=== PATIENT | male | born 1950 | race Caucasian/White ===

== ENCOUNTER 2020-12-19 10:53 | Emergency (ER) | payer MEDICARE, OTHER ==
[2020-12-19 11:08] VITALS: BP 147/100; PULSE 97
--- NOTE | 2020-12-19 11:45 | CR ---
Chest: Portable view of the chest was obtained. Comparison: Prior chest x-ray on 09/15/15. Slight areas of parenchymal change are noted within the left mid and lower lung. Minimal density is noted within the right lower lung. Heart size and mediastinum are normal. Mild degenerative spurring and disc space narrowing is partially seen within the thoracic spine. Impression: 1. Slight areas of parenchymal density are seen. Please correlate if patient has infectious symptoms for this to represent mild areas of pneumonia. Findings otherwise are due to atelectasis. 2. Other findings are felt to be incidental as described above. Diagnostic code #3
[2020-12-19] MEDS ORDERED: Albuterol/Ipratropium 3.0-0.5 MG/3 ML Neb Soln NEB ONE (12:08)
[2020-12-19] MEDS ORDERED: Aspirin 81 MG Tab.Chew PO ONE (12:09)
[2020-12-19] MEDS ORDERED: Sodium Chloride 0.9% 1,000 ML IV STA ×2 (12:14→12:57)
[2020-12-19] MEDS ORDERED: Furosemide 40 MG/4 ML VIAL IVPUSH ONE (12:17)
[2020-12-19] MEDS ORDERED: Insulin Lispro 100 UNIT/ML 10 ML Vial SUBCUT ONE (12:24)
--- NOTE | 2020-12-19 12:29 | EDM.PDOC ---
ED HPI GENERAL MEDICAL PROBLEM - General Chief Complaint: Respiratory Problem Stated Complaint: [facility] Time Seen by Provider: 12/19/20 11:50 Source of Information: Reports: Patient, RN Notes Reviewed History Limitations: Reports: No Limitations - History of Present Illness INITIAL COMMENTS - FREE TEXT/NARRATIVE: Patient is a 70-year-old male presenting to the emergency department via [facility] with complaints of onset of acute shortness of breath and chest pain while mowing the lawn today. He reports that he has been very fatigued for the last few days. He has been "mowing the lawn for the last 2 days ". He has had to stop numerous times due to fatigue and shortness of breath. He reports that over the last week he has been suffering from a "head cold" which improved a few days ago. He has had no fever chills but did have some diarrhea. He is a type II diabetic and states that his blood sugars have been very poorly controlled for quite some time. Reports blood sugars in the 300s quite frequently. He is taken toujeo 35 units twice daily as well as Humalog sliding scale. Blood sugar this morning was 196 and he took 4 units of Humalog prior to eating breakfast. He denies any history of AL or congestive heart failure. States in 2016 he was admitted for high blood sugars. At that time there was concern that he may have had a heart attack as he had elevated troponins, however he was sent to [place] for complete cardiac work-up and no abnormalities were found. His primary care provider is Dr. Collins. He saw him about 1 week ago and there were no concerns. Chest Pain Score (Numeric/FACES): 8 - Related Data Allergies Allergy/AdvReac Type Severity Reaction Status Date / Time No Known Allergies Allergy Verified 09/15/15 13:23 Home Meds: Home Meds Insulin Aspart [NovoLOG] 3 unit SQ ASDIRECTED 12/19/20 [History] Insulin Glargine,Hum.Rec.Anlog [Toujeo Solostar] 85 units SQ DAILY 12/19/20 [History] Pantoprazole Sodium [Protonix] 40 mg PO DAILY 12/19/20 [History] atorvaSTATin [Lipitor] 20 mg PO BEDTIME 12/19/20 [History] glipiZIDE [Glipizide ER] 5 mg PO DAILY 12/19/20 [History] hydroCHLOROthiazide [Hydrochlorothiazide] 25 mg PO DAILY 12/19/20 [History] lisinopriL [Lisinopril] 40 mg PO DAILY 12/19/20 [History] Past Medical History - Past Health History Medical/Surgical History: Denies Medical/Surgical History HEENT History: Reports: None Cardiovascular History: Reports: None Respiratory History: Reports: None Gastrointestinal History: Reports: Other (See Below) Other Gastrointestinal History: hernia Genitourinary History: Reports: None Musculoskeletal History: Reports: None Neurological History: Reports: None Psychiatric History: Reports: None Endocrine/Metabolic History: Reports: None Hematologic History: Reports: None Dermatologic History: Reports: None - Past Surgical History Head Surgeries/Procedures: Reports: None HEENT Surgical History: Reports: None Cardiovascular Surgical History: Reports: None Respiratory Surgical History: Reports: None GI Surgical History: Reports: Hernia Repair/Other Male Surgical History: Reports: None Endocrine Surgical History: Reports: None Neurological Surgical History: Reports: None Musculoskeletal Surgical History: Reports: None Oncologic Surgical History: Reports: None Dermatological Surgical History: Reports: None Social & Family History - Family History Family Medical History: No Pertinent Family History Cardiac: Reports: AL Endocrine/Metabolic: Reports: Diabetes, type II - Tobacco Use Tobacco Use Status *Q: Never Tobacco User ED ROS GENERAL - Review of Systems Review Of Systems: See Below Constitutional: Reports: Weakness, Fatigue. Denies: Fever, Chills HEENT: Reports: No Symptoms Respiratory: Reports: Shortness of Breath, Wheezing, Pleuritic Chest Pain. Denies: Cough Cardiovascular: Reports: Chest Pain, Dyspnea on Exertion. Denies: Lightheadedness, Palpitations, Syncope Endocrine: Reports: High Glucose GI/Abdominal: Reports: No Symptoms. Denies: Abdominal Pain, Diarrhea, Nausea, Vomiting ED EXAM, GENERAL - Physical Exam Exam: See Below Exam Limited By: No Limitations General Appearance: Alert, WD/WN, No Apparent Distress Respiratory/Chest: No Respiratory Distress, Normal Breath Sounds, No Accessory Muscle Use, Chest Non-Tender, Crackles (bilateral lower lobes). No: Wheezing Cardiovascular: Normal Peripheral Pulses, Regular Rate, Rhythm, No Edema, No Gallop, No JVD, No Murmur, No Rub GI/Abdominal: Normal Bowel Sounds, Soft, Non-Tender, No Organomegaly, No Distention, No Abnormal Bruit, No Mass Neurological: Alert, Oriented, CN II-XII Intact, Normal Cognition, Normal Gait, Normal Reflexes, No Motor/Sensory Deficits Psychiatric: Normal Affect, Normal Mood Skin Exam: Warm, Dry, Intact, Normal Color, No Rash #1 Interpretation EKG Date: 12/19/20 Time: 11:08 Rhythm: NSR Rate (Beats/Min): 92 Wiggins: Normal P-Wave: Present QRS: Normal ST-T: Normal QT: Prolonged (minimally) EKG Interpretation Comments: Sinus rhythm at 92/min Left atrial hypertrophy Borderline criteria for left ventricular hypertrophy QTC minimally prolonged EKG interpreted by Dr. Karen SCOTT Course - Vital Signs Last Recorded V/S: Last Vital Signs Temp 97.9 F 12/19/20 11:03 Pulse 97 12/19/20 11:03 Resp 18 12/19/20 11:03 BP 147/100 H 12/19/20 11:03 Pulse Ox 99 12/19/20 12:08 - Orders/Labs/Meds Labs: Laboratory Tests 12/19/20 12/19/20 12/19/20 Range/Units 11:33 11:33 11:33 WBC 6.22 (4.23-9.07) K/mm3 RBC 5.11 (4.63-6.08) M/mm3 Hgb 15.5 (13.7-17.5) gm/dl Hct 45.2 (40.1-51.0) % MCV 88.5 (79.0-92.2) fl MCH 30.3 (25.7-32.2) pg MCHC 34.3 (32.2-35.5) g/dl RDW Std Deviation 42.1 (35.1-43.9) fL Plt Count 173 (163-337) K/mm3 MPV 10.1 (9.4-12.3) fl Neut % (Auto) 75.5 H (34.0-67.9) % Lymph % (Auto) 14.3 L (21.8-53.1) % [place] % (Auto) 9.3 (5.3-12.2) % Eos % (Auto) 0.2 L (0.8-7.0) Baso % (Auto) 0.2 (0.1-1.2) % Neut # (Auto) 4.70 (1.78-5.38) K/mm3 Lymph # (Auto) 0.89 L (1.32-3.57) K/mm3 [place] # (Auto) 0.58 (0.30-0.82) K/mm3 Eos # (Auto) 0.01 L (0.04-0.54) K/mm3 Baso # (Auto) 0.01 (0.01-0.08) K/mm3 D-Dimer, Quantitative 0.73 H (0.19-0.50) mg/L Sodium 130 L D (136-145) mEq/L Potassium 5.2 H (3.5-5.1) mEq/L Chloride 96 L D (98-107) mEq/L Carbon Dioxide 17 L (21-32) mEq/L Anion Gap 22.2 H (5-15) BUN 106 H D (7-18) mg/dL Creatinine 5.6 H D (0.7-1.3) mg/dL Est Cr Clr Drug Dosing TNP Estimated GFR (MDRD) 10 (>60) mL/min BUN/Creatinine Ratio 18.9 H (14-18) Glucose 493 H* (70-99) mg/dL POC Glucose (70-99) mg/dL Lactic Acid (0.4-2.0) mmol/L Calcium 8.4 L (8.5-10.1) mg/dL Total Bilirubin 0.3 (0.2-1.0) mg/dL AST 36 (15-37) U/L ALT 58 (16-63) U/L Alkaline Phosphatase 59 (46-116) U/L Troponin I 0.166 H* (0.00-0.056) ng/mL NT-Pro-B Natriuret Pep (0-125) pg/mL Total Protein 7.6 (6.4-8.2) g/dl Albumin 2.9 L (3.4-5.0) g/dl Globulin 4.7 gm/dL Albumin/Globulin Ratio 0.6 L (1-2) Ketones (0.0-0.3) mM SARS-CoV-2 RNA (LARA) (NEGATIVE) 12/19/20 12/19/20 12/19/20 Range/Units 11:33 11:33 12:05 WBC (4.23-9.07) K/mm3 RBC (4.63-6.08) M/mm3 Hgb (13.7-17.5) gm/dl Hct (40.1-51.0) % MCV (79.0-92.2) fl MCH (25.7-32.2) pg MCHC (32.2-35.5) g/dl RDW Std Deviation (35.1-43.9) fL Plt Count (163-337) K/mm3 MPV (9.4-12.3) fl Neut % (Auto) (34.0-67.9) % Lymph % (Auto) (21.8-53.1) % [place] % (Auto) (5.3-12.2) % Eos % (Auto) (0.8-7.0) Baso % (Auto) (0.1-1.2) % Neut # (Auto) (1.78-5.38) K/mm3 Lymph # (Auto) (1.32-3.57) K/mm3 [place] # (Auto) (0.30-0.82) K/mm3 Eos # (Auto) (0.04-0.54) K/mm3 Baso # (Auto) (0.01-0.08) K/mm3 D-Dimer, Quantitative (0.19-0.50) mg/L Sodium (136-145) mEq/L Potassium (3.5-5.1) mEq/L Chloride (98-107) mEq/L Carbon Dioxide (21-32) mEq/L Anion Gap (5-15) BUN (7-18) mg/dL Creatinine (0.7-1.3) mg/dL Est Cr Clr Drug Dosing Estimated GFR (MDRD) (>60) mL/min BUN/Creatinine Ratio (14-18) Glucose (70-99) mg/dL POC Glucose (70-99) mg/dL Lactic Acid (0.4-2.0) mmol/L Calcium (8.5-10.1) mg/dL Total Bilirubin (0.2-1.0) mg/dL AST (15-37) U/L ALT (16-63) U/L Alkaline Phosphatase (46-116) U/L Troponin I (0.00-0.056) ng/mL NT-Pro-B Natriuret Pep 83 (0-125) pg/mL Total Protein (6.4-8.2) g/dl Albumin (3.4-5.0) g/dl Globulin gm/dL Albumin/Globulin Ratio (1-2) Ketones 0.34 (0.0-0.3) mM SARS-CoV-2 RNA (LARA) Positive H (NEGATIVE) 12/19/20 12/19/20 Range/Units 12:32 14:15 WBC (4.23-9.07) K/mm3 RBC (4.63-6.08) M/mm3 Hgb (13.7-17.5) gm/dl Hct (40.1-51.0) % MCV (79.0-92.2) fl MCH (25.7-32.2) pg MCHC (32.2-35.5) g/dl RDW Std Deviation (35.1-43.9) fL Plt Count (163-337) K/mm3 MPV (9.4-12.3) fl Neut % (Auto) (34.0-67.9) % Lymph % (Auto) (21.8-53.1) % [place] % (Auto) (5.3-12.2) % Eos % (Auto) (0.8-7.0) Baso % (Auto) (0.1-1.2) % Neut # (Auto) (1.78-5.38) K/mm3 Lymph # (Auto) (1.32-3.57) K/mm3 [place] # (Auto) (0.30-0.82) K/mm3 Eos # (Auto) (0.04-0.54) K/mm3 Baso # (Auto) (0.01-0.08) K/mm3 D-Dimer, Quantitative (0.19-0.50) mg/L Sodium (136-145) mEq/L Potassium (3.5-5.1) mEq/L Chloride (98-107) mEq/L Carbon Dioxide (21-32) mEq/L Anion Gap (5-15) BUN (7-18) mg/dL Creatinine (0.7-1.3) mg/dL Est Cr Clr Drug Dosing Estimated GFR (MDRD) (>60) mL/min BUN/Creatinine Ratio (14-18) Glucose (70-99) mg/dL POC Glucose 549 H* (70-99) mg/dL Lactic Acid 1.4 (0.4-2.0) mmol/L Calcium (8.5-10.1) mg/dL Total Bilirubin (0.2-1.0) mg/dL AST (15-37) U/L ALT (16-63) U/L Alkaline Phosphatase (46-116) U/L Troponin I (0.00-0.056) ng/mL NT-Pro-B Natriuret Pep (0-125) pg/mL Total Protein (6.4-8.2) g/dl Albumin (3.4-5.0) g/dl Globulin gm/dL Albumin/Globulin Ratio (1-2) Ketones (0.0-0.3) mM SARS-CoV-2 RNA (LARA) (NEGATIVE) Meds: Medications Discontinued Medications Generic Name Dose Route Start Last Admin Trade Name Freq PRN Reason Stop Dose Admin Albuterol/Ipratropium 3 ml 12/19/20 12:08 12/19/20 12:27 Albuterol/Ipratropium 3.0-0.5 Mg/3 Ml Neb Soln NEB 12/19/20 12:09 3 ml ONETIME ONE Administration Aspirin 243 mg 12/19/20 12:09 12/19/20 12:52 Aspirin 81 Mg Tab.Chew PO 12/19/20 12:10 243 mg ONETIME ONE Administration Furosemide 80 mg 12/19/20 12:17 12/19/20 12:52 Furosemide 40 Mg/4 Ml Vial IVPUSH 12/19/20 12:18 80 mg NOW ONE Administration Sodium Chloride 1,000 mls @ 999 mls/hr 12/19/20 12:14 Normal Saline IV 12/19/20 13:14 NOW STA Sodium Chloride 1,000 mls @ 100 mls/hr 12/19/20 12:57 12/19/20 14:28 Normal Saline IV 12/19/20 22:56 100 mls/hr NOW STA Administration Insulin Human Lispro 12 unit 12/19/20 12:24 Insulin Lispro 100 Unit/Ml 10 Ml Vial SUBCUT 12/19/20 12:25 ONETIME ONE Insulin Human Regular 12 unit 12/19/20 12:36 12/19/20 12:52 Insulin Regular, Human 100 Units/Ml 3 Ml Vial SUBCUT 12/19/20 12:37 12 unit ONETIME ONE Administration Insulin Human Regular 12 unit 12/19/20 14:20 12/19/20 14:28 Insulin Regular, Human 100 Units/Ml 3 Ml Vial SUBCUT 12/19/20 14:21 12 unit ONETIME ONE Administration - Re-Assessments/Exams Free Text/Narrative Re-Assessment/Exam: 12/19/20 12:35 Hematology was significant for sodium low at 130, potassium elevated at 5.2, chloride 96, CO2 17, anion gap 22.2, BUN 106, creatinine 5.6, GFR 10, glucose 493, troponin 0 0.166. On exam, patient does have crackles to the bilateral lower lobes. He denies any chest pain at this time but does have some di scomfort with taking a deep breath. Chest x-ray shows slight areas of parenchymal density. Please correlate if patient has infectious symptoms for this to represent mild areas of pneumonia. Findings otherwise noted atelectasis. Patient's labs indicate that he is in renal failure and his shortness of breath is likely due to fluid overload. I have added on a proBNP, D-dimer, lactic acid, and serum ketones. Case discussed with Dr. Jones. He recommend giving Lasix 80 mg IV now as well as Humalog 12 units subcutaneous. Patient will need to go to [place] once results are available. Discussed this with patient and he prefers [facility] in [place]. 12/19/20 1300 Spoke with hospitalist at [facility], . He recommended we start IV fluids of NS at 100 mils per hour. Requested I speak to cardiology to ensure that they do not want him started on a heparin drip. Spoke with print color operator, Dr. Mejia. She did not recommend starting heparin drip as he is not actively having chest pain. Patient will be transferred to [place] via [facility]. I have ordered IV fluids of NS at 100 mill per hour to be started. We will plan to recheck his blood sugar approximately 1 hour from insulin administration. 12/19/20 14:17 Patient was found to be Covid positive. Repeat blood glucose was 549. I have ordered an additional 12 units of regular insulin to be given subcutaneously. Patient is departing ER now for transfer to [place]. I will have EMS recheck blood glucose at 1450. Called [facility] and spk with Jose Luis to update him on blood glucose and insulin administration. He will update the hospitalist. Departure - Departure Time of Disposition: 13:00 Disposition: DC/Tfer to Acute Hospital 02 Condition: Fair Clinical Impression: COVID-19, Elevated troponin level not due myocardial infarction Acute on chronic renal failure Qualifiers: Acute renal failure type: unspecified Chronic kidney disease stage: stage 5, not on chronic dialysis Qualified Code(s): N17.9 - Acute kidney failure, unspecified - Discharge Information Referrals: Ke Barksdale MD [Primary Care Provider] - Forms: ED Department Discharge Sepsis Event Note (ED) - Evaluation Sepsis Screening Result: No Definite Risk - Focused Exam Vital Signs: Vital Signs Temp Pulse Resp BP Pulse Ox Pulse Ox 12/19/20 12:08 99 12/19/20 11:03 97.9 F 97 18 147/100 H 94 L
[2020-12-19] MEDS ORDERED: Insulin Regular, Human 100 Units/ML 3 ML Vial SUBCUT ONE ×2 (12:36→14:20)
== END 2020-12-19 14:30 ==
LOC: JD.ED 10:53
DX: U07.1 COVID-19 (principal); N17.9 Acute kidney failure, unspecified; R79.89 Other specified abnormal findings of blood chemistry
CPT/HCPCS: 36415; 71045; 80053; 82009; 82947; 83605; 83880; 84484; 85025; 85379; 93005; 94640; 96374; 99285; A9270; J1815; J1940; J7030; U0002; 93010; 99284; J7620-GY

== ENCOUNTER 2021-01-18 08:31 | Inpatient (IN) | payer MEDICARE, OTHER ==
[2021-01-18] MEDS ORDERED: Albuterol/Ipratropium 3.0-0.5 MG/3 ML Neb Soln NEB ONE (09:00)
[2021-01-18] MEDS ORDERED: methylPREDNISolone Sodium Succinate 125 MG/2 ML SDV IVPUSH ONE (09:00)
--- NOTE | 2021-01-18 09:24 | CR ---
Chest: Portable view of the chest was obtained. Comparison: Prior chest x-ray of 12/19/20. Patchy areas of increased density are seen on both sides of the chest. Findings have worsened from prior chest x-ray. Heart size and mediastinum are within normal limits. Scattered end plate spurring is noted within the thoracic spine. Impression: 1. Prominent increasing density on both sides of the chest raising the possibility of diffuse pneumonia. Please correlate if patient has COVID disease. 2. No other acute abnormality is seen. Diagnostic code #3
[2021-01-18] MEDS ORDERED: Sodium Chloride 0.9% 1,000 ML IV SCH ×2 (09:30→12:00)
[2021-01-18] MEDS ORDERED: Iopamidol 755 Mg/ML 100 ML Bottle IVPUSH ONE (09:42)
[2021-01-18] MEDS ORDERED: Sodium Chloride 0.9% 10 ML Syringe FLUSH PRN (09:42)
[2021-01-18] MEDS ORDERED: Sodium Chloride 0.9% 100 ML IV SCH (09:45)
--- NOTE | 2021-01-18 09:53 | EDM.PDOC ---
ED HPI GENERAL MEDICAL PROBLEM - General Chief Complaint: Respiratory Problem Stated Complaint: SOB Time Seen by Provider: 01/18/21 08:50 Source of Information: Reports: Patient, Family History Limitations: Reports: No Limitations - History of Present Illness INITIAL COMMENTS - FREE TEXT/NARRATIVE: The patient presents with shortness of breath and left sided chest pain. The babs romero was seen here back December 11 for shortness of breath and was diagnosed with COVID 19. He was sent to [facility]. He says he was in the hospital for 13 days. He was released on 01/02/21. He was given home oxygen. For about 2 weeks he has been doing good. For the past few days he has been getting more short of breath. He has chills and a cough. He has chest pain to the left chest. That has been there since he left the hospital on 01/02/21. He is requiring more oxygen. He has generalized weakness. He has no history of lung problems before COVID. He did smoke when he was a teenager but has not touched it since. He has no abdominal pain, nausea, vomiting or diarrhea. He has a history of atrial fibrillation and he is on eliquis. He has no swelling or pain in his legs. Onset: Gradual Duration: Day(s): Location: Reports: Chest Quality: Reports: Pressure Severity: Mild Improves with: Reports: None Worsens with: Reports: None Associated Symptoms: Reports: Chest Pain, Cough, Fever/Chills, Shortness of Breath. Denies: Headaches, Nausea/Vomiting Left Lower Chest Pain Score (Numeric/FACES): 6 - Related Data Allergies Allergy/AdvReac Type Severity Reaction Status Date / Time No Known Allergies Allergy Verified 09/15/15 13:23 Home Meds: Home Meds Insulin Aspart [NovoLOG] 3 unit SQ ASDIRECTED 12/19/20 [History] Insulin Glargine,Hum.Rec.Anlog [Toumarlineo Solostar] 85 units SQ DAILY 12/19/20 [History] Pantoprazole Sodium [Protonix] 40 mg PO DAILY 12/19/20 [History] atorvaSTATin [Lipitor] 20 mg PO BEDTIME 12/19/20 [History] glipiZIDE [Glipizide ER] 5 mg PO DAILY 12/19/20 [History] lisinopriL [Lisinopril] 40 mg PO DAILY 12/19/20 [History] Albuterol/Ipratropium [DuoNeb 3.0-0.5 MG/3 ML] 1 puff INH QID 01/18/21 [History] Apixaban [Eliquis] 5 mg PO DAILY 01/18/21 [History] Aspirin 81 mg PO DAILY 01/18/21 [History] Budesonide/Formoterol Fumarate [Budesonide-Formoterol 80-4.5] 2 puff IH BID 01/18/21 [History] Metoprolol Tartrate 12.5 mg PO BID 01/18/21 [History] Past Medical History - Past Health History Medical/Surgical History: Denies Medical/Surgical History HEENT History: Reports: Impaired Vision Cardiovascular History: Reports: Afib Respiratory History: Reports: Other (See Below) Other Respiratory History: COVID Gastrointestinal History: Reports: Other (See Below) Other Gastrointestinal History: hernia Genitourinary History: Reports: None Musculoskeletal History: Reports: None Neurological History: Reports: None Psychiatric History: Reports: None Endocrine/Metabolic History: Reports: Diabetes, Type II Hematologic History: Reports: None Dermatologic History: Reports: None - Past Surgical History Head Surgeries/Procedures: Reports: None HEENT Surgical History: Reports: None Cardiovascular Surgical History: Reports: None Respiratory Surgical History: Reports: None GI Surgical History: Reports: Hernia Repair/Other Male Surgical History: Reports: None Endocrine Surgical History: Reports: None Neurological Surgical History: Reports: None Musculoskeletal Surgical History: Reports: None Oncologic Surgical History: Reports: None Dermatological Surgical History: Reports: None Social & Family History - Family History Family Medical History: No Pertinent Family History Cardiac: Reports: MO Endocrine/Metabolic: Reports: Diabetes, type II - Tobacco Use Tobacco Use Status *Q: Never Tobacco User - Recreational Drug Use Recreational Drug Use: No ED ROS GENERAL - Review of Systems Review Of Systems: See Below Constitutional: Reports: Fever, Chills, Malaise, Weakness, Fatigue HEENT: Reports: No Symptoms Respiratory: Reports: Shortness of Breath, Cough Cardiovascular: Reports: Chest Pain Endocrine: Reports: No Symptoms GI/Abdominal: Reports: No Symptoms : Reports: No Symptoms Musculoskeletal: Reports: No Symptoms ED EXAM, GENERAL - Physical Exam Exam: See Below Exam Limited By: No Limitations General Appearance: Alert, No Apparent Distress Ears: Normal External Exam Nose: Normal Inspection Head: Atraumatic, Normocephalic Neck: Normal Inspection Respiratory/Chest: No Respiratory Distress, Decreased Breath Sounds Cardiovascular: No Edema, No Murmur, Tachycardia GI/Abdominal: Soft, Non-Tender, No Organomegaly, No Mass Back Exam: Normal Inspection Extremities: Normal Inspection #1 Interpretation EKG Date: 01/18/21 Time: 08:47 Rhythm: Other (sinus tachycardia) Rate (Beats/Min): 119 Parkin: Normal P-Wave: Present QRS: Normal ST-T: Normal QT: Normal Course - Vital Signs Last Recorded V/S: Last Vital Signs Temp 97.7 F 01/18/21 08:38 Pulse 108 H 01/18/21 10:30 Resp 24 H 01/18/21 10:30 BP 105/66 01/18/21 10:30 Pulse Ox 90 L 01/18/21 10:30 - Orders/Labs/Meds Orders: Active Orders 24 hr Category Date Time Status EKG Documentation Completion [RC] ASDIRECTED Care 01/18/21 08:45 Active RT Aerosol Therapy [RC] ASDIRECTED Care 01/18/21 09:00 Active CORONAVIRUS COVID-19 LARA [MOLEC] Stat Lab 01/18/21 09:02 Ordered CULTURE BLOOD [BC] Stat Lab 01/18/21 09:20 Received CULTURE BLOOD [BC] Stat Lab 01/18/21 09:35 Received Sodium Chloride 0.9% [Normal Saline] 1,000 ml Med 01/18/21 09:30 Active IV ASDIRECTED Sodium Chloride 0.9% [Normal Saline] 100 ml Med 01/18/21 09:45 Active IV ASDIRECTED Sodium Chloride 0.9% [Saline Flush] Med 01/18/21 09:42 Active 10 ml FLUSH ONETIME PRN Blood Culture x2 Reflex Set [OM.PC] Stat Oth 01/18/21 09:12 Ordered EKG 12 Lead [EK] Stat Ther 01/18/21 08:44 Ordered Medication Orders Sodium Chloride (Normal Saline) 1,000 mls @ 150 mls/hr IV ASDIRECTED JAYDEN Last Admin: 01/18/21 09:27 Dose: 150 mls/hr Documented by: RYAN Sodium Chloride (Normal Saline) 100 mls @ 75 mls/hr IV ASDIRECTED JAYDEN Last Admin: 01/18/21 10:02 Dose: 75 mls/hr Documented by: TAMARA Sodium Chloride (Sodium Chloride 0.9% 10 Ml Syringe) 10 ml FLUSH ONETIME PRN PRN Reason: IV FLUSH Last Admin: 01/18/21 10:02 Dose: 10 ml Documented by: TAMARA Labs: Laboratory Tests 01/18/21 01/18/21 01/18/21 Range/Units 08:45 08:45 08:45 WBC 10.56 H (4.23-9.07) K/mm3 RBC 4.31 L (4.63-6.08) M/mm3 Hgb 12.7 L D (13.7-17.5) gm/dl Hct 38.6 L (40.1-51.0) % MCV 89.6 (79.0-92.2) fl MCH 29.5 (25.7-32.2) pg MCHC 32.9 (32.2-35.5) g/dl RDW Std Deviation 43.7 (35.1-43.9) fL Plt Count 409 H D (163-337) K/mm3 MPV 8.4 L (9.4-12.3) fl Neut % (Auto) 72.3 H (34.0-67.9) % Lymph % (Auto) 11.5 L (21.8-53.1) % [place] % (Auto) 11.6 (5.3-12.2) % Eos % (Auto) 3.3 (0.8-7.0) Baso % (Auto) 0.5 (0.1-1.2) % Neut # (Auto) 7.64 H (1.78-5.38) K/mm3 Lymph # (Auto) 1.21 L (1.32-3.57) K/mm3 [place] # (Auto) 1.23 H (0.30-0.82) K/mm3 Eos # (Auto) 0.35 (0.04-0.54) K/mm3 Baso # (Auto) 0.05 (0.01-0.08) K/mm3 Manual Slide Review Normal smear D-Dimer, Quantitative 5.12 H (0.19-0.50) mg/L Puncture Site ABG pH (7.35-7.45) ABG pCO2 (35.0-45.0) mmHg ABG pO2 (80.0-100.0) mmHg ABG HCO3 (22.0-26.0) meq/L ABG O2 Saturation (96.0-97.0) % ABG Base Excess (-2-2.0) Rosendo Test A-a Gradient mmHg O2 Delivery Device Oxygen Flow Rate FiO2 (21.00-100.00) % Sodium 137 (136-145) mEq/L Potassium 4.3 (3.5-5.1) mEq/L Chloride 101 (98-107) mEq/L Carbon Dioxide 20 L (21-32) mEq/L Anion Gap 20.3 H (5-15) BUN 32 H D (7-18) mg/dL Creatinine 1.7 H D (0.7-1.3) mg/dL Est Cr Clr Drug Dosing 40.43 mL/min Estimated GFR (MDRD) 40 (>60) mL/min BUN/Creatinine Ratio 18.8 H (14-18) Glucose 204 H (70-99) mg/dL Lactic Acid (0.4-2.0) mmol/L Calcium 9.2 (8.5-10.1) mg/dL Total Bilirubin 0.5 (0.2-1.0) mg/dL AST 38 H (15-37) U/L ALT 46 (16-63) U/L Alkaline Phosphatase 80 (46-116) U/L Troponin I 0.074 H* (0.00-0.056) ng/mL C-Reactive Protein 41.4 H* (<1.0) mg/dL NT-Pro-B Natriuret Pep (0-125) pg/mL Total Protein 8.1 (6.4-8.2) g/dl Albumin 2.4 L (3.4-5.0) g/dl Globulin 5.7 gm/dL Albumin/Globulin Ratio 0.4 L (1-2) 01/18/21 01/18/21 01/18/21 Range/Units 08:45 09:25 09:35 WBC (4.23-9.07) K/mm3 RBC (4.63-6.08) M/mm3 Hgb (13.7-17.5) gm/dl Hct (40.1-51.0) % MCV (79.0-92.2) fl MCH (25.7-32.2) pg MCHC (32.2-35.5) g/dl RDW Std Deviation (35.1-43.9) fL Plt Count (163-337) K/mm3 MPV (9.4-12.3) fl Neut % (Auto) (34.0-67.9) % Lymph % (Auto) (21.8-53.1) % [place] % (Auto) (5.3-12.2) % Eos % (Auto) (0.8-7.0) Baso % (Auto) (0.1-1.2) % Neut # (Auto) (1.78-5.38) K/mm3 Lymph # (Auto) (1.32-3.57) K/mm3 [place] # (Auto) (0.30-0.82) K/mm3 Eos # (Auto) (0.04-0.54) K/mm3 Baso # (Auto) (0.01-0.08) K/mm3 Manual Slide Review D-Dimer, Quantitative (0.19-0.50) mg/L Puncture Site Lt radial ABG pH 7.41 (7.35-7.45) ABG pCO2 25.4 L (35.0-45.0) mmHg ABG pO2 62.0 L (80.0-100.0) mmHg ABG HCO3 15.9 L (22.0-26.0) meq/L ABG O2 Saturation 92.4 L (96.0-97.0) % ABG Base Excess -6.8 L (-2-2.0) Rosendo Test Positive A-a Gradient 135 mmHg O2 Delivery Device Nasal cannula Oxygen Flow Rate 3.0 FiO2 32.00 (21.00-100.00) % Sodium (136-145) mEq/L Potassium (3.5-5.1) mEq/L Chloride (98-107) mEq/L Carbon Dioxide (21-32) mEq/L Anion Gap (5-15) BUN (7-18) mg/dL Creatinine (0.7-1.3) mg/dL Est Cr Clr Drug Dosing mL/min Estimated GFR (MDRD) (>60) mL/min BUN/Creatinine Ratio (14-18) Glucose (70-99) mg/dL Lactic Acid 1.2 (0.4-2.0) mmol/L Calcium (8.5-10.1) mg/dL Total Bilirubin (0.2-1.0) mg/dL AST (15-37) U/L ALT (16-63) U/L Alkaline Phosphatase (46-116) U/L Troponin I (0.00-0.056) ng/mL C-Reactive Protein (<1.0) mg/dL NT-Pro-B Natriuret Pep 1666 H (0-125) pg/mL Total Protein (6.4-8.2) g/dl Albumin (3.4-5.0) g/dl Globulin gm/dL Albumin/Globulin Ratio (1-2) Meds: Medications Generic Name Dose Route Start Last Admin Trade Name Wil PRN Reason Stop Dose Admin Sodium Chloride 1,000 mls @ 150 mls/hr 01/18/21 09:30 01/18/21 09:27 Normal Saline IV 150 mls/hr ASDIRECTED JAYDEN Administration Sodium Chloride 100 mls @ 75 mls/hr 01/18/21 09:45 01/18/21 10:02 Normal Saline IV 75 mls/hr ASDIRECTED JAYDEN Administration Sodium Chloride 10 ml 01/18/21 09:42 01/18/21 10:02 Sodium Chloride 0.9% 10 Ml Syringe FLUSH 10 ml ONETIME PRN Administration IV FLUSH Discontinued Medications Generic Name Dose Route Start Last Admin Trade Name Wil PRN Reason Stop Dose Admin Albuterol/Ipratropium 3 ml 01/18/21 09:00 01/18/21 09:20 Albuterol/Ipratropium 3.0-0.5 Mg/3 Ml Neb Soln NEB 01/18/21 09:01 3 ml ONETIME ONE Administration Ceftriaxone Sodium 2 gm/ 100 mls @ 200 mls/hr 01/18/21 10:02 01/18/21 10:31 Sodium Chloride IV 01/18/21 10:31 200 mls/hr ONETIME ONE Administration Insulin Human Lispro 5 unit 01/18/21 10:43 01/18/21 10:59 Insulin Lispro 100 Unit/Ml 10 Ml Vial SUBCUT 01/18/21 10:44 5 unit ONETIME ONE Administration Iopamidol 100 ml 01/18/21 09:42 01/18/21 10:02 Iopamidol 755 Mg/Ml 100 Ml Bottle IVPUSH 01/18/21 09:43 100 ml ONETIME ONE Administration Methylprednisolone Sodium Succinate 125 mg 01/18/21 09:00 01/18/21 09:08 Methylprednisolone Sodium Succinate 125 Mg/2 Ml Sdv IVPUSH 01/18/21 09:01 125 mg ONETIME ONE Administration - Re-Assessments/Exams Free Text/Narrative Re-Assessment/Exam: 01/18/21 09:55 I ordered oxygen, IV saline lock, EKG, CXR, labs, blood cultures, lactic acid, duoneb, solu-medrol 125mg IV, and ABG. His EKG shows a sinus tachycardia at a rate of 119. His CXR shows bilateral infiltrates worse then when he had COVID 19 5 weeks ago. 01/18/21 10:55 His WBC is elevated at 10.56. His Hgb was low at 12.7. His platelets are elevated at 409. His D-dimer was elevated at 5.12. His PCO2 was low at 25.4. His pO2 is low at 62. His anion gap was elevated at 20.3. His creatinine was elevated at 1.7. his GFR is 40. His glucose is 204. His AST is elevated at 38. His troponin is elevated at 0.074. His CRP is elevated at 41.4. His BNP is elevated at 1606. 01/18/21 10:58 His lactic is normal at 1.2. 01/18/21 10:59 I upped his oxygen and ordered NS at 150ml/hr and a CT angio of his chest. His chest CT shows diffuse increased density on both sides of the chest compatible with diffuse pneumonia. Vague areas of poor enhancement within the main pulmonary arteries on both sides. This most likely artifact. No definite findings of pulmonary embolism are seen. Incidental degenerative change within the spine. I ordered rocephin. He has bilateral pneumonia. Departure - Departure Time of Disposition: 11:15 Disposition: Admitted As Inpatient 66 Condition: Serious Clinical Impression: Renal insufficiency, Hypoxia Pneumonia Qualifiers: Pneumonia type: due to unspecified organism Laterality: bilateral Lung location: unspecified part of lung Qualified Code(s): J18.9 - Pneumonia, unspecified organism - Discharge Information Referrals: Ke Barksdale MD [Primary Care Provider] - Forms: ED Department Discharge Sepsis Event Note (ED) - Evaluation Sepsis Screening Result: Possible Sepsis Risk - Focused Exam Vital Signs: Vital Signs Temp Pulse Resp BP Pulse Ox Pulse Ox 01/18/21 10:30 108 H 24 H 105/66 90 L 01/18/21 09:21 92 L 01/18/21 08:38 97.7 F 127 H 27 H 88 L - My Orders Last 24 Hours: My Active Orders 01/18/21 08:44 EKG 12 Lead [EK] Stat 01/18/21 08:45 EKG Documentation Completion [RC] ASDIRECTED 01/18/21 09:00 RT Aerosol Therapy [RC] ASDIRECTED 01/18/21 09:02 CORONAVIRUS COVID-19 LARA [MOLEC] Stat 01/18/21 09:12 Blood Culture x2 Reflex Set [OM.PC] Stat 01/18/21 09:20 CULTURE BLOOD [BC] Stat 01/18/21 09:30 Sodium Chloride 0.9% [Normal Saline] 1,000 ml IV ASDIRECTED 01/18/21 09:35 CULTURE BLOOD [BC] Stat 01/18/21 09:42 Sodium Chloride 0.9% [Saline Flush] 10 ml FLUSH ONETIME PRN 01/18/21 09:45 Sodium Chloride 0.9% [Normal Saline] 100 ml IV ASDIRECTED - Assessment/Plan Last 24 Hours: My Active Orders 01/18/21 08:44 EKG 12 Lead [EK] Stat 01/18/21 08:45 EKG Documentation Completion [RC] ASDIRECTED 01/18/21 09:00 RT Aerosol Therapy [RC] ASDIRECTED 01/18/21 09:02 CORONAVIRUS COVID-19 LARA [MOLEC] Stat 01/18/21 09:12 Blood Culture x2 Reflex Set [OM.PC] Stat 01/18/21 09:20 CULTURE BLOOD [BC] Stat 01/18/21 09:30 Sodium Chloride 0.9% [Normal Saline] 1,000 ml IV ASDIRECTED 01/18/21 09:35 CULTURE BLOOD [BC] Stat 01/18/21 09:42 Sodium Chloride 0.9% [Saline Flush] 10 ml FLUSH ONETIME PRN 01/18/21 09:45 Sodium Chloride 0.9% [Normal Saline] 100 ml IV ASDIRECTED
[2021-01-18] MEDS ORDERED: cefTRIAXone 2 GM in Sodium Chloride 0.9% 100 ML IV ONE (10:02)
--- NOTE | 2021-01-18 10:20 | CT ---
CT chest Technique: Multiple axial sections through the chest were obtained. Intravenous contrast was utilized. Study has been performed as a pulmonary angiogram protocol. Comparison: Study is compared to previous chest x-ray performed earlier on the same day (08:53 AM). Findings: Pulmonary arteries are well opacified. Both main pulmonary arteries show vague areas of increased density which are most likely artifact. No definite findings of pulmonary embolism are seen. Thoracic aorta shows atherosclerotic change without aneurysm. Small mediastinal lymph nodes are seen and believed to be within normal limits. No pericardial effusion is appreciated. Diffuse parenchymal change is seen within both lungs. Bone window settings were reviewed which show scattered degenerative spurring within the spine. No acute osseous abnormality is appreciated. Impression: 1. Diffuse increased density on both sides of the chest compatible with diffuse pneumonia. 2. Vague areas of poor enhancement within the main pulmonary arteries on both sides. This is most likely artifact. No definite findings of pulmonary embolism are seen. 3. Incidental degenerative change within the spine. Diagnostic code #3
[2021-01-18] MEDS ORDERED: Insulin Lispro 100 UNIT/ML 10 ML Vial SUBCUT ONE (10:43)
[2021-01-18] MEDS ORDERED: Ondansetron 4 MG/2 ML SDV IV PRN (11:37)
[2021-01-18] MEDS ORDERED: Docusate Sodium 100 MG Cap PO PRN (11:37)
[2021-01-18] MEDS ORDERED: Magnesium Hydroxide 400 MG/5 ML Susp 30 ML Cup PO PRN (11:37)
[2021-01-18] MEDS ORDERED: Sodium Chloride 0.9% 250 ML IV ONE (11:43)
[2021-01-18] MEDS ORDERED: Metoprolol Tartrate 5 MG/5 ML SDV IVPUSH PRN (11:49)
[2021-01-18] MEDS ORDERED: 50% Dextrose in Water 50 ML Syringe IVPUSH PRN (12:13)
--- NOTE | 2021-01-18 12:14 | PCM.HP.2 ---
H&P History of Present Illness - General Date of Service: 01/18/21 Admit Problem/Dx: Admission Diagnosis/Problem Admission Diagnosis/Problem Pneumonia Source of Information: Patient, Old Records, Provider, RN, RN Notes Reviewed History Limitations: Reports: No Limitations - History of Present Illness Initial Comments - Free Text/Narative: This is a 70-year-old male who presents to ED on 01/18/2021 with dyspnea and left-sided chest pain along his ribs. He was diagnosed with Covid on December 11 and transferred to [facility] where he was hospitalized for 13 days. He was released on 01-02-2021 on 2 L of home oxygen. Reports he has been doing good up until the last couple of days, in which she has noticed he has been more dyspneic and had accompanying chills, diaphoresis, and a cough. He has been requiring more oxygen and has noticed he has been weak. Denies any prior lung disease before Covid. States he did smoke a little bit as a teenager. Denies any abdominal pain, nausea, vomiting, diarrhea, urinary issues, leg pain, edema. He does have a history of A. fib and is on Eliquis, which he states was started when he was discharged from the hospital. In the ED twelve-lead EKG is obtained showing a sinus tachycardia at 119 bpm. Temp is 97.7. Respirations 28. Blood pressure 105/66. Pulse ox 90%. Labs are obtained showing a mild leukocytosis of 10.56. Hemoglobin is 12.7. He is normocytic. Platelets are elevated at 409,000. Neutrophils are elevated 72.3%. D-dimer is elevated at 5.12. Sodium is 137. Potassium 4.3. Chloride 101. Carbon dioxide 20. Anion gap is 20.3. BUN is 32. Creatinine 1.7. GFR is 40. Glucose is 204. Total bilirubin 0.5. AST is 38, ALT 46, alkaline phosphatase 80. Troponin 0 0.074. CRP is 41.4. Albumin is 2.4. Lactic acid is 1.2. proBNP is 1666. ABGs obtained in the left radial with a pH of 7.41. PCO2 of 25.4. PO2 of 62.0. HCO3 of 15.2. O2 saturation of 92.4. Base excess is -6.8. AA gradient is 135. This is obtained while on 3 L via nasal cannula. Chest x- ray shows prominent increase in density on both sides the chest raising the possibility diffuse pneumonia. Please correlate if patient has Covid disease. No other acute abnormality is seen. CTA is obtained showing diffuse increased density on both sides the chest compatible with diffuse pneumonia. Vague areas of poor enhancement within the main pulmonary arteries on both sides. This is most likely artifact. No definitive findings of pulmonary embolism are seen. Incidental degenerative change within the spine is also noted. Prior troponins are reviewed and on all prior visits patient had mildly elevated troponin. Patient is given 1 DuoNeb and started on Rocephin. Patient is also started on IV fluids. He is given 125 mg Solu-Medrol and 5 units of lispro insulin. He carries a history of A. fib, prior Covid infection, type II DM, and chronic kidney disease. He is a full code. His PCP is Dr. Collins. He subsequently admitted to the medical floor on telemetry for management of his bilateral pneumonia. Left Lower Chest Pain Score (Numeric/FACES): 6 - Related Data Allergies/Adverse Reactions: Allergies Allergy/AdvReac Type Severity Reaction Status Date / Time No Known Allergies Allergy Verified 09/15/15 13:23 Home Medications: Home Meds Insulin Aspart [NovoLOG] 3 unit SQ ASDIRECTED 12/19/20 [History] Insulin Glargine,Hum.Rec.Anlog [Toujeo Solostar] 85 units SQ DAILY 12/19/20 [History] Pantoprazole Sodium [Protonix] 40 mg PO DAILY 12/19/20 [History] atorvaSTATin [Lipitor] 20 mg PO BEDTIME 12/19/20 [History] glipiZIDE [Glipizide ER] 5 mg PO DAILY 12/19/20 [History] lisinopriL [Lisinopril] 40 mg PO DAILY 12/19/20 [History] Albuterol/Ipratropium [DuoNeb 3.0-0.5 MG/3 ML] 1 puff INH QID 01/18/21 [History] Apixaban [Eliquis] 5 mg PO DAILY 01/18/21 [History] Aspirin 81 mg PO DAILY 01/18/21 [History] Budesonide/Formoterol Fumarate [Budesonide-Formoterol 80-4.5] 2 puff IH BID 01/18/21 [History] Metoprolol Tartrate 12.5 mg PO BID 01/18/21 [History] Past Medical History - Past Health History Medical/Surgical History: Denies Medical/Surgical History HEENT History: Reports: Impaired Vision Cardiovascular History: Reports: Afib Respiratory History: Reports: Other (See Below) Other Respiratory History: COVID Gastrointestinal History: Reports: Other (See Below) Other Gastrointestinal History: hernia Genitourinary History: Reports: None Musculoskeletal History: Reports: None Neurological History: Reports: None Psychiatric History: Reports: None Endocrine/Metabolic History: Reports: Diabetes, Type II Hematologic History: Reports: None Dermatologic History: Reports: None - Past Surgical History Head Surgeries/Procedures: Reports: None HEENT Surgical History: Reports: None Cardiovascular Surgical History: Reports: None Respiratory Surgical History: Reports: None GI Surgical History: Reports: Hernia Repair/Other Male Surgical History: Reports: None Endocrine Surgical History: Reports: None Neurological Surgical History: Reports: None Musculoskeletal Surgical History: Reports: None Oncologic Surgical History: Reports: None Dermatological Surgical History: Reports: None Social & Family History - Family History Family Medical History: No Pertinent Family History Cardiac: Reports: MS Endocrine/Metabolic: Reports: Diabetes, type II - Tobacco Use Tobacco Use Status *Q: Never Tobacco User - Recreational Drug Use Recreational Drug Use: No H&P Review of Systems - Review of Systems: Review Of Systems: See Below General: Reports: Chills, Malaise, Weakness, Fatigue, Night Sweats, Diaphoresis. Denies: Fever HEENT: Reports: No Symptoms. Denies: Headaches, Sore Throat Pulmonary: Reports: Shortness of Breath, Pleuritic Chest Pain, Cough. Denies: Wheezing, Sputum Cardiovascular: Reports: No Symptoms, Dyspnea on Exertion. Denies: Chest Pain, Palpitations, Orthopnea, Edema, Lightheadedness, Syncope, Claudication Gastrointestinal: Reports: No Symptoms. Denies: Abdominal Pain, Constipation, Diarrhea, Nausea, Vomiting Genitourinary: Reports: No Symptoms. Denies: Dysuria, Frequency, Pain Musculoskeletal: Reports: No Symptoms Skin: Reports: No Symptoms. Denies: Cyanosis Psychiatric: Reports: No Symptoms. Denies: Confusion Neurological: Reports: No Symptoms, Weakness. Denies: Confusion, Dizziness, Headache, Numbness, Pre-Existing Deficit, Seizure, Syncope, Tingling, Tremors, Trouble Speaking, Difficulty Walking, Gait Disturbance Hematologic/Lymphatic: Reports: No Symptoms Immunologic: Reports: No Symptoms Exam - Exam Exam: See Below - Vital Signs Vital Signs: Last Vital Signs Temp 97.7 F 01/18/21 08:38 Pulse 108 H 01/18/21 10:30 Resp 24 H 01/18/21 10:30 BP 105/66 01/18/21 10:30 Pulse Ox 90 L 01/18/21 10:30 Weight: 190 lb - Exam Quality Assessment: Supplemental Oxygen (4L), DVT Prophylaxis. No: Urinary Catheter General: Alert, Oriented, Cooperative, Mild Distress (Tachypneic and short of breath) HEENT: Conjunctiva Clear, EACs Clear, Posterior Pharynx Clear. No: Mucosa Moist & Andres (dry) Neck: Supple, Trachea Midline Lungs: Decreased Breath Sounds. No: Normal Respiratory Effort (Tachypneic and appears mildly short of breath), Rales, Rhonchi, Wheezing Cardiovascular: Regular Rhythm, Tachycardia GI/Abdominal Exam: Normal Bowel Sounds, Soft, Non-Tender, No Distention (Male) Exam: Deferred Rectal (Males) Exam: Deferred Back Exam: Normal Inspection, Full Range of Motion Extremities: Normal Inspection, Normal Range of Motion, Non-Tender, No Pedal Edema, Normal Capillary Refill Peripheral Pulses: 2+: Dorsalis Pedis (L), Dorsalis Pedis (R), 3+: Radial (L), Radial (R) Skin: Warm, Dry, Intact Neurological: Cranial Nerves Intact (Grossly ) Neuro Extensive - Mental Status: Alert, Oriented x3, Normal Mood/Affect - Patient Data Lab Results Last 24 hrs: Laboratory Results - last 24 hr 01/18/21 01/18/21 01/18/21 Range/Units 08:45 08:45 08:45 WBC 10.56 H (4.23-9.07) K/mm3 RBC 4.31 L (4.63-6.08) M/mm3 Hgb 12.7 L D (13.7-17.5) gm/dl Hct 38.6 L (40.1-51.0) % MCV 89.6 (79.0-92.2) fl MCH 29.5 (25.7-32.2) pg MCHC 32.9 (32.2-35.5) g/dl RDW Std Deviation 43.7 (35.1-43.9) fL Plt Count 409 H D (163-337) K/mm3 MPV 8.4 L (9.4-12.3) fl Neut % (Auto) 72.3 H (34.0-67.9) % Lymph % (Auto) 11.5 L (21.8-53.1) % Real % (Auto) 11.6 (5.3-12.2) % Eos % (Auto) 3.3 (0.8-7.0) Baso % (Auto) 0.5 (0.1-1.2) % Neut # (Auto) 7.64 H (1.78-5.38) K/mm3 Lymph # (Auto) 1.21 L (1.32-3.57) K/mm3 Real # (Auto) 1.23 H (0.30-0.82) K/mm3 Eos # (Auto) 0.35 (0.04-0.54) K/mm3 Baso # (Auto) 0.05 (0.01-0.08) K/mm3 Manual Slide Review Normal smear D-Dimer, Quantitative 5.12 H (0.19-0.50) mg/L Puncture Site ABG pH (7.35-7.45) ABG pCO2 (35.0-45.0) mmHg ABG pO2 (80.0-100.0) mmHg ABG HCO3 (22.0-26.0) meq/L ABG O2 Saturation (96.0-97.0) % ABG Base Excess (-2-2.0) Rosendo Test A-a Gradient mmHg O2 Delivery Device Oxygen Flow Rate FiO2 (21.00-100.00) % Sodium 137 (136-145) mEq/L Potassium 4.3 (3.5-5.1) mEq/L Chloride 101 (98-107) mEq/L Carbon Dioxide 20 L (21-32) mEq/L Anion Gap 20.3 H (5-15) BUN 32 H D (7-18) mg/dL Creatinine 1.7 H D (0.7-1.3) mg/dL Est Cr Clr Drug Dosing 40.43 mL/min Estimated GFR (MDRD) 40 (>60) mL/min BUN/Creatinine Ratio 18.8 H (14-18) Glucose 204 H (70-99) mg/dL Lactic Acid (0.4-2.0) mmol/L Calcium 9.2 (8.5-10.1) mg/dL Total Bilirubin 0.5 (0.2-1.0) mg/dL AST 38 H (15-37) U/L ALT 46 (16-63) U/L Alkaline Phosphatase 80 (46-116) U/L Troponin I 0.074 H* (0.00-0.056) ng/mL C-Reactive Protein 41.4 H* (<1.0) mg/dL NT-Pro-B Natriuret Pep (0-125) pg/mL Total Protein 8.1 (6.4-8.2) g/dl Albumin 2.4 L (3.4-5.0) g/dl Globulin 5.7 gm/dL Albumin/Globulin Ratio 0.4 L (1-2) 01/18/21 01/18/21 01/18/21 Range/Units 08:45 09:25 09:35 WBC (4.23-9.07) K/mm3 RBC (4.63-6.08) M/mm3 Hgb (13.7-17.5) gm/dl Hct (40.1-51.0) % MCV (79.0-92.2) fl MCH (25.7-32.2) pg MCHC (32.2-35.5) g/dl RDW Std Deviation (35.1-43.9) fL Plt Count (163-337) K/mm3 MPV (9.4-12.3) fl Neut % (Auto) (34.0-67.9) % Lymph % (Auto) (21.8-53.1) % Real % (Auto) (5.3-12.2) % Eos % (Auto) (0.8-7.0) Baso % (Auto) (0.1-1.2) % Neut # (Auto) (1.78-5.38) K/mm3 Lymph # (Auto) (1.32-3.57) K/mm3 Real # (Auto) (0.30-0.82) K/mm3 Eos # (Auto) (0.04-0.54) K/mm3 Baso # (Auto) (0.01-0.08) K/mm3 Manual Slide Review D-Dimer, Quantitative (0.19-0.50) mg/L Puncture Site Lt radial ABG pH 7.41 (7.35-7.45) ABG pCO2 25.4 L (35.0-45.0) mmHg ABG pO2 62.0 L (80.0-100.0) mmHg ABG HCO3 15.9 L (22.0-26.0) meq/L ABG O2 Saturation 92.4 L (96.0-97.0) % ABG Base Excess -6.8 L (-2-2.0) Rosendo Test Positive A-a Gradient 135 mmHg O2 Delivery Device Nasal cannula Oxygen Flow Rate 3.0 FiO2 32.00 (21.00-100.00) % Sodium (136-145) mEq/L Potassium (3.5-5.1) mEq/L Chloride (98-107) mEq/L Carbon Dioxide (21-32) mEq/L Anion Gap (5-15) BUN (7-18) mg/dL Creatinine (0.7-1.3) mg/dL Est Cr Clr Drug Dosing mL/min Estimated GFR (MDRD) (>60) mL/min BUN/Creatinine Ratio (14-18) Glucose (70-99) mg/dL Lactic Acid 1.2 (0.4-2.0) mmol/L Calcium (8.5-10.1) mg/dL Total Bilirubin (0.2-1.0) mg/dL AST (15-37) U/L ALT (16-63) U/L Alkaline Phosphatase (46-116) U/L Troponin I (0.00-0.056) ng/mL C-Reactive Protein (<1.0) mg/dL NT-Pro-B Natriuret Pep 1666 H (0-125) pg/mL Total Protein (6.4-8.2) g/dl Albumin (3.4-5.0) g/dl Globulin gm/dL Albumin/Globulin Ratio (1-2) Result Diagrams: 01/18/21 08:45 01/18/21 08:45 Sepsis Event Note - Evaluation Sepsis Screening Result: Sepsis Risk Current Stage of Sepsis: Ruled Out Reason for Ruling Out Sepsis: Patient has suspected bacterial infection, leukocytosis is not present, heart rate is greater than 90, respirate is greater than 20, T-max is less than 100.9, but there are no signs of any end organ dysfunction. - Focused Exam Vital Signs: Vital Signs Temp Pulse Resp BP Pulse Ox Pulse Ox 01/18/21 10:30 108 H 24 H 105/66 90 L 01/18/21 09:21 92 L 01/18/21 08:38 97.7 F 127 H 27 H 88 L - Problem List (1) CKD (chronic kidney disease) SNOMED Code(s): 922010664 ICD Code: N18.9 - CHRONIC KIDNEY DISEASE, UNSPECIFIED Status: Chronic Priority: Medium Current Visit: Yes Qualifiers: Chronic kidney disease stage: stage 3 (moderate) Chronic kidney disease stage 3 subtype: stage 3b (GFR 30-44) Qualified Code(s): N18.32 - Chronic kidney disease, stage 3b (2) History of COVID-19 SNOMED Code(s): 454883691354740123, 404501135550361636 ICD Code: Z86.16 - PERSONAL HISTORY OF COVID-19 Status: Chronic Priority: High Current Visit: Yes (3) Type II diabetes mellitus SNOMED Code(s): 44302726 ICD Code: E11.9 - TYPE 2 DIABETES MELLITUS WITHOUT COMPLICATIONS Status: Chronic Priority: Medium Current Visit: Yes Qualifiers: Diabetes mellitus [facility] insulin use: with [facility] use Diabetes mellitus complication status: with other specified complication Qualified Code(s): E11.69 - Type 2 diabetes mellitus with other specified complication; Z79.4 - terminal operations manager (current) use of insulin (4) Hypoxia SNOMED Code(s): 676604608 ICD Code: R09.02 - HYPOXEMIA Status: Acute Priority: High Current Visit: Yes (5) Atrial fibrillation SNOMED Code(s): 13047807 ICD Code: I48.91 - UNSPECIFIED ATRIAL FIBRILLATION Status: Chronic Prio rity: Medium Current Visit: No Qualifiers: Atrial fibrillation type: paroxysmal Qualified Code(s): I48.0 - Paroxysmal atrial fibrillation (6) Elevated troponin level not due myocardial infarction SNOMED Code(s): 187916034, 791512555, 213431638 ICD Code: R77.8 - OTHER SPECIFIED ABNORMALITIES OF PLASMA PROTEINS Status: Chronic Priority: Medium Current Visit: Yes (7) Chronic anticoagulation SNOMED Code(s): 258097748 ICD Code: Z79.01 - AUDIT INTERN (CURRENT) USE OF ANTICOAGULANTS Status: Chronic Priority: Low Current Visit: No (8) Hyperglycemia due to type 2 diabetes mellitus SNOMED Code(s): 280831682020094, 000489960069829 ICD Code: E11.65 - TYPE 2 DIABETES MELLITUS WITH HYPERGLYCEMIA Status: Acute Priority: High Current Visit: Yes Qualifiers: Diabetes mellitus exterminator helper insulin use: with exterminator helper use Qualified Code(s): E11.65 - Type 2 diabetes mellitus with hyperglycemia; Z79.4 - [facility] (current) use of insulin (9) Healthcare-associated pneumonia SNOMED Code(s): 018320920, 120857955 ICD Code: J18.9 - PNEUMONIA, UNSPECIFIED ORGANISM Status: Acute Priority: High Current Visit: Yes (10) Elevated brain natriuretic peptide (BNP) level SNOMED Code(s): 487336830, 837840340 ICD Code: R79.89 - OTHER SPECIFIED ABNORMAL FINDINGS OF BLOOD CHEMISTRY Status: Acute Priority: High Current Visit: Yes (11) Supplemental oxygen dependent SNOMED Code(s): 951924596259 ICD Code: Z99.81 - DEPENDENCE ON SUPPLEMENTAL OXYGEN Status: Chronic Priority: Medium Current Visit: Yes Problem List Initiated/Reviewed/Updated: Yes Orders Last 24hrs: Active Orders 24 hr Category Date Time Status Patient Status [ADT] Routine ADT 01/18/21 11:35 Ordered Ambulate [RC] PER UNIT ROUTINE Care 01/18/21 11:37 Ordered Cardiac Monitoring [RC] . DIRECTED Care 01/18/21 11:35 Ordered EKG Documentation Completion [RC] ASDIRECTED Care 01/18/21 08:45 Active Height and Weight [RC] DAILY Care 01/18/21 11:37 Ordered Intake and Output [RC] DAILY Care 01/18/21 11:37 Ordered Nurse Communication: Isolation [RC] ASDIRECTED Care 01/18/21 11:41 Ordered Oxygen Therapy [RC] ASDIRECTED Care 01/18/21 11:37 Ordered Pulse Oximetry [RC] CONTINUOUS Care 01/18/21 11:37 Ordered RT Aerosol Therapy [RC] ASDIRECTED Care 01/18/21 09:00 Active RT Aerosol Therapy [RC] ASDIRECTED Care 01/18/21 11:39 Ordered RT Chest Physiotherapy [RC] ASDIRECTED Care 01/18/21 11:37 Ordered RT Incentive Spirometry [RC] ASDIRECTED Care 01/18/21 11:37 Ordered Up With Assistance [RC] ASDIRECTED Care 01/18/21 11:37 Ordered Up to Chair [RC] ASDIRECTED Care 01/18/21 11:37 Ordered Vital Signs [RC] Q6H Care 01/18/21 11:37 Ordered Consult to Case Management/[place] [CONS] Cons 01/18/21 11:37 Ordered Routine Consult to Spiritual Care [CONS] Routine Cons 01/18/21 11:37 Ordered OT Evaluation and Treatment [CONS] Routine Cons 01/18/21 11:41 Ordered PT Evaluation and Treatment [CONS] Routine Cons 01/18/21 11:41 Ordered Respiratory Care Assess and Treatment [CONS] Routine Cons 01/18/21 11:41 Ordered [employer] Diet [DIET] Diet 01/18/21 Lunch Ordered Echo Comp wo Cont [US] Routine Exams 01/18/21 11:48 Ordered C-REACTIVE PROTEIN [CHEM] AM Lab 01/19/21 05:11 Ordered C-REACTIVE PROTEIN [CHEM] AM Lab 01/20/21 05:11 Ordered C-REACTIVE PROTEIN [CHEM] AM Lab 01/21/21 05:11 Ordered C-REACTIVE PROTEIN [CHEM] AM Lab 01/22/21 05:11 Ordered CBC WITH AUTO DIFF [HEME] AM Lab 01/19/21 05:11 Ordered CBC WITH AUTO DIFF [HEME] AM Lab 01/20/21 05:11 Ordered CBC WITH AUTO DIFF [HEME] AM Lab 01/21/21 05:11 Ordered CBC WITH AUTO DIFF [HEME] AM Lab 01/22/21 05:11 Ordered CKMB [CHEM] Routine Lab 01/18/21 15:00 Ordered COMPREHENSIVE METABOLIC PN,CMP [CHEM] AM Lab 01/19/21 05:11 Ordered COMPREHENSIVE METABOLIC PN,CMP [CHEM] AM Lab 01/20/21 05:11 Ordered COMPREHENSIVE METABOLIC PN,CMP [CHEM] AM Lab 01/21/21 05:11 Ordered COMPREHENSIVE METABOLIC PN,CMP [CHEM] AM Lab 01/22/21 05:11 Ordered CULTURE BLOOD [BC] Stat Lab 01/18/21 09:20 Received CULTURE BLOOD [BC] Stat Lab 01/18/21 09:35 Received MAGNESIUM [CHEM] AM Lab 01/19/21 05:11 Ordered MAGNESIUM [CHEM] AM Lab 01/20/21 05:11 Ordered MAGNESIUM [CHEM] AM Lab 01/21/21 05:11 Ordered MAGNESIUM [CHEM] AM Lab 01/22/21 05:11 Ordered MYCOPLASMA PNEUMONIAE IGM AB [CHEM] Routine Lab 01/18/21 11:37 Ordered STREP PNEUMONIAE ANTIGEN [MREF] Routine Lab 01/18/21 11:37 Ordered TROPONIN I [CHEM] Routine Lab 01/18/21 15:00 Ordered Acetaminophen [TylenoL] Med 01/18/21 11:37 Ordered 650 mg PO Q4H PRN Albuterol [Proventil Neb Soln] Med 01/18/21 11:37 Ordered 2.5 mg NEB Q2H PRN Albuterol/Ipratropium [DuoNeb 3.0-0.5 MG/3 ML] Med 01/18/21 16:00 Ordered 3 ml NEB QIDRT Apixaban [Eliquis] Med 01/19/21 09:00 Ordered 5 mg PO DAILY Aspirin Med 01/19/21 09:00 Ordered 81 mg PO DAILY Budesonide/Formoterol Fumarate Med 01/18/21 21:00 Ordered 2 puff IH BID Docusate Sodium [Colace] Med 01/18/21 11:37 Ordered 100 mg PO Q12H PRN Insulin Glargine,Hum.Rec.Anlog [Toumarlineo Sollandonar] Med 01/19/21 09:00 Ordered 85 units SQ DAILY Magnesium Hydroxide [Milk of Magnesia] Med 01/18/21 11:37 Ordered 30 ml PO Q12H PRN Metoprolol Tartrate [Lopressor] Med 01/18/21 21:00 Ordered 12.5 mg PO BID Metoprolol Tartrate [Lopressor] Med 01/18/21 11:49 Ordered 5 mg IVPUSH Q4H PRN Ondansetron [Zofran] Med 01/18/21 11:37 Ordered 4 mg IV Q6H PRN Pantoprazole Sodium Med 01/19/21 09:00 Ordered 40 mg PO DAILY Sodium Chloride 0.9% [Normal Saline] 1,000 ml Med 01/18/21 12:00 Active IV ASDIRECTED Sodium Chloride 0.9% [Saline Flush] Med 01/18/21 09:42 Active 10 ml FLUSH ONETIME PRN atorvaSTATin [Lipitor] Med 01/18/21 21:00 Ordered 20 mg PO BEDTIME Blood Culture x2 Reflex Set [OM.PC] Stat Oth 01/18/21 09:12 Ordered Isolation [COMM] Routine Oth 01/18/21 11:37 Ordered Resuscitation Status Routine Resus Stat 01/18/21 11:37 Ordered EKG 12 Lead [EK] Stat Ther 01/18/21 08:44 Ordered Medication Orders Acetaminophen (Acetaminophen 325 Mg Tab) 650 mg PO Q4H PRN PRN Reason: Pain (Mild 1-3)/fever Albuterol (Albuterol 0.083% 2.5 Mg/3 Ml Neb Soln) 2.5 mg NEB Q2H PRN PRN Reason: Shortness Of Breath/wheezing Albuterol/Ipratropium (Albuterol/Ipratropium 3.0-0.5 Mg/3 Ml Neb Soln) 3 ml NEB QIDRT JAYDEN Aspirin (Aspirin 81 Mg Tab.Chew) 81 mg PO DAILY [facility] Atorvastatin Calcium (Atorvastatin 20 Mg Tab) 20 mg PO BEDTIME JAYDEN Docusate Sodium (Docusate Sodium 100 Mg Cap) 100 mg PO Q12H PRN PRN Reason: Constipation Sodium Chloride (Normal Saline) 1,000 mls @ 75 mls/hr IV ASDIRECTED [facility] Insulin Glargine (Insulin Glarg,Human.Rec.Analog 100 Unit/Ml) 85 unit SUBCUT DAILY [facility] Magnesium Hydroxide (Magnesium Hydroxide 400 Mg/5 Ml Susp 30 Ml Cup) 30 ml PO Q12H PRN PRN Reason: Constipation Metoprolol Tartrate (Metoprolol Tartrate 25 Mg Tab) 12.5 mg PO BID [facility] Metoprolol Tartrate (Metoprolol Tartrate 5 Mg/5 Ml Sdv) 5 mg IVPUSH Q4H PRN PRN Reason: Tachycardia Non-Formulary Medication (Apixaban [Eliquis]) 5 mg PO DAILY JAYDEN Non-Formulary Medication (Budesonide/Formoterol Fumarate) 2 puff IH BID [facility] Ondansetron HCl (Ondansetron 4 Mg/2 Ml Sdv) 4 mg IV Q6H PRN PRN Reason: Nausea/Vomiting Pantoprazole Sodium (Pantoprazole 40 Mg Tab.Cr) 40 mg PO DAILY [facility] Sodium Chloride (Sodium Chloride 0.9% 10 Ml Syringe) 10 ml FLUSH ONETIME PRN PRN Reason: IV FLUSH Last Admin: 06/18/21 10:02 Dose: 10 ml Documented by: TAMARA Assessment/Plan Comment:: Assessment - day of admission 01/18/2021 * This is a 70-year-old male who presents to ED on 01/18/2021 with dyspnea and left-sided chest pain along his ribs. * He carries a history of A. fib, prior Covid infection, type II DM, and chronic kidney disease. * Diagnosed with Covid on December 11, transferred to [facility] and hospitalized for 13 days. * He was released on 01-02-2021 on 2 L of home oxygen. * Reports dyspnea with accompanying chills, diaphoresis, and a cough. * In the ED twelve-lead EKG is obtained showing a sinus tachycardia at 119 bpm. * Labs obtained in ED: * WBC 10.56. * Hemoglobin is 12.7. * He is normocytic. * Platelets are elevated at 409,000. * Neutrophils are elevated 72.3%. * D-dimer is elevated at 5.12. * Sodium is 137. * Potassium 4.3. * Chloride 101. * Carbon dioxide 20. * Anion gap is 20.3. * BUN is 32. Creatinine 1.7. GFR is 40. * Glucose is 204. * Total bilirubin 0.5. * AST is 38, ALT 46, alkaline phosphatase 80. * Troponin 0 0.074. * CRP is 41.4. * Albumin is 2.4. * Lactic acid is 1.2. * proBNP is 1666. * ABG obtained in the left radial with a pH of 7.41. PCO2 of 25.4. PO2 of 62.0. HCO3 of 15.2. O2 saturation of 92.4. Base excess is -6.8. AA gradient is 135. This is obtained while on 3 L via nasal cannula. * Chest x-ray shows prominent increase in density on both sides the chest raising the possibility diffuse pneumonia. Please correlate if patient has Covid disease. No other acute abnormality is seen. * CTA is obtained showing diffuse increased density on both sides the chest compatible with diffuse pneumonia. Vague areas of poor enhancement within the main pulmonary arteries on both sides. This is most likely artifact. No definitive findings of pulmonary embolism are seen. Incidental degenerative change within the spine is also noted. * Patient is given 1 DuoNeb and started on Rocephin and IV fluids. He is given 125 mg Solu-Medrol and 5 units of lispro insulin. * He subsequently admitted to the medical floor on telemetry for management of his bilateral pneumonia. PLAN: Healthcare-associated pneumonia History of COVID-19 Hypoxia Supplemental oxygen dependant * Patient recently hospitalized so will need to treat as healthcare related PNA * Switch IV abx to zosyn Q8Hr * Start vancomycin with pharmacy to dose * IS/Acapella * RT consult * CM/SW consult * O2 as needed to keep saturations >90 (on 2L at home baseline) * MRSA by PCR to aid in antibiotic de-escalation * Check procalcitonin * Blood cultures pending * Sputum culture if patient is able to produce * Tylenol for fevers * Scheduled QID duonebs * Droplet isolation * Inside COVID-19 window so will not need re-testing * Monitor daily labs Atrial fibrillation Chronic anticoagulation Elevated troponin level not due myocardial infarction Elevated BNP Elevated D-Dimer * Telemetry * Obtain echocardiogram to rule out CHF and/or COVID myopathy * Re-check troponin and check CK-MB today at 1500 * Troponin noted to be elevated on multiple prior visits. No need to trend once stability has been assured. * Continue home eliquis * Continue home cardiac meds * Consider LE US if swelling/pain noted to legs - negative exam at this time and already on Eliquis. Type II diabetes mellitus Hyperglycemia due to type 2 diabetes mellitus * 50 units lantus now * Resume home dosing of Lantus * Monitor blood sugars - patient received steroid in ED so anticipate rise * Blood glucose checks QID AC and Bedtime * Diabetic diet * Low intensity SS insulin for now * Will not obtain A1C as patient was recently hospitalized and receiving steroids so it will be skewed. CKD (chronic kidney disease) * Appears to be around baseline with GFR in 40's * Caution with nephrotoxic meds * IV fluids as ordered Code Status: Full code PCP: Dr. Barksdale DVT prophylaxis: Home eliquis Disposition: Patient admitted to the medical floor on telemetry for management of bilateral pneumonia. We will treat this as healthcare related at this time. Likely length of stay 3 to 4 days total. - Mortality Measure Prognosis:: Good
[2021-01-18] MEDS ORDERED: Insulin Glarg,Human.Rec.Analog 100 Unit/ML SUBCUT ONE ×2 (12:30→21:41)
[2021-01-18] MEDS ORDERED: Piperacillin/Tazobactam 4.5 GM in Sodium Chloride 0.9% 100 ML IV ONE (13:00)
[2021-01-18] MEDS ORDERED: Vancomycin 1.75 GM in Sodium Chloride 0.9% 500 ML IV ONE (13:30)
[2021-01-18] MEDS: Albuterol/Ipratropium 3.0-0.5 MG/3 ML Neb Soln NEB SCH ×2 (15:02→20:46)
[2021-01-18] MEDS ORDERED: Insulin Lispro 100 UNIT/ML 10 ML Vial SUBCUT SCH (17:00)
[2021-01-18] MEDS: atorvaSTATin 20 MG Tab PO SCH (20:00)
[2021-01-18] MEDS: Metoprolol Tartrate 25 MG Tab PO SCH (20:00)
[2021-01-18] MEDS: Apixaban 5 MG Tab PO SCH (20:03)
[2021-01-18] MEDS: Piperacillin/Tazobactam 4.5 GM in Sodium Chloride 0.9% 100 ML IV SCH (20:04)
[2021-01-18] MEDS: Formoterol/Mometasone 100-5 MCG 8.8 GM Inhaler IH SCH (20:48)
[2021-01-18] MEDS: Insulin Lispro 100 UNIT/ML 10 ML Vial SUBCUT SCH (22:00)
[2021-01-19] MEDS: Piperacillin/Tazobactam 4.5 GM in Sodium Chloride 0.9% 100 ML IV SCH (05:02)
[2021-01-19] MEDS: Albuterol/Ipratropium 3.0-0.5 MG/3 ML Neb Soln NEB SCH ×4 (06:31→20:53)
[2021-01-19] MEDS: Insulin Lispro 100 UNIT/ML 10 ML Vial SUBCUT SCH ×4 (07:39→21:15)
[2021-01-19] MEDS ORDERED: Vancomycin 1 GM, Vancomycin 500 MG in Sodium Chloride 0.9% 500 ML IV ONE (08:00)
[2021-01-19] MEDS ORDERED: Insulin Glarg,Human.Rec.Analog 100 Unit/ML SUBCUT SCH (09:00)
[2021-01-19] MEDS: Insulin Glarg,Human.Rec.Analog 100 Unit/ML SUBCUT SCH (09:00)
[2021-01-19] MEDS: Apixaban 5 MG Tab PO SCH ×2 (09:02→20:24)
[2021-01-19] MEDS: Aspirin 81 MG Tab.Chew PO SCH (09:02)
[2021-01-19] MEDS: Metoprolol Tartrate 25 MG Tab PO SCH ×2 (09:02→20:25)
[2021-01-19] MEDS: Pantoprazole 40 MG Tab.CR PO SCH (09:02)
[2021-01-19] MEDS: Formoterol/Mometasone 100-5 MCG 8.8 GM Inhaler IH SCH ×2 (09:27→20:53)
--- NOTE | 2021-01-19 11:29 | PCM.PN ---
- General Info Date of Service: 01/19/21 Admission Dx/Problem (Free Text): Admission Diagnosis/Problem Admission Diagnosis/Problem Pneumonia Subjective Update: This is a 70-year-old male who presents to ED on 01/18/2021 with dyspnea and left-sided chest pain along his ribs. He was diagnosed with Covid on December 11 [address] [facility] where he was hospitalized for 13 days. He was released on 01-02-2021 on 2 L of home oxygen. Reports he has been doing good up until the last couple of days, in which she has noticed he has been more dyspneic and had accompanying chills, diaphoresis, and a cough. He feeling better. Denies fever, chills, nausea or vomiting. But he still complains of rib cage pain when he is coughing. He is on 4 to 5 L WBC 11.6, hemoglobin 13.8 D-dimer 5.12 Creatinine 1.5 - Patient Data Vitals - Most Recent: Last Vital Signs Temp 36.6 C 01/18/21 15:55 Pulse 74 01/19/21 09:02 Resp 16 01/18/21 15:55 BP 117/81 01/19/21 09:02 Pulse Ox 93 L 01/19/21 09:27 Weight - Most Recent: 86.183 kg I&O - Last 24 Hours: Intake & Output 01/18/21 01/19/21 01/19/21 22:59 06:59 14:59 Intake Total 1784 1030 Output Total 300 Balance 1784 730 Lab Results Last 24 Hours: Laboratory Results - last 24 hr 01/18/21 01/18/21 01/18/21 Range/Units 08:45 08:45 14:55 WBC (4.23-9.07) K/mm3 RBC (4.63-6.08) M/mm3 Hgb (13.7-17.5) gm/dl Hct (40.1-51.0) % MCV (79.0-92.2) fl MCH (25.7-32.2) pg MCHC (32.2-35.5) g/dl RDW Std Deviation (35.1-43.9) fL Plt Count (163-337) K/mm3 MPV (9.4-12.3) fl Neut % (Auto) (34.0-67.9) % Lymph % (Auto) (21.8-53.1) % [place] % (Auto) (5.3-12.2) % Eos % (Auto) (0.8-7.0) Baso % (Auto) (0.1-1.2) % Neut # (Auto) (1.78-5.38) K/mm3 Lymph # (Auto) (1.32-3.57) K/mm3 [place] # (Auto) (0.30-0.82) K/mm3 Eos # (Auto) (0.04-0.54) K/mm3 Baso # (Auto) (0.01-0.08) K/mm3 Manual Slide Review Puncture Site ABG pH (7.35-7.45) ABG pCO2 (35.0-45.0) mmHg ABG pO2 (80.0-100.0) mmHg ABG HCO3 (22.0-26.0) meq/L ABG O2 Saturation (96.0-97.0) % ABG Base Excess (-2-2.0) Rosendo Test A-a Gradient mmHg O2 Delivery Device Oxygen Flow Rate FiO2 (21.00-100.00) % Sodium (136-145) mEq/L Potassium (3.5-5.1) mEq/L Chloride (98-107) mEq/L Carbon Dioxide (21-32) mEq/L Anion Gap (5-15) BUN (7-18) mg/dL Creatinine (0.7-1.3) mg/dL Est Cr Clr Drug Dosing mL/min Estimated GFR (MDRD) (>60) mL/min BUN/Creatinine Ratio (14-18) Glucose (70-99) mg/dL POC Glucose (70-99) mg/dL Calcium (8.5-10.1) mg/dL Magnesium (1.8-2.4) mg/dL Total Bilirubin (0.2-1.0) mg/dL AST (15-37) U/L ALT (16-63) U/L Alkaline Phosphatase (46-116) U/L CK-MB (CK-2) (0-3.6) ng/ml Troponin I (0.00-0.056) ng/mL C-Reactive Protein (<1.0) mg/dL Total Protein (6.4-8.2) g/dl Albumin (3.4-5.0) g/dl Globulin gm/dL Albumin/Globulin Ratio (1-2) Procalcitonin 2.14 H ng/mL Mycoplasma pneumon IgM Negative (NEGATIVE) MRSA (PCR) Negative 01/18/21 01/18/21 01/18/21 Range/Units 14:57 16:50 21:31 WBC (4.23-9.07) K/mm3 RBC (4.63-6.08) M/mm3 Hgb (13.7-17.5) gm/dl Hct (40.1-51.0) % MCV (79.0-92.2) fl MCH (25.7-32.2) pg MCHC (32.2-35.5) g/dl RDW Std Deviation (35.1-43.9) fL Plt Count (163-337) K/mm3 MPV (9.4-12.3) fl Neut % (Auto) (34.0-67.9) % Lymph % (Auto) (21.8-53.1) % [place] % (Auto) (5.3-12.2) % Eos % (Auto) (0.8-7.0) Baso % (Auto) (0.1-1.2) % Neut # (Auto) (1.78-5.38) K/mm3 Lymph # (Auto) (1.32-3.57) K/mm3 [place] # (Auto) (0.30-0.82) K/mm3 Eos # (Auto) (0.04-0.54) K/mm3 Baso # (Auto) (0.01-0.08) K/mm3 Manual Slide Review Puncture Site ABG pH (7.35-7.45) ABG pCO2 (35.0-45.0) mmHg ABG pO2 (80.0-100.0) mmHg ABG HCO3 (22.0-26.0) meq/L ABG O2 Saturation (96.0-97.0) % ABG Base Excess (-2-2.0) Rosendo Test A-a Gradient mmHg O2 Delivery Device Oxygen Flow Rate FiO2 (21.00-100.00) % Sodium (136-145) mEq/L Potassium (3.5-5.1) mEq/L Chloride (98-107) mEq/L Carbon Dioxide (21-32) mEq/L Anion Gap (5-15) BUN (7-18) mg/dL Creatinine (0.7-1.3) mg/dL Est Cr Clr Drug Dosing mL/min Estimated GFR (MDRD) (>60) mL/min BUN/Creatinine Ratio (14-18) Glucose (70-99) mg/dL POC Glucose 295 H 336 H (70-99) mg/dL Calcium (8.5-10.1) mg/dL Magnesium (1.8-2.4) mg/dL Total Bilirubin (0.2-1.0) mg/dL AST (15-37) U/L ALT (16-63) U/L Alkaline Phosphatase (46-116) U/L CK-MB (CK-2) 1.3 (0-3.6) ng/ml Troponin I 0.051 (0.00-0.056) ng/mL C-Reactive Protein (<1.0) mg/dL Total Protein (6.4-8.2) g/dl Albumin (3.4-5.0) g/dl Globulin gm/dL Albumin/Globulin Ratio (1-2) Procalcitonin ng/mL Mycoplasma pneumon IgM (NEGATIVE) MRSA (PCR) 01/18/21 01/19/21 01/19/21 Range/Units 21:35 05:09 05:15 WBC 11.60 H (4.23-9.07) K/mm3 RBC 3.62 L (4.63-6.08) M/mm3 Hgb 10.8 L D (13.7-17.5) gm/dl Hct 32.8 L (40.1-51.0) % MCV 90.6 (79.0-92.2) fl MCH 29.8 (25.7-32.2) pg MCHC 32.9 (32.2-35.5) g/dl RDW Std Deviation 43.0 (35.1-43.9) fL Plt Count 345 H (163-337) K/mm3 MPV 9.0 L (9.4-12.3) fl Neut % (Auto) 84.1 H (34.0-67.9) % Lymph % (Auto) 8.0 L (21.8-53.1) % [place] % (Auto) 7.4 (5.3-12.2) % Eos % (Auto) 0 L (0.8-7.0) Baso % (Auto) 0.1 (0.1-1.2) % Neut # (Auto) 9.75 H (1.78-5.38) K/mm3 Lymph # (Auto) 0.93 L (1.32-3.57) K/mm3 [place] # (Auto) 0.86 H (0.30-0.82) K/mm3 Eos # (Auto) 0.00 L (0.04-0.54) K/mm3 Baso # (Auto) 0.01 (0.01-0.08) K/mm3 Manual Slide Review Abnormal smear Puncture Site Lt radial ABG pH 7.34 L (7.35-7.45) ABG pCO2 28.5 L (35.0-45.0) mmHg ABG pO2 55.0 L (80.0-100.0) mmHg ABG HCO3 15 L (22.0-26.0) meq/L ABG O2 Saturation 86.6 L (96.0-97.0) % ABG Base Excess -9.1 L (-2-2.0) Rosendo Test positive A-a Gradient 223 mmHg O2 Delivery Device Nasal cannula Oxygen Flow Rate 6.0 FiO2 44.00 (21.00-100.00) % Sodium (136-145) mEq/L Potassium (3.5-5.1) mEq/L Chloride (98-107) mEq/L Carbon Dioxide (21-32) mEq/L Anion Gap (5-15) BUN (7-18) mg/dL Creatinine (0.7-1.3) mg/dL Est Cr Clr Drug Dosing mL/min Estimated GFR (MDRD) (>60) mL/min BUN/Creatinine Ratio (14-18) Glucose (70-99) mg/dL POC Glucose 286 H (70-99) mg/dL Calcium (8.5-10.1) mg/dL Magnesium (1.8-2.4) mg/dL Total Bilirubin (0.2-1.0) mg/dL AST (15-37) U/L ALT (16-63) U/L Alkaline Phosphatase (46-116) U/L CK-MB (CK-2) (0-3.6) ng/ml Troponin I (0.00-0.056) ng/mL C-Reactive Protein (<1.0) mg/dL Total Protein (6.4-8.2) g/dl Albumin (3.4-5.0) g/dl Globulin gm/dL Albumin/Globulin Ratio (1-2) Procalcitonin ng/mL Mycoplasma pneumon IgM (NEGATIVE) MRSA (PCR) 01/19/21 Range/Units 05:15 WBC (4.23-9.07) K/mm3 RBC (4.63-6.08) M/mm3 Hgb (13.7-17.5) gm/dl Hct (40.1-51.0) % MCV (79.0-92.2) fl MCH (25.7-32.2) pg MCHC (32.2-35.5) g/dl RDW Std Deviation (35.1-43.9) fL Plt Count (163-337) K/mm3 MPV (9.4-12.3) fl Neut % (Auto) (34.0-67.9) % Lymph % (Auto) (21.8-53.1) % [place] % (Auto) (5.3-12.2) % Eos % (Auto) (0.8-7.0) Baso % (Auto) (0.1-1.2) % Neut # (Auto) (1.78-5.38) K/mm3 Lymph # (Auto) (1.32-3.57) K/mm3 [place] # (Auto) (0.30-0.82) K/mm3 Eos # (Auto) (0.04-0.54) K/mm3 Baso # (Auto) (0.01-0.08) K/mm3 Manual Slide Review Puncture Site ABG pH (7.35-7.45) ABG pCO2 (35.0-45.0) mmHg ABG pO2 (80.0-100.0) mmHg ABG HCO3 (22.0-26.0) meq/L ABG O2 Saturation (96.0-97.0) % ABG Base Excess (-2-2.0) Rosendo Test A-a Gradient mmHg O2 Delivery Device Oxygen Flow Rate FiO2 (21.00-100.00) % Sodium 139 (136-145) mEq/L Potassium 4.4 (3.5-5.1) mEq/L Chloride 105 (98-107) mEq/L Carbon Dioxide 19 L (21-32) mEq/L Anion Gap 19.4 H (5-15) BUN 31 H (7-18) mg/dL Creatinine 1.5 H (0.7-1.3) mg/dL Est Cr Clr Drug Dosing 45.82 mL/min Estimated GFR (MDRD) 46 (>60) mL/min BUN/Creatinine Ratio 20.7 H (14-18) Glucose 317 H (70-99) mg/dL POC Glucose (70-99) mg/dL Calcium 8.8 (8.5-10.1) mg/dL Magnesium 2.1 (1.8-2.4) mg/dL Total Bilirubin 0.2 (0.2-1.0) mg/dL AST 45 H (15-37) U/L ALT 58 (16-63) U/L Alkaline Phosphatase 64 (46-116) U/L CK-MB (CK-2) (0-3.6) ng/ml Troponin I (0.00-0.056) ng/mL C-Reactive Protein 27.7 H* (<1.0) mg/dL Total Protein 7.0 (6.4-8.2) g/dl Albumin 1.9 L (3.4-5.0) g/dl Globulin 5.1 gm/dL Albumin/Globulin Ratio 0.4 L (1-2) Procalcitonin ng/mL Mycoplasma pneumon IgM (NEGATIVE) MRSA (PCR) Enio Results Last 24 Hours: Microbiology 01/18/21 09:35 Aerobic Blood Culture - Preliminary Blood - Venous NO GROWTH AFTER 1 DAY Anaerobic Blood Culture - Preliminary NO GROWTH AFTER 1 DAY 01/18/21 09:20 Aerobic Blood Culture - Preliminary Blood - Venous - Lab Draw NO GROWTH AFTER 1 DAY Anaerobic Blood Culture - Final 01/18/21 15:50 Gram Stain - Final Sputum - Expectorated Sputum Culture - Final Med Orders - Current: Current Medications Acetaminophen (Acetaminophen 325 Mg Tab) 650 mg PO Q4H PRN PRN Reason: Pain (Mild 1-3)/fever Albuterol (Albuterol 0.083% 2.5 Mg/3 Ml Neb Soln) 2.5 mg NEB Q2H PRN PRN Reason: Shortness Of Breath/wheezing Albuterol/Ipratropium (Albuterol/Ipratropium 3.0-0.5 Mg/3 Ml Neb Soln) [address] [facility] Last Admin: 01/19/21 09:27 Dose: 3 ml Documented by: Apixaban (Apixaban 5 Mg Tab) [address] [facility] Last Admin: 01/19/21 09:02 Dose: 5 mg Documented by: Aspirin (Aspirin 81 Mg Tab.Chew) [address] [facility] Last Admin: 01/19/21 09:02 Dose: 81 mg Documented by: Atorvastatin Calcium (Atorvastatin 20 Mg Tab) [address] [facility] Last Admin: 01/18/21 20:00 Dose: 20 mg Documented by: Dextrose/Water (50% Dextrose In Water 50 Ml Syringe) 50 ml IVPUSH ASDIRECTED PRN PRN Reason: Hypoglycemia Docusate Sodium (Docusate Sodium 100 Mg Cap) 100 mg PO Q12H PRN PRN Reason: Constipation Fish Oil (Fish Oil/[place]-3 Fatty Acids 1 Gm Cap) [address] [facility] Levofloxacin/Dextrose 750 mg/ (Premix) 150 mls @ 100 mls/hr IV Q48H [facility] Insulin Glargine (Insulin Glarg,Human.Rec.Analog 100 Unit/Ml) [address] [facility] Last Admin: 01/19/21 09:00 Dose: 90 units Documented by: Insulin Human Lispro (Insulin Lispro 100 Unit/Ml 10 Ml Vial) [address] [facility]; Protocol Last Admin: 01/19/21 07:39 Dose: 6 units Documented by: Magnesium Hydroxide (Magnesium Hydroxide 400 Mg/5 Ml Susp 30 Ml Cup) 30 ml PO Q12H PRN PRN Reason: Constipation Metoprolol Tartrate (Metoprolol Tartrate 25 Mg Tab) 12.[address] [facility] Last Admin: 01/19/21 09:02 Dose: 12.5 mg Documented by: Metoprolol Tartrate (Metoprolol Tartrate 5 Mg/5 Ml Sdv) 5 mg IVPUSH Q4H PRN PRN Reason: Tachycardia Mometasone Furoate/Formoterol Fumar (Formoterol/Mometasone 100-5 Mcg 8.8 Gm Inhaler) [address] [facility] Last Admin: 01/19/21 09:27 Dose: 2 puff Documented by: Ondansetron HCl (Ondansetron 4 Mg/2 Ml Sdv) 4 mg IV Q6H PRN PRN Reason: Nausea/Vomiting Pantoprazole Sodium (Pantoprazole 40 Mg Tab.Cr) [address] [facility] Last Admin: 01/19/21 09:02 Dose: 40 mg Documented by: Sodium Chloride (Sodium Chloride 0.9% 10 Ml Syringe) 10 ml FLUSH ONETIME PRN PRN Reason: IV FLUSH Last Admin: 01/18/21 10:02 Dose: 10 ml Documented by: Discontinued Medications Albuterol/Ipratropium (Albuterol/Ipratropium 3.0-0.5 Mg/3 Ml Neb Soln) 3 ml NEB ONETIME ONE Stop: 01/18/21 09:01 Last Admin: 01/18/21 09:20 Dose: 3 ml Documented by: Sodium Chloride (Normal Saline) 1,000 mls @ 150 mls/hr IV ASDIRECTED [facility] Last Infusion: 01/18/21 14:15 Dose: Infused Documented by: Sodium Chloride (Normal Saline) 100 mls @ 75 mls/hr IV ASDIRECTED [facility] Last Admin: 01/18/21 10:02 Dose: 75 mls/hr Documented by: Ceftriaxone Sodium 2 gm/ (Sodium Chloride) 100 mls @ 200 mls/hr IV ONETIME ONE Stop: 01/18/21 10:31 Last Admin: 01/18/21 10:31 Dose: 200 mls/hr Documented by: Sodium Chloride (Normal Saline) 250 mls @ 999 mls/hr IV .BOLUS ONE Stop: 01/18/21 11:58 Last Admin: 01/18/21 13:01 Dose: Not Given Documented by: Sodium Chloride (Normal Saline) 1,000 mls @ 75 mls/hr IV ASDIRECTED [facility] Last Admin: 01/18/21 20:04 Dose: 75 mls/hr Documented by: Piperacillin Sod/Tazobactam (Sod 4.5 gm/ Sodium Chloride) 100 mls @ 25 mls/hr IV Q8H [facility] Last Admin: 01/19/21 05:02 Dose: 25 mls/hr Documented by: Piperacillin Sod/Tazobactam (Sod 4.5 gm/ Sodium Chloride) 100 mls @ 200 mls/hr IV ONETIME ONE Stop: 01/18/21 13:29 Last Admin: 01/18/21 13:27 Dose: 200 mls/hr Documented by: Vancomycin HCl 1.75 gm/ Sodium (Chloride) 500 mls @ 250 mls/hr IV ONETIME ONE Stop: 01/18/21 15:29 Last Admin: 01/18/21 14:11 Dose: 250 mls/hr Documented by: Vancomycin HCl 1 gm/Vancomycin HCl 500 mg/ Sodium Chloride 500 mls @ 250 mls/hr IV Q18H ONE Stop: 01/19/21 09:59 Last Admin: 01/19/21 09:03 Dose: 250 mls/hr Documented by: Insulin Glargine (Insulin Glarg,Human.Rec.Analog 100 Unit/Ml) [address] [facility] Insulin Glargine (Insulin Glarg,Human.Rec.Analog 100 Unit/Ml) 50 unit SUBCUT ONETIME ONE Stop: 01/18/21 12:31 Last Admin: 01/18/21 12:57 Dose: 50 units Documented by: Insulin Glargine (Insulin Glarg,Human.Rec.Analog 100 Unit/Ml) 5 unit SUBCUT ONETIME ONE Stop: 01/18/21 21:42 Last Admin: 01/18/21 21:59 Dose: 5 units Documented by: Insulin Human Lispro (Insulin Lispro 100 Unit/Ml 10 Ml Vial) 5 unit SUBCUT ONETIME ONE Stop: 01/18/21 10:44 Last Admin: 01/18/21 10:59 Dose: 5 unit Documented by: Insulin Human Lispro (Insulin Lispro 100 Unit/Ml 10 Ml Vial) [address] [facility]; Protocol Last Admin: 01/18/21 17:17 Dose: 3 units Documented by: Iopamidol (Iopamidol 755 Mg/Ml 100 Ml Bottle) 100 ml IVPUSH ONETIME ONE Stop: 01/18/21 09:43 Last Admin: 01/18/21 10:02 Dose: 100 ml Documented by: Methylprednisolone Sodium Succinate (Methylprednisolone Sodium Succinate 125 Mg/2 Ml Sdv) 125 mg IVPUSH ONETIME ONE Stop: 01/18/21 09:01 Last Admin: 01/18/21 09:08 Dose: 125 mg Documented by: Vancomycin HCl (Pharmacy To Dose - Vancomycin) 1 dose .XX ASDIRECTED PRN PRN Reason: RX TO DOSE VANCO - Exam Physical Findings Comments:: General: Alert, Oriented, Cooperative, Mild Distress (Tachypneic and short of breath) HEENT: Conjunctiva Clear, EACs Clear, Posterior Pharynx Clear. No: Mucosa Moist & [place] (dry) Neck: Supple, Trachea Midline Lungs: Decreased Breath Sounds. No: Normal Respiratory Effort (Tachypneic and appears mildly short of breath), Rales, Rhonchi, Wheezing Cardiovascular: Regular Rhythm, Tachycardia GI/Abdominal Exam: Normal Bowel Sounds, Soft, Non-Tender, No Distention (Male) Exam: Deferred Rectal (Males) Exam: Deferred Back Exam: Normal Inspection, Full Range of Motion Extremities: Normal Inspection, Normal Range of Motion, Non-Tender, No Pedal Edema, Normal Capillary Refill Peripheral Pulses: 2+: Dorsalis Pedis (L), Dorsalis Pedis (R), 3+: Radial (L), R adial (R) Skin: Warm, Dry, Intact Neurological: Cranial Nerves Intact (Grossly ) Neuro Extensive - Mental Status: Alert, Oriented x3, Normal Mood/Affect - Patient Data Lab Results Last 24 hrs: Laboratory Results - last 24 hr 01/18/21 01/18/21 01/18/21 Range/Units 08:45 08:45 14:55 WBC (4.23-9.07) K/mm3 RBC (4.63-6.08) M/mm3 Hgb (13.7-17.5) gm/dl Hct (40.1-51.0) % MCV (79.0-92.2) fl MCH (25.7-32.2) pg MCHC (32.2-35.5) g/dl RDW Std Deviation (35.1-43.9) fL Plt Count (163-337) K/mm3 MPV (9.4-12.3) fl Neut % (Auto) (34.0-67.9) % Lymph % (Auto) (21.8-53.1) % [place] % (Auto) (5.3-12.2) % Eos % (Auto) (0.8-7.0) Baso % (Auto) (0.1-1.2) % Neut # (Auto) (1.78-5.38) K/mm3 Lymph # (Auto) (1.32-3.57) K/mm3 [place] # (Auto) (0.30-0.82) K/mm3 Eos # (Auto) (0.04-0.54) K/mm3 Baso # (Auto) (0.01-0.08) K/mm3 Manual Slide Review Puncture Site ABG pH (7.35-7.45) ABG pCO2 (35.0-45.0) mmHg ABG pO2 (80.0-100.0) mmHg ABG HCO3 (22.0-26.0) meq/L ABG O2 Saturation (96.0-97.0) % ABG Base Excess (-2-2.0) Rosendo Test A-a Gradient mmHg O2 Delivery Device Oxygen Flow Rate FiO2 (21.00-100.00) % Sodium (136-145) mEq/L Potassium (3.5-5.1) mEq/L Chloride (98-107) mEq/L Carbon Dioxide (21-32) mEq/L Anion Gap (5-15) BUN (7-18) mg/dL Creatinine (0.7-1.3) mg/dL Est Cr Clr Drug Dosing mL/min Estimated GFR (MDRD) (>60) mL/min BUN/Creatinine Ratio (14-18) Glucose (70-99) mg/dL POC Glucose (70-99) mg/dL Calcium (8.5-10.1) mg/dL Magnesium (1.8-2.4) mg/dL Total Bilirubin (0.2-1.0) mg/dL AST (15-37) U/L ALT (16-63) U/L Alkaline Phosphatase (46-116) U/L CK-MB (CK-2) (0-3.6) ng/ml Troponin I (0.00-0.056) ng/mL C-Reactive Protein (<1.0) mg/dL Total Protein (6.4-8.2) g/dl Albumin (3.4-5.0) g/dl Globulin gm/dL Albumin/Globulin Ratio (1-2) Procalcitonin 2.14 H ng/mL Mycoplasma pneumon IgM Negative (NEGATIVE) MRSA (PCR) Negative 01/18/21 01/18/21 01/18/21 Range/Units 14:57 16:50 21:31 WBC (4.23-9.07) K/mm3 RBC (4.63-6.08) M/mm3 Hgb (13.7-17.5) gm/dl Hct (40.1-51.0) % MCV (79.0-92.2) fl MCH (25.7-32.2) pg MCHC (32.2-35.5) g/dl RDW Std Deviation (35.1-43.9) fL Plt Count (163-337) K/mm3 MPV (9.4-12.3) fl Neut % (Auto) (34.0-67.9) % Lymph % (Auto) (21.8-53.1) % [place] % (Auto) (5.3-12.2) % Eos % (Auto) (0.8-7.0) Baso % (Auto) (0.1-1.2) % Neut # (Auto) (1.78-5.38) K/mm3 Lymph # (Auto) (1.32-3.57) K/mm3 [place] # (Auto) (0.30-0.82) K/mm3 Eos # (Auto) (0.04-0.54) K/mm3 Baso # (Auto) (0.01-0.08) K/mm3 Manual Slide Review Puncture Site ABG pH (7.35-7.45) ABG pCO2 (35.0-45.0) mmHg ABG pO2 (80.0-100.0) mmHg ABG HCO3 (22.0-26.0) meq/L ABG O2 Saturation (96.0-97.0) % ABG Base Excess (-2-2.0) Rosendo Test A-a Gradient mmHg O2 Delivery Device Oxygen Flow Rate FiO2 (21.00-100.00) % Sodium (136-145) mEq/L Potassium (3.5-5.1) mEq/L Chloride (98-107) mEq/L Carbon Dioxide (21-32) mEq/L Anion Gap (5-15) BUN (7-18) mg/dL Creatinine (0.7-1.3) mg/dL Est Cr Clr Drug Dosing mL/min Estimated GFR (MDRD) (>60) mL/min BUN/Creatinine Ratio (14-18) Glucose (70-99) mg/dL POC Glucose 295 H 336 H (70-99) mg/dL Calcium (8.5-10.1) mg/dL Magnesium (1.8-2.4) mg/dL Total Bilirubin (0.2-1.0) mg/dL AST (15-37) U/L ALT (16-63) U/L Alkaline Phosphatase (46-116) U/L CK-MB (CK-2) 1.3 (0-3.6) ng/ml Troponin I 0.051 (0.00-0.056) ng/mL C-Reactive Protein (<1.0) mg/dL Total Protein (6.4-8.2) g/dl Albumin (3.4-5.0) g/dl Globulin gm/dL Albumin/Globulin Ratio (1-2) Procalcitonin ng/mL Mycoplasma pneumon IgM (NEGATIVE) MRSA (PCR) 01/18/21 01/19/21 01/19/21 Range/Units 21:35 05:09 05:15 WBC 11.60 H (4.23-9.07) K/mm3 RBC 3.62 L (4.63-6.08) M/mm3 Hgb 10.8 L D (13.7-17.5) gm/dl Hct 32.8 L (40.1-51.0) % MCV 90.6 (79.0-92.2) fl MCH 29.8 (25.7-32.2) pg MCHC 32.9 (32.2-35.5) g/dl RDW Std Deviation 43.0 (35.1-43.9) fL Plt Count 345 H (163-337) K/mm3 MPV 9.0 L (9.4-12.3) fl Neut % (Auto) 84.1 H (34.0-67.9) % Lymph % (Auto) 8.0 L (21.8-53.1) % [place] % (Auto) 7.4 (5.3-12.2) % Eos % (Auto) 0 L (0.8-7.0) Baso % (Auto) 0.1 (0.1-1.2) % Neut # (Auto) 9.75 H (1.78-5.38) K/mm3 Lymph # (Auto) 0.93 L (1.32-3.57) K/mm3 [place] # (Auto) 0.86 H (0.30-0.82) K/mm3 Eos # (Auto) 0.00 L (0.04-0.54) K/mm3 Baso # (Auto) 0.01 (0.01-0.08) K/mm3 Manual Slide Review Abnormal smear Puncture Site Lt radial ABG pH 7.34 L (7.35-7.45) ABG pCO2 28.5 L (35.0-45.0) mmHg ABG pO2 55.0 L (80.0-100.0) mmHg ABG HCO3 15 L (22.0-26.0) meq/L ABG O2 Saturation 86.6 L (96.0-97.0) % ABG Base Excess -9.1 L (-2-2.0) Rosendo Test positive A-a Gradient 223 mmHg O2 Delivery Device Nasal cannula Oxygen Flow Rate 6.0 FiO2 44.00 (21.00-100.00) % Sodium (136-145) mEq/L Potassium (3.5-5.1) mEq/L Chloride (98-107) mEq/L Carbon Dioxide (21-32) mEq/L Anion Gap (5-15) BUN (7-18) mg/dL Creatinine (0.7-1.3) mg/dL Est Cr Clr Drug Dosing mL/min Estimated GFR (MDRD) (>60) mL/min BUN/Creatinine Ratio (14-18) Glucose (70-99) mg/dL POC Glucose 286 H (70-99) mg/dL Calcium (8.5-10.1) mg/dL Magnesium (1.8-2.4) mg/dL Total Bilirubin (0.2-1.0) mg/dL AST (15-37) U/L ALT (16-63) U/L Alkaline Phosphatase (46-116) U/L CK-MB (CK-2) (0-3.6) ng/ml Troponin I (0.00-0.056) ng/mL C-Reactive Protein (<1.0) mg/dL Total Protein (6.4-8.2) g/dl Albumin (3.4-5.0) g/dl Globulin gm/dL Albumin/Globulin Ratio (1-2) Procalcitonin ng/mL Mycoplasma pneumon IgM (NEGATIVE) MRSA (PCR) 01/19/21 Range/Units 05:15 WBC (4.23-9.07) K/mm3 RBC (4.63-6.08) M/mm3 Hgb (13.7-17.5) gm/dl Hct (40.1-51.0) % MCV (79.0-92.2) fl MCH (25.7-32.2) pg MCHC (32.2-35.5) g/dl RDW Std Deviation (35.1-43.9) fL Plt Count (163-337) K/mm3 MPV (9.4-12.3) fl Neut % (Auto) (34.0-67.9) % Lymph % (Auto) (21.8-53.1) % [place] % (Auto) (5.3-12.2) % Eos % (Auto) (0.8-7.0) Baso % (Auto) (0.1-1.2) % Neut # (Auto) (1.78-5.38) K/mm3 Lymph # (Auto) (1.32-3.57) K/mm3 [place] # (Auto) (0.30-0.82) K/mm3 Eos # (Auto) (0.04-0.54) K/mm3 Baso # (Auto) (0.01-0.08) K/mm3 Manual Slide Review Puncture Site ABG pH (7.35-7.45) ABG pCO2 (35.0-45.0) mmHg ABG pO2 (80.0-100.0) mmHg ABG HCO3 (22.0-26.0) meq/L ABG O2 Saturation (96.0-97.0) % ABG Base Excess (-2-2.0) Rosendo Test A-a Gradient mmHg O2 Delivery Device Oxygen Flow Rate FiO2 (21.00-100.00) % Sodium 139 (136-145) mEq/L Potassium 4.4 (3.5-5.1) mEq/L Chloride 105 (98-107) mEq/L Carbon Dioxide 19 L (21-32) mEq/L Anion Gap 19.4 H (5-15) BUN 31 H (7-18) mg/dL Creatinine 1.5 H (0.7-1.3) mg/dL Est Cr Clr Drug Dosing 45.82 mL/min Estimated GFR (MDRD) 46 (>60) mL/min BUN/Creatinine Ratio 20.7 H (14-18) Glucose 317 H (70-99) mg/dL POC Glucose (70-99) mg/dL Calcium 8.8 (8.5-10.1) mg/dL Magnesium 2.1 (1.8-2.4) mg/dL Total Bilirubin 0.2 (0.2-1.0) mg/dL AST 45 H (15-37) U/L ALT 58 (16-63) U/L Alkaline Phosphatase 64 (46-116) U/L CK-MB (CK-2) (0-3.6) ng/ml Troponin I (0.00-0.056) ng/mL C-Reactive Protein 27.7 H* (<1.0) mg/dL Total Protein 7.0 (6.4-8.2) g/dl Albumin 1.9 L (3.4-5.0) g/dl Globulin 5.1 gm/dL Albumin/Globulin Ratio 0.4 L (1-2) Procalcitonin ng/mL Mycoplasma pneumon IgM (NEGATIVE) MRSA (PCR) Result Diagrams: 01/19/21 05:15 01/19/21 05:15 Enio Results Last 24 hrs: Microbiology 01/18/21 09:35 Aerobic Blood Culture - Preliminary Blood - Venous NO GROWTH AFTER 1 DAY Anaerobic Blood Culture - Preliminary NO GROWTH AFTER 1 DAY 01/18/21 09:20 Aerobic Blood Culture - Preliminary Blood - Venous - Lab Draw NO GROWTH AFTER 1 DAY Anaerobic Blood Culture - Final 01/18/21 15:50 Gram Stain - Final Sputum - Expectorated Sputum Culture - Final Sepsis Event Note - Evaluation Sepsis Screening Result: Sepsis Risk - Focused Exam Vital Signs: Vital Signs Pulse BP Pulse Ox 01/19/21 09:27 93 L 01/19/21 09:02 74 117/81 01/19/21 06:31 94 L 01/19/21 01:19 96 01/19/21 00:25 96 - Problem List Review Problem List Initiated/Reviewed/Updated: Yes - My Orders Last 24 Hours: My Active Orders 01/18/21 22:00 Insulin Lispro [HumaLOG] See Protocol SUBCUT QIDACANDBED 01/19/21 09:00 Insulin Glarg,Human.Rec.Analog [LantUS] 90 unit SUBCUT DAILY 01/19/21 09:47 Communication Order [RC] DAILY 01/19/21 13:00 Levofloxacin/Dextrose 5%-Water [Levaquin in D5W 750 MG/150 ML] 750 mg Premix Bag 1 bag IV Q48H 01/20/21 09:00 Fish Oil/[place]-3 Fatty Acids [Fish Oil] 2 gm PO DAILY - Plan Plan:: Assessment - day of admission 01/18/2021 * This is a 70-year-old male who presents to ED on 01/18/2021 with dyspnea and left-sided chest pain along his ribs. * He carries a history of A. fib, prior Covid infection, type II DM, and chronic kidney disease. * Diagnosed with Covid on December 11, transferred to [facility] and hospitalized for 13 days. * He was released on 01-02-2021 on 2 L of home oxygen. * Reports dyspnea with accompanying chills, diaphoresis, and a cough. * In the ED twelve-lead EKG is obtained showing a sinus tachycardia at 119 bpm. * Labs obtained in ED: * WBC 10.56. * Hemoglobin is 12.7. * He is normocytic. * Platelets are elevated at 409,000. * Neutrophils are elevated 72.3%. * D-dimer is elevated at 5.12. * Sodium is 137. * Potassium 4.3. * Chloride 101. * Carbon dioxide 20. * Anion gap is 20.3. * BUN is 32. Creatinine 1.7. GFR is 40. * Glucose is 204. * Total bilirubin 0.5. * AST is 38, ALT 46, alkaline phosphatase 80. * Troponin 0 0.074. * CRP is 41.4. * Albumin is 2.4. * Lactic acid is 1.2. * proBNP is 1666. * ABG obtained in the left radial with a pH of 7.41. PCO2 of 25.4. PO2 of 62.0. HCO3 of 15.2. O2 saturation of 92.4. Base excess is -6.8. AA gradient is 135. This is obtained while on 3 L via nasal cannula. * Chest x-ray shows prominent increase in density on both sides the chest raising the possibility diffuse pneumonia. Please correlate if patient has Covid disease. No other acute abnormality is seen. * CTA is obtained showing diffuse increased density on both sides the chest compatible with diffuse pneumonia. Vague areas of poor enhancement within the main pulmonary arteries on both sides. This is most likely artifact. No definitive findings of pulmonary embolism are seen. Incidental degenerative change within the spine is also noted. * Patient is given 1 DuoNeb and started on Rocephin and IV fluids. He is given 125 mg Solu-Medrol and 5 units of lispro insulin. * He subsequently admitted to the medical floor on telemetry for management of his bilateral pneumonia. PLAN: Healthcare-associated pneumonia History of COVID-19 Hypoxia Supplemental oxygen dependant * Patient recently hospitalized so will need to treat as healthcare related PNA * MRSA screening negative * Discontinued zosyn Q8Hr and vancomycin * Started Levaquin * IS/Acapella * RT consult * CM/SW consult * O2 as needed to keep saturations >90 (on 2L at home baseline) * Check procalcitonin 2.14 * Blood cultures no growth so far * Sputum culture no significance * Tylenol for fevers * Scheduled QID duonebs * Droplet isolation * Inside COVID-19 window so will not need re-testing * Monitor daily labs Atrial fibrillation Chronic anticoagulation Elevated troponin level not due myocardial infarction Elevated BNP Elevated D-Dimer * Telemetry * Obtain echocardiogram to rule out CHF and/or COVID myopathy * Troponin 0.0 74, 0.051 * CK-MB 1.3 * Troponin noted to be elevated on multiple prior visits. Patient has chronic kidney disease. * Continue home eliquis * Continue home cardiac meds * Consider LE US if swelling/pain noted to legs - negative exam at this time and already on Eliquis. 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 CKD (chronic kidney disease) * Creatinine 3.2 on September 15, 2025. Creatinine 1.5 which is the best value since 2016 * Appears to be around baseline with GFR in 40's * Caution with nephrotoxic meds * IV fluids as ordered Code Status: Full code PCP: Dr. Barksdale DVT prophylaxis: Home eliquis Disposition: Patient admitted to the medical floor on telemetry for management of bilateral pneumonia. We will treat this as healthcare related at this time. Likely length of stay 3 to 4 days total.
[2021-01-19] MEDS ORDERED: Levofloxacin/Dextrose 5%-Water 750 MG in Premix Bag 1 BAG IV SCH (13:00)
[2021-01-19] MEDS ORDERED: Furosemide 40 MG/4 ML VIAL IVPUSH ONE (18:04)
[2021-01-19] MEDS: atorvaSTATin 20 MG Tab PO SCH (20:25)
[2021-01-19] MEDS: Acetaminophen 325 MG Tab PO PRN (20:27)
[2021-01-20] MEDS: Albuterol/Ipratropium 3.0-0.5 MG/3 ML Neb Soln NEB SCH ×4 (06:45→20:34)
[2021-01-20] MEDS: Metoprolol Tartrate 25 MG Tab PO SCH ×2 (08:09→20:15)
[2021-01-20] MEDS: Pantoprazole 40 MG Tab.CR PO SCH (08:09)
[2021-01-20] MEDS: Insulin Glarg,Human.Rec.Analog 100 Unit/ML SUBCUT SCH (08:09)
[2021-01-20] MEDS: Apixaban 5 MG Tab PO SCH ×2 (08:09→20:15)
[2021-01-20] MEDS: Aspirin 81 MG Tab.Chew PO SCH (08:09)
[2021-01-20] MEDS: Insulin Lispro 100 UNIT/ML 10 ML Vial SUBCUT SCH ×4 (08:12→21:21)
[2021-01-20] MEDS: Fish Oil/Omega-3 Fatty Acids 1 Gm Cap PO SCH (08:12)
[2021-01-20] MEDS: Acetaminophen 325 MG Tab PO PRN ×2 (08:16→17:43)
--- NOTE | 2021-01-20 08:48 | CR ---
Chest: Portable view of the chest was obtained. Comparison: Prior chest CT study of 01/18/21 and chest x-ray of 01/18/21. Diffuse increased density is noted on both sides of the chest. Findings are felt to be fairly similar to previous chest imaging. Heart size and mediastinum are normal. No acute osseous abnormality is appreciated. Impression: 1. Diffuse increased density on both sides of the chest. Findings are stable from prior chest imaging. Diffuse pneumonia is the most likely etiology which could be due to Covid etiology, diffuse bacterial or other atypical etiologies. 2. Nothing acute is otherwise seen. Diagnostic code #3 I agree with preliminary report from [facility] finalized on 01/19/21, 8:30 PM CDT, code 1
[2021-01-20] MEDS: Formoterol/Mometasone 100-5 MCG 8.8 GM Inhaler IH SCH ×2 (09:18→20:36)
[2021-01-20] MEDS ORDERED: Furosemide 20 MG/2 ML VIAL IVPUSH ONE (10:40)
[2021-01-20] MEDS ORDERED: Levofloxacin/Dextrose 5%-Water 750 MG in Premix Bag 1 BAG IV SCH (12:00)
--- NOTE | 2021-01-20 13:07 | PCM.PN ---
- General Info Date of Service: 01/20/21 Admission Dx/Problem (Free Text): Admission Diagnosis/Problem Admission Diagnosis/Problem Pneumonia Subjective Update: This is a 70-year-old male who presents to ED on 01/18/2021 with dyspnea and left-sided chest pain along his ribs. He was diagnosed with Covid on December 11 and transferred to [facility] where he was hospitalized for 13 days. He was released on 01-02-2021 on 2 L of home oxygen. Reports he has been doing good up until the last couple of days, in which she has noticed he has been more dyspneic and had accompanying chills, diaphoresis, and a cough. He is feeling much better, less SOB. Denies fever, chills, nausea or vomiting. He is now on 4L Potassium 3.9, creatinine 1.4 Mag 1.8 AST 75, ALT 144 CRP 14.5 - Review of Systems General: Reports: No Symptoms HEENT: Reports: No Symptoms Pulmonary: Reports: Shortness of Breath Cardiovascular: Reports: No Symptoms Gastrointestinal: Reports: No Symptoms Genitourinary: Reports: No Symptoms Musculoskeletal: Reports: No Symptoms Skin: Reports: No Symptoms Neurological: Reports: No Symptoms Psychiatric: Reports: No Symptoms - Patient Data Vitals - Most Recent: Last Vital Signs Temp 36.7 C 01/20/21 08:10 Pulse 92 01/20/21 08:10 Resp 20 01/20/21 08:10 BP 127/80 01/20/21 08:10 Pulse Ox 94 L 01/20/21 09:19 Weight - Most Recent: 85.321 kg I&O - Last 24 Hours: Intake & Output 01/19/21 01/20/21 01/20/21 22:59 06:59 14:59 Intake Total 1470 400 Output Total 2250 Balance 1470 -1850 Lab Results Last 24 Hours: Laboratory Results - last 24 hr 01/20/21 01/20/21 Range/Units 05:49 05:49 WBC 11.11 H (4.23-9.07) K/mm3 RBC 3.81 L (4.63-6.08) M/mm3 Hgb 11.4 L (13.7-17.5) gm/dl Hct 34.5 L (40.1-51.0) % MCV 90.6 (79.0-92.2) fl MCH 29.9 (25.7-32.2) pg MCHC 33.0 (32.2-35.5) g/dl RDW Std Deviation 43.8 (35.1-43.9) fL Plt Count 434 H D (163-337) K/mm3 MPV 8.6 L (9.4-12.3) fl Neut % (Auto) 77.1 H (34.0-67.9) % Lymph % (Auto) 12.5 L (21.8-53.1) % Donley % (Auto) 7.8 (5.3-12.2) % Eos % (Auto) 1.4 (0.8-7.0) Baso % (Auto) 0.2 (0.1-1.2) % Neut # (Auto) 8.56 H (1.78-5.38) K/mm3 Lymph # (Auto) 1.39 (1.32-3.57) K/mm3 Donley # (Auto) 0.87 H (0.30-0.82) K/mm3 Eos # (Auto) 0.16 (0.04-0.54) K/mm3 Baso # (Auto) 0.02 (0.01-0.08) K/mm3 Manual Slide Review Abnormal smear Sodium 142 (136-145) mEq/L Potassium 3.9 (3.5-5.1) mEq/L Chloride 107 (98-107) mEq/L Carbon Dioxide 22 (21-32) mEq/L Anion Gap 16.9 H (5-15) BUN 32 H (7-18) mg/dL Creatinine 1.4 H (0.7-1.3) mg/dL Est Cr Clr Drug Dosing 49.10 mL/min Estimated GFR (MDRD) 50 (>60) mL/min BUN/Creatinine Ratio 22.9 H (14-18) Glucose 125 H (70-99) mg/dL Calcium 8.8 (8.5-10.1) mg/dL Magnesium 1.8 (1.8-2.4) mg/dL Total Bilirubin 0.2 (0.2-1.0) mg/dL AST 75 H (15-37) U/L ALT 134 H (16-63) U/L Alkaline Phosphatase 71 (46-116) U/L C-Reactive Protein 14.5 H* (<1.0) mg/dL Total Protein 7.0 (6.4-8.2) g/dl Albumin 2.0 L (3.4-5.0) g/dl Globulin 5.0 gm/dL Albumin/Globulin Ratio 0.4 L (1-2) Enio Results Last 24 Hours: Microbiology 01/18/21 09:35 Aerobic Blood Culture - Preliminary Blood - Venous NO GROWTH AFTER 2 DAYS Anaerobic Blood Culture - Preliminary NO GROWTH AFTER 2 DAYS 01/18/21 09:20 Aerobic Blood Culture - Preliminary Blood - Venous - Lab Draw NO GROWTH AFTER 2 DAYS Anaerobic Blood Culture - Final 01/19/21 17:30 Gram Stain - Preliminary Sputum - Expectorated 01/18/21 10:40 Streptococcus pneumoniae Antigen (M - Final Urine Med Orders - Current: Current Medications Acetaminophen (Acetaminophen 325 Mg Tab) 650 mg PO Q4H PRN PRN Reason: Pain (Mild 1-3)/fever Last Admin: 01/20/21 08:16 Dose: 650 mg Documented by: Albuterol (Albuterol 0.083% 2.5 Mg/3 Ml Neb Soln) 2.5 mg NEB Q2H PRN PRN Reason: Shortness Of Breath/wheezing Albuterol/Ipratropium (Albuterol/Ipratropium 3.0-0.5 Mg/3 Ml Neb Soln) 3 ml NEB QIDRT [facility] Last Admin: 01/20/21 09:18 Dose: 3 ml Documented by: Apixaban (Apixaban 5 Mg Tab) 5 mg PO BID [facility] Last Admin: 01/20/21 08:09 Dose: 5 mg Documented by: Aspirin (Aspirin 81 Mg Tab.Chew) 81 mg PO DAILY [facility] Last Admin: 01/20/21 08:09 Dose: 81 mg Documented by: Atorvastatin Calcium (Atorvastatin 20 Mg Tab) 20 mg PO BEDTIME [facility] Last Admin: 01/19/21 20:25 Dose: 20 mg Documented by: Dextrose/Water (50% Dextrose In Water 50 Ml Syringe) 50 ml IVPUSH ASDIRECTED PRN PRN Reason: Hypoglycemia Docusate Sodium (Docusate Sodium 100 Mg Cap) 100 mg PO Q12H PRN PRN Reason: Constipation Fish Oil (Fish Oil/[place]-3 Fatty Acids 1 Gm Cap) 2 gm PO DAILY [facility] Last Admin: 01/20/21 08:12 Dose: 2 gm Documented by: Levofloxacin/Dextrose 750 mg/ (Premix) 150 mls @ 100 mls/hr IV Q24H [facility] Last Admin: 01/20/21 11:44 Dose: 100 mls/hr Documented by: Insulin Glargine (Insulin Glarg,Human.Rec.Analog 100 Unit/Ml) 90 unit SUBCUT DAILY [facility] Last Admin: 01/20/21 08:09 Dose: 90 units Documented by: Insulin Human Lispro (Insulin Lispro 100 Unit/Ml 10 Ml Vial) 0 unit SUBCUT QIDACANDBED [facility]; Protocol Last Admin: 01/20/21 12:06 Dose: 4 units Documented by: Magnesium Hydroxide (Magnesium Hydroxide 400 Mg/5 Ml Susp 30 Ml Cup) 30 ml PO Q12H PRN PRN Reason: Constipation Metoprolol Tartrate (Metoprolol Tartrate 25 Mg Tab) 12.5 mg PO BID [facility] Last Admin: 01/20/21 08:09 Dose: 12.5 mg Documented by: Metoprolol Tartrate (Metoprolol Tartrate 5 Mg/5 Ml Sdv) 5 mg IVPUSH Q4H PRN PRN Reason: Tachycardia Mometasone Furoate/Formoterol Fumar (Formoterol/Mometasone 100-5 Mcg 8.8 Gm Inhaler) 2 puff IH BID [facility] Last Admin: 01/20/21 09:18 Dose: 2 puff Documented by: Ondansetron HCl (Ondansetron 4 Mg/2 Ml Sdv) 4 mg IV Q6H PRN PRN Reason: Nausea/Vomiting Pantoprazole Sodium (Pantoprazole 40 Mg Tab.Cr) 40 mg PO DAILY [facility] Last Admin: 01/20/21 08:09 Dose: 40 mg Documented by: Sodium Chloride (Sodium Chloride 0.9% 10 Ml Syringe) 10 ml FLUSH ONETIME PRN PRN Reason: IV FLUSH Last Admin: 01/18/21 10:02 Dose: 10 ml Documented by: Discontinued Medications Albuterol/Ipratropium (Albuterol/Ipratropium 3.0-0.5 Mg/3 Ml Neb Soln) 3 ml NEB ONETIME ONE Stop: 01/18/21 09:01 Last Admin: 01/18/21 09:20 Dose: 3 ml Documented by: Furosemide (Furosemide 40 Mg/4 Ml Vial) 40 mg IVPUSH NOW ONE Stop: 01/19/21 18:05 Last Admin: 01/19/21 18:20 Dose: 40 mg Documented by: Furosemide (Furosemide 20 Mg/2 Ml Vial) 20 mg IVPUSH ONETIME ONE Stop: 01/20/21 10:41 Last Admin: 01/20/21 11:44 Dose: 20 mg Documented by: Sodium Chloride (Normal Saline) 1,000 mls @ 150 mls/hr IV ASDIRECTED [facility] Last Infusion: 01/18/21 14:15 Dose: Infused Documented by: Sodium Chloride (Normal Saline) 100 mls @ 75 mls/hr IV ASDIRECTED [facility] Last Admin: 01/18/21 10:02 Dose: 75 mls/hr Documented by: Ceftriaxone Sodium 2 gm/ (Sodium Chloride) 100 mls @ 200 mls/hr IV ONETIME ONE Stop: 01/18/21 10:31 Last Admin: 01/18/21 10:31 Dose: 200 mls/hr Documented by: Sodium Chloride (Normal Saline) 250 mls @ 999 mls/hr IV .BOLUS ONE Stop: 01/18/21 11:58 Last Admin: 01/18/21 13:01 Dose: Not Given Documented by: Sodium Chloride (Normal Saline) 1,000 mls @ 75 mls/hr IV ASDIRECTED [facility] Last Admin: 01/18/21 20:04 Dose: 75 mls/hr Documented by: Piperacillin Sod/Tazobactam (Sod 4.5 gm/ Sodium Chloride) 100 mls @ 25 mls/hr IV Q8H [facility] Last Admin: 01/19/21 05:02 Dose: 25 mls/hr Documented by: Piperacillin Sod/Tazobactam (Sod 4.5 gm/ Sodium Chloride) 100 mls @ 200 mls/hr IV ONETIME ONE Stop: 01/18/21 13:29 Last Admin: 01/18/21 13:27 Dose: 200 mls/hr Documented by: Vancomycin HCl 1.75 gm/ Sodium (Chloride) 500 mls @ 250 mls/hr IV ONETIME ONE Stop: 01/18/21 15:29 Last Admin: 01/18/21 14:11 Dose: 250 mls/hr Documented by: Vancomycin HCl 1 gm/Vancomycin HCl 500 mg/ Sodium Chloride 500 mls @ 250 mls/hr IV Q18H ONE Stop: 01/19/21 09:59 Last Admin: 01/19/21 09:03 Dose: 250 mls/hr Documented by: Levofloxacin/Dextrose 750 mg/ (Premix) 150 mls @ 100 mls/hr IV Q48H [facility] Last Admin: 01/19/21 12:02 Dose: 100 mls/hr Documented by: Magnesium Sulfate/Dextrose 1 (gm/ Premix) 100 mls @ 100 mls/hr IV Q1H [facility] Stop: 01/20/21 09:44 Last Admin: 01/20/21 10:18 Dose: 100 mls/hr Documented by: Insulin Glargine (Insulin Glarg,Human.Rec.Analog 100 Unit/Ml) 85 unit SUBCUT DAILY [facility] Insulin Glargine (Insulin Glarg,Human.Rec.Analog 100 Unit/Ml) 50 unit SUBCUT ONETIME ONE Stop: 01/18/21 12:31 Last Admin: 01/18/21 12:57 Dose: 50 units Documented by: Insulin Glargine (Insulin Glarg,Human.Rec.Analog 100 Unit/Ml) 5 unit SUBCUT ONETIME ONE Stop: 01/18/21 21:42 Last Admin: 01/18/21 21:59 Dose: 5 units Documented by: Insulin Human Lispro (Insulin Lispro 100 Unit/Ml 10 Ml Vial) 5 unit SUBCUT ONETIME ONE Stop: 01/18/21 10:44 Last Admin: 01/18/21 10:59 Dose: 5 unit Documented by: Insulin Human Lispro (Insulin Lispro 100 Unit/Ml 10 Ml Vial) 0 unit SUBCUT QIDACANDBED [facility]; Protocol Last Admin: 01/18/21 17:17 Dose: 3 units Documented by: Iopamidol (Iopamidol 755 Mg/Ml 100 Ml Bottle) 100 ml IVPUSH ONETIME ONE Stop: 01/18/21 09:43 Last Admin: 01/18/21 10:02 Dose: 100 ml Documented by: Methylprednisolone Sodium Succinate (Methylprednisolone Sodium Succinate 125 Mg/2 Ml Sdv) 125 mg IVPUSH ONETIME ONE Stop: 01/18/21 09:01 Last Admin: 01/18/21 09:08 Dose: 125 mg Documented by: Vancomycin HCl (Pharmacy To Dose - Vancomycin) 1 dose .XX ASDIRECTED PRN PRN Reason: RX TO DOSE VANCO - Exam Physical Findings Comments:: General: Alert, Oriented, Cooperative, Mild Distress (Tachypneic and short of breath) HEENT: Conjunctiva Clear, EACs Clear, Posterior Pharynx Clear. No: Mucosa Moist & [place] (dry) Neck: Supple, Trachea Midline Lungs: Decreased Breath Sounds. No: Normal Respiratory Effort (Tachypneic and appears mildly short of breath), Rales, Rhonchi, Wheezing (improving) Cardiovascular: Regular Rhythm, Tachycardia GI/Abdominal Exam: Normal Bowel Sounds, Soft, Non-Tender, No Distention (Male) Exam: Deferred Rectal (Males) Exam: Deferred Back Exam: Normal Inspection, Full Range of Motion Extremities: Normal Inspection, Normal Range of Motion, Non-Tender, No Pedal Edema, Normal Capillary Refill Peripheral Pulses: 2+: Dorsalis Pedis (L), Dorsalis Pedis (R), 3+: Radial (L), R adial (R) Skin: Warm, Dry, Intact Neurological: Cranial Nerves Intact (Grossly ) Neuro Extensive - Mental Status: Alert, Oriented x3, Normal Mood/Affect - Patient Data Lab Results Last 24 hrs: Laboratory Results - last 24 hr 01/20/21 01/20/21 Range/Units 05:49 05:49 WBC 11.11 H (4.23-9.07) K/mm3 RBC 3.81 L (4.63-6.08) M/mm3 Hgb 11.4 L (13.7-17.5) gm/dl Hct 34.5 L (40.1-51.0) % MCV 90.6 (79.0-92.2) fl MCH 29.9 (25.7-32.2) pg MCHC 33.0 (32.2-35.5) g/dl RDW Std Deviation 43.8 (35.1-43.9) fL Plt Count 434 H D (163-337) K/mm3 MPV 8.6 L (9.4-12.3) fl Neut % (Auto) 77.1 H (34.0-67.9) % Lymph % (Auto) 12.5 L (21.8-53.1) % Donley % (Auto) 7.8 (5.3-12.2) % Eos % (Auto) 1.4 (0.8-7.0) Baso % (Auto) 0.2 (0.1-1.2) % Neut # (Auto) 8.56 H (1.78-5.38) K/mm3 Lymph # (Auto) 1.39 (1.32-3.57) K/mm3 Donley # (Auto) 0.87 H (0.30-0.82) K/mm3 Eos # (Auto) 0.16 (0.04-0.54) K/mm3 Baso # (Auto) 0.02 (0.01-0.08) K/mm3 Manual Slide Review Abnormal smear Sodium 142 (136-145) mEq/L Potassium 3.9 (3.5-5.1) mEq/L Chloride 107 (98-107) mEq/L Carbon Dioxide 22 (21-32) mEq/L Anion Gap 16.9 H (5-15) BUN 32 H (7-18) mg/dL Creatinine 1.4 H (0.7-1.3) mg/dL Est Cr Clr Drug Dosing 49.10 mL/min Estimated GFR (MDRD) 50 (>60) mL/min BUN/Creatinine Ratio 22.9 H (14-18) Glucose 125 H (70-99) mg/dL Calcium 8.8 (8.5-10.1) mg/dL Magnesium 1.8 (1.8-2.4) mg/dL Total Bilirubin 0.2 (0.2-1.0) mg/dL AST 75 H (15-37) U/L ALT 134 H (16-63) U/L Alkaline Phosphatase 71 (46-116) U/L C-Reactive Protein 14.5 H* (<1.0) mg/dL Total Protein 7.0 (6.4-8.2) g/dl Albumin 2.0 L (3.4-5.0) g/dl Globulin 5.0 gm/dL Albumin/Globulin Ratio 0.4 L (1-2) Result Diagrams: 01/20/21 05:49 01/20/21 05:49 Enio Results Last 24 hrs: Microbiology 01/18/21 09:35 Aerobic Blood Culture - Preliminary Blood - Venous NO GROWTH AFTER 2 DAYS Anaerobic Blood Culture - Preliminary NO GROWTH AFTER 2 DAYS 01/18/21 09:20 Aerobic Blood Culture - Preliminary Blood - Venous - Lab Draw NO GROWTH AFTER 2 DAYS Anaerobic Blood Culture - Final 01/19/21 17:30 Gram Stain - Preliminary Sputum - Expectorated 01/18/21 10:40 Streptococcus pneumoniae Antigen (M - Final Urine Sepsis Event Note - Evaluation Sepsis Screening Result: No Definite Risk - Focused Exam Vital Signs: Vital Signs Temp Pulse Resp BP Pulse Ox Pulse Ox 01/20/21 09:19 94 L 01/20/21 08:10 36.7 C 92 20 127/80 01/20/21 08:09 93 127/80 01/20/21 08:00 92 L 01/20/21 06:45 92 L 01/20/21 05:10 95 01/20/21 04:52 36.7 C 73 13 128/82 97 - Problem List Review Problem List Initiated/Reviewed/Updated: Yes - My Orders Last 24 Hours: My Active Orders 01/19/21 17:30 CULTURE SPUTUM + SMEAR [RM] Routine 01/20/21 09:00 Fish Oil/[place]-3 Fatty Acids [Fish Oil] 2 gm PO DAILY 01/20/21 12:00 Levofloxacin/Dextrose 5%-Water [Levaquin in D5W 750 MG/150 ML] 750 mg Premix Bag 1 bag IV Q24H 01/21/21 05:00 MAGNESIUM [CHEM] Routine - Plan Plan:: Assessment - day of admission 01/18/2021 * This is a 70-year-old male who presents to ED on 01/18/2021 with dyspnea and left-sided chest pain along his ribs. * He carries a history of A. fib, prior Covid infection, type II DM, and chronic kidney disease. * Diagnosed with Covid on December 11, transferred to [facility] and hospitalized for 13 days. * He was released on 01-02-2021 on 2 L of home oxygen. * Reports dyspnea with accompanying chills, diaphoresis, and a cough. * In the ED twelve-lead EKG is obtained showing a sinus tachycardia at 119 bpm. * Labs obtained in ED: * WBC 10.56. * Hemoglobin is 12.7. * He is normocytic. * Platelets are elevated at 409,000. * Neutrophils are elevated 72.3%. * D-dimer is elevated at 5.12. * Sodium is 137. * Potassium 4.3. * Chloride 101. * Carbon dioxide 20. * Anion gap is 20.3. * BUN is 32. Creatinine 1.7. GFR is 40. * Glucose is 204. * Total bilirubin 0.5. * AST is 38, ALT 46, alkaline phosphatase 80. * Troponin 0 0.074. * CRP is 41.4. * Albumin is 2.4. * Lactic acid is 1.2. * proBNP is 1666. * ABG obtained in the left radial with a pH of 7.41. PCO2 of 25.4. PO2 of 62.0. HCO3 of 15.2. O2 saturation of 92.4. Base excess is -6.8. AA gradient is 135. This is obtained while on 3 L via nasal cannula. * Chest x-ray shows prominent increase in density on both sides the chest ra ising the possibility diffuse pneumonia. Please correlate if patient has Covid disease. No other acute abnormality is seen. * CTA is obtained showing diffuse increased density on both sides the chest compatible with diffuse pneumonia. Vague areas of poor enhancement within the main pulmonary arteries on both sides. This is most likely artifact. No definitive findings of pulmonary embolism are seen. Incidental degenerative change within the spine is also noted. * Patient is given 1 DuoNeb and started on Rocephin and IV fluids. He is given 125 mg Solu-Medrol and 5 units of lispro insulin. * He subsequently admitted to the medical floor on telemetry for management of his bilateral pneumonia. PLAN: Healthcare-associated pneumonia History of COVID-19 Hypoxia Supplemental oxygen dependant * CXR - Diffuse increased density on both sides of the chest. Findings are stable from prior chest imaging. Diffuse pneumonia is the most likely etiology with the could be due to Covid etiology, diffuse bacterial all other atypical etiologies. * Patient recently hospitalized so will need to treat as healthcare related PNA * MRSA screening negative * Discontinued zosyn Q8Hr and vancomycin * Started Levaquin * IS/Acapella * RT consult * CM/SW consult * O2 as needed to keep saturations >90 (on 2L at home baseline) * Check procalcitonin 2.14 * Blood cultures no growth so far * Sputum culture no significance * Tylenol for fevers * Scheduled QID duonebs * Droplet isolation * Inside COVID-19 window so will not need re-testing * Monitor daily labs Atrial fibrillation Chronic anticoagulation Elevated troponin level not due myocardial infarction Elevated BNP Elevated D-Dimer * Telemetry * Obtain echocardiogram to rule out CHF and/or COVID myopathy- pending * Troponin 0.0 74, 0.051 * CK-MB 1.3 * Troponin noted to be elevated on multiple prior visits. Patient has chronic kidney disease. * Continue home eliquis * Continue home cardiac meds * Consider LE US if swelling/pain noted to legs - negative exam at this time and already on Eliquis. 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 CKD (chronic kidney disease) * Creatinine 3.2 on September 15, 2025. Creatinine 1.4 today which is the best value since 2016 * Appears to be around baseline with GFR in 40's * Caution with nephrotoxic meds * IV fluids as ordered Code Status: Full code PCP: Dr. Barksdale DVT prophylaxis: Home eliquis Disposition: Patient admitted to the medical floor on telemetry for management of bilateral pneumonia. We will treat this as healthcare related at this time. Likely length of stay 3 to 4 days total.
[2021-01-20] MEDS: atorvaSTATin 20 MG Tab PO SCH (20:14)
[2021-01-21] MEDS: Acetaminophen 325 MG Tab PO PRN ×2 (04:21→21:49)
[2021-01-21] MEDS: Albuterol 0.083% 2.5 MG/3 ML Neb Soln NEB PRN (04:34)
[2021-01-21] MEDS: Albuterol/Ipratropium 3.0-0.5 MG/3 ML Neb Soln NEB SCH ×4 (06:29→21:19)
[2021-01-21] MEDS: Insulin Lispro 100 UNIT/ML 10 ML Vial SUBCUT SCH ×4 (07:38→21:52)
[2021-01-21] MEDS: Insulin Glarg,Human.Rec.Analog 100 Unit/ML SUBCUT SCH (08:28)
[2021-01-21] MEDS: Fish Oil/Omega-3 Fatty Acids 1 Gm Cap PO SCH (08:29)
[2021-01-21] MEDS: Apixaban 5 MG Tab PO SCH ×2 (08:29→21:52)
[2021-01-21] MEDS: Aspirin 81 MG Tab.Chew PO SCH (08:29)
[2021-01-21] MEDS: Metoprolol Tartrate 25 MG Tab PO SCH ×2 (08:30→21:50)
[2021-01-21] MEDS: Pantoprazole 40 MG Tab.CR PO SCH (08:30)
--- NOTE | 2021-01-21 08:47 | PCM.PN ---
<Wilder Vera - Last Filed: 01/21/21 11:04> - General Info Date of Service: 01/21/21 Admission Dx/Problem (Free Text): Admission Diagnosis/Problem Admission Diagnosis/Problem Pneumonia Functional Status: Reports: Pain Controlled, Tolerating Diet, Ambulating, Urinating, Incentive Spirometry, Other (Acapella ). Denies: New Symptoms - Review of Systems General: Reports: No Symptoms. Denies: Fever, Weakness, Fatigue, Malaise, Chills HEENT: Reports: No Symptoms. Denies: Headaches, Sore Throat Pulmonary: Reports: Shortness of Breath, Pleuritic Chest Pain, Cough, Sputum (minimal ), Wheezing Cardiovascular: Reports: Palpitations, Dyspnea on Exertion. Denies: Chest Pain, Edema Gastrointestinal: Reports: No Symptoms. Denies: Abdominal Pain, Constipation, Diarrhea, Nausea, Vomiting Genitourinary: Reports: No Symptoms, Pain Musculoskeletal: Reports: No Symptoms Skin: Reports: No Symptoms. Denies: Cyanosis Neurological: Reports: No Symptoms. Denies: Confusion, Dizziness, Headache, Numbness, Pre-Existing Deficit, Seizure, Syncope, Tingling, Difficulty Walking, Weakness, Gait Disturbance Psychiatric: Reports: No Symptoms - Patient Data Vitals - Most Recent: Last Vital Signs Temp 98.1 F 01/21/21 08:25 Pulse 96 01/21/21 08:30 Resp 20 01/21/21 08:25 BP 106/77 01/21/21 08:30 Pulse Ox 93 L 01/21/21 08:41 Weight - Most Recent: 84.595 kg I&O - Last 24 Hours: Intake & Output 01/20/21 01/21/21 01/21/21 22:59 06:59 14:59 Intake Total 1720 400 Output Total 2200 1000 Balance -480 -600 Lab Results Last 24 Hours: Laboratory Results - last 24 hr 01/21/21 01/21/21 01/21/21 Range/Units 06:08 06:08 06:08 WBC 9.58 H (4.23-9.07) K/mm3 RBC 3.89 L (4.63-6.08) M/mm3 Hgb 11.6 L (13.7-17.5) gm/dl Hct 35.1 L (40.1-51.0) % MCV 90.2 (79.0-92.2) fl MCH 29.8 (25.7-32.2) pg MCHC 33.0 (32.2-35.5) g/dl RDW Std Deviation 43.7 (35.1-43.9) fL Plt Count 443 H (163-337) K/mm3 MPV 8.4 L (9.4-12.3) fl Neut % (Auto) 72.2 H (34.0-67.9) % Lymph % (Auto) 11.9 L (21.8-53.1) % Williamson % (Auto) 9.4 (5.3-12.2) % Eos % (Auto) 4.3 (0.8-7.0) Baso % (Auto) 0.3 (0.1-1.2) % Neut # (Auto) 6.92 H (1.78-5.38) K/mm3 Lymph # (Auto) 1.14 L (1.32-3.57) K/mm3 Williamson # (Auto) 0.90 H (0.30-0.82) K/mm3 Eos # (Auto) 0.41 (0.04-0.54) K/mm3 Baso # (Auto) 0.03 (0.01-0.08) K/mm3 Manual Slide Review Abnormal smear Sodium 142 (136-145) mEq/L Potassium 3.6 (3.5-5.1) mEq/L Chloride 105 (98-107) mEq/L Carbon Dioxide 23 (21-32) mEq/L Anion Gap 17.6 H (5-15) BUN 31 H (7-18) mg/dL Creatinine 1.5 H (0.7-1.3) mg/dL Est Cr Clr Drug Dosing 45.82 mL/min Estimated GFR (MDRD) 46 (>60) mL/min BUN/Creatinine Ratio 20.7 H (14-18) Glucose 136 H (70-99) mg/dL Calcium 9.1 (8.5-10.1) mg/dL Magnesium 1.8 1.9 (1.8-2.4) mg/dL Total Bilirubin 0.3 (0.2-1.0) mg/dL AST 44 H (15-37) U/L ALT 117 H (16-63) U/L Alkaline Phosphatase 86 (46-116) U/L C-Reactive Protein 16.1 H* (<1.0) mg/dL Total Protein 7.0 (6.4-8.2) g/dl Albumin 1.9 L (3.4-5.0) g/dl Globulin 5.1 gm/dL Albumin/Globulin Ratio 0.4 L (1-2) Enio Results Last 24 Hours: Microbiology 01/18/21 09:35 Aerobic Blood Culture - Preliminary Blood - Venous NO GROWTH AFTER 2 DAYS Anaerobic Blood Culture - Preliminary NO GROWTH AFTER 2 DAYS 01/18/21 09:20 Aerobic Blood Culture - Preliminary Blood - Venous - Lab Draw NO GROWTH AFTER 2 DAYS Anaerobic Blood Culture - Final Med Orders - Current: Current Medications Acetaminophen (Acetaminophen 325 Mg Tab) 650 mg PO Q4H PRN PRN Reason: Pain (Mild 1-3)/fever Last Admin: 01/21/21 04:21 Dose: 650 mg Documented by: Albuterol (Albuterol 0.083% 2.5 Mg/3 Ml Neb Soln) 2.5 mg NEB Q2H PRN PRN Reason: Shortness Of Breath/wheezing Last Admin: 01/21/21 04:34 Dose: 2.5 mg Documented by: Albuterol/Ipratropium (Albuterol/Ipratropium 3.0-0.5 Mg/3 Ml Neb Soln) 3 ml NEB QIDRT [facility] Last Admin: 01/21/21 06:29 Dose: 3 ml Documented by: Apixaban (Apixaban 5 Mg Tab) 5 mg PO BID [facility] Last Admin: 01/21/21 08:29 Dose: 5 mg Documented by: Aspirin (Aspirin 81 Mg Tab.Chew) 81 mg PO DAILY [facility] Last Admin: 01/21/21 08:29 Dose: 81 mg Documented by: Atorvastatin Calcium (Atorvastatin 20 Mg Tab) 20 mg PO BEDTIME [facility] Last Admin: 01/20/21 20:14 Dose: 20 mg Documented by: Dextrose/Water (50% Dextrose In Water 50 Ml Syringe) 50 ml IVPUSH ASDIRECTED PRN PRN Reason: Hypoglycemia Docusate Sodium (Docusate Sodium 100 Mg Cap) 100 mg PO Q12H PRN PRN Reason: Constipation Fish Oil (Fish Oil/[place]-3 Fatty Acids 1 Gm Cap) 2 gm PO DAILY [facility] Last Admin: 01/21/21 08:29 Dose: 2 gm Documented by: Levofloxacin/Dextrose 750 mg/ (Premix) 150 mls @ 100 mls/hr IV Q24H [facility] Last Admin: 01/20/21 11:44 Dose: 100 mls/hr Documented by: Insulin Glargine (Insulin Glarg,Human.Rec.Analog 100 Unit/Ml) 90 unit SUBCUT DAILY [facility] Last Admin: 01/21/21 08:28 Dose: 90 units Documented by: Insulin Human Lispro (Insulin Lispro 100 Unit/Ml 10 Ml Vial) 0 unit SUBCUT QIDACANDBED [facility]; Protocol Last Admin: 01/21/21 07:38 Dose: Not Given Documented by: Magnesium Hydroxide (Magnesium Hydroxide 400 Mg/5 Ml Susp 30 Ml Cup) 30 ml PO Q12H PRN PRN Reason: Constipation Metoprolol Tartrate (Metoprolol Tartrate 25 Mg Tab) 12.5 mg PO BID [facility] Last Admin: 01/21/21 08:30 Dose: 12.5 mg Documented by: Metoprolol Tartrate (Metoprolol Tartrate 5 Mg/5 Ml Sdv) 5 mg IVPUSH Q4H PRN PRN Reason: Tachycardia Mometasone Furoate/Formoterol Fumar (Formoterol/Mometasone 100-5 Mcg 8.8 Gm Inhaler) 2 puff IH BID [facility] Last Admin: 01/20/21 20:36 Dose: 2 puff Documented by: Ondansetron HCl (Ondansetron 4 Mg/2 Ml Sdv) 4 mg IV Q6H PRN PRN Reason: Nausea/Vomiting Pantoprazole Sodium (Pantoprazole 40 Mg Tab.Cr) 40 mg PO DAILY [facility] Last Admin: 01/21/21 08:30 Dose: 40 mg Documented by: Sodium Chloride (Sodium Chloride 0.9% 10 Ml Syringe) 10 ml FLUSH ONETIME PRN PRN Reason: IV FLUSH Last Admin: 01/18/21 10:02 Dose: 10 ml Documented by: Discontinued Medications Albuterol/Ipratropium (Albuterol/Ipratropium 3.0-0.5 Mg/3 Ml Neb Soln) 3 ml NEB ONETIME ONE Stop: 01/18/21 09:01 Last Admin: 01/18/21 09:20 Dose: 3 ml Documented by: Furosemide (Furosemide 40 Mg/4 Ml Vial) 40 mg IVPUSH NOW ONE Stop: 01/19/21 18:05 Last Admin: 01/19/21 18:20 Dose: 40 mg Documented by: Furosemide (Furosemide 20 Mg/2 Ml Vial) 20 mg IVPUSH ONETIME ONE Stop: 01/20/21 10:41 Last Admin: 01/20/21 11:44 Dose: 20 mg Documented by: Sodium Chloride (Normal Saline) 1,000 mls @ 150 mls/hr IV ASDIRECTED [facility] Last Infusion: 01/18/21 14:15 Dose: Infused Documented by: Sodium Chloride (Normal Saline) 100 mls @ 75 mls/hr IV ASDIRECTED [facility] Last Admin: 01/18/21 10:02 Dose: 75 mls/hr Documented by: Ceftriaxone Sodium 2 gm/ (Sodium Chloride) 100 mls @ 200 mls/hr IV ONETIME ONE Stop: 01/18/21 10:31 Last Admin: 01/18/21 10:31 Dose: 200 mls/hr Documented by: Sodium Chloride (Normal Saline) 250 mls @ 999 mls/hr IV .BOLUS ONE Stop: 01/18/21 11:58 Last Admin: 01/18/21 13:01 Dose: Not Given Documented by: Sodium Chloride (Normal Saline) 1,000 mls @ 75 mls/hr IV ASDIRECTED [facility] Last Admin: 01/18/21 20:04 Dose: 75 mls/hr Documented by: Piperacillin Sod/Tazobactam (Sod 4.5 gm/ Sodium Chloride) 100 mls @ 25 mls/hr IV Q8H [facility] Last Admin: 01/19/21 05:02 Dose: 25 mls/hr Documented by: Piperacillin Sod/Tazobactam (Sod 4.5 gm/ Sodium Chloride) 100 mls @ 200 mls/hr IV ONETIME ONE Stop: 01/18/21 13:29 Last Admin: 01/18/21 13:27 Dose: 200 mls/hr Documented by: Vancomycin HCl 1.75 gm/ Sodium (Chloride) 500 mls @ 250 mls/hr IV ONETIME ONE Stop: 01/18/21 15:29 Last Admin: 01/18/21 14:11 Dose: 250 mls/hr Documented by: Vancomycin HCl 1 gm/Vancomycin HCl 500 mg/ Sodium Chloride 500 mls @ 250 mls/hr IV Q18H ONE Stop: 01/19/21 09:59 Last Admin: 01/19/21 09:03 Dose: 250 mls/hr Documented by: Levofloxacin/Dextrose 750 mg/ (Premix) 150 mls @ 100 mls/hr IV Q48H [facility] Last Admin: 01/19/21 12:02 Dose: 100 mls/hr Documented by: Magnesium Sulfate/Dextrose 1 (gm/ Premix) 100 mls @ 100 mls/hr IV Q1H [facility] Stop: 01/20/21 09:44 Last Admin: 01/20/21 10:18 Dose: 100 mls/hr Documented by: Insulin Glargine (Insulin Glarg,Human.Rec.Analog 100 Unit/Ml) 85 unit SUBCUT DAILY [facility] Insulin Glargine (Insulin Glarg,Human.Rec.Analog 100 Unit/Ml) 50 unit SUBCUT ONETIME ONE Stop: 01/18/21 12:31 Last Admin: 01/18/21 12:57 Dose: 50 units Documented by: Insulin Glargine (Insulin Glarg,Human.Rec.Analog 100 Unit/Ml) 5 unit SUBCUT ONETIME ONE Stop: 01/18/21 21:42 Last Admin: 01/18/21 21:59 Dose: 5 units Documented by: Insulin Human Lispro (Insulin Lispro 100 Unit/Ml 10 Ml Vial) 5 unit SUBCUT ONETIME ONE Stop: 01/18/21 10:44 Last Admin: 01/18/21 10:59 Dose: 5 unit Documented by: Insulin Human Lispro (Insulin Lispro 100 Unit/Ml 10 Ml Vial) 0 unit SUBCUT QIDACANDBED [facility]; Protocol Last Admin: 01/18/21 17:17 Dose: 3 units Documented by: Iopamidol (Iopamidol 755 Mg/Ml 100 Ml Bottle) 100 ml IVPUSH ONETIME ONE Stop: 01/18/21 09:43 Last Admin: 01/18/21 10:02 Dose: 100 ml Documented by: Methylprednisolone Sodium Succinate (Methylprednisolone Sodium Succinate 125 Mg/2 Ml Sdv) 125 mg IVPUSH ONETIME ONE Stop: 01/18/21 09:01 Last Admin: 01/18/21 09:08 Dose: 125 mg Documented by: Vancomycin HCl (Pharmacy To Dose - Vancomycin) 1 dose .XX ASDIRECTED PRN PRN Reason: RX TO DOSE VANCO - Exam Quality Assessment: Supplemental Oxygen (4L), DVT Prophylaxis. No: Urine Catheter General: Alert, Oriented, Cooperative, No Acute Distress HEENT: Pupils Equal, Pupils Reactive, Mucous Membr. Moist/Nelson Neck: Supple, Trachea Midline Lungs: Normal Respiratory Effort, Decreased Breath Sounds, Wheezing (mild but improving ). No: Crackles, Rales, Rhonchi Cardiovascular: Regular Rate, Regular Rhythm GI/Abdominal Exam: Normal Bowel Sounds, Soft, Non-Tender, No Distention (Male) Exam: Deferred Back Exam: Normal Inspection, Full Range of Motion Extremities: Normal Inspection, Normal Range of Motion, Non-Tender, No Pedal Edema, Normal Capillary Refill Peripheral Pulses: 2+: Radial (L), Radial (R), Dorsalis Pedis (L), Dorsalis Pedis (R) Skin: Warm, Dry, Intact Neurological: No New Focal Deficit Psy/Mental Status: Alert, Normal Affect, Normal Mood - Patient Data Lab Results Last 24 hrs: Laboratory Results - last 24 hr 01/21/21 01/21/21 01/21/21 Range/Units 06:08 06:08 06:08 WBC 9.58 H (4.23-9.07) K/mm3 RBC 3.89 L (4.63-6.08) M/mm3 Hgb 11.6 L (13.7-17.5) gm/dl Hct 35.1 L (40.1-51.0) % MCV 90.2 (79.0-92.2) fl MCH 29.8 (25.7-32.2) pg MCHC 33.0 (32.2-35.5) g/dl RDW Std Deviation 43.7 (35.1-43.9) fL Plt Count 443 H (163-337) K/mm3 MPV 8.4 L (9.4-12.3) fl Neut % (Auto) 72.2 H (34.0-67.9) % Lymph % (Auto) 11.9 L (21.8-53.1) % Williamson % (Auto) 9.4 (5.3-12.2) % Eos % (Auto) 4.3 (0.8-7.0) Baso % (Auto) 0.3 (0.1-1.2) % Neut # (Auto) 6.92 H (1.78-5.38) K/mm3 Lymph # (Auto) 1.14 L (1.32-3.57) K/mm3 Williamson # (Auto) 0.90 H (0.30-0.82) K/mm3 Eos # (Auto) 0.41 (0.04-0.54) K/mm3 Baso # (Auto) 0.03 (0.01-0.08) K/mm3 Manual Slide Review Abnormal smear Sodium 142 (136-145) mEq/L Potassium 3.6 (3.5-5.1) mEq/L Chloride 105 (98-107) mEq/L Carbon Dioxide 23 (21-32) mEq/L Anion Gap 17.6 H (5-15) BUN 31 H (7-18) mg/dL Creatinine 1.5 H (0.7-1.3) mg/dL Est Cr Clr Drug Dosing 45.82 mL/min Estimated GFR (MDRD) 46 (>60) mL/min BUN/Creatinine Ratio 20.7 H (14-18) Glucose 136 H (70-99) mg/dL Calcium 9.1 (8.5-10.1) mg/dL Magnesium 1.8 1.9 (1.8-2.4) mg/dL Total Bilirubin 0.3 (0.2-1.0) mg/dL AST 44 H (15-37) U/L ALT 117 H (16-63) U/L Alkaline Phosphatase 86 (46-116) U/L C-Reactive Protein 16.1 H* (<1.0) mg/dL Total Protein 7.0 (6.4-8.2) g/dl Albumin 1.9 L (3.4-5.0) g/dl Globulin 5.1 gm/dL Albumin/Globulin Ratio 0.4 L (1-2) Result Diagrams: 01/21/21 06:08 01/21/21 06:08 Enio Results Last 24 hrs: Microbiology 01/18/21 09:35 Aerobic Blood Culture - Preliminary Blood - Venous NO GROWTH AFTER 2 DAYS Anaerobic Blood Culture - Preliminary NO GROWTH AFTER 2 DAYS 01/18/21 09:20 Aerobic Blood Culture - Preliminary Blood - Venous - Lab Draw NO GROWTH AFTER 2 DAYS Anaerobic Blood Culture - Final Sepsis Event Note - Evaluation Sepsis Screening Result: No Definite Risk - Focused Exam Vital Signs: Vital Signs Temp Pulse Resp BP Pulse Ox Pulse Ox 01/21/21 08:41 93 L 01/21/21 08:30 96 106/77 01/21/21 08:25 98.1 F 96 20 106/77 93 L 01/21/21 06:30 95 01/21/21 04:42 93 L 01/21/21 04:34 86 L 01/21/21 04:25 90 L 01/21/21 04:19 98.2 F 97 16 136/76 85 L 01/21/21 00:00 93 L - Problem List & Annotations (1) CKD (chronic kidney disease) SNOMED Code(s): 344388903 Code(s): N18.9 - CHRONIC KIDNEY DISEASE, UNSPECIFIED Status: Chronic Priority: Medium Current Visit: Yes Qualifiers: Chronic kidney disease stage: stage 3 (moderate) Chronic kidney disease stage 3 subtype: stage 3b (GFR 30-44) Qualified Code(s): N18.32 - Chronic kidney disease, stage 3b (2) History of COVID-19 SNOMED Code(s): 907829146890784242, 412386303733343256 Code(s): Z86.16 - PERSONAL HISTORY OF COVID-19 Status: Chronic Priority: High Current Visit: Yes (3) Type II diabetes mellitus SNOMED Code(s): 99805001 Code(s): E11.9 - TYPE 2 DIABETES MELLITUS WITHOUT COMPLICATIONS Status: Chronic Priority: Medium Current Visit: Yes Qualifiers: Diabetes mellitus penitentiary insulin use: with penitentiary use Diabetes mellitus complication status: with other specified complication Qualified Code(s): E11.69 - Type 2 diabetes mellitus with other specified complication; Z79.4 - MCC (current) use of insulin (4) Hypoxia SNOMED Code(s): 423349306 Code(s): R09.02 - HYPOXEMIA Status: Acute Priority: High Current Visit: Yes (5) Atrial fibrillation SNOMED Code(s): 75573613 Code(s): I48.91 - UNSPECIFIED ATRIAL FIBRILLATION Status: Chronic Priority: Medium Current Visit: No Qualifiers: Atrial fibrillation type: paroxysmal Qualified Code(s): I48.0 - Paroxysmal atrial fibrillation (6) Elevated troponin level not due myocardial infarction SNOMED Code(s): 086170590, 987740118, 454139265 Code(s): R77.8 - OTHER SPECIFIED ABNORMALITIES OF PLASMA PROTEINS Status: Chronic Priority: Medium Current Visit: Yes (7) Chronic anticoagulation SNOMED Code(s): 977801477 Code(s): Z79.01 - LOW VOLTAGE TECHNICIAN (CURRENT) USE OF ANTICOAGULANTS Status: Chronic Priority: Low Current Visit: No (8) Hyperglycemia due to type 2 diabetes mellitus SNOMED Code(s): 587350298771609, 821853976846953 Code(s): E11.65 - TYPE 2 DIABETES MELLITUS WITH HYPERGLYCEMIA Status: Acute Priority: High Current Visit: Yes Qualifiers: Diabetes mellitus penitentiary insulin use: with penitentiary use Qualified Code(s): E11.65 - Type 2 diabetes mellitus with hyperglycemia; Z79.4 - MCC (current) use of insulin (9) Healthcare-associated pneumonia SNOMED Code(s): 736869488, 000761382 Code(s): J18.9 - PNEUMONIA, UNSPECIFIED ORGANISM Status: Acute Priority: High Current Visit: Yes (10) Elevated brain natriuretic peptide (BNP) level SNOMED Code(s): 369202881, 006170393 Code(s): R79.89 - OTHER SPECIFIED ABNORMAL FINDINGS OF BLOOD CHEMISTRY Status: Acute Priority: High Current Visit: Yes (11) Supplemental oxygen dependent SNOMED Code(s): 732858942484 Code(s): Z99.81 - DEPENDENCE ON SUPPLEMENTAL OXYGEN Status: Chronic Priority: Medium Current Visit: Yes - Problem List Review Problem List Initiated/Reviewed/Updated: Yes - My Orders Last 24 Hours: My Active Orders 01/22/21 05:11 C-REACTIVE PROTEIN [CHEM] AM CBC WITH AUTO DIFF [HEME] AM COMPREHENSIVE METABOLIC PN,CMP [CHEM] AM MAGNESIUM [CHEM] AM - Assessment Assessment:: Assessment - day of admission 01/18/2021 * This is a 70-year-old male who presents to ED on 01/18/2021 with dyspnea and left-sided chest pain along his ribs. * He carries a history of A. fib, prior Covid infection, type II DM, and chronic kidney disease. * Diagnosed with Covid on December 11, transferred to [facility] and hospitalized for 13 days. * He was released on 01-02-2021 on 2 L of home oxygen. * Reports dyspnea with accompanying chills, diaphoresis, and a cough. * In the ED twelve-lead EKG is obtained showing a sinus tachycardia at 119 bpm. * Labs obtained in ED: * WBC 10.56. * Hemoglobin is 12.7. * He is normocytic. * Platelets are elevated at 409,000. * Neutrophils are elevated 72.3%. * D-dimer is elevated at 5.12. * Sodium is 137. * Potassium 4.3. * Chloride 101. * Carbon dioxide 20. * Anion gap is 20.3. * BUN is 32. Creatinine 1.7. GFR is 40. * Glucose is 204. * Total bilirubin 0.5. * AST is 38, ALT 46, alkaline phosphatase 80. * Troponin 0 0.074. * CRP is 41.4. * Albumin is 2.4. * Lactic acid is 1.2. * proBNP is 1666. * ABG obtained in the left radial with a pH of 7.41. PCO2 of 25.4. PO2 of 62.0. HCO3 of 15.2. O2 saturation of 92.4. Base excess is -6.8. AA gradient is 135. This is obtained while on 3 L via nasal cannula. * Chest x-ray shows prominent increase in density on both sides the chest raising the possibility diffuse pneumonia. Please correlate if patient has Covid disease. No other acute abnormality is seen. * CTA is obtained showing diffuse increased density on both sides the chest compatible with diffuse pneumonia. Vague areas of poor enhancement within the main pulmonary arteries on both sides. This is most likely artifact. No definitive findings of pulmonary embolism are seen. Incidental degenerative change within the spine is also noted. * Patient is given 1 DuoNeb and started on Rocephin and IV fluids. He is given 125 mg Solu-Medrol and 5 units of lispro insulin. * He subsequently admitted to the medical floor on telemetry for management of his bilateral pneumonia. 01/19/2021 This is a 70-year-old male who presents to ED on 01/18/2021 with dyspnea and left-sided chest pain along his ribs. He was diagnosed with Covid on December [address] [facility] where he was hospitalized for 13 days. He was released on 01-02-2021 on 2 L of home oxygen. Reports he has been doing good up until the last couple of days, in which she has noticed he has been more dyspneic and had accompanying chills, diaphoresis, and a cough. He feeling better. Denies fever, chills, nausea or vomiting. But he still complains of rib cage pain when he is coughing. He is on 4 to 5 L WBC 11.6, hemoglobin 13.8 D-dimer 5.12 Creatinine 1.5 01/20/2021 This is a 70-year-old male who presents to ED on 01/18/2021 with dyspnea and left-sided chest pain along his ribs. He was diagnosed with Covid on December [address] [facility] where he was hospitalized for 13 days. He was released on 01-02-2021 on 2 L of home oxygen. Reports he has been doing good up until the last couple of days, in which she has noticed he has been more dyspneic and had accompanying chills, diaphoresis, and a cough. He is feeling much better, less SOB. Denies fever, chills, nausea or vomiting. He is now on 4L Potassium 3.9, creatinine 1.4 Mag 1.8 AST 75, ALT 144 CRP 14.5 01/21/2021 7-year-old male who presented to ED on 01/18/2021 with chest pain and dyspnea. He is oxygen dependent however he has been requiring 4 L, which is increased from his baseline 2 L. Today he reports that he is feeling better. He was reportedly on 3 L of oxygen through the night however this morning he had a coughing episode and was requiring 4 L. He has been ambulating around the room independently. PT and OT have seen him and are recommending home independent. He currently has no concerns. He is on Levaquin for bilateral pneumonia. White count today is 9.58. Hemoglobin 11.6. Platelet 443,000. Blood smear shows a few band neutrophils present. Anion gap is elevated at 17.6. BUN is 31. Creatinine 1.5. GFR is 46. Glucose 136. Magnesium is 1.9. AST is 44, ALT 117, alkaline phosphatase 86. CRP 16.1. Albumin is very low at 1.9. Echocardiogram results were discussed with patient: 1. The EF by visual estimation is 60-65%. 2. Normal left ventricular systolic function. 3. Impaired relaxation (Grade 1) pattern of LV diastolic filling. 4. Right normal right ventricular size, wall thickness, and systolic function. 5. There is mild aortic valve sclerosis without stenosis. 6. Mild mitral valve regurgitation. 7. Mild to moderate aortic valve regurgitation. 8. Trace tricuspid valve regurgitation. 9. No regional wall motion abnormalities. Plan will be for discharge tomorrow pending continued stability/improvement. - Plan Plan:: Healthcare-associated pneumonia History of COVID-19 Hypoxia Supplemental oxygen dependant * CXR - Diffuse increased density on both sides of the chest. Findings are stable from prior chest imaging. Diffuse pneumonia is the most likely etiology with the could be due to Covid etiology, diffuse bacterial all other atypical etiologies. * Patient recently hospitalized so will need to treat as healthcare related PNA * MRSA screening negative * Discontinued zosyn Q8Hr and vancomycin * Started Levaquin * IS/Acapella * RT consult * CM/SW consult * O2 as needed to keep saturations >90 (on 2L at home baseline) * Check procalcitonin - 2.14 * Blood cultures no growth so far * Sputum culture no significance * Tylenol for fevers * Scheduled QID duonebs * Droplet isolation * Inside COVID-19 window so will not need re-testing * Monitor daily labs Atrial fibrillation Chronic anticoagulation Elevated troponin level not due myocardial infarction Elevated BNP Elevated D-Dimer * Telemetry * Obtain echocardiogram to rule out CHF and/or COVID myopathy- see note * Troponin 0.074, 0.051 * CK-MB 1.3 * Troponin noted to be elevated on multiple prior visits. Patient has chronic kidney disease. * Continue home eliquis * Continue home cardiac meds * Consider LE US if swelling/pain noted to legs - negative exam at this time and already on Eliquis. 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 CKD (chronic kidney disease) * Creatinine 3.2 on September 15, 2025. Creatinine 1.4 today which is the best value since 2016 * Appears to be around baseline with GFR in 40's * Caution with nephrotoxic meds * IV fluids as ordered Code Status: Full code PCP: Dr. Apolonia DVT prophylaxis: Home eliquis Disposition: Patient admitted to the medical floor on telemetry for management of bilateral pneumonia. We will treat this as healthcare related at this time. Likely discharge tomorrow pending continued stability/improvement <[email or web address] - Last Filed: 01/22/21 06:53> - Patient Data Vitals - Most Recent: Last Vital Signs Temp 36.9 C 01/22/21 04:22 Pulse 88 01/22/21 04:22 Resp 20 01/22/21 04:22 BP 123/87 01/22/21 04:22 Pulse Ox 90 L 01/22/21 04:31 I&O - Last 24 Hours: Intake & Output 01/21/21 01/21/21 01/22/21 14:59 22:59 06:59 Intake Total 1180 500 Output Total 950 750 Balance 230 -250 Lab Results Last 24 Hours: Laboratory Results - last 24 hr 01/21/21 01/21/21 01/21/21 Range/Units 06:08 17:15 21:19 WBC (4.23-9.07) K/mm3 RBC (4.63-6.08) M/mm3 Hgb (13.7-17.5) gm/dl Hct (40.1-51.0) % MCV (79.0-92.2) fl MCH (25.7-32.2) pg MCHC (32.2-35.5) g/dl RDW Std Deviation (35.1-43.9) fL Plt Count (163-337) K/mm3 MPV (9.4-12.3) fl Neut % (Auto) (34.0-67.9) % Lymph % (Auto) (21.8-53.1) % Williamson % (Auto) (5.3-12.2) % Eos % (Auto) (0.8-7.0) Baso % (Auto) (0.1-1.2) % Neut # (Auto) (1.78-5.38) K/mm3 Lymph # (Auto) (1.32-3.57) K/mm3 Williamson # (Auto) (0.30-0.82) K/mm3 Eos # (Auto) (0.04-0.54) K/mm3 Baso # (Auto) (0.01-0.08) K/mm3 Manual Slide Review Abnormal smear Sodium (136-145) mEq/L Potassium (3.5-5.1) mEq/L Chloride (98-107) mEq/L Carbon Dioxide (21-32) mEq/L Anion Gap (5-15) BUN (7-18) mg/dL Creatinine (0.7-1.3) mg/dL Est Cr Clr Drug Dosing mL/min Estimated GFR (MDRD) (>60) mL/min BUN/Creatinine Ratio (14-18) Glucose (70-99) mg/dL POC Glucose 181 H 191 H (70-99) mg/dL Calcium (8.5-10.1) mg/dL Magnesium (1.8-2.4) mg/dL Total Bilirubin (0.2-1.0) mg/dL AST (15-37) U/L ALT (16-63) U/L Alkaline Phosphatase (46-116) U/L C-Reactive Protein (<1.0) mg/dL Total Protein (6.4-8.2) g/dl Albumin (3.4-5.0) g/dl Globulin gm/dL Albumin/Globulin Ratio (1-2) 01/22/21 01/22/21 01/22/21 Range/Units 05:00 05:00 06:39 WBC 10.24 H (4.23-9.07) K/mm3 RBC 4.08 L (4.63-6.08) M/mm3 Hgb 12.1 L (13.7-17.5) gm/dl Hct 37.1 L (40.1-51.0) % MCV 90.9 (79.0-92.2) fl MCH 29.7 (25.7-32.2) pg MCHC 32.6 (32.2-35.5) g/dl RDW Std Deviation 43.8 (35.1-43.9) fL Plt Count 445 H (163-337) K/mm3 MPV 8.7 L (9.4-12.3) fl Neut % (Auto) 66.4 (34.0-67.9) % Lymph % (Auto) 16.0 L (21.8-53.1) % Williamson % (Auto) 7.7 (5.3-12.2) % Eos % (Auto) 5.9 (0.8-7.0) Baso % (Auto) 0.5 (0.1-1.2) % Neut # (Auto) 6.80 H (1.78-5.38) K/mm3 Lymph # (Auto) 1.64 (1.32-3.57) K/mm3 Williamson # (Auto) 0.79 (0.30-0.82) K/mm3 Eos # (Auto) 0.60 H (0.04-0.54) K/mm3 Baso # (Auto) 0.05 (0.01-0.08) K/mm3 Manual Slide Review Abnormal smear Sodium 141 (136-145) mEq/L Potassium 4.1 (3.5-5.1) mEq/L Chloride 104 (98-107) mEq/L Carbon Dioxide 27 (21-32) mEq/L Anion Gap 14.1 (5-15) BUN 29 H (7-18) mg/dL Creatinine 1.5 H (0.7-1.3) mg/dL Est Cr Clr Drug Dosing 45.82 mL/min Estimated GFR (MDRD) 46 (>60) mL/min BUN/Creatinine Ratio 19.3 H (14-18) Glucose 161 H (70-99) mg/dL POC Glucose 165 H (70-99) mg/dL Calcium 9.3 (8.5-10.1) mg/dL Magnesium 2.0 (1.8-2.4) mg/dL Total Bilirubin 0.4 (0.2-1.0) mg/dL AST 50 H (15-37) U/L ALT 129 H (16-63) U/L Alkaline Phosphatase 82 (46-116) U/L C-Reactive Protein 21.5 H* (<1.0) mg/dL Total Protein 7.4 (6.4-8.2) g/dl Albumin 2.0 L (3.4-5.0) g/dl Globulin 5.4 gm/dL Albumin/Globulin Ratio 0.4 L (1-2) Enio Results Last 24 Hours: Microbiology 01/19/21 17:30 Gram Stain - Final Sputum - Expectorated Sputum Culture - Preliminary 01/18/21 09:35 Aerobic Blood Culture - Preliminary Blood - Venous NO GROWTH AFTER 3 DAYS Anaerobic Blood Culture - Preliminary NO GROWTH AFTER 3 DAYS 01/18/21 09:20 Aerobic Blood Culture - Preliminary Blood - Venous - Lab Draw NO GROWTH AFTER 3 DAYS Anaerobic Blood Culture - Final Med Orders - Current: Current Medications Acetaminophen (Acetaminophen 325 Mg Tab) 650 mg PO Q4H PRN PRN Reason: Pain (Mild 1-3)/fever Last Admin: 01/21/21 21:49 Dose: 650 mg Documented by: Albuterol (Albuterol 0.083% 2.5 Mg/3 Ml Neb Soln) 2.5 mg NEB Q2H PRN PRN Reason: Shortness Of Breath/wheezing Last Admin: 01/21/21 04:34 Dose: 2.5 mg Documented by: Albuterol/Ipratropium (Albuterol/Ipratropium 3.0-0.5 Mg/3 Ml Neb Soln) 3 ml NEB QIDRT [facility] Last Admin: 01/22/21 05:12 Dose: Not Given Documented by: Apixaban (Apixaban 5 Mg Tab) 5 mg PO BID [facility] Last Admin: 01/21/21 21:52 Dose: 5 mg Documented by: Aspirin (Aspirin 81 Mg Tab.Chew) 81 mg PO DAILY [facility] Last Admin: 01/21/21 08:29 Dose: 81 mg Documented by: Atorvastatin Calcium (Atorvastatin 20 Mg Tab) 20 mg PO BEDTIME [facility] Last Admin: 01/21/21 21:52 Dose: 20 mg Documented by: Dextrose/Water (50% Dextrose In Water 50 Ml Syringe) 50 ml IVPUSH ASDIRECTED PRN PRN Reason: Hypoglycemia Docusate Sodium (Docusate Sodium 100 Mg Cap) 100 mg PO Q12H PRN PRN Reason: Constipation Fish Oil (Fish Oil/[place]-3 Fatty Acids 1 Gm Cap) 2 gm PO DAILY [facility] Last Admin: 01/21/21 08:29 Dose: 2 gm Documented by: Levofloxacin/Dextrose 750 mg/ (Premix) 150 mls @ 100 mls/hr IV Q48H [facility] Insulin Glargine (Insulin Glarg,Human.Rec.Analog 100 Unit/Ml) 90 unit SUBCUT DAILY [facility] Last Admin: 01/21/21 08:28 Dose: 90 units Documented by: Insulin Human Lispro (Insulin Lispro 100 Unit/Ml 10 Ml Vial) 0 unit SUBCUT QIDACANDBED [facility]; Protocol Last Admin: 01/21/21 21:52 Dose: 2 units Documented by: Magnesium Hydroxide (Magnesium Hydroxide 400 Mg/5 Ml Susp 30 Ml Cup) 30 ml PO Q12H PRN PRN Reason: Constipation Metoprolol Tartrate (Metoprolol Tartrate 25 Mg Tab) 12.5 mg PO BID [facility] Last Admin: 01/21/21 21:50 Dose: 12.5 mg Documented by: Metoprolol Tartrate (Metoprolol Tartrate 5 Mg/5 Ml Sdv) 5 mg IVPUSH Q4H PRN PRN Reason: Tachycardia Mometasone Furoate/Formoterol Fumar (Formoterol/Mometasone 100-5 Mcg 8.8 Gm Inhaler) 2 puff IH BID [facility] Last Admin: 01/21/21 21:20 Dose: 2 puff Documented by: Ondansetron HCl (Ondansetron 4 Mg/2 Ml Sdv) 4 mg IV Q6H PRN PRN Reason: Nausea/Vomiting Pantoprazole Sodium (Pantoprazole 40 Mg Tab.Cr) 40 mg PO DAILY [facility] Last Admin: 01/21/21 08:30 Dose: 40 mg Documented by: Sodium Chloride (Sodium Chloride 0.9% 10 Ml Syringe) 10 ml FLUSH ONETIME PRN PRN Reason: IV FLUSH Last Admin: 01/18/21 10:02 Dose: 10 ml Documented by: Discontinued Medications Albuterol/Ipratropium (Albuterol/Ipratropium 3.0-0.5 Mg/3 Ml Neb Soln) 3 ml NEB ONETIME ONE Stop: 01/18/21 09:01 Last Admin: 01/18/21 09:20 Dose: 3 ml Documented by: Furosemide (Furosemide 40 Mg/4 Ml Vial) 40 mg IVPUSH NOW ONE Stop: 01/19/21 18:05 Last Admin: 01/19/21 18:20 Dose: 40 mg Documented by: Furosemide (Furosemide 20 Mg/2 Ml Vial) 20 mg IVPUSH ONETIME ONE Stop: 01/20/21 10:41 Last Admin: 01/20/21 11:44 Dose: 20 mg Documented by: Sodium Chloride (Normal Saline) 1,000 mls @ 150 mls/hr IV ASDIRECTED [facility] Last Infusion: 01/18/21 14:15 Dose: Infused Documented by: Sodium Chloride (Normal Saline) 100 mls @ 75 mls/hr IV ASDIRECTED [facility] Last Admin: 01/18/21 10:02 Dose: 75 mls/hr Documented by: Ceftriaxone Sodium 2 gm/ (Sodium Chloride) 100 mls @ 200 mls/hr IV ONETIME ONE Stop: 01/18/21 10:31 Last Admin: 01/18/21 10:31 Dose: 200 mls/hr Documented by: Sodium Chloride (Normal Saline) 250 mls @ 999 mls/hr IV .BOLUS ONE Stop: 01/18/21 11:58 Last Admin: 01/18/21 13:01 Dose: Not Given Documented by: Sodium Chloride (Normal Saline) 1,000 mls @ 75 mls/hr IV ASDIRECTED [facility] Last Admin: 01/18/21 20:04 Dose: 75 mls/hr Documented by: Piperacillin Sod/Tazobactam (Sod 4.5 gm/ Sodium Chloride) 100 mls @ 25 mls/hr IV Q8H [facility] Last Admin: 01/19/21 05:02 Dose: 25 mls/hr Documented by: Piperacillin Sod/Tazobactam (Sod 4.5 gm/ Sodium Chloride) 100 mls @ 200 mls/hr IV ONETIME ONE Stop: 01/18/21 13:29 Last Admin: 01/18/21 13:27 Dose: 200 mls/hr Documented by: Vancomycin HCl 1.75 gm/ Sodium (Chloride) 500 mls @ 250 mls/hr IV ONETIME ONE Stop: 01/18/21 15:29 Last Admin: 01/18/21 14:11 Dose: 250 mls/hr Documented by: Vancomycin HCl 1 gm/Vancomycin HCl 500 mg/ Sodium Chloride 500 mls @ 250 mls/hr IV Q18H ONE Stop: 01/19/21 09:59 Last Admin: 01/19/21 09:03 Dose: 250 mls/hr Documented by: Levofloxacin/Dextrose 750 mg/ (Premix) 150 mls @ 100 mls/hr IV Q48H [facility] Last Admin: 01/19/21 12:02 Dose: 100 mls/hr Documented by: Levofloxacin/Dextrose 750 mg/ (Premix) 150 mls @ 100 mls/hr IV Q24H [facility] Last Admin: 01/20/21 11:44 Dose: 100 mls/hr Documented by: Magnesium Sulfate/Dextrose 1 (gm/ Premix) 100 mls @ 100 mls/hr IV Q1H [facility] Stop: 01/20/21 09:44 Last Admin: 01/20/21 10:18 Dose: 100 mls/hr Documented by: Insulin Glargine (Insulin Glarg,Human.Rec.Analog 100 Unit/Ml) 85 unit SUBCUT DAILY [facility] Insulin Glargine (Insulin Glarg,Human.Rec.Analog 100 Unit/Ml) 50 unit SUBCUT ONETIME ONE Stop: 01/18/21 12:31 Last Admin: 01/18/21 12:57 Dose: 50 units Documented by: Insulin Glargine (Insulin Glarg,Human.Rec.Analog 100 Unit/Ml) 5 unit SUBCUT ONETIME ONE Stop: 01/18/21 21:42 Last Admin: 01/18/21 21:59 Dose: 5 units Documented by: Insulin Human Lispro (Insulin Lispro 100 Unit/Ml 10 Ml Vial) 5 unit SUBCUT ONETIME ONE Stop: 01/18/21 10:44 Last Admin: 01/18/21 10:59 Dose: 5 unit Documented by: Insulin Human Lispro (Insulin Lispro 100 Unit/Ml 10 Ml Vial) 0 unit SUBCUT Q IDACANDBED [facility]; Protocol Last Admin: 01/18/21 17:17 Dose: 3 units Documented by: Iopamidol (Iopamidol 755 Mg/Ml 100 Ml Bottle) 100 ml IVPUSH ONETIME ONE Stop: 01/18/21 09:43 Last Admin: 01/18/21 10:02 Dose: 100 ml Documented by: Methylprednisolone Sodium Succinate (Methylprednisolone Sodium Succinate 125 Mg/2 Ml Sdv) 125 mg IVPUSH ONETIME ONE Stop: 01/18/21 09:01 Last Admin: 01/18/21 09:08 Dose: 125 mg Documented by: Vancomycin HCl (Pharmacy To Dose - Vancomycin) 1 dose .XX ASDIRECTED PRN PRN Reason: RX TO DOSE VANCO - Patient Data Lab Results Last 24 hrs: Laboratory Results - last 24 hr 01/21/21 01/21/21 01/21/21 Range/Units 06:08 17:15 21:19 WBC (4.23-9.07) K/mm3 RBC (4.63-6.08) M/mm3 Hgb (13.7-17.5) gm/dl Hct (40.1-51.0) % MCV (79.0-92.2) fl MCH (25.7-32.2) pg MCHC (32.2-35.5) g/dl RDW Std Deviation (35.1-43.9) fL Plt Count (163-337) K/mm3 MPV (9.4-12.3) fl Neut % (Auto) (34.0-67.9) % Lymph % (Auto) (21.8-53.1) % Williamson % (Auto) (5.3-12.2) % Eos % (Auto) (0.8-7.0) Baso % (Auto) (0.1-1.2) % Neut # (Auto) (1.78-5.38) K/mm3 Lymph # (Auto) (1.32-3.57) K/mm3 Williamson # (Auto) (0.30-0.82) K/mm3 Eos # (Auto) (0.04-0.54) K/mm3 Baso # (Auto) (0.01-0.08) K/mm3 Manual Slide Review Abnormal smear Sodium (136-145) mEq/L Potassium (3.5-5.1) mEq/L Chloride (98-107) mEq/L Carbon Dioxide (21-32) mEq/L Anion Gap (5-15) BUN (7-18) mg/dL Creatinine (0.7-1.3) mg/dL Est Cr Clr Drug Dosing mL/min Estimated GFR (MDRD) (>60) mL/min BUN/Creatinine Ratio (14-18) Glucose (70-99) mg/dL POC Glucose 181 H 191 H (70-99) mg/dL Calcium (8.5-10.1) mg/dL Magnesium (1.8-2.4) mg/dL Total Bilirubin (0.2-1.0) mg/dL AST (15-37) U/L ALT (16-63) U/L Alkaline Phosphatase (46-116) U/L C-Reactive Protein (<1.0) mg/dL Total Protein (6.4-8.2) g/dl Albumin (3.4-5.0) g/dl Globulin gm/dL Albumin/Globulin Ratio (1-2) 01/22/21 01/22/21 01/22/21 Range/Units 05:00 05:00 06:39 WBC 10.24 H (4.23-9.07) K/mm3 RBC 4.08 L (4.63-6.08) M/mm3 Hgb 12.1 L (13.7-17.5) gm/dl Hct 37.1 L (40.1-51.0) % MCV 90.9 (79.0-92.2) fl MCH 29.7 (25.7-32.2) pg MCHC 32.6 (32.2-35.5) g/dl RDW Std Deviation 43.8 (35.1-43.9) fL Plt Count 445 H (163-337) K/mm3 MPV 8.7 L (9.4-12.3) fl Neut % (Auto) 66.4 (34.0-67.9) % Lymph % (Auto) 16.0 L (21.8-53.1) % Williamson % (Auto) 7.7 (5.3-12.2) % Eos % (Auto) 5.9 (0.8-7.0) Baso % (Auto) 0.5 (0.1-1.2) % Neut # (Auto) 6.80 H (1.78-5.38) K/mm3 Lymph # (Auto) 1.64 (1.32-3.57) K/mm3 Williamson # (Auto) 0.79 (0.30-0.82) K/mm3 Eos # (Auto) 0.60 H (0.04-0.54) K/mm3 Baso # (Auto) 0.05 (0.01-0.08) K/mm3 Manual Slide Review Abnormal smear Sodium 141 (136-145) mEq/L Potassium 4.1 (3.5-5.1) mEq/L Chloride 104 (98-107) mEq/L Carbon Dioxide 27 (21-32) mEq/L Anion Gap 14.1 (5-15) BUN 29 H (7-18) mg/dL Creatinine 1.5 H (0.7-1.3) mg/dL Est Cr Clr Drug Dosing 45.82 mL/min Estimated GFR (MDRD) 46 (>60) mL/min BUN/Creatinine Ratio 19.3 H (14-18) Glucose 161 H (70-99) mg/dL POC Glucose 165 H (70-99) mg/dL Calcium 9.3 (8.5-10.1) mg/dL Magnesium 2.0 (1.8-2.4) mg/dL Total Bilirubin 0.4 (0.2-1.0) mg/dL AST 50 H (15-37) U/L ALT 129 H (16-63) U/L Alkaline Phosphatase 82 (46-116) U/L C-Reactive Protein 21.5 H* (<1.0) mg/dL Total Protein 7.4 (6.4-8.2) g/dl Albumin 2.0 L (3.4-5.0) g/dl Globulin 5.4 gm/dL Albumin/Globulin Ratio 0.4 L (1-2) Result Diagrams: 01/22/21 05:00 01/22/21 05:00 Enio Results Last 24 hrs: Microbiology 01/19/21 17:30 Gram Stain - Final Sputum - Expectorated Sputum Culture - Preliminary 01/18/21 09:35 Aerobic Blood Culture - Preliminary Blood - Venous NO GROWTH AFTER 3 DAYS Anaerobic Blood Culture - Preliminary NO GROWTH AFTER 3 DAYS 01/18/21 09:20 Aerobic Blood Culture - Preliminary Blood - Venous - Lab Draw NO GROWTH AFTER 3 DAYS Anaerobic Blood Culture - Final Sepsis Event Note - Focused Exam Vital Signs: Vital Signs Temp Pulse Resp BP Pulse Ox Pulse Ox 01/22/21 04:31 90 L 01/22/21 04:22 36.9 C 88 20 123/87 87 L 01/21/21 21:50 104 H 116/74 01/21/21 21:49 37.1 C 104 H 20 116/74 91 L 01/21/21 21:22 95 - Plan Plan:: I have seen and examined the patient independently of Wilder Vera PA-C, and have reviewed the case with him. I have reviewed and agree with the plan and care as outlined by him. Please see orders.
[2021-01-21] MEDS: Formoterol/Mometasone 100-5 MCG 8.8 GM Inhaler IH SCH ×2 (09:27→21:20)
[2021-01-21] MEDS: atorvaSTATin 20 MG Tab PO SCH (21:52)
[2021-01-22] MEDS: Albuterol/Ipratropium 3.0-0.5 MG/3 ML Neb Soln NEB SCH ×5 (04:32→20:00)
[2021-01-22] MEDS: Insulin Lispro 100 UNIT/ML 10 ML Vial SUBCUT SCH ×4 (07:57→21:09)
[2021-01-22] MEDS: Pantoprazole 40 MG Tab.CR PO SCH (08:44)
[2021-01-22] MEDS: Apixaban 5 MG Tab PO SCH ×2 (08:44→20:57)
[2021-01-22] MEDS: Fish Oil/Omega-3 Fatty Acids 1 Gm Cap PO SCH (08:46)
[2021-01-22] MEDS: Aspirin 81 MG Tab.Chew PO SCH (08:46)
[2021-01-22] MEDS: Metoprolol Tartrate 25 MG Tab PO SCH ×2 (08:49→20:58)
[2021-01-22] MEDS: Insulin Glarg,Human.Rec.Analog 100 Unit/ML SUBCUT SCH (08:50)
[2021-01-22] MEDS: Formoterol/Mometasone 100-5 MCG 8.8 GM Inhaler IH SCH ×2 (09:41→20:00)
--- NOTE | 2021-01-22 10:18 | PCM.PN ---
<iWlder Vera - Last Filed: 01/22/21 11:37> - General Info Date of Service: 01/22/21 Admission Dx/Problem (Free Text): Admission Diagnosis/Problem Admission Diagnosis/Problem Pneumonia Functional Status: Reports: Pain Controlled, Tolerating Diet, Ambulating, Urinating, Incentive Spirometry, Other (Acapella ) - Review of Systems General: Reports: No Symptoms. Denies: Fever, Weakness, Fatigue, Malaise, Chills HEENT: Reports: No Symptoms. Denies: Headaches, Sore Throat Pulmonary: Reports: Shortness of Breath, Cough, Sputum. Denies: Pleuritic Chest Pain, Wheezing Cardiovascular: Reports: Dyspnea on Exertion. Denies: Chest Pain, Palpitations, Edema Gastrointestinal: Reports: No Symptoms. Denies: Abdominal Pain, Constipation, Diarrhea, Nausea, Vomiting Genitourinary: Reports: No Symptoms. Denies: Pain Musculoskeletal: Reports: No Symptoms Skin: Reports: No Symptoms. Denies: Cyanosis Neurological: Reports: No Symptoms. Denies: Confusion, Headache, Numbness, Syncope, Tingling, Difficulty Walking, Weakness, Gait Disturbance Psychiatric: Reports: No Symptoms - Patient Data Vitals - Most Recent: Last Vital Signs Temp 98.4 F 01/22/21 04:22 Pulse 104 H 01/22/21 08:49 Resp 20 01/22/21 04:22 BP 126/99 H 01/22/21 08:49 Pulse Ox 95 01/22/21 09:41 Weight - Most Recent: 85.457 kg I&O - Last 24 Hours: Intake & Output 01/21/21 01/22/21 01/22/21 22:59 06:59 14:59 Intake Total 1180 500 Output Total 950 750 Balance 230 -250 Lab Results Last 24 Hours: Laboratory Results - last 24 hr 01/21/21 01/21/21 01/22/21 Range/Units 17:15 21:19 05:00 WBC 10.24 H (4.23-9.07) K/mm3 RBC 4.08 L (4.63-6.08) M/mm3 Hgb 12.1 L (13.7-17.5) gm/dl Hct 37.1 L (40.1-51.0) % MCV 90.9 (79.0-92.2) fl MCH 29.7 (25.7-32.2) pg MCHC 32.6 (32.2-35.5) g/dl RDW Std Deviation 43.8 (35.1-43.9) fL Plt Count 445 H (163-337) K/mm3 MPV 8.7 L (9.4-12.3) fl Neut % (Auto) 66.4 (34.0-67.9) % Lymph % (Auto) 16.0 L (21.8-53.1) % Walker % (Auto) 7.7 (5.3-12.2) % Eos % (Auto) 5.9 (0.8-7.0) Baso % (Auto) 0.5 (0.1-1.2) % Neut # (Auto) 6.80 H (1.78-5.38) K/mm3 Lymph # (Auto) 1.64 (1.32-3.57) K/mm3 Walker # (Auto) 0.79 (0.30-0.82) K/mm3 Eos # (Auto) 0.60 H (0.04-0.54) K/mm3 Baso # (Auto) 0.05 (0.01-0.08) K/mm3 Manual Slide Review Abnormal smear Puncture Site ABG pH (7.35-7.45) ABG pCO2 (35.0-45.0) mmHg ABG pO2 (80.0-100.0) mmHg ABG HCO3 (22.0-26.0) meq/L ABG O2 Saturation (96.0-97.0) % ABG Base Excess (-2-2.0) O2 Delivery Device Oxygen Flow Rate FiO2 (21.00-100.00) % Sodium (136-145) mEq/L Potassium (3.5-5.1) mEq/L Chloride (98-107) mEq/L Carbon Dioxide (21-32) mEq/L Anion Gap (5-15) BUN (7-18) mg/dL Creatinine (0.7-1.3) mg/dL Est Cr Clr Drug Dosing mL/min Estimated GFR (MDRD) (>60) mL/min BUN/Creatinine Ratio (14-18) Glucose (70-99) mg/dL POC Glucose 181 H 191 H (70-99) mg/dL Calcium (8.5-10.1) mg/dL Magnesium (1.8-2.4) mg/dL Total Bilirubin (0.2-1.0) mg/dL AST (15-37) U/L ALT (16-63) U/L Alkaline Phosphatase (46-116) U/L C-Reactive Protein (<1.0) mg/dL Total Protein (6.4-8.2) g/dl Albumin (3.4-5.0) g/dl Globulin gm/dL Albumin/Globulin Ratio (1-2) 01/22/21 01/22/21 01/22/21 Range/Units 05:00 06:39 07:37 WBC (4.23-9.07) K/mm3 RBC (4.63-6.08) M/mm3 Hgb (13.7-17.5) gm/dl Hct (40.1-51.0) % MCV (79.0-92.2) fl MCH (25.7-32.2) pg MCHC (32.2-35.5) g/dl RDW Std Deviation (35.1-43.9) fL Plt Count (163-337) K/mm3 MPV (9.4-12.3) fl Neut % (Auto) (34.0-67.9) % Lymph % (Auto) (21.8-53.1) % Walker % (Auto) (5.3-12.2) % Eos % (Auto) (0.8-7.0) Baso % (Auto) (0.1-1.2) % Neut # (Auto) (1.78-5.38) K/mm3 Lymph # (Auto) (1.32-3.57) K/mm3 Walker # (Auto) (0.30-0.82) K/mm3 Eos # (Auto) (0.04-0.54) K/mm3 Baso # (Auto) (0.01-0.08) K/mm3 Manual Slide Review Puncture Site Lt radial ABG pH 7.47 H (7.35-7.45) ABG pCO2 33.3 L (35.0-45.0) mmHg ABG pO2 58.0 L (80.0-100.0) mmHg ABG HCO3 23.7 (22.0-26.0) meq/L ABG O2 Saturation 90.7 L (96.0-97.0) % ABG Base Excess 0.9 (-2-2.0) O2 Delivery Device Nasal cannula Oxygen Flow Rate 5.0 FiO2 40.00 (21.00-100.00) % Sodium 141 (136-145) mEq/L Potassium 4.1 (3.5-5.1) mEq/L Chloride 104 (98-107) mEq/L Carbon Dioxide 27 (21-32) mEq/L Anion Gap 14.1 (5-15) BUN 29 H (7-18) mg/dL Creatinine 1.5 H (0.7-1.3) mg/dL Est Cr Clr Drug Dosing 45.82 mL/min Estimated GFR (MDRD) 46 (>60) mL/min BUN/Creatinine Ratio 19.3 H (14-18) Glucose 161 H (70-99) mg/dL POC Glucose 165 H (70-99) mg/dL Calcium 9.3 (8.5-10.1) mg/dL Magnesium 2.0 (1.8-2.4) mg/dL Total Bilirubin 0.4 (0.2-1.0) mg/dL AST 50 H (15-37) U/L ALT 129 H (16-63) U/L Alkaline Phosphatase 82 (46-116) U/L C-Reactive Protein 21.5 H* (<1.0) mg/dL Total Protein 7.4 (6.4-8.2) g/dl Albumin 2.0 L (3.4-5.0) g/dl Globulin 5.4 gm/dL Albumin/Globulin Ratio 0.4 L (1-2) Enio Results Last 24 Hours: Microbiology 01/18/21 09:35 Aerobic Blood Culture - Preliminary Blood - Venous NO GROWTH AFTER 4 DAYS Anaerobic Blood Culture - Preliminary NO GROWTH AFTER 4 DAYS 01/18/21 09:20 Aerobic Blood Culture - Preliminary Blood - Venous - Lab Draw NO GROWTH AFTER 4 DAYS Anaerobic Blood Culture - Final 01/19/21 17:30 Gram Stain - Final Sputum - Expectorated Sputum Culture - Preliminary Med Orders - Current: Current Medications Acetaminophen (Acetaminophen 325 Mg Tab) 650 mg PO Q4H PRN PRN Reason: Pain (Mild 1-3)/fever Last Admin: 01/21/21 21:49 Dose: 650 mg Documented by: Albuterol (Albuterol 0.083% 2.5 Mg/3 Ml Neb Soln) 2.5 mg NEB Q2H PRN PRN Reason: Shortness Of Breath/wheezing Last Admin: 01/21/21 04:34 Dose: 2.5 mg Documented by: Albuterol/Ipratropium (Albuterol/Ipratropium 3.0-0.5 Mg/3 Ml Neb Soln) 3 ml NEB QIDRT [facility] Last Admin: 01/22/21 09:41 Dose: 3 ml Documented by: Apixaban (Apixaban 5 Mg Tab) 5 mg PO BID [facility] Last Admin: 01/22/21 08:44 Dose: 5 mg Documented by: Aspirin (Aspirin 81 Mg Tab.Chew) 81 mg PO DAILY [facility] Last Admin: 01/22/21 08:46 Dose: 81 mg Documented by: Atorvastatin Calcium (Atorvastatin 20 Mg Tab) 20 mg PO BEDTIME [facility] Last Admin: 01/21/21 21:52 Dose: 20 mg Documented by: Dextrose/Water (50% Dextrose In Water 50 Ml Syringe) 50 ml IVPUSH ASDIRECTED PRN PRN Reason: Hypoglycemia Docusate Sodium (Docusate Sodium 100 Mg Cap) 100 mg PO Q12H PRN PRN Reason: Constipation Fish Oil (Fish Oil/Onia-3 Fatty Acids 1 Gm Cap) 2 gm PO DAILY [facility] Last Admin: 01/22/21 08:46 Dose: 2 gm Documented by: Levofloxacin/Dextrose 750 mg/ (Premix) 150 mls @ 100 mls/hr IV Q48H [facility] Insulin Glargine (Insulin Glarg,Human.Rec.Analog 100 Unit/Ml) 90 unit SUBCUT DAILY [facility] Last Admin: 01/22/21 08:50 Dose: 90 units Documented by: Insulin Human Lispro (Insulin Lispro 100 Unit/Ml 10 Ml Vial) 0 unit SUBCUT QIDACANDBED [facility]; Protocol Last Admin: 01/22/21 07:57 Dose: Not Given Documented by: Magnesium Hydroxide (Magnesium Hydroxide 400 Mg/5 Ml Susp 30 Ml Cup) 30 ml PO Q12H PRN PRN Reason: Constipation Metoprolol Tartrate (Metoprolol Tartrate 25 Mg Tab) 12.5 mg PO BID [facility] Last Admin: 01/22/21 08:49 Dose: 12.5 mg Documented by: Metoprolol Tartrate (Metoprolol Tartrate 5 Mg/5 Ml Sdv) 5 mg IVPUSH Q4H PRN PRN Reason: Tachycardia Mometasone Furoate/Formoterol Fumar (Formoterol/Mometasone 100-5 Mcg 8.8 Gm Inhaler) 2 puff IH BID [facility] Last Admin: 01/22/21 09:41 Dose: 2 puff Documented by: Ondansetron HCl (Ondansetron 4 Mg/2 Ml Sdv) 4 mg IV Q6H PRN PRN Reason: Nausea/Vomiting Pantoprazole Sodium (Pantoprazole 40 Mg Tab.Cr) 40 mg PO DAILY [facility] Last Admin: 01/21/21 08:30 Dose: 40 mg Documented by: Sodium Chloride (Sodium Chloride 0.9% 10 Ml Syringe) 10 ml FLUSH ONETIME PRN PRN Reason: IV FLUSH Last Admin: 01/18/21 10:02 Dose: 10 ml Documented by: Discontinued Medications Albuterol/Ipratropium (Albuterol/Ipratropium 3.0-0.5 Mg/3 Ml Neb Soln) 3 ml NEB ONETIME ONE Stop: 01/18/21 09:01 Last Admin: 01/18/21 09:20 Dose: 3 ml Documented by: Furosemide (Furosemide 40 Mg/4 Ml Vial) 40 mg IVPUSH NOW ONE Stop: 01/19/21 18:05 Last Admin: 01/19/21 18:20 Dose: 40 mg Documented by: Furosemide (Furosemide 20 Mg/2 Ml Vial) 20 mg IVPUSH ONETIME ONE Stop: 01/20/21 10:41 Last Admin: 01/20/21 11:44 Dose: 20 mg Documented by: Sodium Chloride (Normal Saline) 1,000 mls @ 150 mls/hr IV ASDIRECTED [facility] Last Infusion: 01/18/21 14:15 Dose: Infused Documented by: Sodium Chloride (Normal Saline) 100 mls @ 75 mls/hr IV ASDIRECTED [facility] Last Admin: 01/18/21 10:02 Dose: 75 mls/hr Documented by: Ceftriaxone Sodium 2 gm/ (Sodium Chloride) 100 mls @ 200 mls/hr IV ONETIME ONE Stop: 01/18/21 10:31 Last Admin: 01/18/21 10:31 Dose: 200 mls/hr Documented by: Sodium Chloride (Normal Saline) 250 mls @ 999 mls/hr IV .BOLUS ONE Stop: 01/18/21 11:58 Last Admin: 01/18/21 13:01 Dose: Not Given Documented by: Sodium Chloride (Normal Saline) 1,000 mls @ 75 mls/hr IV ASDIRECTED [facility] Last Admin: 01/18/21 20:04 Dose: 75 mls/hr Documented by: Piperacillin Sod/Tazobactam (Sod 4.5 gm/ Sodium Chloride) 100 mls @ 25 mls/hr IV Q8H [facility] Last Admin: 01/19/21 05:02 Dose: 25 mls/hr Documented by: Piperacillin Sod/Tazobactam (Sod 4.5 gm/ Sodium Chloride) 100 mls @ 200 mls/hr IV ONETIME ONE Stop: 01/18/21 13:29 Last Admin: 01/18/21 13:27 Dose: 200 mls/hr Documented by: Vancomycin HCl 1.75 gm/ Sodium (Chloride) 500 mls @ 250 mls/hr IV ONETIME ONE Stop: 01/18/21 15:29 Last Admin: 01/18/21 14:11 Dose: 250 mls/hr Documented by: Vancomycin HCl 1 gm/Vancomycin HCl 500 mg/ Sodium Chloride 500 mls @ 250 mls/hr IV Q18H ONE Stop: 01/19/21 09:59 Last Admin: 01/19/21 09:03 Dose: 250 mls/hr Documented by: Levofloxacin/Dextrose 750 mg/ (Premix) 150 mls @ 100 mls/hr IV Q48H [facility] Last Admin: 01/19/21 12:02 Dose: 100 mls/hr Documented by: Levofloxacin/Dextrose 750 mg/ (Premix) 150 mls @ 100 mls/hr IV Q24H [facility] Last Admin: 01/20/21 11:44 Dose: 100 mls/hr Documented by: Magnesium Sulfate/Dextrose 1 (gm/ Premix) 100 mls @ 100 mls/hr IV Q1H [facility] Stop: 01/20/21 09:44 Last Admin: 01/20/21 10:18 Dose: 100 mls/hr Documented by: Insulin Glargine (Insulin Glarg,Human.Rec.Analog 100 Unit/Ml) 85 unit SUBCUT DAILY [facility] Insulin Glargine (Insulin Glarg,Human.Rec.Analog 100 Unit/Ml) 50 unit SUBCUT ONETIME ONE Stop: 01/18/21 12:31 Last Admin: 01/18/21 12:57 Dose: 50 units Documented by: Insulin Glargine (Insulin Glarg,Human.Rec.Analog 100 Unit/Ml) 5 unit SUBCUT ONETIME ONE Stop: 01/18/21 21:42 Last Admin: 01/18/21 21:59 Dose: 5 units Documented by: Insulin Human Lispro (Insulin Lispro 100 Unit/Ml 10 Ml Vial) 5 unit SUBCUT ONETIME ONE Stop: 01/18/21 10:44 Last Admin: 01/18/21 10:59 Dose: 5 unit Documented by: Insulin Human Lispro (Insulin Lispro 100 Unit/Ml 10 Ml Vial) 0 unit SUBCUT QIDACANDBED [facility]; Protocol Last Admin: 01/18/21 17:17 Dose: 3 units Documented by: Iopamidol (Iopamidol 755 Mg/Ml 100 Ml Bottle) 100 ml IVPUSH ONETIME ONE Stop: 01/18/21 09:43 Last Admin: 01/18/21 10:02 Dose: 100 ml Documented by: Methylprednisolone Sodium Succinate (Methylprednisolone Sodium Succinate 125 Mg/2 Ml Sdv) 125 mg IVPUSH ONETIME ONE Stop: 01/18/21 09:01 Last Admin: 01/18/21 09:08 Dose: 125 mg Documented by: Vancomycin HCl (Pharmacy To Dose - Vancomycin) 1 dose .XX ASDIRECTED PRN PRN Reason: RX TO DOSE VANCO - Exam Quality Assessment: Supplemental Oxygen (5L ), DVT Prophylaxis. No: Urine Catheter General: Alert, Oriented, Cooperative, No Acute Distress HEENT: Pupils Equal, Pupils Reactive, Mucous Membr. Moist/[place] Neck: Supple, Trachea Midline Lungs: Normal Respiratory Effort, Decreased Breath Sounds, Rhonchi. No: Wheezing Cardiovascular: Regular Rate, Regular Rhythm GI/Abdominal Exam: Normal Bowel Sounds, Soft, Non-Tender, No Distention (Male) Exam: Deferred Back Exam: Normal Inspection, Full Range of Motion Extremities: Normal Inspection, Normal Range of Motion, Non-Tender, No Pedal Edema, Normal Capillary Refill Peripheral Pulses: 2+: Radial (L), Radial (R), Dorsalis Pedis (L), Dorsalis Pedis (R) Skin: Warm, Dry, Intact Neurological: No New Focal Deficit Psy/Mental Status: Alert, Normal Affect, Normal Mood - Patient Data Lab Results Last 24 hrs: Laboratory Results - last 24 hr 01/21/21 01/21/21 01/22/21 Range/Units 17:15 21:19 05:00 WBC 10.24 H (4.23-9.07) K/mm3 RBC 4.08 L (4.63-6.08) M/mm3 Hgb 12.1 L (13.7-17.5) gm/dl Hct 37.1 L (40.1-51.0) % MCV 90.9 (79.0-92.2) fl MCH 29.7 (25.7-32.2) pg MCHC 32.6 (32.2-35.5) g/dl RDW Std Deviation 43.8 (35.1-43.9) fL Plt Count 445 H (163-337) K/mm3 MPV 8.7 L (9.4-12.3) fl Neut % (Auto) 66.4 (34.0-67.9) % Lymph % (Auto) 16.0 L (21.8-53.1) % Walker % (Auto) 7.7 (5.3-12.2) % Eos % (Auto) 5.9 (0.8-7.0) Baso % (Auto) 0.5 (0.1-1.2) % Neut # (Auto) 6.80 H (1.78-5.38) K/mm3 Lymph # (Auto) 1.64 (1.32-3.57) K/mm3 Walker # (Auto) 0.79 (0.30-0.82) K/mm3 Eos # (Auto) 0.60 H (0.04-0.54) K/mm3 Baso # (Auto) 0.05 (0.01-0.08) K/mm3 Manual Slide Review Abnormal smear Puncture Site ABG pH (7.35-7.45) ABG pCO2 (35.0-45.0) mmHg ABG pO2 (80.0-100.0) mmHg ABG HCO3 (22.0-26.0) meq/L ABG O2 Saturation (96.0-97.0) % ABG Base Excess (-2-2.0) O2 Delivery Device Oxygen Flow Rate FiO2 (21.00-100.00) % Sodium (136-145) mEq/L Potassium (3.5-5.1) mEq/L Chloride (98-107) mEq/L Carbon Dioxide (21-32) mEq/L Anion Gap (5-15) BUN (7-18) mg/dL Creatinine (0.7-1.3) mg/dL Est Cr Clr Drug Dosing mL/min Estimated GFR (MDRD) (>60) mL/min BUN/Creatinine Ratio (14-18) Glucose (70-99) mg/dL POC Glucose 181 H 191 H (70-99) mg/dL Calcium (8.5-10.1) mg/dL Magnesium (1.8-2.4) mg/dL Total Bilirubin (0.2-1.0) mg/dL AST (15-37) U/L ALT (16-63) U/L Alkaline Phosphatase (46-116) U/L C-Reactive Protein (<1.0) mg/dL Total Protein (6.4-8.2) g/dl Albumin (3.4-5.0) g/dl Globulin gm/dL Albumin/Globulin Ratio (1-2) 01/22/21 01/22/21 01/22/21 Range/Units 05:00 06:39 07:37 WBC (4.23-9.07) K/mm3 RBC (4.63-6.08) M/mm3 Hgb (13.7-17.5) gm/dl Hct (40.1-51.0) % MCV (79.0-92.2) fl MCH (25.7-32.2) pg MCHC (32.2-35.5) g/dl RDW Std Deviation (35.1-43.9) fL Plt Count (163-337) K/mm3 MPV (9.4-12.3) fl Neut % (Auto) (34.0-67.9) % Lymph % (Auto) (21.8-53.1) % Walker % (Auto) (5.3-12.2) % Eos % (Auto) (0.8-7.0) Baso % (Auto) (0.1-1.2) % Neut # (Auto) (1.78-5.38) K/mm3 Lymph # (Auto) (1.32-3.57) K/mm3 Walker # (Auto) (0.30-0.82) K/mm3 Eos # (Auto) (0.04-0.54) K/mm3 Baso # (Auto) (0.01-0.08) K/mm3 Manual Slide Review Puncture Site Lt radial ABG pH 7.47 H (7.35-7.45) ABG pCO2 33.3 L (35.0-45.0) mmHg ABG pO2 58.0 L (80.0-100.0) mmHg ABG HCO3 23.7 (22.0-26.0) meq/L ABG O2 Saturation 90.7 L (96.0-97.0) % ABG Base Excess 0.9 (-2-2.0) O2 Delivery Device Nasal cannula Oxygen Flow Rate 5.0 FiO2 40.00 (21.00-100.00) % Sodium 141 (136-145) mEq/L Potassium 4.1 (3.5-5.1) mEq/L Chloride 104 (98-107) mEq/L Carbon Dioxide 27 (21-32) mEq/L Anion Gap 14.1 (5-15) BUN 29 H (7-18) mg/dL Creatinine 1.5 H (0.7-1.3) mg/dL Est Cr Clr Drug Dosing 45.82 mL/min Estimated GFR (MDRD) 46 (>60) mL/min BUN/Creatinine Ratio 19.3 H (14-18) Glucose 161 H (70-99) mg/dL POC Glucose 165 H (70-99) mg/dL Calcium 9.3 (8.5-10.1) mg/dL Magnesium 2.0 (1.8-2.4) mg/dL Total Bilirubin 0.4 (0.2-1.0) mg/dL AST 50 H (15-37) U/L ALT 129 H (16-63) U/L Alkaline Phosphatase 82 (46-116) U/L C-Reactive Protein 21.5 H* (<1.0) mg/dL Total Protein 7.4 (6.4-8.2) g/dl Albumin 2.0 L (3.4-5.0) g/dl Globulin 5.4 gm/dL Albumin/Globulin Ratio 0.4 L (1-2) Result Diagrams: 01/22/21 05:00 01/22/21 05:00 Enio Results Last 24 hrs: Microbiology 01/18/21 09:35 Aerobic Blood Culture - Preliminary Blood - Venous NO GROWTH AFTER 4 DAYS Anaerobic Blood Culture - Preliminary NO GROWTH AFTER 4 DAYS 01/18/21 09:20 Aerobic Blood Culture - Preliminary Blood - Venous - Lab Draw NO GROWTH AFTER 4 DAYS Anaerobic Blood Culture - Final 01/19/21 17:30 Gram Stain - Final Sputum - Expectorated Sputum Culture - Preliminary Sepsis Event Note - Evaluation Sepsis Screening Result: No Definite Risk - Focused Exam Vital Signs: Vital Signs Temp Pulse Resp BP Pulse Ox Pulse Ox 01/22/21 09:41 95 01/22/21 08:49 104 H 126/99 H 01/22/21 04:31 90 L 01/22/21 04:22 98.4 F 88 20 123/87 87 L - Problem List & Annotations (1) CKD (chronic kidney disease) SNOMED Code(s): 231608019 Code(s): N18.9 - CHRONIC KIDNEY DISEASE, UNSPECIFIED Status: Chronic Priority: Medium Current Visit: Yes Qualifiers: Chronic kidney disease stage: stage 3 (moderate) Chronic kidney disease stage 3 subtype: stage 3b (GFR 30-44) Qualified Code(s): N18.32 - Chronic kidney disease, stage 3b (2) History of COVID-19 SNOMED Code(s): 599134489150405794, 504770055182906507 Code(s): Z86.16 - PERSONAL HISTORY OF COVID-19 Status: Chronic Priority: High Current Visit: Yes (3) Type II diabetes mellitus SNOMED Code(s): 52305871 Code(s): E11.9 - TYPE 2 DIABETES MELLITUS WITHOUT COMPLICATIONS Status: Chronic Priority: Medium Current Visit: Yes Qualifiers: Diabetes mellitus geodetic advisor insulin use: with geodetic advisor use Diabetes mellitus complication status: with other specified complication Qualified Code(s): E11.69 - Type 2 diabetes mellitus with other specified complication; Z79.4 - senior care (current) use of insulin (4) Hypoxia SNOMED Code(s): 125484738 Code(s): R09.02 - HYPOXEMIA Status: Acute Priority: High Current Visit: Yes (5) Atrial fibrillation SNOMED Code(s): 60904289 Code(s): I48.91 - UNSPECIFIED ATRIAL FIBRILLATION Status: Chronic Priority: Medium Current Visit: No Qualifiers: Atrial fibrillation type: paroxysmal Qualified Code(s): I48.0 - Paroxysmal atrial fibrillation (6) Elevated troponin level not due myocardial infarction SNOMED Code(s): 421436335, 066031986, 885379197 Code(s): R77.8 - OTHER SPECIFIED ABNORMALITIES OF PLASMA PROTEINS Status: Chronic Priority: Medium Current Visit: Yes (7) Chronic anticoagulation SNOMED Code(s): 392979332 Code(s): Z79.01 - HUMAN RESOURCES EXECUTIVE (CURRENT) USE OF ANTICOAGULANTS Status: Chronic Priority: Low Current Visit: No (8) Hyperglycemia due to type 2 diabetes mellitus SNOMED Code(s): 158106545549406, 319106216290484 Code(s): E11.65 - TYPE 2 DIABETES MELLITUS WITH HYPERGLYCEMIA Status: Acute Priority: High Current Visit: Yes Qualifiers: Diabetes mellitus detention insulin use: with geodetic advisor use Qualified Code(s): E11.65 - Type 2 diabetes mellitus with hyperglycemia; Z79.4 - senior care (current) use of insulin (9) Healthcare-associated pneumonia SNOMED Code(s): 063729273, 245116044 Code(s): J18.9 - PNEUMONIA, UNSPECIFIED ORGANISM Status: Acute Priority: High Current Visit: Yes (10) Elevated brain natriuretic peptide (BNP) level SNOMED Code(s): 086253794, 776831543 Code(s): R79.89 - OTHER SPECIFIED ABNORMAL FINDINGS OF BLOOD CHEMISTRY Status: Acute Priority: High Current Visit: Yes (11) Supplemental oxygen dependent SNOMED Code(s): 718699547727 Code(s): Z99.81 - DEPENDENCE ON SUPPLEMENTAL OXYGEN Status: Chronic Priority: Medium Current Visit: Yes - Problem List Review Problem List Initiated/Reviewed/Updated: Yes - My Orders Last 24 Hours: My Active Orders 01/22/21 07:21 CXR [Chest 2V] [CR] Routine - Assessment Assessment:: Assessment - day of admission 01/18/2021 * This is a 70-year-old male who presents to ED on 01/18/2021 with dyspnea and left-sided chest pain along his ribs. * He carries a history of A. fib, prior Covid infection, type II DM, and chronic kidney disease. * Diagnosed with Covid on December 11, transferred to [facility] and hospitalized for 13 days. * He was released on 01-02-2021 on 2 L of home oxygen. * Reports dyspnea with accompanying chills, diaphoresis, and a cough. * In the ED twelve-lead EKG is obtained showing a sinus tachycardia at 119 bpm. * Labs obtained in ED: * WBC 10.56. * Hemoglobin is 12.7. * He is normocytic. * Platelets are elevated at 409,000. * Neutrophils are elevated 72.3%. * D-dimer is elevated at 5.12. * Sodium is 137. * Potassium 4.3. * Chloride 101. * Carbon dioxide 20. * Anion gap is 20.3. * BUN is 32. Creatinine 1.7. GFR is 40. * Glucose is 204. * Total bilirubin 0.5. * AST is 38, ALT 46, alkaline phosphatase 80. * Troponin 0 0.074. * CRP is 41.4. * Albumin is 2.4. * Lactic acid is 1.2. * proBNP is 1666. * ABG obtained in the left radial with a pH of 7.41. PCO2 of 25.4. PO2 of 62.0. HCO3 of 15.2. O2 saturation of 92.4. Base excess is -6.8. AA gradient is 135. This is obtained while on 3 L via nasal cannula. * Chest x-ray shows prominent increase in density on both sides the chest raising the possibility diffuse pneumonia. Please correlate if patient has Covid disease. No other acute abnormality is seen. * CTA is obtained showing diffuse increased density on both sides the chest compatible with diffuse pneumonia. Vague areas of poor enhancement within the main pulmonary arteries on both sides. This is most likely artifact. No definitive findings of pulmonary embolism are seen. Incidental degenerative change within the spine is also noted. * Patient is given 1 DuoNeb and started on Rocephin and IV fluids. He is given 125 mg Solu-Medrol and 5 units of lispro insulin. * He subsequently admitted to the medical floor on telemetry for management of his bilateral pneumonia. 01/19/2021 This is a 70-year-old male who presents to ED on 01/18/2021 with dyspnea and left-sided chest pain along his ribs. He was diagnosed with Covid on December 11 [address] [facility] where he was hospitalized for 13 days. He was released on 01-02-2021 on 2 L of home oxygen. Reports he has been doing good up until the last couple of days, in which she has noticed he has been more dyspneic and had accompanying chills, diaphoresis, and a cough. He feeling better. Denies fever, chills, nausea or vomiting. But he still complains of rib cage pain when he is coughing. He is on 4 to 5 L WBC 11.6, hemoglobin 13.8 D-dimer 5.12 Creatinine 1.5 01/20/2021 This is a 70-year-old male who presents to ED on 01/18/2021 with dyspnea and left-sided chest pain along his ribs. He was diagnosed with Covid on December 11 [address] [facility] where he was hospitalized for 13 days. He was released on 01-02-2021 on 2 L of home oxygen. Reports he has been doing good up until the last couple of days, in which she has noticed he has been more d yspneic and had accompanying chills, diaphoresis, and a cough. He is feeling much better, less SOB. Denies fever, chills, nausea or vomiting. He is now on 4L Potassium 3.9, creatinine 1.4 Mag 1.8 AST 75, ALT 144 CRP 14.5 01/21/2021 70-year-old male who presented to ED on 01/18/2021 with chest pain and dyspnea. He is oxygen dependent however he has been requiring 4 L, which is increased from his baseline 2 L. Today he reports that he is feeling better. He was reportedly on 3 L of oxygen through the night however this morning he had a coughing episode and was requiring 4 L. He has been ambulating around the room independently. PT and OT have seen him and are recommending home independent. He currently has no concerns. He is on Levaquin for bilateral pneumonia. White count today is 9.58. Hemoglobin 11.6. Platelet 443,000. Blood smear shows a few band neutrophils present. Anion gap is elevated at 17.6. BUN is 31. Creatinine 1.5. GFR is 46. Glucose 136. Magnesium is 1.9. AST is 44, ALT 117, alkaline phosphatase 86. CRP 16.1. Albumin is very low at 1.9. Echocardiogram results were discussed with patient: 1. The EF by visual estima tion is 60-65%. 2. Normal left ventricular systolic function. 3. Impaired relaxation (Grade 1) pattern of LV diastolic filling. 4. Right normal right ventricular size, wall thickness, and systolic function. 5. There is mild aortic valve sclerosis without stenosis. 6. Mild mitral valve regurgitation. 7. Mild to moderate aortic valve regurgitation. 8. Trace tricuspid valve regurgitation. 9. No regional wall motion abnormalities. Plan will be for discharge tomorrow pending continued stability/improvement. 01/22/2021 70-year-old male admitted on 01-18-2021 due to dyspnea and chest pain at margin of left lower rib. Unfortunately he required 5 L of oxygen overnight. ABG this morning shows respiratory alkalosis. He reports an acute dyspneic spell when he attempts to ambulate. Chest x-ray was obtained and shows bilateral infiltrates which are stable. WBC today is 10.24. Hemoglobin 12.1. Platelet 445,000. Sodium 141. Potassium 4.1. Chloride 104. Carbon dioxide 27. Anion gap is 14.1. BUN is 29. Creatinine 1.5. GFR 46. Glucose is 161. Magnesium of 2.0. AST is 50, ALT 129, alkaline phosphatase 82. CRP is 21.5. Albumin 2.0. Overall his lungs sound about the same as yesterday with no wheezing noted. It is not felt a steroid would help him much at this point. There is no signs of any pleural effusions or pulmonary edema. We will continue current treatment plan. Hopeful for discharge in next 1 to 2 days pending improvement. We recommend follow-up with pulmonology after discharge. - Plan Plan:: Healthcare-associated pneumonia History of COVID-19 Hypoxia Supplemental oxygen dependant * CXR - Diffuse increased density on both sides of the chest. Findings are stable from prior chest imaging. Diffuse pneumonia is the most likely etiology with the could be due to Covid etiology, diffuse bacterial all other atypical etiologies. * Patient recently hospitalized so will need to treat as healthcare related PNA * MRSA screening negative * Discontinued zosyn Q8Hr and vancomycin * Started Levaquin * IS/Acapella * RT consult * CM/SW consult * O2 as needed to keep saturations >90 (on 2L at home baseline) * Check procalcitonin - 2.14 * Blood cultures no growth so far * Sputum culture no significance * Tylenol for fevers * Scheduled QID duonebs * Droplet isolation * Inside COVID-19 window so will not need re-testing * Monitor daily labs * Recommend pulmonology follow-up after discharge. Atrial fibrillation Chronic anticoagulation Elevated troponin level not due myocardial infarction Elevated BNP Elevated D-Dimer * Telemetry * Obtain echocardiogram to rule out CHF and/or COVID myopathy- see note * Troponin 0.074, 0.051 * CK-MB 1.3 * Troponin noted to be elevated on multiple prior visits. Patient has chronic kidney disease. * Continue home eliquis * Continue home cardiac meds * Consider LE US if swelling/pain noted to legs - negative exam at this time and already on Eliquis. 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 CKD (chronic kidney disease) * Creatinine 3.2 on September 15, 2025. Creatinine 1.5 today * Appears to be around baseline with GFR in 40's * Caution with nephrotoxic meds * IV fluids as ordered Code Status: Full code PCP: Dr. Barksdale DVT prophylaxis: Home eliquis Disposition: Patient admitted to the medical floor on telemetry for management of bilateral pneumonia. We will treat this as healthcare related at this time. Likely LOS 1-2 more days pending improvement with oxygen needs. <Cayetano Mina - Last Filed: 01/22/21 15:40> - Patient Data Vitals - Most Recent: Last Vital Signs Temp 37.5 C 01/22/21 11:47 Pulse 111 H 01/22/21 11:47 Resp 16 01/22/21 11:47 BP 109/67 01/22/21 11:47 Pulse Ox 95 01/22/21 15:10 I&O - Last 24 Hours: Intake & Output 01/22/21 01/22/21 01/22/21 06:59 14:59 22:59 Intake Total 500 240 150 Output Total 750 Balance -250 240 150 Lab Results Last 24 Hours: Laboratory Results - last 24 hr 01/21/21 01/21/2121 Range/Units 17:15 21:19 05:00 WBC 10.24 H (4.23-9.07) K/mm3 RBC 4.08 L (4.63-6.08) M/mm3 Hgb 12.1 L (13.7-17.5) gm/dl Hct 37.1 L (40.1-51.0) % MCV 90.9 (79.0-92.2) fl MCH 29.7 (25.7-32.2) pg MCHC 32.6 (32.2-35.5) g/dl RDW Std Deviation 43.8 (35.1-43.9) fL Plt Count 445 H (163-337) K/mm3 MPV 8.7 L (9.4-12.3) fl Neut % (Auto) 66.4 (34.0-67.9) % Lymph % (Auto) 16.0 L (21.8-53.1) % Walker % (Auto) 7.7 (5.3-12.2) % Eos % (Auto) 5.9 (0.8-7.0) Baso % (Auto) 0.5 (0.1-1.2) % Neut # (Auto) 6.80 H (1.78-5.38) K/mm3 Lymph # (Auto) 1.64 (1.32-3.57) K/mm3 Walker # (Auto) 0.79 (0.30-0.82) K/mm3 Eos # (Auto) 0.60 H (0.04-0.54) K/mm3 Baso # (Auto) 0.05 (0.01-0.08) K/mm3 Manual Slide Review Abnormal smear Puncture Site ABG pH (7.35-7.45) ABG pCO2 (35.0-45.0) mmHg ABG pO2 (80.0-100.0) mmHg ABG HCO3 (22.0-26.0) meq/L ABG O2 Saturation (96.0-97.0) % ABG Base Excess (-2-2.0) O2 Delivery Device Oxygen Flow Rate FiO2 (21.00-100.00) % Sodium (136-145) mEq/L Potassium (3.5-5.1) mEq/L Chloride (98-107) mEq/L Carbon Dioxide (21-32) mEq/L Anion Gap (5-15) BUN (7-18) mg/dL Creatinine (0.7-1.3) mg/dL Est Cr Clr Drug Dosing mL/min Estimated GFR (MDRD) (>60) mL/min BUN/Creatinine Ratio (14-18) Glucose (70-99) mg/dL POC Glucose 181 H 191 H (70-99) mg/dL Calcium (8.5-10.1) mg/dL Magnesium (1.8-2.4) mg/dL Total Bilirubin (0.2-1.0) mg/dL AST (15-37) U/L ALT (16-63) U/L Alkaline Phosphatase (46-116) U/L C-Reactive Protein (<1.0) mg/dL Total Protein (6.4-8.2) g/dl Albumin (3.4-5.0) g/dl Globulin gm/dL Albumin/Globulin Ratio (1-2) 01/22/21 01/22/21 01/22/21 Range/Units 05:00 06:39 07:37 WBC (4.23-9.07) K/mm3 RBC (4.63-6.08) M/mm3 Hgb (13.7-17.5) gm/dl Hct (40.1-51.0) % MCV (79.0-92.2) fl MCH (25.7-32.2) pg MCHC (32.2-35.5) g/dl RDW Std Deviation (35.1-43.9) fL Plt Count (163-337) K/mm3 MPV (9.4-12.3) fl Neut % (Auto) (34.0-67.9) % Lymph % (Auto) (21.8-53.1) % Walker % (Auto) (5.3-12.2) % Eos % (Auto) (0.8-7.0) Baso % (Auto) (0.1-1.2) % Neut # (Auto) (1.78-5.38) K/mm3 Lymph # (Auto) (1.32-3.57) K/mm3 Walker # (Auto) (0.30-0.82) K/mm3 Eos # (Auto) (0.04-0.54) K/mm3 Baso # (Auto) (0.01-0.08) K/mm3 Manual Slide Review Puncture Site Lt radial ABG pH 7.47 H (7.35-7.45) ABG pCO2 33.3 L (35.0-45.0) mmHg ABG pO2 58.0 L (80.0-100.0) mmHg ABG HCO3 23.7 (22.0-26.0) meq/L ABG O2 Saturation 90.7 L (96.0-97.0) % ABG Base Excess 0.9 (-2-2.0) O2 Delivery Device Nasal cannula Oxygen Flow Rate 5.0 FiO2 40.00 (21.00-100.00) % Sodium 141 (136-145) mEq/L Potassium 4.1 (3.5-5.1) mEq/L Chloride 104 (98-107) mEq/L Carbon Dioxide 27 (21-32) mEq/L Anion Gap 14.1 (5-15) BUN 29 H (7-18) mg/dL Creatinine 1.5 H (0.7-1.3) mg/dL Est Cr Clr Drug Dosing 45.82 mL/min Estimated GFR (MDRD) 46 (>60) mL/min BUN/Creatinine Ratio 19.3 H (14-18) Glucose 161 H (70-99) mg/dL POC Glucose 165 H (70-99) mg/dL Calcium 9.3 (8.5-10.1) mg/dL Magnesium 2.0 (1.8-2.4) mg/dL Total Bilirubin 0.4 (0.2-1.0) mg/dL AST 50 H (15-37) U/L ALT 129 H (16-63) U/L Alkaline Phosphatase 82 (46-116) U/L C-Reactive Protein 21.5 H* (<1.0) mg/dL Total Protein 7.4 (6.4-8.2) g/dl Albumin 2.0 L (3.4-5.0) g/dl Globulin 5.4 gm/dL Albumin/Globulin Ratio 0.4 L (1-2) 01/22/ Range/Units 11:42 WBC (4.23-9.07) K/mm3 RBC (4.63-6.08) M/mm3 Hgb (13.7-17.5) gm/dl Hct (40.1-51.0) % MCV (79.0-92.2) fl MCH (25.7-32.2) pg MCHC (32.2-35.5) g/dl RDW Std Deviation (35.1-43.9) fL Plt Count (163-337) K/mm3 MPV (9.4-12.3) fl Neut % (Auto) (34.0-67.9) % Lymph % (Auto) (21.8-53.1) % Walker % (Auto) (5.3-12.2) % Eos % (Auto) (0.8-7.0) Baso % (Auto) (0.1-1.2) % Neut # (Auto) (1.78-5.38) K/mm3 Lymph # (Auto) (1.32-3.57) K/mm3 Walker # (Auto) (0.30-0.82) K/mm3 Eos # (Auto) (0.04-0.54) K/mm3 Baso # (Auto) (0.01-0.08) K/mm3 Manual Slide Review Puncture Site ABG pH (7.35-7.45) ABG pCO2 (35.0-45.0) mmHg ABG pO2 (80.0-100.0) mmHg ABG HCO3 (22.0-26.0) meq/L ABG O2 Saturation (96.0-97.0) % ABG Base Excess (-2-2.0) O2 Delivery Device Oxygen Flow Rate FiO2 (21.00-100.00) % Sodium (136-145) mEq/L Potassium (3.5-5.1) mEq/L Chloride (98-107) mEq/L Carbon Dioxide (21-32) mEq/L Anion Gap (5-15) BUN (7-18) mg/dL Creatinine (0.7-1.3) mg/dL Est Cr Clr Drug Dosing mL/min Estimated GFR (MDRD) (>60) mL/min BUN/Creatinine Ratio (14-18) Glucose (70-99) mg/dL POC Glucose 217 H (70-99) mg/dL Calcium (8.5-10.1) mg/dL Magnesium (1.8-2.4) mg/dL Total Bilirubin (0.2-1.0) mg/dL AST (15-37) U/L ALT (16-63) U/L Alkaline Phosphatase (46-116) U/L C-Reactive Protein (<1.0) mg/dL Total Protein (6.4-8.2) g/dl Albumin (3.4-5.0) g/dl Globulin gm/dL Albumin/Globulin Ratio (1-2) Enio Results Last 24 Hours: Microbiology 01/19/21 17:30 Gram Stain - Final Sputum - Expectorated Sputum Culture - Preliminary 01/18/21 09:35 Aerobic Blood Culture - Preliminary Blood - Venous NO GROWTH AFTER 4 DAYS Anaerobic Blood Culture - Preliminary NO GROWTH AFTER 4 DAYS 01/18/21 09:20 Aerobic Blood Culture - Preliminary Blood - Venous - Lab Draw NO GROWTH AFTER 4 DAYS Anaerobic Blood Culture - Final Med Orders - Current: Current Medications Acetaminophen (Acetaminophen 325 Mg Tab) 650 mg PO Q4H PRN PRN Reason: Pain (Mild 1-3)/fever Last Admin: 01/21/21 21:49 Dose: 650 mg Documented by: Albuterol (Albuterol 0.083% 2.5 Mg/3 Ml Neb Soln) 2.5 mg NEB Q2H PRN PRN Reason: Shortness Of Breath/wheezing Last Admin: 01/21/21 04:34 Dose: 2.5 mg Documented by: Albuterol/Ipratropium (Albuterol/Ipratropium 3.0-0.5 Mg/3 Ml Neb Soln) 3 ml NEB QIDRT [facility] Last Admin: 01/22/21 15:09 Dose: 3 ml Documented by: Apixaban (Apixaban 5 Mg Tab) 5 mg PO BID [facility] Last Admin: 01/22/21 08:44 Dose: 5 mg Documented by: Aspirin (Aspirin 81 Mg Tab.Chew) 81 mg PO DAILY [facility] Last Admin: 01/22/21 08:46 Dose: 81 mg Documented by: Atorvastatin Calcium (Atorvastatin 20 Mg Tab) 20 mg PO BEDTIME [facility] Last Admin: 01/21/21 21:52 Dose: 20 mg Documented by: Dextrose/Water (50% Dextrose In Water 50 Ml Syringe) 50 ml IVPUSH ASDIRECTED PRN PRN Reason: Hypoglycemia Docusate Sodium (Docusate Sodium 100 Mg Cap) 100 mg PO Q12H PRN PRN Reason: Constipation Fish Oil (Fish Oil/Onia-3 Fatty Acids 1 Gm Cap) 2 gm PO DAILY [facility] Last Admin: 01/22/21 08:46 Dose: 2 gm Documented by: Levofloxacin/Dextrose 750 mg/ (Premix) 150 mls @ 100 mls/hr IV Q48H [facility] Last Admin: 01/22/21 11:44 Dose: 100 mls/hr Documented by: Insulin Glargine (Insulin Glarg,Human.Rec.Analog 100 Unit/Ml) 90 unit SUBCUT DAILY [facility] Last Admin: 01/22/21 08:50 Dose: 90 units Documented by: Insulin Human Lispro (Insulin Lispro 100 Unit/Ml 10 Ml Vial) 0 unit SUBCUT QIDACANDBED [facility]; Protocol Last Admin: 01/22/21 11:30 Dose: Not Given Documented by: Magnesium Hydroxide (Magnesium Hydroxide 400 Mg/5 Ml Susp 30 Ml Cup) 30 ml PO Q12H PRN PRN Reason: Constipation Metoprolol Tartrate (Metoprolol Tartrate 25 Mg Tab) 12.5 mg PO BID [facility] Last Admin: 01/22/21 08:49 Dose: 12.5 mg Documented by: Metoprolol Tartrate (Metoprolol Tartrate 5 Mg/5 Ml Sdv) 5 mg IVPUSH Q4H PRN PRN Reason: Tachycardia Mometasone Furoate/Formoterol Fumar (Formoterol/Mometasone 100-5 Mcg 8.8 Gm Inhaler) 2 puff IH BID [facility] Last Admin: 01/22/21 09:41 Dose: 2 puff Documented by: Ondansetron HCl (Ondansetron 4 Mg/2 Ml Sdv) 4 mg IV Q6H PRN PRN Reason: Nausea/Vomiting Pantoprazole Sodium (Pantoprazole 40 Mg Tab.Cr) 40 mg PO DAILY [facility] Last Admin: 01/22/21 08:44 Dose: 40 mg Documented by: Sodium Chloride (Sodium Chloride 0.9% 10 Ml Syringe) 10 ml FLUSH ONETIME PRN PRN Reason: IV FLUSH Last Admin: 01/18/21 10:02 Dose: 10 ml Documented by: Discontinued Medications Albuterol/Ipratropium (Albuterol/Ipratropium 3.0-0.5 Mg/3 Ml Neb Soln) 3 ml NEB ONETIME ONE Stop: 06/18/21 09:01 Last Admin: 01/18/21 09:20 Dose: 3 ml Documented by: Furosemide (Furosemide 40 Mg/4 Ml Vial) 40 mg IVPUSH NOW ONE Stop: 01/19/21 18:05 Last Admin: 01/19/21 18:20 Dose: 40 mg Documented by: Furosemide (Furosemide 20 Mg/2 Ml Vial) 20 mg IVPUSH ONETIME ONE Stop: 01/20/21 10:41 Last Admin: 01/20/21 11:44 Dose: 20 mg Documented by: Sodium Chloride (Normal Saline) 1,000 mls @ 150 mls/hr IV ASDIRECTED [facility] Last Infusion: 01/18/21 14:15 Dose: Infused Documented by: Sodium Chloride (Normal Saline) 100 mls @ 75 mls/hr IV ASDIRECTED [facility] Last Admin: 01/18/21 10:02 Dose: 75 mls/hr Documented by: Ceftriaxone Sodium 2 gm/ (Sodium Chloride) 100 mls @ 200 mls/hr IV ONETIME ONE Stop: 01/18/21 10:31 Last Admin: 01/18/21 10:31 Dose: 200 mls/hr Documented by: Sodium Chloride (Normal Saline) 250 mls @ 999 mls/hr IV .BOLUS ONE Stop: 01/18/21 11:58 Last Admin: 01/18/21 13:01 Dose: Not Given Documented by: Sodium Chloride (Normal Saline) 1,000 mls @ 75 mls/hr IV ASDIRECTED [facility] Last Admin: 01/18/21 20:04 Dose: 75 mls/hr Documented by: Piperacillin Sod/Tazobactam (Sod 4.5 gm/ Sodium Chloride) 100 mls @ 25 mls/hr IV Q8H [facility] Last Admin: 01/19/21 05:02 Dose: 25 mls/hr Documented by: Piperacillin Sod/Tazobactam (Sod 4.5 gm/ Sodium Chloride) 100 mls @ 200 mls/hr IV ONETIME ONE Stop: 01/18/21 13:29 Last Admin: 01/18/21 13:27 Dose: 200 mls/hr Documented by: Vancomycin HCl 1.75 gm/ Sodium (Chloride) 500 mls @ 250 mls/hr IV ONETIME ONE Stop: 01/18/21 15:29 Last Admin: 01/18/21 14:11 Dose: 250 mls/hr Documented by: Vancomycin HCl 1 gm/Vancomycin HCl 500 mg/ Sodium Chloride 500 mls @ 250 mls/hr IV Q18H ONE Stop: 01/19/21 09:59 Last Admin: 01/19/21 09:03 Dose: 250 mls/hr Documented by: Levofloxacin/Dextrose 750 mg/ (Premix) 150 mls @ 100 mls/hr IV Q48H [facility] Last Admin: 01/19/21 12:02 Dose: 100 mls/hr Documented by: Levofloxacin/Dextrose 750 mg/ (Premix) 150 mls @ 100 mls/hr IV Q24H [facility] Last Admin: 01/20/21 11:44 Dose: 100 mls/hr Documented by: Magnesium Sulfate/Dextrose 1 (gm/ Premix) 100 mls @ 100 mls/hr IV Q1H [facility] Stop: 01/20/21 09:44 Last Admin: 01/20/21 10:18 Dose: 100 mls/hr Documented by: Insulin Glargine (Insulin Glarg,Human.Rec.Analog 100 Unit/Ml) 85 unit SUBCUT DAILY [facility] Insulin Glargine (Insulin Glarg,Human.Rec.Analog 100 Unit/Ml) 50 unit SUBCUT ONETIME ONE Stop: 01/18/21 12:31 Last Admin: 01/18/21 12:57 Dose: 50 units Documented by: Insulin Glargine (Insulin Glarg,Human.Rec.Analog 100 Unit/Ml) 5 unit SUBCUT ONETIME ONE Stop: 01/18/21 21:42 Last Admin: 01/18/21 21:59 Dose: 5 units Documented by: Insulin Human Lispro (Insulin Lispro 100 Unit/Ml 10 Ml Vial) 5 unit SUBCUT ONETIME ONE Stop: 01/18/21 10:44 Last Admin: 01/18/21 10:59 Dose: 5 unit Documented by: Insulin Human Lispro (Insulin Lispro 100 Unit/Ml 10 Ml Vial) 0 unit SUBCUT QIDACANDBED [facility]; Protocol Last Admin: 01/18/21 17:17 Dose: 3 units Documented by: Iopamidol (Iopamidol 755 Mg/Ml 100 Ml Bottle) 100 ml IVPUSH ONETIME ONE Stop: 01/18/21 09:43 Last Admin: 06/18/21 10:02 Dose: 100 ml Documented by: Methylprednisolone Sodium Succinate (Methylprednisolone Sodium Succinate 125 Mg/2 Ml Sdv) 125 mg IVPUSH ONETIME ONE Stop: 01/18/21 09:01 Last Admin: 01/18/21 09:08 Dose: 125 mg Documented by: Vancomycin HCl (Pharmacy To Dose - Vancomycin) 1 dose .XX ASDIRECTED PRN PRN Reason: RX TO DOSE VANCO - Patient Data Lab Results Last 24 hrs: Laboratory Results - last 24 hr 01/21/21 01/21/21 01/22/21 Range/Units 17:15 21:19 05:00 WBC 10.24 H (4.23-9.07) K/mm3 RBC 4.08 L (4.63-6.08) M/mm3 Hgb 12.1 L (13.7-17.5) gm/dl Hct 37.1 L (40.1-51.0) % MCV 90.9 (79.0-92.2) fl MCH 29.7 (25.7-32.2) pg MCHC 32.6 (32.2-35.5) g/dl RDW Std Deviation 43.8 (35.1-43.9) fL Plt Count 445 H (163-337) K/mm3 MPV 8.7 L (9.4-12.3) fl Neut % (Auto) 66.4 (34.0-67.9) % Lymph % (Auto) 16.0 L (21.8-53.1) % Walker % (Auto) 7.7 (5.3-12.2) % Eos % (Auto) 5.9 (0.8-7.0) Baso % (Auto) 0.5 (0.1-1.2) % Neut # (Auto) 6.80 H (1.78-5.38) K/mm3 Lymph # (Auto) 1.64 (1.32-3.57) K/mm3 Walker # (Auto) 0.79 (0.30-0.82) K/mm3 Eos # (Auto) 0.60 H (0.04-0.54) K/mm3 Baso # (Auto) 0.05 (0.01-0.08) K/mm3 Manual Slide Review Abnormal smear Puncture Site ABG pH (7.35-7.45) ABG pCO2 (35.0-45.0) mmHg ABG pO2 (80.0-100.0) mmHg ABG HCO3 (22.0-26.0) meq/L ABG O2 Saturation (96.0-97.0) % ABG Base Excess (-2-2.0) O2 Delivery Device Oxygen Flow Rate FiO2 (21.00-100.00) % Sodium (136-145) mEq/L Potassium (3.5-5.1) mEq/L Chloride (98-107) mEq/L Carbon Dioxide (21-32) mEq/L Anion Gap (5-15) BUN (7-18) mg/dL Creatinine (0.7-1.3) mg/dL Est Cr Clr Drug Dosing mL/min Estimated GFR (MDRD) (>60) mL/min BUN/Creatinine Ratio (14-18) Glucose (70-99) mg/dL POC Glucose 181 H 191 H (70-99) mg/dL Calcium (8.5-10.1) mg/dL Magnesium (1.8-2.4) mg/dL Total Bilirubin (0.2-1.0) mg/dL AST (15-37) U/L ALT (16-63) U/L Alkaline Phosphatase (46-116) U/L C-Reactive Protein (<1.0) mg/dL Total Protein (6.4-8.2) g/dl Albumin (3.4-5.0) g/dl Globulin gm/dL Albumin/Globulin Ratio (1-2) 01/22/21 01/22/21 01/22/21 Range/Units 05:00 06:39 07:37 WBC (4.23-9.07) K/mm3 RBC (4.63-6.08) M/mm3 Hgb (13.7-17.5) gm/dl Hct (40.1-51.0) % MCV (79.0-92.2) fl MCH (25.7-32.2) pg MCHC (32.2-35.5) g/dl RDW Std Deviation (35.1-43.9) fL Plt Count (163-337) K/mm3 MPV (9.4-12.3) fl Neut % (Auto) (34.0-67.9) % Lymph % (Auto) (21.8-53.1) % Walker % (Auto) (5.3-12.2) % Eos % (Auto) (0.8-7.0) Baso % (Auto) (0.1-1.2) % Neut # (Auto) (1.78-5.38) K/mm3 Lymph # (Auto) (1.32-3.57) K/mm3 Walker # (Auto) (0.30-0.82) K/mm3 Eos # (Auto) (0.04-0.54) K/mm3 Baso # (Auto) (0.01-0.08) K/mm3 Manual Slide Review Puncture Site Lt radial ABG pH 7.47 H (7.35-7.45) ABG pCO2 33.3 L (35.0-45.0) mmHg ABG pO2 58.0 L (80.0-100.0) mmHg ABG HCO3 23.7 (22.0-26.0) meq/L ABG O2 Saturation 90.7 L (96.0-97.0) % ABG Base Excess 0.9 (-2-2.0) O2 Delivery Device Nasal cannula Oxygen Flow Rate 5.0 FiO2 40.00 (21.00-100.00) % Sodium 141 (136-145) mEq/L Potassium 4.1 (3.5-5.1) mEq/L Chloride 104 (98-107) mEq/L Carbon Dioxide 27 (21-32) mEq/L Anion Gap 14.1 (5-15) BUN 29 H (7-18) mg/dL Creatinine 1.5 H (0.7-1.3) mg/dL Est Cr Clr Drug Dosing 45.82 mL/min Estimated GFR (MDRD) 46 (>60) mL/min BUN/Creatinine Ratio 19.3 H (14-18) Glucose 161 H (70-99) mg/dL POC Glucose 165 H (70-99) mg/dL Calcium 9.3 (8.5-10.1) mg/dL Magnesium 2.0 (1.8-2.4) mg/dL Total Bilirubin 0.4 (0.2-1.0) mg/dL AST 50 H (15-37) U/L ALT 129 H (16-63) U/L Alkaline Phosphatase 82 (46-116) U/L C-Reactive Protein 21.5 H* (<1.0) mg/dL Total Protein 7.4 (6.4-8.2) g/dl Albumin 2.0 L (3.4-5.0) g/dl Globulin 5.4 gm/dL Albumin/Globulin Ratio 0.4 L (1-2) 01/22/21 Range/Units 11:42 WBC (4.23-9.07) K/mm3 RBC (4.63-6.08) M/mm3 Hgb (13.7-17.5) gm/dl Hct (40.1-51.0) % MCV (79.0-92.2) fl MCH (25.7-32.2) pg MCHC (32.2-35.5) g/dl RDW Std Deviation (35.1-43.9) fL Plt Count (163-337) K/mm3 MPV (9.4-12.3) fl Neut % (Auto) (34.0-67.9) % Lymph % (Auto) (21.8-53.1) % Walker % (Auto) (5.3-12.2) % Eos % (Auto) (0.8-7.0) Baso % (Auto) (0.1-1.2) % Neut # (Auto) (1.78-5.38) K/mm3 Lymph # (Auto) (1.32-3.57) K/mm3 Walker # (Auto) (0.30-0.82) K/mm3 Eos # (Auto) (0.04-0.54) K/mm3 Baso # (Auto) (0.01-0.08) K/mm3 Manual Slide Review Puncture Site ABG pH (7.35-7.45) ABG pCO2 (35.0-45.0) mmHg ABG pO2 (80.0-100.0) mmHg ABG HCO3 (22.0-26.0) meq/L ABG O2 Saturation (96.0-97.0) % ABG Base Excess (-2-2.0) O2 Delivery Device Oxygen Flow Rate FiO2 (21.00-100.00) % Sodium (136-145) mEq/L Potassium (3.5-5.1) mEq/L Chloride (98-107) mEq/L Carbon Dioxide (21-32) mEq/L Anion Gap (5-15) BUN (7-18) mg/dL Creatinine (0.7-1.3) mg/dL Est Cr Clr Drug Dosing mL/min Estimated GFR (MDRD) (>60) mL/min BUN/Creatinine Ratio (14-18) Glucose (70-99) mg/dL POC Glucose 217 H (70-99) mg/dL Calcium (8.5-10.1) mg/dL Magnesium (1.8-2.4) mg/dL Total Bilirubin (0.2-1.0) mg/dL AST (15-37) U/L ALT (16-63) U/L Alkaline Phosphatase (46-116) U/L C-Reactive Protein (<1.0) mg/dL Total Protein (6.4-8.2) g/dl Albumin (3.4-5.0) g/dl Globulin gm/dL Albumin/Globulin Ratio (1-2) Result Diagrams: 01/22/21 05:00 01/22/21 05:00 Enio Results Last 24 hrs: Microbiology 01/19/21 17:30 Gram Stain - Final Sputum - Expectorated Sputum Culture - Preliminary 01/18/21 09:35 Aerobic Blood Culture - Preliminary Blood - Venous NO GROWTH AFTER 4 DAYS Anaerobic Blood Culture - Preliminary NO GROWTH AFTER 4 DAYS 01/18/21 09:20 Aerobic Blood Culture - Preliminary Blood - Venous - Lab Draw NO GROWTH AFTER 4 DAYS Anaerobic Blood Culture - Final Sepsis Event Note - Focused Exam Vital Signs: Vital Signs Temp Pulse Resp BP Pulse Ox Pulse Ox 01/22/21 15:10 95 01/22/21 11:47 37.5 C 111 H 16 109/67 90 L 01/22/21 09:41 95 01/22/21 08:49 104 H 126/99 H 01/22/21 08:39 37.2 C 104 H 16 126/99 H 87 L 01/22/21 04:31 90 L 01/22/21 04:22 36.9 C 88 20 123/87 87 L - Plan Plan:: I have seen and examined the patient independently of Wilder Vera PA-C, and have reviewed the case with him. I have reviewed and agree with the plan and care as outlined by him. Please see orders.
--- NOTE | 2021-01-22 10:53 | CR ---
Chest: 2 views of the chest were obtained. Comparison: Prior chest x-ray of 01/19/21. Patchy areas of increased density are seen throughout both sides of the chest. No appreciable change is seen from prior exam. Heart size and mediastinum are normal. Mild degenerative change is scattered within the spine. Impression: 1. Diffuse increased density on both sides of the chest. No appreciable change is seen from prior chest x-ray. 2. Diffuse degenerative change within the spine. Diagnostic code #3
[2021-01-22] MEDS: Levofloxacin/Dextrose 5%-Water 750 MG in Premix Bag 1 BAG IV SCH (11:44)
[2021-01-22] MEDS: atorvaSTATin 20 MG Tab PO SCH (20:58)
[2021-01-23] MEDS: Acetaminophen 325 MG Tab PO PRN (03:29)
[2021-01-23] MEDS: Albuterol 0.083% 2.5 MG/3 ML Neb Soln NEB PRN (03:33)
[2021-01-23] MEDS: Albuterol/Ipratropium 3.0-0.5 MG/3 ML Neb Soln NEB SCH ×4 (06:03→20:00)
[2021-01-23] MEDS: Insulin Lispro 100 UNIT/ML 10 ML Vial SUBCUT SCH ×4 (06:21→21:51)
--- NOTE | 2021-01-23 07:25 | PCM.PN ---
<Wilder Vera - Last Filed: 01/23/21 10:45> - General Info Date of Service: 01/23/21 Admission Dx/Problem (Free Text): Admission Diagnosis/Problem Admission Diagnosis/Problem Pneumonia Functional Status: Reports: Pain Controlled, Tolerating Diet, Ambulating, Urinating, Incentive Spirometry, Other (acapella ). Denies: New Symptoms - Review of Systems General: Reports: No Symptoms. Denies: Fever, Weakness, Fatigue, Malaise, Chills HEENT: Reports: No Symptoms. Denies: Headaches, Sore Throat Pulmonary: Reports: Shortness of Breath, Cough. Denies: Pleuritic Chest Pain, Sputum, Wheezing Cardiovascular: Reports: No Symptoms, Dyspnea on Exertion. Denies: Chest Pain, Palpitations, Edema, Lightheadedness Gastrointestinal: Reports: No Symptoms. Denies: Abdominal Pain, Constipation, Decreased Appetite, Diarrhea, Nausea, Vomiting Genitourinary: Reports: No Symptoms. Denies: Pain Musculoskeletal: Reports: No Symptoms Skin: Reports: No Symptoms. Denies: Cyanosis Neurological: Reports: No Symptoms. Denies: Confusion, Pre-Existing Deficit, Difficulty Walking, Weakness, Gait Disturbance Psychiatric: Reports: No Symptoms - Patient Data Vitals - Most Recent: Last Vital Signs Temp 98.4 F 01/23/21 03:31 Pulse 95 01/23/21 03:31 Resp 20 01/23/21 06:13 BP 107/68 01/23/21 03:31 Pulse Ox 94 L 01/23/21 06:04 Weight - Most Recent: 85.139 kg I&O - Last 24 Hours: Intake & Output 01/22/21 01/23/21 01/23/21 22:59 06:59 14:59 Intake Total 1070 300 Output Total 800 500 Balance 270 -200 Lab Results Last 24 Hours: Laboratory Results - last 24 hr 01/22/21 01/22/21 01/22/21 Range/Units 07:37 11:42 16:58 Puncture Site Lt radial ABG pH 7.47 H (7.35-7.45) ABG pCO2 33.3 L (35.0-45.0) mmHg ABG pO2 58.0 L (80.0-100.0) mmHg ABG HCO3 23.7 (22.0-26.0) meq/L ABG O2 Saturation 90.7 L (96.0-97.0) % ABG Base Excess 0.9 (-2-2.0) O2 Delivery Device Nasal cannula Oxygen Flow Rate 5.0 FiO2 40.00 (21.00-100.00) % POC Glucose 217 H 158 H (70-99) mg/dL 01/22/21 01/23/21 Range/Units 21:03 06:03 Puncture Site ABG pH (7.35-7.45) ABG pCO2 (35.0-45.0) mmHg ABG pO2 (80.0-100.0) mmHg ABG HCO3 (22.0-26.0) meq/L ABG O2 Saturation (96.0-97.0) % ABG Base Excess (-2-2.0) O2 Delivery Device Oxygen Flow Rate FiO2 (21.00-100.00) % POC Glucose 169 H 129 H (70-99) mg/dL Enio Results Last 24 Hours: Microbiology 01/19/21 17:30 Gram Stain - Final Sputum - Expectorated Sputum Culture - Preliminary 01/18/21 09:35 Aerobic Blood Culture - Preliminary Blood - Venous NO GROWTH AFTER 4 DAYS Anaerobic Blood Culture - Preliminary NO GROWTH AFTER 4 DAYS 01/18/21 09:20 Aerobic Blood Culture - Preliminary Blood - Venous - Lab Draw NO GROWTH AFTER 4 DAYS Anaerobic Blood Culture - Final Med Orders - Current: Current Medications Acetaminophen (Acetaminophen 325 Mg Tab) 650 mg PO Q4H PRN PRN Reason: Pain (Mild 1-3)/fever Last Admin: 01/23/21 03:29 Dose: 650 mg Documented by: Albuterol (Albuterol 0.083% 2.5 Mg/3 Ml Neb Soln) 2.5 mg NEB Q2H PRN PRN Reason: Shortness Of Breath/wheezing Last Admin: 01/23/21 03:33 Dose: 2.5 mg Documented by: Albuterol/Ipratropium (Albuterol/Ipratropium 3.0-0.5 Mg/3 Ml Neb Soln) 3 ml NEB QIDRT [facility] Last Admin: 01/23/21 06:03 Dose: 3 ml Documented by: Apixaban (Apixaban 5 Mg Tab) 5 mg PO BID [facility] Last Admin: 01/22/21 20:57 Dose: 5 mg Documented by: Aspirin (Aspirin 81 Mg Tab.Chew) 81 mg PO DAILY [facility] Last Admin: 01/22/21 08:46 Dose: 81 mg Documented by: Atorvastatin Calcium (Atorvastatin 20 Mg Tab) 20 mg PO BEDTIME [facility] Last Admin: 01/22/21 20:58 Dose: 20 mg Documented by: Dextrose/Water (50% Dextrose In Water 50 Ml Syringe) 50 ml IVPUSH ASDIRECTED PRN PRN Reason: Hypoglycemia Docusate Sodium (Docusate Sodium 100 Mg Cap) 100 mg PO Q12H PRN PRN Reason: Constipation Fish Oil (Fish Oil/[place]om[place]y-3 Fatty Acids 1 Gm Cap) 2 gm PO DAILY [facility] Last Admin: 01/22/21 08:46 Dose: 2 gm Documented by: Levofloxacin/Dextrose 750 mg/ (Premix) 150 mls @ 100 mls/hr IV Q48H [facility] Last Admin: 01/22/21 11:44 Dose: 100 mls/hr Documented by: Insulin Glargine (Insulin Glarg,Human.Rec.Analog 100 Unit/Ml) 90 unit SUBCUT DAILY [facility] Last Admin: 01/22/21 08:50 Dose: 90 units Documented by: Insulin Human Lispro (Insulin Lispro 100 Unit/Ml 10 Ml Vial) 0 unit SUBCUT QIDACANDBED [facility]; Protocol Last Admin: 01/23/21 06:21 Dose: Not Given Documented by: Magnesium Hydroxide (Magnesium Hydroxide 400 Mg/5 Ml Susp 30 Ml Cup) 30 ml PO Q12H PRN PRN Reason: Constipation Metoprolol Tartrate (Metoprolol Tartrate 25 Mg Tab) 12.5 mg PO BID [facility] Last Admin: 01/22/21 20:58 Dose: 12.5 mg Documented by: Metoprolol Tartrate (Metoprolol Tartrate 5 Mg/5 Ml Sdv) 5 mg IVPUSH Q4H PRN PRN Reason: Tachycardia Mometasone Furoate/Formoterol Fumar (Formoterol/Mometasone 100-5 Mcg 8.8 Gm Inhaler) 2 puff IH BID [facility] Last Admin: 01/22/21 20:00 Dose: 2 puff Documented by: Ondansetron HCl (Ondansetron 4 Mg/2 Ml Sdv) 4 mg IV Q6H PRN PRN Reason: Nausea/Vomiting Pantoprazole Sodium (Pantoprazole 40 Mg Tab.Cr) 40 mg PO DAILY [facility] Last Admin: 01/22/21 08:44 Dose: 40 mg Documented by: Sodium Chloride (Sodium Chloride 0.9% 10 Ml Syringe) 10 ml FLUSH ONETIME PRN PRN Reason: IV FLUSH Last Admin: 01/18/21 10:02 Dose: 10 ml Documented by: Discontinued Medications Albuterol/Ipratropium (Albuterol/Ipratropium 3.0-0.5 Mg/3 Ml Neb Soln) 3 ml NEB ONETIME ONE Stop: 01/18/21 09:01 Last Admin: 01/18/21 09:20 Dose: 3 ml Documented by: Furosemide (Furosemide 40 Mg/4 Ml Vial) 40 mg IVPUSH NOW ONE Stop: 01/19/21 18:05 Last Admin: 01/19/21 18:20 Dose: 40 mg Documented by: Furosemide (Furosemide 20 Mg/2 Ml Vial) 20 mg IVPUSH ONETIME ONE Stop: 01/20/21 10:41 Last Admin: 01/20/21 11:44 Dose: 20 mg Documented by: Sodium Chloride (Normal Saline) 1,000 mls @ 150 mls/hr IV ASDIRECTED [facility] Last Infusion: 01/18/21 14:15 Dose: Infused Documented by: Sodium Chloride (Normal Saline) 100 mls @ 75 mls/hr IV ASDIRECTED [facility] Last Admin: 01/18/21 10:02 Dose: 75 mls/hr Documented by: Ceftriaxone Sodium 2 gm/ (Sodium Chloride) 100 mls @ 200 mls/hr IV ONETIME ONE Stop: 01/18/21 10:31 Last Admin: 01/18/21 10:31 Dose: 200 mls/hr Documented by: Sodium Chloride (Normal Saline) 250 mls @ 999 mls/hr IV .BOLUS ONE Stop: 01/18/21 11:58 Last Admin: 01/18/21 13:01 Dose: Not Given Documented by: Sodium Chloride (Normal Saline) 1,000 mls @ 75 mls/hr IV ASDIRECTED [facility] Last Admin: 01/18/21 20:04 Dose: 75 mls/hr Documented by: Piperacillin Sod/Tazobactam (Sod 4.5 gm/ Sodium Chloride) 100 mls @ 25 mls/hr IV Q8H [facility] Last Admin: 01/19/21 05:02 Dose: 25 mls/hr Documented by: Piperacillin Sod/Tazobactam (Sod 4.5 gm/ Sodium Chloride) 100 mls @ 200 mls/hr IV ONETIME ONE Stop: 01/18/21 13:29 Last Admin: 01/18/21 13:27 Dose: 200 mls/hr Documented by: Vancomycin HCl 1.75 gm/ Sodium (Chloride) 500 mls @ 250 mls/hr IV ONETIME ONE Stop: 01/18/21 15:29 Last Admin: 01/18/21 14:11 Dose: 250 mls/hr Documented by: Vancomycin HCl 1 gm/Vancomycin HCl 500 mg/ Sodium Chloride 500 mls @ 250 mls/hr IV Q18H ONE Stop: 01/19/21 09:59 Last Admin: 01/19/21 09:03 Dose: 250 mls/hr Documented by: Levofloxacin/Dextrose 750 mg/ (Premix) 150 mls @ 100 mls/hr IV Q48H [facility] Last Admin: 01/19/21 12:02 Dose: 100 mls/hr Documented by: Levofloxacin/Dextrose 750 mg/ (Premix) 150 mls @ 100 mls/hr IV Q24H [facility] Last Admin: 01/20/21 11:44 Dose: 100 mls/hr Documented by: Magnesium Sulfate/Dextrose 1 (gm/ Premix) 100 mls @ 100 mls/hr IV Q1H [facility] Stop: 01/20/21 09:44 Last Admin: 01/20/21 10:18 Dose: 100 mls/hr Documented by: Insulin Glargine (Insulin Glarg,Human.Rec.Analog 100 Unit/Ml) 85 unit SUBCUT DAILY [facility] Insulin Glargine (Insulin Glarg,Human.Rec.Analog 100 Unit/Ml) 50 unit SUBCUT ONETIME ONE Stop: 01/18/21 12:31 Last Admin: 01/18/21 12:57 Dose: 50 units Documented by: Insulin Glargine (Insulin Glarg,Human.Rec.Analog 100 Unit/Ml) 5 unit SUBCUT ONETIME ONE Stop: 01/18/21 21:42 Last Admin: 01/18/21 21:59 Dose: 5 units Documented by: Insulin Human Lispro (Insulin Lispro 100 Unit/Ml 10 Ml Vial) 5 unit SUBCUT ONETIME ONE Stop: 01/18/21 10:44 Last Admin: 01/18/21 10:59 Dose: 5 unit Documented by: Insulin Human Lispro (Insulin Lispro 100 Unit/Ml 10 Ml Vial) 0 unit SUBCUT QIDACANDBED [facility]; Protocol Last Admin: 01/18/21 17:17 Dose: 3 units Documented by: Iopamidol (Iopamidol 755 Mg/Ml 100 Ml Bottle) 100 ml IVPUSH ONETIME ONE Stop: 01/18/21 09:43 Last Admin: 01/18/21 10:02 Dose: 100 ml Documented by: Methylprednisolone Sodium Succinate (Methylprednisolone Sodium Succinate 125 Mg/2 Ml Sdv) 125 mg IVPUSH ONETIME ONE Stop: 01/18/21 09:01 Last Admin: 01/18/21 09:08 Dose: 125 mg Documented by: Vancomycin HCl (Pharmacy To Dose - Vancomycin) 1 dose .XX ASDIRECTED PRN PRN Reason: RX TO DOSE VANCO - Exam Quality Assessment: Supplemental Oxygen (5L), DVT Prophylaxis. No: Urine Catheter General: Alert, Oriented, Cooperative, No Acute Distress HEENT: Pupils Equal, Pupils Reactive, Mucous Membr. Moist/Ulmer Neck: Supple, Trachea Midline Lungs: Normal Respiratory Effort, Decreased Breath Sounds, Crackles. No: Wh eezing Cardiovascular: Regular Rate, Regular Rhythm GI/Abdominal Exam: Normal Bowel Sounds, Soft, Non-Tender, No Distention (Male) Exam: Deferred Back Exam: Normal Inspection, Full Range of Motion Extremities: Normal Inspection, Normal Range of Motion, Non-Tender, No Pedal Edema, Normal Capillary Refill Peripheral Pulses: 2+: Radial (L), Radial (R), Dorsalis Pedis (L), Dorsalis Pedis (R) Skin: Warm, Dry, Intact Neurological: No New Focal Deficit Psy/Mental Status: Alert, Normal Affect, Normal Mood - Patient Data Lab Results Last 24 hrs: Laboratory Results - last 24 hr 01/22/21 01/22/21 01/22/21 Range/Units 07:37 11:42 16:58 Puncture Site Lt radial ABG pH 7.47 H (7.35-7.45) ABG pCO2 33.3 L (35.0-45.0) mmHg ABG pO2 58.0 L (80.0-100.0) mmHg ABG HCO3 23.7 (22.0-26.0) meq/L ABG O2 Saturation 90.7 L (96.0-97.0) % ABG Base Excess 0.9 (-2-2.0) O2 Delivery Device Nasal cannula Oxygen Flow Rate 5.0 FiO2 40.00 (21.00-100.00) % POC Glucose 217 H 158 H (70-99) mg/dL 01/22/21 01/23/21 Range/Units 21:03 06:03 Puncture Site ABG pH (7.35-7.45) ABG pCO2 (35.0-45.0) mmHg ABG pO2 (80.0-100.0) mmHg ABG HCO3 (22.0-26.0) meq/L ABG O2 Saturation (96.0-97.0) % ABG Base Excess (-2-2.0) O2 Delivery Device Oxygen Flow Rate FiO2 (21.00-100.00) % POC Glucose 169 H 129 H (70-99) mg/dL Result Diagrams: 01/23/21 08:23 01/23/21 08:23 Enio Results Last 24 hrs: Microbiology 01/19/21 17:30 Gram Stain - Final Sputum - Expectorated Sputum Culture - Preliminary 01/18/21 09:35 Aerobic Blood Culture - Preliminary Blood - Venous NO GROWTH AFTER 4 DAYS Anaerobic Blood Culture - Preliminary NO GROWTH AFTER 4 DAYS 01/18/21 09:20 Aerobic Blood Culture - Preliminary Blood - Venous - Lab Draw NO GROWTH AFTER 4 DAYS Anaerobic Blood Culture - Final Sepsis Event Note - Evaluation Sepsis Screening Result: No Definite Risk - Focused Exam Vital Signs: Vital Signs Temp Pulse Pulse Resp BP Pulse Ox Pulse Ox 01/23/21 06:13 20 01/23/21 06:04 94 L 01/23/21 03:54 90 L 01/23/21 03:34 90 L 01/23/21 03:31 98.4 F 95 22 H 107/68 80 L 01/22/21 21:15 95 90 L 01/22/21 21:12 97 88 L 01/22/21 20:58 102 H 121/70 01/22/21 20:56 98.2 F 102 H 20 121/70 77 L 01/22/21 20:00 92 L - Problem List & Annotations (1) CKD (chronic kidney disease) SNOMED Code(s): 369742904 Code(s): N18.9 - CHRONIC KIDNEY DISEASE, UNSPECIFIED Status: Chronic Priority: Medium Current Visit: Yes Qualifiers: Chronic kidney disease stage: stage 3 (moderate) Chronic kidney disease stage 3 subtype: stage 3b (GFR 30-44) Qualified Code(s): N18.32 - Chronic kidney disease, stage 3b (2) History of COVID-19 SNOMED Code(s): 335916362641232113, 756460731155208208 Code(s): Z86.16 - PERSONAL HISTORY OF COVID-19 Status: Chronic Priority: High Current Visit: Yes (3) Type II diabetes mellitus SNOMED Code(s): 36270330 Code(s): E11.9 - TYPE 2 DIABETES MELLITUS WITHOUT COMPLICATIONS Status: Chronic Priority: Medium Current Visit: Yes Qualifiers: Diabetes mellitus snf insulin use: with intermediate school teacher use Diabetes cesar itus complication status: with other specified complication Qualified Code(s): E11.69 - Type 2 diabetes mellitus with other specified complication; Z79.4 - MCC (current) use of insulin (4) Hypoxia SNOMED Code(s): 448476295 Code(s): R09.02 - HYPOXEMIA Status: Acute Priority: High Current Visit: Yes (5) Atrial fibrillation SNOMED Code(s): 14709822 Code(s): I48.91 - UNSPECIFIED ATRIAL FIBRILLATION Status: Chronic Priority: Medium Current Visit: No Qualifiers: Atrial fibrillation type: paroxysmal Qualified Code(s): I48.0 - Paroxysmal atrial fibrillation (6) Elevated troponin level not due myocardial infarction SNOMED Code(s): 646429297, 913260429, 895382382 Code(s): R77.8 - OTHER SPECIFIED ABNORMALITIES OF PLASMA PROTEINS Status: Chronic Priority: Medium Current Visit: Yes (7) Chronic anticoagulation SNOMED Code(s): 885991602 Code(s): Z79.01 - FLY WORKER (CURRENT) USE OF ANTICOAGULANTS Status: Chronic Priority: Low Current Visit: No (8) Hyperglycemia due to type 2 diabetes mellitus SNOMED Code(s): 608781735068631, 842428523201002 Code(s): E11.65 - TYPE 2 DIABETES MELLITUS WITH HYPERGLYCEMIA Status: Acute Priority: High Current Visit: Yes Qualifiers: Diabetes mellitus snf insulin use: with intermediate school teacher use Qualified Code(s): E11.65 - Type 2 diabetes mellitus with hyperglycemia; Z79.4 - MCC (current) use of insulin (9) Healthcare-associated pneumonia SNOMED Code(s): 975959773, 402355540 Code(s): J18.9 - PNEUMONIA, UNSPECIFIED ORGANISM Status: Acute Priority: High Current Visit: Yes (10) Elevated brain natriuretic peptide (BNP) level SNOMED Code(s): 713518168, 850300633 Code(s): R79.89 - OTHER SPECIFIED ABNORMAL FINDINGS OF BLOOD CHEMISTRY Status: Acute Priority: High Current Visit: Yes (11) Supplemental oxygen dependent SNOMED Code(s): 040942797676 Code(s): Z99.81 - DEPENDENCE ON SUPPLEMENTAL OXYGEN Status: Chronic Priority: Medium Current Visit: Yes (12) 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 * He carries a history of A. fib, prior Covid infection, type II DM, and chronic kidney disease. * Diagnosed with Covid on December 11, transferred to [facility] and hospitalized for 13 days. * He was released on 01-02-2021 on 2 L of home oxygen. * Reports dyspnea with accompanying chills, diaphoresis, and a cough. * In the ED twelve-lead EKG is obtained showing a sinus tachycardia at 119 bpm. * Labs obtained in ED: * WBC 10.56. * Hemoglobin is 12.7. * He is normocytic. * Platelets are elevated at 409,000. * Neutrophils are elevated 72.3%. * D-dimer is elevated at 5.12. * Sodium is 137. * Potassium 4.3. * Chloride 101. * Carbon dioxide 20. * Anion gap is 20.3. * BUN is 32. Creatinine 1.7. GFR is 40. * Glucose is 204. * Total bilirubin 0.5. * AST is 38, ALT 46, alkaline phosphatase 80. * Troponin 0 0.074. * CRP is 41.4. * Albumin is 2.4. * Lactic acid is 1.2. * proBNP is 1666. * ABG obtained in the left radial with a pH of 7.41. PCO2 of 25.4. PO2 of 62.0. HCO3 of 15.2. O2 saturation of 92.4. Base excess is -6.8. AA gradient is 135. This is obtained while on 3 L via nasal cannula. * Chest x-ray shows prominent increase in density on both sides the chest raising the possibility diffuse pneumonia. Please correlate if patient has Covid disease. No other acute abnormality is seen. * CTA is obtained showing diffuse increased density on both sides the chest compatible with diffuse pneumonia. Vague areas of poor enhancement within the main pulmonary arteries on both sides. This is most likely artifact. No definitive findings of pulmonary embolism are seen. Incidental degenerative change within the spine is also noted. * Patient is given 1 DuoNeb and started on Rocephin and IV fluids. He is given 125 mg Solu-Medrol and 5 units of lispro insulin. * He subsequently admitted to the medical floor on telemetry for management of his bilateral pneumonia. 01/19/2021 This is a 70-year-old male who presents to ED on 01/18/2021 with dyspnea and left-sided chest pain along his ribs. He was diagnosed with Covid on December 11 and transferred to [facility] where he was hospitalized for 13 days. He was released on 01-02-2021 on 2 L of home oxygen. Reports he has been doing good up until the last couple of days, in which she has noticed he has been more dyspneic and had accompanying chills, diaphoresis, and a cough. He feeling better. Denies fever, chills, nausea or vomiting. But he still complains of rib cage pain when he is coughing. He is on 4 to 5 L WBC 11.6, hemoglobin 13.8 D-dimer 5.12 Creatinine 1.5 01/20/2021 This is a 70-year-old male who presents to ED on 01/18/2021 with dyspnea and left-sided chest pain along his ribs. He was diagnosed with Covid on December 11 and transferred to [facility] where he was hospitalized for 13 days. He was released on 01-02-2021 on 2 L of home oxygen. Reports he has been doing good up until the last couple of days, in which she has noticed he has been more dyspneic and had accompanying chills, diaphoresis, and a cough. He is feeling much better, less SOB. Denies fever, chills, nausea or vomiting. He is now on 4L Potassium 3.9, creatinine 1.4 Mag 1.8 AST 75, ALT 144 CRP 14.5 01/21/2021 70-year-old male who presented to ED on 01/18/2021 with chest pain and dyspnea. He is oxygen dependent however he has been requiring 4 L, which is increased from his baseline 2 L. Today he reports that he is feeling better. He was reportedly on 3 L of oxygen through the night however this morning he had a coughing episode and was requiring 4 L. He has been ambulating around the room independently. PT and OT have seen him and are recommending home independent. He currently has no concerns. He is on Levaquin for bilateral pneumonia. White count today is 9.58. Hemoglobin 11.6. Platelet 443,000. Blood smear shows a few band neutrophils present. Anion gap is elevated at 17.6. BUN is 31. Creatinine 1.5. GFR is 46. Glucose 136. Magnesium is 1.9. AST is 44, ALT 117, alkaline phosphatase 86. CRP 16.1. Albumin is very low at 1.9. Echocardiogram results were discussed with patient: 1. The EF by visual estimation is 60-65%. 2. Normal left ventricular systolic function. 3. Impaired relaxation (Grade 1) pattern of LV diastolic filling. 4. Right normal right ventricular size, wall thickness, and systolic function. 5. There is mild aortic valve sclerosis without stenosis. 6. Mild mitral valve regurgitation. 7. Mild to moderate aortic valve regurgitation. 8. Trace tricuspid valve regurgitation. 9. No regional wall motion abnormalities. Plan will be for discharge tomorrow pending continued stability/improvement. 01/22/2021 70-year-old male admitted on 01-18-2021 due to dyspnea and chest pain at margin of left lower rib. Unfortunately he required 5 L of oxygen overnight. ABG this morning shows respiratory alkalosis. He reports an acute dyspneic spell when he attempts to ambulate. Chest x-ray was obtained and shows bilateral infiltrates which are stable. WBC today is 10.24. Hemoglobin 12.1. Platelet 445,000. Sodium 141. Potassium 4.1. Chloride 104. Carbon dioxide 27. Anion gap is 14.1. BUN is 29. Creatinine 1.5. GFR 46. Glucose is 161. Magnesium of 2.0. AST is 50, ALT 129, alkaline phosphatase 82. CRP is 21.5. Albumin 2.0. Overall his lungs sound about the same as yesterday with no wheezing noted. It is not felt a steroid would help him much at this point. There is no signs of any pleural effusions or pulmonary edema. We will continue current treatment plan. Hopeful for discharge in next 1 to 2 days pending improvement. We recommend follow-up with pulmonology after discharge. 01/23/2021 This is a 70-year-old male who presented to ED with shortness of breath and was admitted for bilateral pneumonia. Patient has been receiving Levaquin every 48 hours due to renal function. He remains on 5 L. They attempted to wean him last night and is saturations reportedly dropped into the 70s to 80s on 4 L. He remained stable on 5 L and states that he only feels dyspneic when he gets up to ambulate. Reports a dry cough and states that his nights are worse than his days. He does report some congestion and we have added Mucinex. Given his continued duration of symptoms and history of Covid pneumonia we have restarted dexamethasone 6 mg. We will continue this for short course and monitor his symptoms. RT has started EZ Pap as well. Today WBC has increased slightly to 11.45. Platelets are 443,000. Hemoglobin is 11.4. Blood smear does show some rare banded neutrophils and slight toxic granulation. Sodium is 140. Potassium 4.0. Chloride 104. Carbon oxide 25. Anion gap is 15.0. BUN is 31. Creatinine 1.4. GFR 50. Glucose 152. Calcium 9.5. Magnesium 2.0. CRP is down to 19.3. Given restarting of steroid we will anticipate a rise in his blood glucose levels and we may have to increase his long-acting insulin. S uspect symptoms are due to bacterial pneumonia and continued Covid related illness. 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 Findings are stable from prior chest imaging. Diffuse pneumonia is the most likely etiology with the could be due to Covid etiology, diffuse bacterial all other atypical etiologies. * Patient recently hospitalized so will need to treat as healthcare related PNA * MRSA screening negative * Discontinued zosyn Q8Hr and vancomycin * Started Levaquin Q48 due to renal function * IS/Acapella * RT consult * CM/SW consult * O2 as needed to keep saturations >90 (on 2L at home baseline) * Check procalcitonin - 2.14 * Blood cultures no growth so far * Sputum culture no significance * Tylenol for fevers * Scheduled QID duonebs * Droplet isolation * Inside COVID-19 window so will not need re-testing * Monitor daily labs * Recommend pulmonology follow-up after discharge. * Start 6mg dexamethasone daily Atrial fibrillation Chronic anticoagulation Elevated troponin level not due myocardial infarction Elevated BNP Elevated D-Dimer * Telemetry * Obtain echocardiogram to rule out CHF and/or COVID myopathy- see note * Troponin 0.074, 0.051 * CK-MB 1.3 * Troponin noted to be elevated on multiple prior visits. Patient has chronic kidney disease. * Continue home eliquis * Continue home cardiac meds * Consider LE US if swelling/pain noted to legs - negative exam at this time and already on Eliquis. * Follow with software test and validation engineer Type II diabetes mellitus Hyperglycemia due to type 2 diabetes mellitus * Based on sugar level, Lantus was increased to 90 units daily * Monitor blood sugars - patient received steroid in ED so anticipate rise * Blood glucose checks QID AC and Bedtime * Diabetic diet * Medium intensity SS insulin for now * Will not obtain A1C as patient was recently hospitalized and receiving steroids so it will be skewed. CKD (chronic kidney disease) * Creatinine 3.2 on September 15, 2025. Creatinine 1.4 today * Appears to be around baseline with GFR in 40's * Caution with nephrotoxic meds Code Status: Full code PCP: Dr. Barksdale DVT prophylaxis: Home eliquis Disposition: Patient admitted to the medical floor on telemetry for management of bilateral pneumonia. We will treat this as healthcare related at this time. Unknown LOS as patient has had minimal improvement and slow response to treatment. LOS>96 hrs due to slow response to treatment. <Cayetano Mina M - Last Filed: 01/23/21 13:52> - Patient Data Vitals - Most Recent: Last Vital Signs Temp 37.1 C 01/23/21 12:54 Pulse 105 H 01/23/21 12:58 Resp 18 01/23/21 12:54 BP 118/51 L 01/23/21 12:54 Pulse Ox 88 L 01/23/21 12:58 I&O - Last 24 Hours: Intake & Output 01/22/21 01/23/21 01/23/21 22:59 06:59 14:59 Intake Total 1070 300 240 Output Total 800 500 Balance 270 -200 240 Lab Results Last 24 Hours: Laboratory Results - last 24 hr 01/22/21 01/22/21 01/23/21 Range/Units 16:58 21:03 06:03 WBC (4.23-9.07) K/mm3 RBC (4.63-6.08) M/mm3 Hgb (13.7-17.5) gm/dl Hct (40.1-51.0) % MCV (79.0-92.2) fl MCH (25.7-32.2) pg MCHC (32.2-35.5) g/dl RDW Std Deviation (35.1-43.9) fL Plt Count (163-337) K/mm3 MPV (9.4-12.3) fl Neut % (Auto) (34.0-67.9) % Lymph % (Auto) (21.8-53.1) % Grant % (Auto) (5.3-12.2) % Eos % (Auto) (0.8-7.0) Baso % (Auto) (0.1-1.2) % Neut # (Auto) (1.78-5.38) K/mm3 Lymph # (Auto) (1.32-3.57) K/mm3 Grant # (Auto) (0.30-0.82) K/mm3 Eos # (Auto) (0.04-0.54) K/mm3 Baso # (Auto) (0.01-0.08) K/mm3 Manual Slide Review Sodium (136-145) mEq/L Potassium (3.5-5.1) mEq/L Chloride (98-107) mEq/L Carbon Dioxide (21-32) mEq/L Anion Gap (5-15) BUN (7-18) mg/dL Creatinine (0.7-1.3) mg/dL Est Cr Clr Drug Dosing mL/min Estimated GFR (MDRD) (>60) mL/min BUN/Creatinine Ratio (14-18) Glucose (70-99) mg/dL POC Glucose 158 H 169 H 129 H (70-99) mg/dL Calcium (8.5-10.1) mg/dL Magnesium (1.8-2.4) mg/dL C-Reactive Protein (<1.0) mg/dL 01/23/21 01/23/21 01/23/21 Range/Units 08:23 08:23 11:19 WBC 11.45 H (4.23-9.07) K/mm3 RBC 3.88 L (4.63-6.08) M/mm3 Hgb 11.4 L (13.7-17.5) gm/dl Hct 35.5 L (40.1-51.0) % MCV 91.5 (79.0-92.2) fl MCH 29.4 (25.7-32.2) pg MCHC 32.1 L (32.2-35.5) g/dl RDW Std Deviation 43.0 (35.1-43.9) fL Plt Count 443 H (163-337) K/mm3 MPV 8.4 L (9.4-12.3) fl Neut % (Auto) 73.1 H (34.0-67.9) % Lymph % (Auto) 11.2 L (21.8-53.1) % Grant % (Auto) 7.9 (5.3-12.2) % Eos % (Auto) 3.8 (0.8-7.0) Baso % (Auto) 0.5 (0.1-1.2) % Neut # (Auto) 8.37 H (1.78-5.38) K/mm3 Lymph # (Auto) 1.28 L (1.32-3.57) K/mm3 Grant # (Auto) 0.90 H (0.30-0.82) K/mm3 Eos # (Auto) 0.44 (0.04-0.54) K/mm3 Baso # (Auto) 0.06 (0.01-0.08) K/mm3 Manual Slide Review Abnormal smear Sodium 140 (136-145) mEq/L Potassium 4.0 (3.5-5.1) mEq/L Chloride 104 (98-107) mEq/L Carbon Dioxide 25 (21-32) mEq/L Anion Gap 15.0 (5-15) BUN 31 H (7-18) mg/dL Creatinine 1.4 H (0.7-1.3) mg/dL Est Cr Clr Drug Dosing 49.10 mL/min Estimated GFR (MDRD) 50 (>60) mL/min BUN/Creatinine Ratio 22.1 H (14-18) Glucose 152 H (70-99) mg/dL POC Glucose 256 H (70-99) mg/dL Calcium 9.5 (8.5-10.1) mg/dL Magnesium 2.0 (1.8-2.4) mg/dL C-Reactive Protein 19.3 H* (<1.0) mg/dL Enio Results Last 24 Hours: Microbiology 01/19/21 17:30 Gram Stain - Final Sputum - Expectorated Sputum Culture - Preliminary 01/18/21 09:35 Aerobic Blood Culture - Preliminary Blood - Venous NO GROWTH AFTER 5 DAYS Anaerobic Blood Culture - Preliminary NO GROWTH AFTER 5 DAYS 01/18/21 09:20 Aerobic Blood Culture - Preliminary Blood - Venous - Lab Draw NO GROWTH AFTER 5 DAYS Anaerobic Blood Culture - Final Med Orders - Current: Current Medications Acetaminophen (Acetaminophen 325 Mg Tab) 650 mg PO Q4H PRN PRN Reason: Pain (Mild 1-3)/fever Last Admin: 01/23/21 03:29 Dose: 650 mg Documented by: Albuterol (Albuterol 0.083% 2.5 Mg/3 Ml Neb Soln) 2.5 mg NEB Q2H PRN PRN Reason: Shortness Of Breath/wheezing Last Admin: 01/23/21 03:33 Dose: 2.5 mg Documented by: Albuterol/Ipratropium (Albuterol/Ipratropium 3.0-0.5 Mg/3 Ml Neb Soln) 3 ml NEB QIDRT [facility] Last Admin: 01/23/21 09:03 Dose: 3 ml Documented by: Apixaban (Apixaban 5 Mg Tab) 5 mg PO BID [facility] Last Admin: 01/23/21 08:18 Dose: 5 mg Documented by: Aspirin (Aspirin 81 Mg Tab.Chew) 81 mg PO DAILY [facility] Last Admin: 01/23/21 08:19 Dose: 81 mg Documented by: Atorvastatin Calcium (Atorvastatin 20 Mg Tab) 20 mg PO BEDTIME [facility] Last Admin: 01/22/21 20:58 Dose: 20 mg Documented by: Dexamethasone (Dexamethasone 4 Mg Tab) 6 mg PO DAILY [facility] Stop: 01/26/21 10:01 Last Admin: 01/23/21 10:27 Dose: 6 mg Documented by: Dextrose/Water (50% Dextrose In Water 50 Ml Syringe) 50 ml IVPUSH ASDIRECTED PRN PRN Reason: Hypoglycemia Docusate Sodium (Docusate Sodium 100 Mg Cap) 100 mg PO Q12H PRN PRN Reason: Constipation Fish Oil (Fish Oil/[place]y-3 Fatty Acids 1 Gm Cap) 2 gm PO DAILY [facility] Last Admin: 01/23/21 08:18 Dose: 2 gm Documented by: Guaifenesin (Guaifenesin 600 Mg Tab.Er) 1,200 mg PO BID [facility] Last Admin: 01/23/21 10:27 Dose: 1,200 mg Documented by: Levofloxacin/Dextrose 750 mg/ (Premix) 150 mls @ 100 mls/hr IV Q48H [facility] Last Admin: 01/22/21 11:44 Dose: 100 mls/hr Documented by: Insulin Glargine (Insulin Glarg,Human.Rec.Analog 100 Unit/Ml) 90 unit SUBCUT DAILY [facility] Last Admin: 01/23/21 08:19 Dose: 90 units Documented by: Insulin Human Lispro (Insulin Lispro 100 Unit/Ml 10 Ml Vial) 0 unit SUBCUT QIDACANDBED [facility]; Protocol Last Admin: 01/23/21 12:48 Dose: 6 units Documented by: Magnesium Hydroxide (Magnesium Hydroxide 400 Mg/5 Ml Susp 30 Ml Cup) 30 ml PO Q12H PRN PRN Reason: Constipation Metoprolol Tartrate (Metoprolol Tartrate 25 Mg Tab) 12.5 mg PO BID [facility] Last Admin: 01/23/21 08:18 Dose: 12.5 mg Documented by: Metoprolol Tartrate (Metoprolol Tartrate 5 Mg/5 Ml Sdv) 5 mg IVPUSH Q4H PRN PRN Reason: Tachycardia Mometasone Furoate/Formoterol Fumar (Formoterol/Mometasone 100-5 Mcg 8.8 Gm Inhaler) 2 puff IH BID [facility] Last Admin: 01/23/21 09:03 Dose: 2 puff Documented by: Ondansetron HCl (Ondansetron 4 Mg/2 Ml Sdv) 4 mg IV Q6H PRN PRN Reason: Nausea/Vomiting Pantoprazole Sodium (Pantoprazole 40 Mg Tab.Cr) 40 mg PO DAILY [facility] Last Admin: 01/23/21 08:18 Dose: 40 mg Documented by: Sodium Chloride (Sodium Chloride 0.9% 10 Ml Syringe) 10 ml FLUSH ONETIME PRN PRN Reason: IV FLUSH Last Admin: 01/18/21 10:02 Dose: 10 ml Documented by: Discontinued Medications Albuterol/Ipratropium (Albuterol/Ipratropium 3.0-0.5 Mg/3 Ml Neb Soln) 3 ml NEB ONETIME ONE Stop: 01/18/21 09:01 Last Admin: 01/18/21 09:20 Dose: 3 ml Documented by: Furosemide (Furosemide 40 Mg/4 Ml Vial) 40 mg IVPUSH NOW ONE Stop: 01/19/21 18:05 Last Admin: 01/19/21 18:20 Dose: 40 mg Documented by: Furosemide (Furosemide 20 Mg/2 Ml Vial) 20 mg IVPUSH ONETIME ONE Stop: 01/20/21 10:41 Last Admin: 01/20/21 11:44 Dose: 20 mg Documented by: Sodium Chloride (Normal Saline) 1,000 mls @ 150 mls[facility] Infusion: 01/18/21 14:15 Dose: Infused Documented by: Sodium Chloride (Normal Saline) 100 mls @ 75 mls[facility] Last Admin: 01/18/21 10:02 Dose: 75 mls/hr Documented by: Ceftriaxone Sodium 2 gm/ (Sodium Chloride) 100 mls @ 200 mls/hr IV ONETIME ONE Stop: 01/18/21 10:31 Last Admin: 01/18/21 10:31 Dose: 200 mls/hr Documented by: Sodium Chloride (Normal Saline) 250 mls @ 999 mls/hr IV .BOLUS ONE Stop: 01/18/21 11:58 Last Admin: 01/18/21 13:01 Dose: Not Given Documented by: Sodium Chloride (Normal Saline) 1,000 mls @ 75 mls[facility] Last Admin: 01/18/21 20:04 Dose: 75 mls/hr Documented by: Piperacillin Sod/Tazobactam (Sod 4.5 gm/ Sodium Chloride) 100 mls @ 25 mls/hr IV Q8H [facility] Last Admin: 01/19/21 05:02 Dose: 25 mls/hr Documented by: Piperacillin Sod/Tazobactam (Sod 4.5 gm/ Sodium Chloride) 100 mls @ 200 mls/hr IV ONETIME ONE Stop: 01/18/21 13:29 Last Admin: 01/18/21 13:27 Dose: 200 mls/hr Documented by: Vancomycin HCl 1.75 gm/ Sodium (Chloride) 500 mls @ 250 mls/hr IV ONETIME ONE Stop: 01/18/21 15:29 Last Admin: 01/18/21 14:11 Dose: 250 mls/hr Documented by: Vancomycin HCl 1 gm/Vancomycin HCl 500 mg/ Sodium Chloride 500 mls @ 250 mls/hr IV Q18H ONE Stop: 01/19/21 09:59 Last Admin: 01/19/21 09:03 Dose: 250 mls/hr Documented by: Levofloxacin/Dextrose 750 mg/ (Premix) 150 mls @ 100 mls/hr IV Q48H [facility] Last Admin: 01/19/21 12:02 Dose: 100 mls/hr Documented by: Levofloxacin/Dextrose 750 mg/ (Premix) 150 mls @ 100 mls/hr IV Q24H [facility] Last Admin: 01/20/21 11:44 Dose: 100 mls/hr Documented by: Magnesium Sulfate/Dextrose 1 (gm/ Premix) 100 mls @ 100 mls/hr IV Q1H [facility] Stop: 01/20/21 09:44 Last Admin: 01/20/21 10:18 Dose: 100 mls/hr Documented by: Insulin Glargine (Insulin Glarg,Human.Rec.Analog 100 Unit/Ml) 85 unit SUBCUT DAILY [facility] Insulin Glargine (Insulin Glarg,Human.Rec.Analog 100 Unit/Ml) 50 unit SUBCUT ONETIME ONE Stop: 01/18/21 12:31 Last Admin: 01/18/21 12:57 Dose: 50 units Documented by: Insulin Glargine (Insulin Glarg,Human.Rec.Analog 100 Unit/Ml) 5 unit SUBCUT ONETIME ONE Stop: 01/18/21 21:42 Last Admin: 01/18/21 21:59 Dose: 5 units Documented by: Insulin Human Lispro (Insulin Lispro 100 Unit/Ml 10 Ml Vial) 5 unit SUBCUT ONETIME ONE Stop: 01/18/21 10:44 Last Admin: 01/18/21 10:59 Dose: 5 unit Documented by: Insulin Human Lispro (Insulin Lispro 100 Unit/Ml 10 Ml Vial) 0 unit SUBCUT QIDACANDBED [facility]; Protocol Last Admin: 01/18/21 17:17 Dose: 3 units Documented by: Iopamidol (Iopamidol 755 Mg/Ml 100 Ml Bottle) 100 ml IVPUSH ONETIME ONE Stop: 01/18/21 09:43 Last Admin: 01/18/21 10:02 Dose: 100 ml Documented by: Methylprednisolone Sodium Succinate (Methylprednisolone Sodium Succinate 125 Mg/2 Ml Sdv) 125 mg IVPUSH ONETIME ONE Stop: 01/18/21 09:01 Last Admin: 01/18/21 09:08 Dose: 125 mg Documented by: Vancomycin HCl (Pharmacy To Dose - Vancomycin) 1 dose .XX ASDIRECTED PRN PRN Reason: RX TO DOSE VANCO - Patient Data Lab Results Last 24 hrs: Laboratory Results - last 24 hr 01/22/21 01/22/21 01/23/21 Range/Units 16:58 21:03 06:03 WBC (4.23-9.07) K/mm3 RBC (4.63-6.08) M/mm3 Hgb (13.7-17.5) gm/dl Hct (40.1-51.0) % MCV (79.0-92.2) fl MCH (25.7-32.2) pg MCHC (32.2-35.5) g/dl RDW Std Deviation (35.1-43.9) fL Plt Count (163-337) K/mm3 MPV (9.4-12.3) fl Neut % (Auto) (34.0-67.9) % Lymph % (Auto) (21.8-53.1) % Grant % (Auto) (5.3-12.2) % Eos % (Auto) (0.8-7.0) Baso % (Auto) (0.1-1.2) % Neut # (Auto) (1.78-5.38) K/mm3 Lymph # (Auto) (1.32-3.57) K/mm3 Grant # (Auto) (0.30-0.82) K/mm3 Eos # (Auto) (0.04-0.54) K/mm3 Baso # (Auto) (0.01-0.08) K/mm3 Manual Slide Review Sodium (136-145) mEq/L Potassium (3.5-5.1) mEq/L Chloride (98-107) mEq/L Carbon Dioxide (21-32) mEq/L Anion Gap (5-15) BUN (7-18) mg/dL Creatinine (0.7-1.3) mg/dL Est Cr Clr Drug Dosing mL/min Estimated GFR (MDRD) (>60) mL/min BUN/Creatinine Ratio (14-18) Glucose (70-99) mg/dL POC Glucose 158 H 169 H 129 H (70-99) mg/dL Calcium (8.5-10.1) mg/dL Magnesium (1.8-2.4) mg/dL C-Reactive Protein (<1.0) mg/dL 01/23/21 01/23/21 01/23/21 Range/Units 08:23 08:23 11:19 WBC 11.45 H (4.23-9.07) K/mm3 RBC 3.88 L (4.63-6.08) M/mm3 Hgb 11.4 L (13.7-17.5) gm/dl Hct 35.5 L (40.1-51.0) % MCV 91.5 (79.0-92.2) fl MCH 29.4 (25.7-32.2) pg MCHC 32.1 L (32.2-35.5) g/dl RDW Std Deviation 43.0 (35.1-43.9) fL Plt Count 443 H (163-337) K/mm3 MPV 8.4 L (9.4-12.3) fl Neut % (Auto) 73.1 H (34.0-67.9) % Lymph % (Auto) 11.2 L (21.8-53.1) % Grant % (Auto) 7.9 (5.3-12.2) % Eos % (Auto) 3.8 (0.8-7.0) Baso % (Auto) 0.5 (0.1-1.2) % Neut # (Auto) 8.37 H (1.78-5.38) K/mm3 Lymph # (Auto) 1.28 L (1.32-3.57) K/mm3 Grant # (Auto) 0.90 H (0.30-0.82) K/mm3 Eos # (Auto) 0.44 (0.04-0.54) K/mm3 Baso # (Auto) 0.06 (0.01-0.08) K/mm3 Manual Slide Review Abnormal smear Sodium 140 (136-145) mEq/L Potassium 4.0 (3.5-5.1) mEq/L Chloride 104 (98-107) mEq/L Carbon Dioxide 25 (21-32) mEq/L Anion Gap 15.0 (5-15) BUN 31 H (7-18) mg/dL Creatinine 1.4 H (0.7-1.3) mg/dL Est Cr Clr Drug Dosing 49.10 mL/min Estimated GFR (MDRD) 50 (>60) mL/min BUN/Creatinine Ratio 22.1 H (14-18) Glucose 152 H (70-99) mg/dL POC Glucose 256 H (70-99) mg/dL Calcium 9.5 (8.5-10.1) mg/dL Magnesium 2.0 (1.8-2.4) mg/dL C-Reactive Protein 19.3 H* (<1.0) mg/dL Result Diagrams: 01/23/21 08:23 01/23/21 08:23 Enio Results Last 24 hrs: Microbiology 01/19/21 17:30 Gram Stain - Final Sputum - Expectorated Sputum Culture - Preliminary 01/18/21 09:35 Aerobic Blood Culture - Preliminary Blood - Venous NO GROWTH AFTER 5 DAYS Anaerobic Blood Culture - Preliminary NO GROWTH AFTER 5 DAYS 01/18/21 09:20 Aerobic Blood Culture - Preliminary Blood - Venous - Lab Draw NO GROWTH AFTER 5 DAYS Anaerobic Blood Culture - Final Sepsis Event Note - Focused Exam Vital Signs: Vital Signs Temp Pulse Resp BP Pulse Ox Pulse Ox 01/23/21 12:58 105 H 88 L 01/23/21 12:54 37.1 C 103 H 18 118/51 L 01/23/21 09:03 91 L 01/23/21 08:57 91 L 01/23/21 08:18 83 106/63 01/23/21 08:16 36.6 C 83 18 106/63 95 01/23/21 06:13 20 01/23/21 06:04 94 L 01/23/21 03:54 90 L 01/23/21 03:34 90 L 01/23/21 03:31 36.9 C 95 22 H 107/68 80 L - Plan Plan:: I have seen and examined the patient independently of Wilder Vera PA-C, and have reviewed the case with him. I have reviewed and agree with the plan and care as outlined by him. Please see orders.
[2021-01-23] MEDS: Pantoprazole 40 MG Tab.CR PO SCH (08:18)
[2021-01-23] MEDS: Metoprolol Tartrate 25 MG Tab PO SCH ×2 (08:18→21:06)
[2021-01-23] MEDS: Apixaban 5 MG Tab PO SCH ×2 (08:18→21:07)
[2021-01-23] MEDS: Fish Oil/Omega-3 Fatty Acids 1 Gm Cap PO SCH (08:18)
[2021-01-23] MEDS: Aspirin 81 MG Tab.Chew PO SCH (08:19)
[2021-01-23] MEDS: Insulin Glarg,Human.Rec.Analog 100 Unit/ML SUBCUT SCH (08:19)
[2021-01-23] MEDS: Formoterol/Mometasone 100-5 MCG 8.8 GM Inhaler IH SCH ×2 (09:03→20:01)
[2021-01-23] MEDS: Dexamethasone 4 MG Tab PO SCH (10:27)
[2021-01-23] MEDS: guaiFENesin 600 MG Tab.ER PO SCH ×2 (10:27→21:05)
[2021-01-23] MEDS ORDERED: Benzonatate 100 MG Cap PO PRN (15:15)
[2021-01-23] MEDS: atorvaSTATin 20 MG Tab PO SCH (21:07)
[2021-01-24] MEDS: Albuterol/Ipratropium 3.0-0.5 MG/3 ML Neb Soln NEB SCH ×4 (05:14→20:14)
[2021-01-24] MEDS: Albuterol 0.083% 2.5 MG/3 ML Neb Soln NEB PRN (06:16)
--- NOTE | 2021-01-24 08:39 | PCM.PN ---
<Wilder Vera - Last Filed: 01/24/21 13:24> - General Info Date of Service: 01/24/21 Admission Dx/Problem (Free Text): Admission Diagnosis/Problem Admission Diagnosis/Problem Pneumonia Functional Status: Reports: Pain Controlled, Tolerating Diet, Ambulating, Urinating, Incentive Spirometry, Other (Acapella ). Denies: New Symptoms - Review of Systems General: Reports: No Symptoms. Denies: Fever, Weakness, Fatigue, Malaise, Chills HEENT: Reports: No Symptoms. Denies: Headaches, Sore Throat Pulmonary: Reports: Shortness of Breath, Cough. Denies: Pleuritic Chest Pain, Sputum, Wheezing Cardiovascular: Reports: No Symptoms, Dyspnea on Exertion. Denies: Chest Pain, Palpitations, Edema, Lightheadedness Gastrointestinal: Reports: No Symptoms. Denies: Abdominal Pain, Constipation, Diarrhea, Nausea, Vomiting Genitourinary: Reports: No Symptoms. Denies: Pain Musculoskeletal: Reports: No Symptoms Skin: Reports: No Symptoms. Denies: Cyanosis Neurological: Reports: Difficulty Walking (2/2 SOB). Denies: Confusion, Dizziness, Headache, Numbness, Syncope, Tingling, Weakness, Gait Disturbance Psychiatric: Reports: No Symptoms - Patient Data Vitals - Most Recent: Last Vital Signs Temp 97.5 F 01/24/21 07:37 Pulse 88 01/24/21 07:37 Resp 20 01/24/21 07:37 BP 90/50 L 01/24/21 07:37 Pulse Ox 90 L 01/24/21 07:37 Weight - Most Recent: 83.053 kg I&O - Last 24 Hours: Intake & Output 01/23/21 01/24/21 01/24/21 22:59 06:59 14:59 Intake Total 800 500 Output Total 500 900 Balance 300 -400 Lab Results Last 24 Hours: Laboratory Results - last 24 hr 01/23/21 01/23/21 01/23/21 Range/Units 08:23 08:23 11:19 WBC 11.45 H (4.23-9.07) K/mm3 RBC 3.88 L (4.63-6.08) M/mm3 Hgb 11.4 L (13.7-17.5) gm/dl Hct 35.5 L (40.1-51.0) % MCV 91.5 (79.0-92.2) fl MCH 29.4 (25.7-32.2) pg MCHC 32.1 L (32.2-35.5) g/dl RDW Std Deviation 43.0 (35.1-43.9) fL Plt Count 443 H (163-337) K/mm3 MPV 8.4 L (9.4-12.3) fl Neut % (Auto) 73.1 H (34.0-67.9) % Lymph % (Auto) 11.2 L (21.8-53.1) % Gibson % (Auto) 7.9 (5.3-12.2) % Eos % (Auto) 3.8 (0.8-7.0) Baso % (Auto) 0.5 (0.1-1.2) % Neut # (Auto) 8.37 H (1.78-5.38) K/mm3 Lymph # (Auto) 1.28 L (1.32-3.57) K/mm3 Gibson # (Auto) 0.90 H (0.30-0.82) K/mm3 Eos # (Auto) 0.44 (0.04-0.54) K/mm3 Baso # (Auto) 0.06 (0.01-0.08) K/mm3 Manual Slide Review Abnormal smear Sodium 140 (136-145) mEq/L Potassium 4.0 (3.5-5.1) mEq/L Chloride 104 (98-107) mEq/L Carbon Dioxide 25 (21-32) mEq/L Anion Gap 15.0 (5-15) BUN 31 H (7-18) mg/dL Creatinine 1.4 H (0.7-1.3) mg/dL Est Cr Clr Drug Dosing 49.10 mL/min Estimated GFR (MDRD) 50 (>60) mL/min BUN/Creatinine Ratio 22.1 H (14-18) Glucose 152 H (70-99) mg/dL POC Glucose 256 H (70-99) mg/dL Calcium 9.5 (8.5-10.1) mg/dL Magnesium 2.0 (1.8-2.4) mg/dL C-Reactive Protein 19.3 H* (<1.0) mg/dL 01/23/21 01/23/21 01/24/21 Range/Units 16:56 21:23 05:20 WBC 14.81 H (4.23-9.07) K/mm3 RBC 4.08 L (4.63-6.08) M/mm3 Hgb 11.8 L (13.7-17.5) gm/dl Hct 36.9 L (40.1-51.0) % MCV 90.4 (79.0-92.2) fl MCH 28.9 (25.7-32.2) pg MCHC 32.0 L (32.2-35.5) g/dl RDW Std Deviation 42.3 (35.1-43.9) fL Plt Count 498 H (163-337) K/mm3 MPV 9.0 L (9.4-12.3) fl Neut % (Auto) 82.4 H (34.0-67.9) % Lymph % (Auto) 8.8 L (21.8-53.1) % Gibson % (Auto) 6.8 (5.3-12.2) % Eos % (Auto) 0.1 L (0.8-7.0) Baso % (Auto) 0.1 (0.1-1.2) % Neut # (Auto) 12.20 H (1.78-5.38) K/mm3 Lymph # (Auto) 1.30 L (1.32-3.57) K/mm3 Gibson # (Auto) 1.00 H (0.30-0.82) K/mm3 Eos # (Auto) 0.02 L (0.04-0.54) K/mm3 Baso # (Auto) 0.02 (0.01-0.08) K/mm3 Manual Slide Review Abnormal smear Sodium (136-145) mEq/L Potassium (3.5-5.1) mEq/L Chloride (98-107) mEq/L Carbon Dioxide (21-32) mEq/L Anion Gap (5-15) BUN (7-18) mg/dL Creatinine (0.7-1.3) mg/dL Est Cr Clr Drug Dosing mL/min Estimated GFR (MDRD) (>60) mL/min BUN/Creatinine Ratio (14-18) Glucose (70-99) mg/dL POC Glucose 231 H 365 H (70-99) mg/dL Calcium (8.5-10.1) mg/dL Magnesium (1.8-2.4) mg/dL C-Reactive Protein (<1.0) mg/dL 01/24/21 01/24/21 Range/Units 05:20 05:55 WBC (4.23-9.07) K/mm3 RBC (4.63-6.08) M/mm3 Hgb (13.7-17.5) gm/dl Hct (40.1-51.0) % MCV (79.0-92.2) fl MCH (25.7-32.2) pg MCHC (32.2-35.5) g/dl RDW Std Deviation (35.1-43.9) fL Plt Count (163-337) K/mm3 MPV (9.4-12.3) fl Neut % (Auto) (34.0-67.9) % Lymph % (Auto) (21.8-53.1) % Gibson % (Auto) (5.3-12.2) % Eos % (Auto) (0.8-7.0) Baso % (Auto) (0.1-1.2) % Neut # (Auto) (1.78-5.38) K/mm3 Lymph # (Auto) (1.32-3.57) K/mm3 Gibson # (Auto) (0.30-0.82) K/mm3 Eos # (Auto) (0.04-0.54) K/mm3 Baso # (Auto) (0.01-0.08) K/mm3 Manual Slide Review Sodium 138 (136-145) mEq/L Potassium 4.7 (3.5-5.1) mEq/L Chloride 102 (98-107) mEq/L Carbon Dioxide 24 (21-32) mEq/L Anion Gap 16.7 H (5-15) BUN 40 H (7-18) mg/dL Creatinine 1.5 H (0.7-1.3) mg/dL Est Cr Clr Drug Dosing 45.82 mL/min Estimated GFR (MDRD) 46 (>60) mL/min BUN/Creatinine Ratio 26.7 H (14-18) Glucose 225 H (70-99) mg/dL POC Glucose 225 H (70-99) mg/dL Calcium 9.7 (8.5-10.1) mg/dL Magnesium 2.3 (1.8-2.4) mg/dL C-Reactive Protein 20.2 H* (<1.0) mg/dL Enio Results Last 24 Hours: Microbiology 01/19/21 17:30 Gram Stain - Final Sputum - Expectorated Sputum Culture - Preliminary 01/18/21 09:35 Aerobic Blood Culture - Preliminary Blood - Venous NO GROWTH AFTER 5 DAYS Anaerobic Blood Culture - Preliminary NO GROWTH AFTER 5 DAYS 01/18/21 09:20 Aerobic Blood Culture - Preliminary Blood - Venous - Lab Draw NO GROWTH AFTER 5 DAYS Anaerobic Blood Culture - Final Med Orders - Current: Current Medications Acetaminophen (Acetaminophen 325 Mg Tab) 650 mg PO Q4H PRN PRN Reason: Pain (Mild 1-3)/fever Last Admin: 01/23/21 03:29 Dose: 650 mg Documented by: Albuterol (Albuterol 0.083% 2.5 Mg/3 Ml Neb Soln) 2.5 mg NEB Q2H PRN PRN Reason: Shortness Of Breath/wheezing Last Admin: 01/24/21 06:16 Dose: 2.5 mg Documented by: Albuterol/Ipratropium (Albuterol/Ipratropium 3.0-0.5 Mg/3 Ml Neb Soln) 3 ml NEB QIDRT [facility] Last Admin: 01/24/21 05:14 Dose: 3 ml Documented by: Apixaban (Apixaban 5 Mg Tab) 5 mg PO BID [facility] Last Admin: 01/23/21 21:07 Dose: 5 mg Documented by: Aspirin (Aspirin 81 Mg Tab.Chew) 81 mg PO DAILY [facility] Last Admin: 01/23/21 08:19 Dose: 81 mg Documented by: Atorvastatin Calcium (Atorvastatin 20 Mg Tab) 20 mg PO BEDTIME [facility] Last Admin: 01/23/21 21:07 Dose: 20 mg Documented by: Benzonatate (Benzonatate 100 Mg Cap) 100 mg PO TID PRN PRN Reason: Cough Dexamethasone (Dexamethasone 4 Mg Tab) 6 mg PO DAILY [facility] Stop: 01/26/21 10:01 Last Admin: 01/23/21 10:27 Dose: 6 mg Documented by: Dextrose/Water (50% Dextrose In Water 50 Ml Syringe) 50 ml IVPUSH ASDIRECTED PRN PRN Reason: Hypoglycemia Docusate Sodium (Docusate Sodium 100 Mg Cap) 100 mg PO Q12H PRN PRN Reason: Constipation Fish Oil (Fish Oil/[place]-3 Fatty Acids 1 Gm Cap) 2 gm PO DAILY [facility] Last Admin: 01/23/21 08:18 Dose: 2 gm Documented by: Guaifenesin (Guaifenesin 600 Mg Tab.Er) 1,200 mg PO BID [facility] Last Admin: 01/23/21 21:05 Dose: 1,200 mg Documented by: Levofloxacin/Dextrose 750 mg/ (Premix) 150 mls @ 100 mls/hr IV Q48H [facility] Last Admin: 01/22/21 11:44 Dose: 100 mls/hr Documented by: Insulin Glargine (Insulin Glarg,Human.Rec.Analog 100 Unit/Ml) 90 unit SUBCUT DAILY [facility] Last Admin: 01/23/21 08:19 Dose: 90 units Documented by: Insulin Human Lispro (Insulin Lispro 100 Unit/Ml 10 Ml Vial) 0 unit SUBCUT QIDACANDBED [facility]; Protocol Last Admin: 01/23/21 21:51 Dose: 10 units Documented by: Magnesium Hydroxide (Magnesium Hydroxide 400 Mg/5 Ml Susp 30 Ml Cup) 30 ml PO Q12H PRN PRN Reason: Constipation Metoprolol Tartrate (Metoprolol Tartrate 25 Mg Tab) 12.5 mg PO BID [facility] Last Admin: 01/23/21 21:06 Dose: 12.5 mg Documented by: Metoprolol Tartrate (Metoprolol Tartrate 5 Mg/5 Ml Sdv) 5 mg IVPUSH Q4H PRN PRN Reason: Tachycardia Mometasone Furoate/Formoterol Fumar (Formoterol/Mometasone 100-5 Mcg 8.8 Gm Inhaler) 2 puff IH BID [facility] Last Admin: 01/23/21 20:01 Dose: 2 puff Documented by: Ondansetron HCl (Ondansetron 4 Mg/2 Ml Sdv) 4 mg IV Q6H PRN PRN Reason: Nausea/Vomiting Pantoprazole Sodium (Pantoprazole 40 Mg Tab.Cr) 40 mg PO DAILY [facility] Last Admin: 01/23/21 08:18 Dose: 40 mg Documented by: Discontinued Medications Albuterol/Ipratropium (Albuterol/Ipratropium 3.0-0.5 Mg/3 Ml Neb Soln) 3 ml NEB ONETIME ONE Stop: 01/18/21 09:01 Last Admin: 01/18/21 09:20 Dose: 3 ml Documented by: Furosemide (Furosemide 40 Mg/4 Ml Vial) 40 mg IVPUSH NOW ONE Stop: 01/19/21 18:05 Last Admin: 01/19/21 18:20 Dose: 40 mg Documented by: Furosemide (Furosemide 20 Mg/2 Ml Vial) 20 mg IVPUSH ONETIME ONE Stop: 01/20/21 10:41 Last Admin: 01/20/21 11:44 Dose: 20 mg Documented by: Sodium Chloride (Normal Saline) 1,000 mls @ 150 mls/hr IV ASDIRECTED [facility] Last Infusion: 01/18/21 14:15 Dose: Infused Documented by: Sodium Chloride (Normal Saline) 100 mls @ 75 mls/hr IV ASDIRECTED [facility] Last Admin: 01/18/21 10:02 Dose: 75 mls/hr Documented by: Ceftriaxone Sodium 2 gm/ (Sodium Chloride) 100 mls @ 200 mls/hr IV ONETIME ONE Stop: 01/18/21 10:31 Last Admin: 01/18/21 10:31 Dose: 200 mls/hr Documented by: Sodium Chloride (Normal Saline) 250 mls @ 999 mls/hr IV .BOLUS ONE Stop: 01/18/21 11:58 Last Admin: 01/18/21 13:01 Dose: Not Given Documented by: Sodium Chloride (Normal Saline) 1,000 mls @ 75 mls/hr IV ASDIRECTED [facility] Last Admin: 01/18/21 20:04 Dose: 75 mls/hr Documented by: Piperacillin Sod/Tazobactam (Sod 4.5 gm/ Sodium Chloride) 100 mls @ 25 mls/hr IV Q8H [facility] Last Admin: 01/19/21 05:02 Dose: 25 mls/hr Documented by: Piperacillin Sod/Tazobactam (Sod 4.5 gm/ Sodium Chloride) 100 mls @ 200 mls/hr IV ONETIME ONE Stop: 01/18/21 13:29 Last Admin: 01/18/21 13:27 Dose: 200 mls/hr Documented by: Vancomycin HCl 1.75 gm/ Sodium (Chloride) 500 mls @ 250 mls/hr IV ONETIME ONE Stop: 01/18/21 15:29 Last Admin: 01/18/21 14:11 Dose: 250 mls/hr Documented by: Vancomycin HCl 1 gm/Vancomycin HCl 500 mg/ Sodium Chloride 500 mls @ 250 mls/hr IV Q18H ONE Stop: 01/19/21 09:59 Last Admin: 01/19/21 09:03 Dose: 250 mls/hr Documented by: Levofloxacin/Dextrose 750 mg/ (Premix) 150 mls @ 100 mls/hr IV Q48H [facility] Last Admin: 01/19/21 12:02 Dose: 100 mls/hr Documented by: Levofloxacin/Dextrose 750 mg/ (Premix) 150 mls @ 100 mls/hr IV Q24H [facility] Last Admin: 01/20/21 11:44 Dose: 100 mls/hr Documented by: Magnesium Sulfate/Dextrose 1 (gm/ Premix) 100 mls @ 100 mls/hr IV Q1H JAYDEN Stop: 01/20/21 09:44 Last Admin: 01/20/21 10:18 Dose: 100 mls/hr Documented by: Insulin Glargine (Insulin Glarg,Human.Rec.Analog 100 Unit/Ml) 85 unit SUBCUT DAILY [facility] Insulin Glargine (Insulin Glarg,Human.Rec.Analog 100 Unit/Ml) 50 unit SUBCUT ONETIME ONE Stop: 01/18/21 12:31 Last Admin: 01/18/21 12:57 Dose: 50 units Documented by: Insulin Glargine (Insulin Glarg,Human.Rec.Analog 100 Unit/Ml) 5 unit SUBCUT ONETIME ONE Stop: 01/18/21 21:42 Last Admin: 01/18/21 21:59 Dose: 5 units Documented by: Insulin Human Lispro (Insulin Lispro 100 Unit/Ml 10 Ml Vial) 5 unit SUBCUT ONETIME ONE Stop: 01/18/21 10:44 Last Admin: 01/18/21 10:59 Dose: 5 unit Documented by: Insulin Human Lispro (Insulin Lispro 100 Unit/Ml 10 Ml Vial) 0 unit SUBCUT QIDACANDBED [facility]; Protocol Last Admin: 01/18/21 17:17 Dose: 3 units Documented by: Iopamidol (Iopamidol 755 Mg/Ml 100 Ml Bottle) 100 ml IVPUSH ONETIME ONE Stop: 01/18/21 09:43 Last Admin: 01/18/21 10:02 Dose: 100 ml Documented by: Methylprednisolone Sodium Succinate (Methylprednisolone Sodium Succinate 125 Mg/2 Ml Sdv) 125 mg IVPUSH ONETIME ONE Stop: 01/18/21 09:01 Last Admin: 01/18/21 09:08 Dose: 125 mg Documented by: Sodium Chloride (Sodium Chloride 0.9% 10 Ml Syringe) 10 ml FLUSH ONETIME PRN PRN Reason: IV FLUSH Last Admin: 01/18/21 10:02 Dose: 10 ml Documented by: Vancomycin HCl (Pharmacy To Dose - Vancomycin) 1 dose .XX ASDIRECTED PRN PRN Reason: RX TO DOSE VANCO - Exam Quality Assessment: Supplemental Oxygen (6L), DVT Prophylaxis General: Alert, Oriented, Cooperative, No Acute Distress HEENT: Pupils Equal, Pupils Reactive, Mucous Membr. Moist/[place] Neck: Supple, Trachea Midline Lungs: Normal Respiratory Effort, Decreased Breath Sounds, Crackles. No: Rhonchi, Wheezing Cardiovascular: Regular Rate, Regular Rhythm GI/Abdominal Exam: Normal Bowel Sounds, Soft, Non-Tender, No Distention (Male) Exam: Deferred Back Exam: Normal Inspection, Full Range of Motion Extremities: Normal Inspection, Normal Range of Motion, Non-Tender, No Pedal Edema Peripheral Pulses: 2+: Radial (L), Radial (R), Dorsalis Pedis (L), Dorsalis Pedis (R) Skin: Warm, Dry, Intact Neurological: No New Focal Deficit Psy/Mental Status: Alert, Normal Affect, Normal Mood - Patient Data Lab Results Last 24 hrs: Laboratory Results - last 24 hr 01/23/21 01/23/21 01/23/21 Range/Units 08:23 08:23 11:19 WBC 11.45 H (4.23-9.07) K/mm3 RBC 3.88 L (4.63-6.08) M/mm3 Hgb 11.4 L (13.7-17.5) gm/dl Hct 35.5 L (40.1-51.0) % MCV 91.5 (79.0-92.2) fl MCH 29.4 (25.7-32.2) pg MCHC 32.1 L (32.2-35.5) g/dl RDW Std Deviation 43.0 (35.1-43.9) fL Plt Count 443 H (163-337) K/mm3 MPV 8.4 L (9.4-12.3) fl Neut % (Auto) 73.1 H (34.0-67.9) % Lymph % (Auto) 11.2 L (21.8-53.1) % Gibson % (Auto) 7.9 (5.3-12.2) % Eos % (Auto) 3.8 (0.8-7.0) Baso % (Auto) 0.5 (0.1-1.2) % Neut # (Auto) 8.37 H (1.78-5.38) K/mm3 Lymph # (Auto) 1.28 L (1.32-3.57) K/mm3 Gibson # (Auto) 0.90 H (0.30-0.82) K/mm3 Eos # (Auto) 0.44 (0.04-0.54) K/mm3 Baso # (Auto) 0.06 (0.01-0.08) K/mm3 Manual Slide Review Abnormal smear Sodium 140 (136-145) mEq/L Potassium 4.0 (3.5-5.1) mEq/L Chloride 104 (98-107) mEq/L Carbon Dioxide 25 (21-32) mEq/L Anion Gap 15.0 (5-15) BUN 31 H (7-18) mg/dL Creatinine 1.4 H (0.7-1.3) mg/dL Est Cr Clr Drug Dosing 49.10 mL/min Estimated GFR (MDRD) 50 (>60) mL/min BUN/Creatinine Ratio 22.1 H (14-18) Glucose 152 H (70-99) mg/dL POC Glucose 256 H (70-99) mg/dL Calcium 9.5 (8.5-10.1) mg/dL Magnesium 2.0 (1.8-2.4) mg/dL C-Reactive Protein 19.3 H* (<1.0) mg/dL 01/23/21 01/23/21 01/24/21 Range/Units 16:56 21:23 05:20 WBC 14.81 H (4.23-9.07) K/mm3 RBC 4.08 L (4.63-6.08) M/mm3 Hgb 11.8 L (13.7-17.5) gm/dl Hct 36.9 L (40.1-51.0) % MCV 90.4 (79.0-92.2) fl MCH 28.9 (25.7-32.2) pg MCHC 32.0 L (32.2-35.5) g/dl RDW Std Deviation 42.3 (35.1-43.9) fL Plt Count 498 H (163-337) K/mm3 MPV 9.0 L (9.4-12.3) fl Neut % (Auto) 82.4 H (34.0-67.9) % Lymph % (Auto) 8.8 L (21.8-53.1) % Gibson % (Auto) 6.8 (5.3-12.2) % Eos % (Auto) 0.1 L (0.8-7.0) Baso % (Auto) 0.1 (0.1-1.2) % Neut # (Auto) 12.20 H (1.78-5.38) K/mm3 Lymph # (Auto) 1.30 L (1.32-3.57) K/mm3 Gibson # (Auto) 1.00 H (0.30-0.82) K/mm3 Eos # (Auto) 0.02 L (0.04-0.54) K/mm3 Baso # (Auto) 0.02 (0.01-0.08) K/mm3 Manual Slide Review Abnormal smear Sodium (136-145) mEq/L Potassium (3.5-5.1) mEq/L Chloride (98-107) mEq/L Carbon Dioxide (21-32) mEq/L Anion Gap (5-15) BUN (7-18) mg/dL Creatinine (0.7-1.3) mg/dL Est Cr Clr Drug Dosing mL/min Estimated GFR (MDRD) (>60) mL/min BUN/Creatinine Ratio (14-18) Glucose (70-99) mg/dL POC Glucose 231 H 365 H (70-99) mg/dL Calcium (8.5-10.1) mg/dL Magnesium (1.8-2.4) mg/dL C-Reactive Protein (<1.0) mg/dL 01/24/21 01/24/21 Range/Units 05:20 05:55 WBC (4.23-9.07) K/mm3 RBC (4.63-6.08) M/mm3 Hgb (13.7-17.5) gm/dl Hct (40.1-51.0) % MCV (79.0-92.2) fl MCH (25.7-32.2) pg MCHC (32.2-35.5) g/dl RDW Std Deviation (35.1-43.9) fL Plt Count (163-337) K/mm3 MPV (9.4-12.3) fl Neut % (Auto) (34.0-67.9) % Lymph % (Auto) (21.8-53.1) % Gibson % (Auto) (5.3-12.2) % Eos % (Auto) (0.8-7.0) Baso % (Auto) (0.1-1.2) % Neut # (Auto) (1.78-5.38) K/mm3 Lymph # (Auto) (1.32-3.57) K/mm3 Gibson # (Auto) (0.30-0.82) K/mm3 Eos # (Auto) (0.04-0.54) K/mm3 Baso # (Auto) (0.01-0.08) K/mm3 Manual Slide Review Sodium 138 (136-145) mEq/L Potassium 4.7 (3.5-5.1) mEq/L Chloride 102 (98-107) mEq/L Carbon Dioxide 24 (21-32) mEq/L Anion Gap 16.7 H (5-15) BUN 40 H (7-18) mg/dL Creatinine 1.5 H (0.7-1.3) mg/dL Est Cr Clr Drug Dosing 45.82 mL/min Estimated GFR (MDRD) 46 (>60) mL/min BUN/Creatinine Ratio 26.7 H (14-18) Glucose 225 H (70-99) mg/dL POC Glucose 225 H (70-99) mg/dL Calcium 9.7 (8.5-10.1) mg/dL Magnesium 2.3 (1.8-2.4) mg/dL C-Reactive Protein 20.2 H* (<1.0) mg/dL Result Diagrams: 01/24/21 05:20 01/24/21 05:20 Enio Results Last 24 hrs: Microbiology 01/19/21 17:30 Gram Stain - Final Sputum - Expectorated Sputum Culture - Preliminary 01/18/21 09:35 Aerobic Blood Culture - Preliminary Blood - Venous NO GROWTH AFTER 5 DAYS Anaerobic Blood Culture - Preliminary NO GROWTH AFTER 5 DAYS 01/18/21 09:20 Aerobic Blood Culture - Preliminary Blood - Venous - Lab Draw NO GROWTH AFTER 5 DAYS Anaerobic Blood Culture - Final Sepsis Event Note - Evaluation Sepsis Screening Result: No Definite Risk - Focused Exam Vital Signs: Vital Signs Temp Pulse Resp BP Pulse Ox Pulse Ox 01/24/21 07:37 97.5 F 88 20 90/50 L 90 L 01/24/21 06:16 92 L 01/24/21 06:02 97.5 F 83 20 99/62 86 L 01/24/21 05:14 81 L 01/23/21 21:09 97.9 F 91 22 H 131/74 90 L 01/23/21 21:06 99 131/74 - Problem List & Annotations (1) CKD (chronic kidney disease) SNOMED Code(s): 602226890 Code(s): N18.9 - CHRONIC KIDNEY DISEASE, UNSPECIFIED Status: Chronic Priority: Medium Current Visit: Yes Qualifiers: Chronic kidney disease stage: stage 3 (moderate) Chronic kidney disease stage 3 subtype: stage 3b (GFR 30-44) Qualified Code(s): N18.32 - Chronic kidney disease, stage 3b (2) History of COVID-19 SNOMED Code(s): 425113158759839283, 312930623345725079 Code(s): Z86.16 - PERSONAL HISTORY OF COVID-19 Status: Chronic Priority: High Current Visit: Yes (3) Type II diabetes mellitus SNOMED Code(s): 26268008 Code(s): E11.9 - TYPE 2 DIABETES MELLITUS WITHOUT COMPLICATIONS Status: Chronic Priority: Medium Current Visit: Yes Qualifiers: Diabetes mellitus intermediate insulin use: with intermediate use Diabetes mellitus complication status: with other specified complication Qualified Code(s): E11.69 - Type 2 diabetes mellitus with other specified complication; Z79.4 - long-term (current) use of insulin (4) Hypoxia SNOMED Code(s): 558300248 Code(s): R09.02 - HYPOXEMIA Status: Acute Priority: High Current Visit: Yes (5) Atrial fibrillation SNOMED Code(s): 08503562 Code(s): I48.91 - UNSPECIFIED ATRIAL FIBRILLATION Status: Chronic Priority: Medium Current Visit: No Qualifiers: Atrial fibrillation type: paroxysmal Qualified Code(s): I48.0 - Paroxysmal atrial fibrillation (6) Elevated troponin level not due myocardial infarction SNOMED Code(s): 812618426, 742995934, 681510985 Code(s): R77.8 - OTHER SPECIFIED ABNORMALITIES OF PLASMA PROTEINS Status: Chronic Priority: Medium Current Visit: Yes (7) Chronic anticoagulation SNOMED Code(s): 674742050 Code(s): Z79.01 - PRISON (CURRENT) USE OF ANTICOAGULANTS Status: Chronic Priority: Low Current Visit: No (8) Hyperglycemia due to type 2 diabetes mellitus SNOMED Code(s): 642589083536673, [id number] Code(s): E11.65 - TYPE 2 DIABETES MELLITUS WITH HYPERGLYCEMIA Status: Acute Priority: High Current Visit: Yes Qualifiers: Diabetes mellitus intermediate insulin use: with intermediate use Qualified Code(s): E11.65 - Type 2 diabetes mellitus with hyperglycemia; Z79.4 - long term care administrator (current) use of insulin (9) Healthcare-associated pneumonia SNOMED Code(s): 802233979, [id number] Code(s): J18.9 - PNEUMONIA, UNSPECIFIED ORGANISM Status: Acute Priority: High Current Visit: Yes (10) Elevated brain natriuretic peptide (BNP) level SNOMED Code(s): 647417689, [id number] Code(s): R79.89 - OTHER SPECIFIED ABNORMAL FINDINGS OF BLOOD CHEMISTRY Status: Acute Priority: High Current Visit: Yes (11) Supplemental oxygen dependent SNOMED Code(s): 525140087000 Code(s): Z99.81 - DEPENDENCE ON SUPPLEMENTAL OXYGEN Status: Chronic Priority: Medium Current Visit: Yes (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 SNOMED Code(s): 9251595546 Code(s): B94.8 - SEQUELAE OF OTH INFECTIOUS AND PARASITIC DISEASES Status: Chronic Priority: High Current Visit: Yes - Problem List Review Problem List Initiated/Reviewed/Updated: Yes - My Orders Last 24 Hours: My Active Orders 01/23/21 08:57 RT Chest Physiotherapy [RC] ASDIRECTED 01/23/21 09:15 guaiFENesin [Mucinex] 1,200 mg PO BID 01/23/21 10:00 dexAMETHasone 6 mg PO DAILY 01/23/21 15:15 Benzonatate [Tessalon Perles] 100 mg PO TID PRN 01/24/21 08:17 CPAP Adult [RT BiPAP/CPAP] [RC] ASDIRECTED PRO B-TYPE NATRIUR PEPT,BNPPRO [CHEM] Routine 01/25/21 05:11 BASIC METABOLIC PANEL,BMP [CHEM] AM CBC WITH AUTO DIFF [HEME] AM CRP [C-REACTIVE PROTEIN] [CHEM] AM MAGNESIUM [CHEM] AM 01/26/21 05:11 BASIC METABOLIC PANEL,BMP [CHEM] AM CBC WITH AUTO DIFF [HEME] AM CRP [C-REACTIVE PROTEIN] [CHEM] AM MAGNESIUM [CHEM] AM 01/27/21 05:11 BASIC METABOLIC PANEL,BMP [CHEM] AM CBC WITH AUTO DIFF [HEME] AM CRP [C-REACTIVE PROTEIN] [CHEM] AM MAGNESIUM [CHEM] AM - Assessment Assessment:: Assessment - day of admission 01/18/2021 * This is a 70-year-old male who presents to ED on 01/18/2021 with dyspnea and left-sided chest pain along his ribs. * He carries a history of A. fib, prior Covid infection, type II DM, and chronic kidney disease. * Diagnosed with Covid on December 11, transferred to [facility] and hospitalized for 13 days. * He was released on 01-02-2021 on 2 L of home oxygen. * Reports dyspnea with accompanying chills, diaphoresis, and a cough. * In the ED twelve-lead EKG is obtained showing a sinus tachycardia at 119 bpm. * Labs obtained in ED: * WBC 10.56. * Hemoglobin is 12.7. * He is normocytic. * Platelets are elevated at 409,000. * Neutrophils are elevated 72.3%. * D-dimer is elevated at 5.12. * Sodium is 137. * Potassium 4.3. * Chloride 101. * Carbon dioxide 20. * Anion gap is 20.3. * BUN is 32. Creatinine 1.7. GFR is 40. * Glucose is 204. * Total bilirubin 0.5. * AST is 38, ALT 46, alkaline phosphatase 80. * Troponin 0 0.074. * CRP is 41.4. * Albumin is 2.4. * Lactic acid is 1.2. * proBNP is 1666. * ABG obtained in the left radial with a pH of 7.41. PCO2 of 25.4. PO2 of 62.0. HCO3 of 15.2. O2 saturation of 92.4. Base excess is -6.8. AA grad ient is 135. This is obtained while on 3 L via nasal cannula. * Chest x-ray shows prominent increase in density on both sides the chest raising the possibility diffuse pneumonia. Please correlate if patient has Covid disease. No other acute abnormality is seen. * CTA is obtained showing diffuse increased density on both sides the chest compatible with diffuse pneumonia. Vague areas of poor enhancement within the main pulmonary arteries on both sides. This is most likely artifact. No definitive findings of pulmonary embolism are seen. Incidental degenerative change within the spine is also noted. * Patient is given 1 DuoNeb and started on Rocephin and IV fluids. He is given 125 mg Solu-Medrol and 5 units of lispro insulin. * He subsequently admitted to the medical floor on telemetry for management of his bilateral pneumonia. 01/19/2021 This is a 70-year-old male who presents to ED on 01/18/2021 with dyspnea and left-sided chest pain along his ribs. He was diagnosed with Covid on December 11 and transferred to [facility] where he was hospitalized for 13 days. He was released on 01-02-2021 on 2 L of home oxygen. Reports he has been doing good up until the last couple of days, in which she has noticed he has been more dyspneic and had accompanying chills, diaphoresis, and a cough. He feeling better. Denies fever, chills, nausea or vomiting. But he still complains of rib cage pain when he is coughing. He is on 4 to 5 L WBC 11.6, hemoglobin 13.8 D-dimer 5.12 Creatinine 1.5 01/20/2021 This is a 70-year-old male who presents to ED on 01/18/2021 with dyspnea and left-sided chest pain along his ribs. He was diagnosed with Covid on December 11 and transferred to [facility] where he was hospitalized for 13 days. He was released on 01-02-2021 on 2 L of home oxygen. Reports he has been doing good up until the last couple of days, in which she has noticed he has been more dyspneic and had accompanying chills, diaphoresis, and a cough. He is feeling much better, less SOB. Denies fever, chills, nausea or vomiting. He is now on 4L Potassium 3.9, creatinine 1.4 Mag 1.8 AST 75, ALT 144 CRP 14.5 01/21/2021 70-year-old male who presented to ED on 01/18/2021 with chest pain and dyspnea. He is oxygen dependent however he has been requiring 4 L, which is increased from his baseline 2 L. Today he reports that he is feeling better. He was reportedly on 3 L of oxygen through the night however this morning he had a coughing episode and was requiring 4 L. He has been ambulating around the room independently. PT and OT have seen him and are recommending home independent. He currently has no concerns. He is on Levaquin for bilateral pneumonia. White count today is 9.58. Hemoglobin 11.6. Platelet 443,000. Blood smear shows a few band neutrophils present. Anion gap is elevated at 17.6. BUN is 31. Creatinine 1.5. GFR is 46. Glucose 136. Magnesium is 1.9. AST is 44, ALT 117, alkaline phosphatase 86. CRP 16.1. Albumin is very low at 1.9. Echocardiogram results were discussed with patient: 1. The EF by visual estimation is 60-65%. 2. Normal left ventricular systolic function. 3. Impaired relaxation (Grade 1) pattern of LV diastolic filling. 4. Right normal right ventricular size, wall thickness, and systolic function. 5. There is mild aortic valve sclerosis without stenosis. 6. Mild mitral valve regurgitation. 7. Mild to moderate aortic valve regurgitation. 8. Trace tricuspid valve regurgitation. 9. No regional wall motion abnormalities. Plan will be for discharge tomorrow pending continued stability/improvement. 01/22/2021 70-year-old male admitted on 01-18-2021 due to dyspnea and chest pain at margin of left lower rib. Unfortunately he required 5 L of oxygen overnight. ABG this morning shows respiratory alkalosis. He reports an acute dyspneic spell when he attempts to ambulate. Chest x-ray was obtained and shows bilateral infiltrates which are stable. WBC today is 10.24. Hemoglobin 12.1. Platelet 445,000. Sodium 141. Potassium 4.1. Chloride 104. Carbon dioxide 27. Anion gap is 14.1. BUN is 29. Creatinine 1.5. GFR 46. Glucose is 161. Magnesium of 2.0. AST is 50, ALT 129, alkaline phosphatase 82. CRP is 21.5. Albumin 2.0. Overall his lungs sound about the same as yesterday with no wheezing noted. It is not felt a steroid would help him much at this point. There is no signs of any pleural effusions or pulmonary edema. We will continue current treatment plan. Hopeful for discharge in next 1 to 2 days pending improvement. We recommend follow-up with pulmonology after discharge. 01/23/2021 This is a 70-year-old male who presented to ED with shortness of breath and was admitted for bilateral pneumonia. Patient has been receiving Levaquin every 48 hours due to renal function. He remains on 5 L. They attempted to wean him last night and is saturations reportedly dropped into the 70s to 80s on 4 L. He remained stable on 5 L and states that he only feels dyspneic when he gets up to ambulate. Reports a dry cough and states that his nights are worse than his days. He does report some congestion and we have added Mucinex. Given his continued duration of symptoms and history of Covid pneumonia we have restarted dexamethasone 6 mg. We will continue this for short course and monitor his symptoms. RT has started EZ Pap as well. Today WBC has increased slightly to 11.45. Platelets are 443,000. Hemoglobin is 11.4. Blood smear does show some rare banded neutrophils and slight toxic granulation. Sodium is 140. Potassium 4.0. Chloride 104. Carbon oxide 25. Anion gap is 15.0. BUN is 31. Creatinine 1.4. GFR 50. Glucose 152. Calcium 9.5. Magnesium 2.0. CRP is down to 19.3. Given restarting of steroid we will anticipate a rise in his blood glucose levels and we may have to increase his long-acting insulin. Suspect symptoms are due to bacterial pneumonia and continued Covid related illness. 01/24/2021 70-year-old male who presented to ED on 01/18/2021 with shortness of breath, cough, and diaphoresis. He was also admitted for bilateral pneumonia. Continuing Levaquin every 48 hours. He is now up to 6 L by nasal cannula. He has been having coughing fits occasionally and since starting the Mucinex reports that he has been producing sputum. Clinically he looks good sitting in bed, even with saturations in the 80s, and he denies any shortness of breath unless he is ambulating. He has been having coughing fits overnight which lead to acute episodes of desaturations into the 70s and even as low as the 60s. He has been receiving albuterol and scheduled duo nebs. He was started on 6mg of dexamethasone yesterday. WBC today is elevated at 14.81, which is likely due to steroid. Hemoglobin is 11.8. Platelets are 498,000. Sodium is 138. Potassium 4.7. Chloride 102. Carbon dioxide 24. Anion gap is 16.7. BUN is 40. Creatinine 1.5. GFR is 46. Glucose has been in the 2 to upper 300s now since starting steroids and we will increase his sliding scale to high dose. Should he continue to have elevated readings we will increase his long-acting insulin as well. Magnesium today was 2.3. CRP is stable to mildly increased at 20.2. Given his worsening oxygen saturations Dr. Joe, on-call alternative energy engineer with [facility] in [place] was contacted via 1 call. He recommends starting patient on 3 times daily CPAP at 8-10 and rechecking a BNP today. He states if BNP is still elevated patient may need to be diuresed. He also recommends continuing dexamethasone at 6 mg. He states if no improvement after 1 to 2 days we should contact them for possible transfer. Discussed plan with patient who is in agreement. He reiterates that he does not want transfer unless absolutely necessary. Unknown length of stay at this time. Daughter was in room at bedside and was updated on patient at patients request. All questions were answered. 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 Findings are stable from prior chest imaging. Diffuse pneumonia is the most likely etiology with the could be due to Covid etiology, diffuse bacterial all other atypical etiologies. * Patient recently hospitalized so will need to treat as healthcare related PNA * MRSA screening negative * Discontinued zosyn Q8Hr and vancomycin * Started Levaquin Q48 due to renal function * IS/Acapella * RT consult * CM/SW consult * O2 as needed to keep saturations >90 (on 2L at home baseline) * Check procalcitonin - 2.14 * Blood cultures no growth so far * Sputum culture no significance * Tylenol for fevers * Scheduled QID duonebs * Droplet isolation * Inside COVID-19 window so will not need re-testing * Monitor daily labs * Recommend pulmonology follow-up after discharge. * Start 6mg dexamethasone daily * Start CPAP TID at 8-[address] Albright, alternative energy engineer * Re-check BNP today at recommendation of Dr. Joe, alternative energy engineer Atrial fibrillation Chronic anticoagulation Elevated troponin level not due myocardial infarction Elevated BNP Elevated D-Dimer * Telemetry * Obtain echocardiogram to rule out CHF and/or COVID myopathy- see note * Troponin 0.074, 0.051 * CK-MB 1.3 * Troponin noted to be elevated on multiple prior visits. Patient has chronic kidney disease. * Continue home eliquis * Continue home cardiac meds * Consider LE US if swelling/pain noted to legs - negative exam at this time and already on Eliquis. 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 CKD (chronic kidney disease) * Creatinine 3.2 on September 15, 2025. Has been 1.4-1.5 this admission * Appears to be around baseline with GFR in 40's * Caution with nephrotoxic meds Code Status: Full code PCP: Dr. Barksdale DVT prophylaxis: Home eliquis Disposition: Patient admitted to the medical floor on telemetry for management of bilateral pneumonia. We will treat this as healthcare related at this time. Unknown LOS as patient has had minimal improvement and slow response to t reatment. LOS>96 hrs due to slow response to treatment. <Cayetano Mina - Last Filed: 01/24/21 17:49> - Patient Data Vitals - Most Recent: Last Vital Signs Temp 36.4 C 01/24/21 15:27 Pulse 83 01/24/21 15:27 Resp 20 01/24/21 15:27 BP 115/75 01/24/21 15:27 Pulse Ox 96 01/24/21 16:33 I&O - Last 24 Hours: Intake & Output 01/24/21 01/24/21 01/24/21 06:59 14:59 22:59 Intake Total 500 240 690 Output Total 900 600 Balance -400 240 90 Lab Results Last 24 Hours: Laboratory Results - last 24 hr 01/23/21 01/24/21 01/24/21 Range/Units 21:23 05:20 05:20 WBC 14.81 H (4.23-9.07) K/mm3 RBC 4.08 L (4.63-6.08) M/mm3 Hgb 11.8 L (13.7-17.5) gm/dl Hct 36.9 L (40.1-51.0) % MCV 90.4 (79.0-92.2) fl MCH 28.9 (25.7-32.2) pg MCHC 32.0 L (32.2-35.5) g/dl RDW Std Deviation 42.3 (35.1-43.9) fL Plt Count 498 H (163-337) K/mm3 MPV 9.0 L (9.4-12.3) fl Neut % (Auto) 82.4 H (34.0-67.9) % Lymph % (Auto) 8.8 L (21.8-53.1) % Gibson % (Auto) 6.8 (5.3-12.2) % Eos % (Auto) 0.1 L (0.8-7.0) Baso % (Auto) 0.1 (0.1-1.2) % Neut # (Auto) 12.20 H (1.78-5.38) K/mm3 Lymph # (Auto) 1.30 L (1.32-3.57) K/mm3 Gibson # (Auto) 1.00 H (0.30-0.82) K/mm3 Eos # (Auto) 0.02 L (0.04-0.54) K/mm3 Baso # (Auto) 0.02 (0.01-0.08) K/mm3 Manual Slide Review Abnormal smear Sodium 138 (136-145) mEq/L Potassium 4.7 (3.5-5.1) mEq/L Chloride 102 (98-107) mEq/L Carbon Dioxide 24 (21-32) mEq/L Anion Gap 16.7 H (5-15) BUN 40 H (7-18) mg/dL Creatinine 1.5 H (0.7-1.3) mg/dL Est Cr Clr Drug Dosing 45.82 mL/min Estimated GFR (MDRD) 46 (>60) mL/min BUN/Creatinine Ratio 26.7 H (14-18) Glucose 225 H (70-99) mg/dL POC Glucose 365 H (70-99) mg/dL Calcium 9.7 (8.5-10.1) mg/dL Magnesium 2.3 (1.8-2.4) mg/dL C-Reactive Protein 20.2 H* (<1.0) mg/dL NT-Pro-B Natriuret Pep (0-125) pg/mL 01/24/21 01/24/21 01/24/21 Range/Units 05:20 05:55 11:14 WBC (4.23-9.07) K/mm3 RBC (4.63-6.08) M/mm3 Hgb (13.7-17.5) gm/dl Hct (40.1-51.0) % MCV (79.0-92.2) fl MCH (25.7-32.2) pg MCHC (32.2-35.5) g/dl RDW Std Deviation (35.1-43.9) fL Plt Count (163-337) K/mm3 MPV (9.4-12.3) fl Neut % (Auto) (34.0-67.9) % Lymph % (Auto) (21.8-53.1) % Gibson % (Auto) (5.3-12.2) % Eos % (Auto) (0.8-7.0) Baso % (Auto) (0.1-1.2) % Neut # (Auto) (1.78-5.38) K/mm3 Lymph # (Auto) (1.32-3.57) K/mm3 Gibson # (Auto) (0.30-0.82) K/mm3 Eos # (Auto) (0.04-0.54) K/mm3 Baso # (Auto) (0.01-0.08) K/mm3 Manual Slide Review Sodium (136-145) mEq/L Potassium (3.5-5.1) mEq/L Chloride (98-107) mEq/L Carbon Dioxide (21-32) mEq/L Anion Gap (5-15) BUN (7-18) mg/dL Creatinine (0.7-1.3) mg/dL Est Cr Clr Drug Dosing mL/min Estimated GFR (MDRD) (>60) mL/min BUN/Creatinine Ratio (14-18) Glucose (70-99) mg/dL POC Glucose 225 H 306 H (70-99) mg/dL Calcium (8.5-10.1) mg/dL Magnesium (1.8-2.4) mg/dL C-Reactive Protein (<1.0) mg/dL NT-Pro-B Natriuret Pep 445 H (0-125) pg/mL 01/24/21 01/24/21 Range/Units 14:42 17:17 WBC (4.23-9.07) K/mm3 RBC (4.63-6.08) M/mm3 Hgb (13.7-17.5) gm/dl Hct (40.1-51.0) % MCV (79.0-92.2) fl MCH (25.7-32.2) pg MCHC (32.2-35.5) g/dl RDW Std Deviation (35.1-43.9) fL Plt Count (163-337) K/mm3 MPV (9.4-12.3) fl Neut % (Auto) (34.0-67.9) % Lymph % (Auto) (21.8-53.1) % Gibson % (Auto) (5.3-12.2) % Eos % (Auto) (0.8-7.0) Baso % (Auto) (0.1-1.2) % Neut # (Auto) (1.78-5.38) K/mm3 Lymph # (Auto) (1.32-3.57) K/mm3 Gibson # (Auto) (0.30-0.82) K/mm3 Eos # (Auto) (0.04-0.54) K/mm3 Baso # (Auto) (0.01-0.08) K/mm3 Manual Slide Review Sodium (136-145) mEq/L Potassium (3.5-5.1) mEq/L Chloride (98-107) mEq/L Carbon Dioxide (21-32) mEq/L Anion Gap (5-15) BUN (7-18) mg/dL Creatinine (0.7-1.3) mg/dL Est Cr Clr Drug Dosing mL/min Estimated GFR (MDRD) (>60) mL/min BUN/Creatinine Ratio (14-18) Glucose (70-99) mg/dL POC Glucose 346 H 259 H (70-99) mg/dL Calcium (8.5-10.1) mg/dL Magnesium (1.8-2.4) mg/dL C-Reactive Protein (<1.0) mg/dL NT-Pro-B Natriuret Pep (0-125) pg/mL Enio Results Last 24 Hours: Microbiology 01/19/21 17:30 Gram Stain - Final Sputum - Expectorated Sputum Culture - Final 01/18/21 09:35 Aerobic Blood Culture - Preliminary Blood - Venous NO GROWTH AFTER 6 DAYS Anaerobic Blood Culture - Preliminary NO GROWTH AFTER 6 DAYS 01/18/21 09:20 Aerobic Blood Culture - Preliminary Blood - Venous - Lab Draw NO GROWTH AFTER 6 DAYS Anaerobic Blood Culture - Final Med Orders - Current: Current Medications Acetaminophen (Acetaminophen 325 Mg Tab) 650 mg PO Q4H PRN PRN Reason: Pain (Mild 1-3)/fever Last Admin: 01/23/21 03:29 Dose: 650 mg Documented by: Albuterol (Albuterol 0.083% 2.5 Mg/3 Ml Neb Soln) 2.5 mg NEB Q2H PRN PRN Reason: Shortness Of Breath/wheezing Last Admin: 01/24/21 06:16 Dose: 2.5 mg Documented by: Albuterol/Ipratropium (Albuterol/Ipratropium 3.0-0.5 Mg/3 Ml Neb Soln) 3 ml NEB QIDRT [facility] Last Admin: 01/24/21 16:31 Dose: 3 ml Documented by: Apixaban (Apixaban 5 Mg Tab) 5 mg PO BID [facility] Last Admin: 01/24/21 08:44 Dose: 5 mg Documented by: Aspirin (Aspirin 81 Mg Tab.Chew) 81 mg PO DAILY [facility] Last Admin: 01/24/21 08:42 Dose: 81 mg Documented by: Atorvastatin Calcium (Atorvastatin 20 Mg Tab) 20 mg PO BEDTIME [facility] Last Admin: 01/23/21 21:07 Dose: 20 mg Documented by: Benzonatate (Benzonatate 100 Mg Cap) 100 mg PO TID PRN PRN Reason: Cough Dexamethasone (Dexamethasone 4 Mg Tab) 6 mg PO DAILY [facility] Last Admin: 01/24/21 08:43 Dose: 6 mg Documented by: Dextrose/Water (50% Dextrose In Water 50 Ml Syringe) 50 ml IVPUSH ASDIRECTED PRN PRN Reason: Hypoglycemia Docusate Sodium (Docusate Sodium 100 Mg Cap) 100 mg PO Q12H PRN PRN Reason: Constipation Fish Oil (Fish Oil/[place]-3 Fatty Acids 1 Gm Cap) 2 gm PO DAILY [facility] Last Admin: 01/24/21 08:44 Dose: 2 gm Documented by: Guaifenesin (Guaifenesin 600 Mg Tab.Er) 1,200 mg PO BID [facility] Last Admin: 01/24/21 08:43 Dose: 1,200 mg Documented by: Levofloxacin/Dextrose 750 mg/ (Premix) 150 mls @ 100 mls/hr IV Q48H [facility] Last Admin: 01/24/21 11:40 Dose: 100 mls/hr Documented by: Insulin Glargine (Insulin Glarg,Human.Rec.Analog 100 Unit/Ml) 100 unit SUBCUT DAILY [facility] Insulin Human Lispro (Insulin Lispro 100 Unit/Ml 10 Ml Vial) 0 unit SUBCUT QIDACANDBED [facility]; Protocol Last Admin: 01/24/21 17:38 Dose: 9 units Documented by: Magnesium Hydroxide (Magnesium Hydroxide 400 Mg/5 Ml Susp 30 Ml Cup) 30 ml PO Q12H PRN PRN Reason: Constipation Metoprolol Tartrate (Metoprolol Tartrate 25 Mg Tab) 12.5 mg PO BID [facility] Last Admin: 01/24/21 08:41 Dose: 12.5 mg Documented by: Metoprolol Tartrate (Metoprolol Tartrate 5 Mg/5 Ml Sdv) 5 mg IVPUSH Q4H PRN PRN Reason: Tachycardia Mometasone Furoate/Formoterol Fumar (Formoterol/Mometasone 100-5 Mcg 8.8 Gm Inhaler) 2 puff IH BID [facility] Last Admin: 01/24/21 09:08 Dose: 2 puff Documented by: Ondansetron HCl (Ondansetron 4 Mg/2 Ml Sdv) 4 mg IV Q6H PRN PRN Reason: Nausea/Vomiting Pantoprazole Sodium (Pantoprazole 40 Mg Tab.Cr) 40 mg PO DAILY [facility] Last Admin: 01/24/21 08:42 Dose: 40 mg Documented by: Discontinued Medications Albuterol/Ipratropium (Albuterol/Ipratropium 3.0-0.5 Mg/3 Ml Neb Soln) 3 ml NEB ONETIME ONE Stop: 01/18/21 09:01 Last Admin: 01/18/21 09:20 Dose: 3 ml Documented by: Furosemide (Furosemide 40 Mg/4 Ml Vial) 40 mg IVPUSH NOW ONE Stop: 01/19/21 18:05 Last Admin: 01/19/21 18:20 Dose: 40 mg Documented by: Furosemide (Furosemide 20 Mg/2 Ml Vial) 20 mg IVPUSH ONETIME ONE Stop: 01/20/21 10:41 Last Admin: 01/20/21 11:44 Dose: 20 mg Documented by: Sodium Chloride (Normal Saline) 1,000 mls @ 150 mls/hr IV ASDIRECTED [facility] Last Infusion: 01/18/21 14:15 Dose: Infused Documented by: Sodium Chloride (Normal Saline) 100 mls @ 75 mls/hr IV ASDIRECTED [facility] Last Admin: 01/18/21 10:02 Dose: 75 mls/hr Documented by: Ceftriaxone Sodium 2 gm/ (Sodium Chloride) 100 mls @ 200 mls/hr IV ONETIME ONE Stop: 01/18/21 10:31 Last Admin: 01/18/21 10:31 Dose: 200 mls/hr Documented by: Sodium Chloride (Normal Saline) 250 mls @ 999 mls/hr IV .BOLUS ONE Stop: 01/18/21 11:58 Last Admin: 01/18/21 13:01 Dose: Not Given Documented by: Sodium Chloride (Normal Saline) 1,000 mls @ 75 mls/hr IV ASDIRECTED [facility] Last Admin: 01/18/21 20:04 Dose: 75 mls/hr Documented by: Piperacillin Sod/Tazobactam (Sod 4.5 gm/ Sodium Chloride) 100 mls @ 25 mls/hr IV Q8H [facility] Last Admin: 01/19/21 05:02 Dose: 25 mls/hr Documented by: Piperacillin Sod/Tazobactam (Sod 4.5 gm/ Sodium Chloride) 100 mls @ 200 mls/hr IV ONETIME ONE Stop: 01/18/21 13:29 Last Admin: 01/18/21 13:27 Dose: 200 mls/hr Documented by: Vancomycin HCl 1.75 gm/ Sodium (Chloride) 500 mls @ 250 mls/hr IV ONETIME ONE Stop: 01/18/21 15:29 Last Admin: 01/18/21 14:11 Dose: 250 mls/hr Documented by: Vancomycin HCl 1 gm/Vancomycin HCl 500 mg/ Sodium Chloride 500 mls @ 250 mls/hr IV Q18H ONE Stop: 01/19/21 09:59 Last Admin: 01/19/21 09:03 Dose: 250 mls/hr Documented by: Levofloxacin/Dextrose 750 mg/ (Premix) 150 mls @ 100 mls/hr IV Q48H [facility] Last Admin: 01/19/21 12:02 Dose: 100 mls/hr Documented by: Levofloxacin/Dextrose 750 mg/ (Premix) 150 mls @ 100 mls/hr IV Q24H [facility] Last Admin: 01/20/21 11:44 Dose: 100 mls/hr Documented by: Magnesium Sulfate/Dextrose 1 (gm/ Premix) 100 mls @ 100 mls/hr IV Q1H [facility] Stop: 01/20/21 09:44 Last Admin: 01/20/21 10:18 Dose: 100 mls/hr Documented by: Insulin Glargine (Insulin Glarg,Human.Rec.Analog 100 Unit/Ml) 85 unit SUBCUT DA CHANDA [facility] Insulin Glargine (Insulin Glarg,Human.Rec.Analog 100 Unit/Ml) 50 unit SUBCUT ONETIME ONE Stop: 01/18/21 12:31 Last Admin: 01/18/21 12:57 Dose: 50 units Documented by: Insulin Glargine (Insulin Glarg,Human.Rec.Analog 100 Unit/Ml) 90 unit SUBCUT DAILY [facility] Last Admin: 01/24/21 08:44 Dose: 90 units Documented by: Insulin Glargine (Insulin Glarg,Human.Rec.Analog 100 Unit/Ml) 5 unit SUBCUT ONETIME ONE Stop: 01/18/21 21:42 Last Admin: 01/18/21 21:59 Dose: 5 units Documented by: Insulin Human Lispro (Insulin Lispro 100 Unit/Ml 10 Ml Vial) 5 unit SUBCUT ONETIME ONE Stop: 01/18/21 10:44 Last Admin: 01/18/21 10:59 Dose: 5 unit Documented by: Insulin Human Lispro (Insulin Lispro 100 Unit/Ml 10 Ml Vial) 0 unit SUBCUT QIDACANDBED [facility]; Protocol Last Admin: 01/18/21 17:17 Dose: 3 units Documented by: Insulin Human Lispro (Insulin Lispro 100 Unit/Ml 10 Ml Vial) 8 unit SUBCUT ONETIME ONE Stop: 01/24/21 15:01 Last Admin: 01/24/21 14:47 Dose: 8 units Documented by: Iopamidol (Iopamidol 755 Mg/Ml 100 Ml Bottle) 100 ml IVPUSH ONETIME ONE Stop: 01/18/21 09:43 Last Admin: 01/18/21 10:02 Dose: 100 ml Documented by: Methylprednisolone Sodium Succinate (Methylprednisolone Sodium Succinate 125 Mg/2 Ml Sdv) 125 mg IVPUSH ONETIME ONE Stop: 01/18/21 09:01 Last Admin: 01/18/21 09:08 Dose: 125 mg Documented by: Sodium Chloride (Sodium Chloride 0.9% 10 Ml Syringe) 10 ml FLUSH ONETIME PRN PRN Reason: IV FLUSH Last Admin: 01/18/21 10:02 Dose: 10 ml Documented by: Vancomycin HCl (Pharmacy To Dose - Vancomycin) 1 dose .XX ASDIRECTED PRN PRN Reason: RX TO DOSE VANCO - Patient Data Lab Results Last 24 hrs: Laboratory Results - last 24 hr 01/23/21 01/24/21 01/24/21 Range/Units 21:23 05:20 05:20 WBC 14.81 H (4.23-9.07) K/mm3 RBC 4.08 L (4.63-6.08) M/mm3 Hgb 11.8 L (13.7-17.5) gm/dl Hct 36.9 L (40.1-51.0) % MCV 90.4 (79.0-92.2) fl MCH 28.9 (25.7-32.2) pg MCHC 32.0 L (32.2-35.5) g/dl RDW Std Deviation 42.3 (35.1-43.9) fL Plt Count 498 H (163-337) K/mm3 MPV 9.0 L (9.4-12.3) fl Neut % (Auto) 82.4 H (34.0-67.9) % Lymph % (Auto) 8.8 L (21.8-53.1) % Gibson % (Auto) 6.8 (5.3-12.2) % Eos % (Auto) 0.1 L (0.8-7.0) Baso % (Auto) 0.1 (0.1-1.2) % Neut # (Auto) 12.20 H (1.78-5.38) K/mm3 Lymph # (Auto) 1.30 L (1.32-3.57) K/mm3 Gibson # (Auto) 1.00 H (0.30-0.82) K/mm3 Eos # (Auto) 0.02 L (0.04-0.54) K/mm3 Baso # (Auto) 0.02 (0.01-0.08) K/mm3 Manual Slide Review Abnormal smear Sodium 138 (136-145) mEq/L Potassium 4.7 (3.5-5.1) mEq/L Chloride 102 (98-107) mEq/L Carbon Dioxide 24 (21-32) mEq/L Anion Gap 16.7 H (5-15) BUN 40 H (7-18) mg/dL Creatinine 1.5 H (0.7-1.3) mg/dL Est Cr Clr Drug Dosing 45.82 mL/min Estimated GFR (MDRD) 46 (>60) mL/min BUN/Creatinine Ratio 26.7 H (14-18) Glucose 225 H (70-99) mg/dL POC Glucose 365 H (70-99) mg/dL Calcium 9.7 (8.5-10.1) mg/dL Magnesium 2.3 (1.8-2.4) mg/dL C-Reactive Protein 20.2 H* (<1.0) mg/dL NT-Pro-B Natriuret Pep (0-125) pg/mL 01/24/21 01/24/21 01/24/21 Range/Units 05:20 05:55 11:14 WBC (4.23-9.07) K/mm3 RBC (4.63-6.08) M/mm3 Hgb (13.7-17.5) gm/dl Hct (40.1-51.0) % MCV (79.0-92.2) fl MCH (25.7-32.2) pg MCHC (32.2-35.5) g/dl RDW Std Deviation (35.1-43.9) fL Plt Count (163-337) K/mm3 MPV (9.4-12.3) fl Neut % (Auto) (34.0-67.9) % Lymph % (Auto) (21.8-53.1) % Gibson % (Auto) (5.3-12.2) % Eos % (Auto) (0.8-7.0) Baso % (Auto) (0.1-1.2) % Neut # (Auto) (1.78-5.38) K/mm3 Lymph # (Auto) (1.32-3.57) K/mm3 Gibson # (Auto) (0.30-0.82) K/mm3 Eos # (Auto) (0.04-0.54) K/mm3 Baso # (Auto) (0.01-0.08) K/mm3 Manual Slide Review Sodium (136-145) mEq/L Potassium (3.5-5.1) mEq/L Chloride (98-107) mEq/L Carbon Dioxide (21-32) mEq/L Anion Gap (5-15) BUN (7-18) mg/dL Creatinine (0.7-1.3) mg/dL Est Cr Clr Drug Dosing mL/min Estimated GFR (MDRD) (>60) mL/min BUN/Creatinine Ratio (14-18) Glucose (70-99) mg/dL POC Glucose 225 H 306 H (70-99) mg/dL Calcium (8.5-10.1) mg/dL Magnesium (1.8-2.4) mg/dL C-Reactive Protein (<1.0) mg/dL NT-Pro-B Natriuret Pep 445 H (0-125) pg/mL 01/24/21 01/24/21 Range/Units 14:42 17:17 WBC (4.23-9.07) K/mm3 RBC (4.63-6.08) M/mm3 Hgb (13.7-17.5) gm/dl Hct (40.1-51.0) % MCV (79.0-92.2) fl MCH (25.7-32.2) pg MCHC (32.2-35.5) g/dl RDW Std Deviation (35.1-43.9) fL Plt Count (163-337) K/mm3 MPV (9.4-12.3) fl Neut % (Auto) (34.0-67.9) % Lymph % (Auto) (21.8-53.1) % Gibson % (Auto) (5.3-12.2) % Eos % (Auto) (0.8-7.0) Baso % (Auto) (0.1-1.2) % Neut # (Auto) (1.78-5.38) K/mm3 Lymph # (Auto) (1.32-3.57) K/mm3 Gibson # (Auto) (0.30-0.82) K/mm3 Eos # (Auto) (0.04-0.54) K/mm3 Baso # (Auto) (0.01-0.08) K/mm3 Manual Slide Review Sodium (136-145) mEq/L Potassium (3.5-5.1) mEq/L Chloride (98-107) mEq/L Carbon Dioxide (21-32) mEq/L Anion Gap (5-15) BUN (7-18) mg/dL Creatinine (0.7-1.3) mg/dL Est Cr Clr Drug Dosing mL/min Estimated GFR (MDRD) (>60) mL/min BUN/Creatinine Ratio (14-18) Glucose (70-99) mg/dL POC Glucose 346 H 259 H (70-99) mg/dL Calcium (8.5-10.1) mg/dL Magnesium (1.8-2.4) mg/dL C-Reactive Protein (<1.0) mg/dL NT-Pro-B Natriuret Pep (0-125) pg/mL Result Diagrams: 01/24/21 05:20 01/24/21 05:20 Enio Results Last 24 hrs: Microbiology 01/19/21 17:30 Gram Stain - Final Sputum - Expectorated Sputum Culture - Final 01/18/21 09:35 Aerobic Blood Culture - Preliminary Blood - Venous NO GROWTH AFTER 6 DAYS Anaerobic Blood Culture - Preliminary NO GROWTH AFTER 6 DAYS 01/18/21 09:20 Aerobic Blood Culture - Preliminary Blood - Venous - Lab Draw NO GROWTH AFTER 6 DAYS Anaerobic Blood Culture - Final Sepsis Event Note - Focused Exam Vital Signs: Vital Signs Temp Pulse Resp BP Pulse Ox Pulse Ox Pulse Ox 01/24/21 16:33 96 01/24/21 15:27 36.4 C 83 20 115/75 98 01/24/21 14:54 96 01/24/21 11:16 36.5 C 82 20 111/62 96 01/24/21 09:13 95 01/24/21 09:12 88 L 01/24/21 08:41 75 90/60 01/24/21 07:37 36.4 C 88 20 90/50 L 90 L 01/24/21 06:16 01/24/21 06:02 36.4 C 83 20 99/62 86 L Pulse Ox 01/24/21 16:33 01/24/21 15:27 01/24/21 14:54 01/24/21 11:16 01/24/21 09:13 01/24/21 09:12 01/24/21 08:41 01/24/21 07:37 01/24/21 06:16 92 L 01/24/21 06:02 - Plan Plan:: I have seen and examined the patient independently of Wilder Vera PA-C, and have reviewed the case with him. I have reviewed and agree with the plan and care as outlined by him. Please see orders.
[2021-01-24] MEDS: Metoprolol Tartrate 25 MG Tab PO SCH ×3 (08:41→20:24)
[2021-01-24] MEDS: Pantoprazole 40 MG Tab.CR PO SCH (08:42)
[2021-01-24] MEDS: Aspirin 81 MG Tab.Chew PO SCH (08:42)
[2021-01-24] MEDS: guaiFENesin 600 MG Tab.ER PO SCH ×3 (08:43→20:24)
[2021-01-24] MEDS: Dexamethasone 4 MG Tab PO SCH (08:43)
[2021-01-24] MEDS: Fish Oil/Omega-3 Fatty Acids 1 Gm Cap PO SCH (08:44)
[2021-01-24] MEDS: Insulin Lispro 100 UNIT/ML 10 ML Vial SUBCUT SCH ×4 (08:44→22:36)
[2021-01-24] MEDS: Apixaban 5 MG Tab PO SCH ×3 (08:44→20:23)
[2021-01-24] MEDS: Insulin Glarg,Human.Rec.Analog 100 Unit/ML SUBCUT SCH (08:44)
[2021-01-24] MEDS: Formoterol/Mometasone 100-5 MCG 8.8 GM Inhaler IH SCH ×2 (09:08→20:14)
[2021-01-24] MEDS: Levofloxacin/Dextrose 5%-Water 750 MG in Premix Bag 1 BAG IV SCH (11:40)
[2021-01-24] MEDS ORDERED: Insulin Lispro 100 UNIT/ML 10 ML Vial SUBCUT ONE (15:00)
[2021-01-24] MEDS: atorvaSTATin 20 MG Tab PO SCH ×2 (19:58→20:24)
[2021-01-25] MEDS: Albuterol/Ipratropium 3.0-0.5 MG/3 ML Neb Soln NEB SCH ×4 (06:04→20:02)
--- NOTE | 2021-01-25 07:14 | PCM.PN ---
<Wilder Vera - Last Filed: 01/25/21 11:00> - General Info Date of Service: 01/25/21 Admission Dx/Problem (Free Text): Admission Diagnosis/Problem Admission Diagnosis/Problem Pneumonia Functional Status: Reports: Pain Controlled, Tolerating Diet, Ambulating, Urinating, Incentive Spirometry, Other (Acapella ). Denies: New Symptoms - Review of Systems General: Reports: No Symptoms. Denies: Fever, Weakness, Fatigue, Malaise, Chills HEENT: Reports: No Symptoms. Denies: Headaches, Post Nasal Drip, Sore Throat, Visual Changes Pulmonary: Reports: Shortness of Breath, Cough, Sputum. Denies: Pleuritic Chest Pain, Wheezing Cardiovascular: Reports: Dyspnea on Exertion. Denies: Chest Pain, Palpitations, Edema Gastrointestinal: Reports: No Symptoms. Denies: Abdominal Pain, Constipation, Diarrhea, Nausea, Vomiting Genitourinary: Reports: No Symptoms. Denies: Pain Musculoskeletal: Reports: No Symptoms Skin: Reports: No Symptoms. Denies: Cyanosis Neurological: Reports: No Symptoms, Difficulty Walking (2/2 dyspnea ). Denies: Confusion, Headache, Numbness, Pre-Existing Deficit, Syncope, Tingling, Trouble Speaking, Weakness Psychiatric: Reports: No Symptoms - Patient Data Vitals - Most Recent: Last Vital Signs Temp 97.9 F 01/25/21 04:24 Pulse 67 01/25/21 04:24 Resp 20 01/25/21 04:24 BP 122/83 01/25/21 04:24 Pulse Ox 95 01/25/21 06:04 Weight - Most Recent: 83.053 kg I&O - Last 24 Hours: Intake & Output 01/24/21 01/25/21 01/25/21 22:59 06:59 14:59 Intake Total 1050 500 Output Total 600 1400 Balance 450 -900 Lab Results Last 24 Hours: Laboratory Results - last 24 hr 01/24/21 01/24/21 01/24/21 Range/Units 05:20 05:20 11:14 WBC (4.23-9.07) K/mm3 RBC (4.63-6.08) M/mm3 Hgb (13.7-17.5) gm/dl Hct (40.1-51.0) % MCV (79.0-92.2) fl MCH (25.7-32.2) pg MCHC (32.2-35.5) g/dl RDW Std Deviation (35.1-43.9) fL Plt Count (163-337) K/mm3 MPV (9.4-12.3) fl Neut % (Auto) (34.0-67.9) % Lymph % (Auto) (21.8-53.1) % Emery % (Auto) (5.3-12.2) % Eos % (Auto) (0.8-7.0) Baso % (Auto) (0.1-1.2) % Neut # (Auto) (1.78-5.38) K/mm3 Lymph # (Auto) (1.32-3.57) K/mm3 Emery # (Auto) (0.30-0.82) K/mm3 Eos # (Auto) (0.04-0.54) K/mm3 Baso # (Auto) (0.01-0.08) K/mm3 Manual Slide Review Sodium (136-145) mEq/L Potassium (3.5-5.1) mEq/L Chloride (98-107) mEq/L Carbon Dioxide (21-32) mEq/L Anion Gap (5-15) BUN (7-18) mg/dL Creatinine (0.7-1.3) mg/dL Est Cr Clr Drug Dosing mL/min Estimated GFR (MDRD) (>60) mL/min BUN/Creatinine Ratio (14-18) Glucose (70-99) mg/dL POC Glucose 306 H (70-99) mg/dL Calcium (8.5-10.1) mg/dL Magnesium (1.8-2.4) mg/dL C-Reactive Protein 20.2 H* (<1.0) mg/dL NT-Pro-B Natriuret Pep 445 H (0-125) pg/mL 01/24/21 01/24/21 01/24/21 Range/Units 14:42 17:17 22:17 WBC (4.23-9.07) K/mm3 RBC (4.63-6.08) M/mm3 Hgb (13.7-17.5) gm/dl Hct (40.1-51.0) % MCV (79.0-92.2) fl MCH (25.7-32.2) pg MCHC (32.2-35.5) g/dl RDW Std Deviation (35.1-43.9) fL Plt Count (163-337) K/mm3 MPV (9.4-12.3) fl Neut % (Auto) (34.0-67.9) % Lymph % (Auto) (21.8-53.1) % Emery % (Auto) (5.3-12.2) % Eos % (Auto) (0.8-7.0) Baso % (Auto) (0.1-1.2) % Neut # (Auto) (1.78-5.38) K/mm3 Lymph # (Auto) (1.32-3.57) K/mm3 Emery # (Auto) (0.30-0.82) K/mm3 Eos # (Auto) (0.04-0.54) K/mm3 Baso # (Auto) (0.01-0.08) K/mm3 Manual Slide Review Sodium (136-145) mEq/L Potassium (3.5-5.1) mEq/L Chloride (98-107) mEq/L Carbon Dioxide (21-32) mEq/L Anion Gap (5-15) BUN (7-18) mg/dL Creatinine (0.7-1.3) mg/dL Est Cr Clr Drug Dosing mL/min Estimated GFR (MDRD) (>60) mL/min BUN/Creatinine Ratio (14-18) Glucose (70-99) mg/dL POC Glucose 346 H 259 H 301 H (70-99) mg/dL Calcium (8.5-10.1) mg/dL Magnesium (1.8-2.4) mg/dL C-Reactive Protein (<1.0) mg/dL NT-Pro-B Natriuret Pep (0-125) pg/mL 01/25/21 01/25/21 01/25/21 Range/Units 05:10 05:10 05:55 WBC 15.35 H (4.23-9.07) K/mm3 RBC 3.93 L (4.63-6.08) M/mm3 Hgb 11.3 L (13.7-17.5) gm/dl Hct 35.5 L (40.1-51.0) % MCV 90.3 (79.0-92.2) fl MCH 28.8 (25.7-32.2) pg MCHC 31.8 L (32.2-35.5) g/dl RDW Std Deviation 41.9 (35.1-43.9) fL Plt Count 529 H (163-337) K/mm3 MPV 9.0 L (9.4-12.3) fl Neut % (Auto) 83.3 H (34.0-67.9) % Lymph % (Auto) 8.7 L (21.8-53.1) % Emery % (Auto) 6.3 (5.3-12.2) % Eos % (Auto) 0.2 L (0.8-7.0) Baso % (Auto) 0.1 (0.1-1.2) % Neut # (Auto) 12.80 H (1.78-5.38) K/mm3 Lymph # (Auto) 1.33 (1.32-3.57) K/mm3 Emery # (Auto) 0.96 H (0.30-0.82) K/mm3 Eos # (Auto) 0.03 L (0.04-0.54) K/mm3 Baso # (Auto) 0.01 (0.01-0.08) K/mm3 Manual Slide Review Abnormal smear Sodium 136 (136-145) mEq/L Potassium 4.2 (3.5-5.1) mEq/L Chloride 102 (98-107) mEq/L Carbon Dioxide 23 (21-32) mEq/L Anion Gap 15.2 H (5-15) BUN 49 H (7-18) mg/dL Creatinine 1.4 H (0.7-1.3) mg/dL Est Cr Clr Drug Dosing 49.10 mL/min Estimated GFR (MDRD) 50 (>60) mL/min BUN/Creatinine Ratio 35.0 H (14-18) Glucose 177 H (70-99) mg/dL POC Glucose 188 H (70-99) mg/dL Calcium 9.2 (8.5-10.1) mg/dL Magnesium 2.2 (1.8-2.4) mg/dL C-Reactive Protein 11.1 H* (<1.0) mg/dL NT-Pro-B Natriuret Pep (0-125) pg/mL Enio Results Last 24 Hours: Microbiology 01/19/21 17:30 Gram Stain - Final Sputum - Expectorated Sputum Culture - Final 01/18/21 09:35 Aerobic Blood Culture - Preliminary Blood - Venous NO GROWTH AFTER 6 DAYS Anaerobic Blood Culture - Preliminary NO GROWTH AFTER 6 DAYS 01/18/21 09:20 Aerobic Blood Culture - Preliminary Blood - Venous - Lab Draw NO GROWTH AFTER 6 DAYS Anaerobic Blood Culture - Final Med Orders - Current: Current Medications Acetaminophen (Acetaminophen 325 Mg Tab) 650 mg PO Q4H PRN PRN Reason: Pain (Mild 1-3)/fever Last Admin: 01/23/21 03:29 Dose: 650 mg Documented by: Albuterol (Albuterol 0.083% 2.5 Mg/3 Ml Neb Soln) 2.5 mg NEB Q2H PRN PRN Reason: Shortness Of Breath/wheezing Last Admin: 01/24/21 06:16 Dose: 2.5 mg Documented by: Albuterol/Ipratropium (Albuterol/Ipratropium 3.0-0.5 Mg/3 Ml Neb Soln) 3 ml NEB QIDRT [facility] Last Admin: 01/25/21 06:04 Dose: 3 ml Documented by: Apixaban (Apixaban 5 Mg Tab) 5 mg PO BID [facility] Last Admin: 01/24/21 20:23 Dose: Not Given Documented by: Aspirin (Aspirin 81 Mg Tab.Chew) 81 mg PO DAILY [facility] Last Admin: 01/24/21 08:42 Dose: 81 mg Documented by: Atorvastatin Calcium (Atorvastatin 20 Mg Tab) 20 mg PO BEDTIME [facility] Last Admin: 01/24/21 20:24 Dose: Not Given Documented by: Benzonatate (Benzonatate 100 Mg Cap) 100 mg PO TID PRN PRN Reason: Cough Dexamethasone (Dexamethasone 4 Mg Tab) 6 mg PO DAILY [facility] Last Admin: 01/24/21 08:43 Dose: 6 mg Documented by: Dextrose/Water (50% Dextrose In Water 50 Ml Syringe) 50 ml IVPUSH ASDIRECTED PRN PRN Reason: Hypoglycemia Docusate Sodium (Docusate Sodium 100 Mg Cap) 100 mg PO Q12H PRN PRN Reason: Constipation Fish Oil (Fish Oil/[place]-3 Fatty Acids 1 Gm Cap) 2 gm PO DAILY [facility] Last Admin: 01/24/21 08:44 Dose: 2 gm Documented by: Guaifenesin (Guaifenesin 600 Mg Tab.Er) 1,200 mg PO BID [facility] Last Admin: 01/24/21 20:24 Dose: Not Given Documented by: Levofloxacin/Dextrose 750 mg/ (Premix) 150 mls @ 100 mls/hr IV Q48H [facility] Last Admin: 01/24/21 11:40 Dose: 100 mls/hr Documented by: Insulin Glargine (Insulin Glarg,Human.Rec.Analog 100 Unit/Ml) 100 unit SUBCUT DAILY [facility] Insulin Human Lispro (Insulin Lispro 100 Unit/Ml 10 Ml Vial) 0 unit SUBCUT QIDACANDBED [facility]; Protocol Last Admin: 01/24/21 22:36 Dose: 12 units Documented by: Magnesium Hydroxide (Magnesium Hydroxide 400 Mg/5 Ml Susp 30 Ml Cup) 30 ml PO Q12H PRN PRN Reason: Constipation Metoprolol Tartrate (Metoprolol Tartrate 25 Mg Tab) 12.5 mg PO BID [facility] Last Admin: 01/24/21 20:24 Dose: Not Given Documented by: Metoprolol Tartrate (Metoprolol Tartrate 5 Mg/5 Ml Sdv) 5 mg IVPUSH Q4H PRN PRN Reason: Tachycardia Mometasone Furoate/Formoterol Fumar (Formoterol/Mometasone 100-5 Mcg 8.8 Gm Inhaler) 2 puff IH BID [facility] Last Admin: 01/24/21 20:14 Dose: 2 puff Documented by: Ondansetron HCl (Ondansetron 4 Mg/2 Ml Sdv) 4 mg IV Q6H PRN PRN Reason: Nausea/Vomiting Pantoprazole Sodium (Pantoprazole 40 Mg Tab.Cr) 40 mg PO DAILY [facility] Last Admin: 01/24/21 08:42 Dose: 40 mg Documented by: Discontinued Medications Albuterol/Ipratropium (Albuterol/Ipratropium 3.0-0.5 Mg/3 Ml Neb Soln) 3 ml NEB ONETIME ONE Stop: 01/18/21 09:01 Last Admin: 01/18/21 09:20 Dose: 3 ml Documented by: Furosemide (Furosemide 40 Mg/4 Ml Vial) 40 mg IVPUSH NOW ONE Stop: 01/19/21 18:05 Last Admin: 01/19/21 18:20 Dose: 40 mg Documented by: Furosemide (Furosemide 20 Mg/2 Ml Vial) 20 mg IVPUSH ONETIME ONE Stop: 01/20/21 10:41 Last Admin: 01/20/21 11:44 Dose: 20 mg Documented by: Sodium Chloride (Normal Saline) 1,000 mls @ 150 mls/hr IV ASDIRECTED [facility] Last Infusion: 01/18/21 14:15 Dose: Infused Documented by: Sodium Chloride (Normal Saline) 100 mls @ 75 mls/hr IV ASDIRECTED [facility] Last Admin: 01/18/21 10:02 Dose: 75 mls/hr Documented by: Ceftriaxone Sodium 2 gm/ (Sodium Chloride) 100 mls @ 200 mls/hr IV ONETIME ONE Stop: 01/18/21 10:31 Last Admin: 01/18/21 10:31 Dose: 200 mls/hr Documented by: Sodium Chloride (Normal Saline) 250 mls @ 999 mls/hr IV .BOLUS ONE Stop: 01/18/21 11:58 Last Admin: 01/18/21 13:01 Dose: Not Given Documented by: Sodium Chloride (Normal Saline) 1,000 mls @ 75 mls/hr IV ASDIRECTED [facility] Last Admin: 01/18/21 20:04 Dose: 75 mls/hr Documented by: Piperacillin Sod/Tazobactam (Sod 4.5 gm/ Sodium Chloride) 100 mls @ 25 mls/hr IV Q8H [facility] Last Admin: 01/19/21 05:02 Dose: 25 mls/hr Documented by: Piperacillin Sod/Tazobactam (Sod 4.5 gm/ Sodium Chloride) 100 mls @ 200 mls/hr IV ONETIME ONE Stop: 01/18/21 13:29 Last Admin: 01/18/21 13:27 Dose: 200 mls/hr Documented by: Vancomycin HCl 1.75 gm/ Sodium (Chloride) 500 mls @ 250 mls/hr IV ONETIME ONE Stop: 01/18/21 15:29 Last Admin: 01/18/21 14:11 Dose: 250 mls/hr Documented by: Vancomycin HCl 1 gm/Vancomycin HCl 500 mg/ Sodium Chloride 500 mls @ 250 mls/hr IV Q18H ONE Stop: 01/19/21 09:59 Last Admin: 01/19/21 09:03 Dose: 250 mls/hr Documented by: Levofloxacin/Dextrose 750 mg/ (Premix) 150 mls @ 100 mls/hr IV Q48H [facility] Last Admin: 01/19/21 12:02 Dose: 100 mls/hr Documented by: Levofloxacin/Dextrose 750 mg/ (Premix) 150 mls @ 100 mls/hr IV Q24H [facility] Last Admin: 01/20/21 11:44 Dose: 100 mls/hr Documented by: Magnesium Sulfate/Dextrose 1 (gm/ Premix) 100 mls @ 100 mls/hr IV Q1H [facility] Stop: 01/20/21 09:44 Last Admin: 01/20/21 10:18 Dose: 100 mls/hr Documented by: Insulin Glargine (Insulin Glarg,Human.Rec.Analog 100 Unit/Ml) 85 unit SUBCUT DAILY [facility] Insulin Glargine (Insulin Glarg,Human.Rec.Analog 100 Unit/Ml) 50 unit SUBCUT ONETIME ONE Stop: 01/18/21 12:31 Last Admin: 01/18/21 12:57 Dose: 50 units Documented by: Insulin Glargine (Insulin Glarg,Human.Rec.Analog 100 Unit/Ml) 90 unit SUBCUT DAILY [facility] Last Admin: 01/24/21 08:44 Dose: 90 units Documented by: Insulin Glargine (Insulin Glarg,Human.Rec.Analog 100 Unit/Ml) 5 unit SUBCUT ONETIME ONE Stop: 01/18/21 21:42 Last Admin: 01/18/21 21:59 Dose: 5 units Documented by: Insulin Human Lispro (Insulin Lispro 100 Unit/Ml 10 Ml Vial) 5 unit SUBCUT ONETIME ONE Stop: 01/18/21 10:44 Last Admin: 01/18/21 10:59 Dose: 5 unit Documented by: Insulin Human Lispro (Insulin Lispro 100 Unit/Ml 10 Ml Vial) 0 unit SUBCUT QIDACANDBED [facility]; Protocol Last Admin: 01/18/21 17:17 Dose: 3 units Documented by: Insulin Human Lispro (Insulin Lispro 100 Unit/Ml 10 Ml Vial) 8 unit SUBCUT ONETIME ONE Stop: 01/24/21 15:01 Last Admin: 01/24/21 14:47 Dose: 8 units Documented by: Iopamidol (Iopamidol 755 Mg/Ml 100 Ml Bottle) 100 ml IVPUSH ONETIME ONE Stop: 01/18/21 09:43 Last Admin: 01/18/21 10:02 Dose: 100 ml Documented by: Methylprednisolone Sodium Succinate (Methylprednisolone Sodium Succinate 125 Mg/2 Ml Sdv) 125 mg IVPUSH ONETIME ONE Stop: 01/18/21 09:01 Last Admin: 01/18/21 09:08 Dose: 125 mg Documented by: Sodium Chloride (Sodium Chloride 0.9% 10 Ml Syringe) 10 ml FLUSH ONETIME PRN PRN Reason: IV FLUSH Last Admin: 01/18/21 10:02 Dose: 10 ml Documented by: Vancomycin HCl (Pharmacy To Dose - Vancomycin) 1 dose .XX ASDIRECTED PRN PRN Reason: RX TO DOSE VANCO - Exam Quality Assessment: Supplemental Oxygen, DVT Prophylaxis. No: Urine Catheter General: Alert, Oriented, Cooperative, No Acute Distress HEENT: Pupils Equal, Pupils Reactive, Mucous Membr. Moist/[place] Neck: Supple, Trachea Midline Lungs: Normal Respiratory Effort, Decreased Breath Sounds, Crackles. No: Wheezing Cardiovascular: Regular Rate, Regular Rhythm GI/Abdominal Exam: Normal Bowel Sounds, Soft, Non-Tender, No Distention (Male) Exam: Deferred Back Exam: Normal Inspection, Full Range of Motion Extremities: Normal Inspection, Normal Range of Motion, Non-Tender, No Pedal Edema, Normal Capillary Refill Peripheral Pulses: 2+: Radial (L), Radial (R), Dorsalis Pedis (L), Dorsalis Pedis (R) Skin: Warm, Dry, Intact Neurological: No New Focal Deficit Psy/Mental Status: Alert, Normal Affect, Normal Mood - Patient Data Lab Results Last 24 hrs: Laboratory Results - last 24 hr 01/24/21 01/24/21 01/24/21 Range/Units 05:20 05:20 11:14 WBC (4.23-9.07) K/mm3 RBC (4.63-6.08) M/mm3 Hgb (13.7-17.5) gm/dl Hct (40.1-51.0) % MCV (79.0-92.2) fl MCH (25.7-32.2) pg MCHC (32.2-35.5) g/dl RDW Std Deviation (35.1-43.9) fL Plt Count (163-337) K/mm3 MPV (9.4-12.3) fl Neut % (Auto) (34.0-67.9) % Lymph % (Auto) (21.8-53.1) % Emery % (Auto) (5.3-12.2) % Eos % (Auto) (0.8-7.0) Baso % (Auto) (0.1-1.2) % Neut # (Auto) (1.78-5.38) K/mm3 Lymph # (Auto) (1.32-3.57) K/mm3 Emery # (Auto) (0.30-0.82) K/mm3 Eos # (Auto) (0.04-0.54) K/mm3 Baso # (Auto) (0.01-0.08) K/mm3 Manual Slide Review Sodium (136-145) mEq/L Potassium (3.5-5.1) mEq/L Chloride (98-107) mEq/L Carbon Dioxide (21-32) mEq/L Anion Gap (5-15) BUN (7-18) mg/dL Creatinine (0.7-1.3) mg/dL Est Cr Clr Drug Dosing mL/min Estimated GFR (MDRD) (>60) mL/min BUN/Creatinine Ratio (14-18) Glucose (70-99) mg/dL POC Glucose 306 H (70-99) mg/dL Calcium (8.5-10.1) mg/dL Magnesium (1.8-2.4) mg/dL C-Reactive Protein 20.2 H* (<1.0) mg/dL NT-Pro-B Natriuret Pep 445 H (0-125) pg/mL 01/24/21 01/24/21 01/24/21 Range/Units 14:42 17:17 22:17 WBC (4.23-9.07) K/mm3 RBC (4.63-6.08) M/mm3 Hgb (13.7-17.5) gm/dl Hct (40.1-51.0) % MCV (79.0-92.2) fl MCH (25.7-32.2) pg MCHC (32.2-35.5) g/dl RDW Std Deviation (35.1-43.9) fL Plt Count (163-337) K/mm3 MPV (9.4-12.3) fl Neut % (Auto) (34.0-67.9) % Lymph % (Auto) (21.8-53.1) % Emery % (Auto) (5.3-12.2) % Eos % (Auto) (0.8-7.0) Baso % (Auto) (0.1-1.2) % Neut # (Auto) (1.78-5.38) K/mm3 Lymph # (Auto) (1.32-3.57) K/mm3 Emery # (Auto) (0.30-0.82) K/mm3 Eos # (Auto) (0.04-0.54) K/mm3 Baso # (Auto) (0.01-0.08) K/mm3 Manual Slide Review Sodium (136-145) mEq/L Potassium (3.5-5.1) mEq/L Chloride (98-107) mEq/L Carbon Dioxide (21-32) mEq/L Anion Gap (5-15) BUN (7-18) mg/dL Creatinine (0.7-1.3) mg/dL Est Cr Clr Drug Dosing mL/min Estimated GFR (MDRD) (>60) mL/min BUN/Creatinine Ratio (14-18) Glucose (70-99) mg/dL POC Glucose 346 H 259 H 301 H (70-99) mg/dL Calcium (8.5-10.1) mg/dL Magnesium (1.8-2.4) mg/dL C-Reactive Protein (<1.0) mg/dL NT-Pro-B Natriuret Pep (0-125) pg/mL 01/25/21 01/25/21 01/25/21 Range/Units 05:10 05:10 05:55 WBC 15.35 H (4.23-9.07) K/mm3 RBC 3.93 L (4.63-6.08) M/mm3 Hgb 11.3 L (13.7-17.5) gm/dl Hct 35.5 L (40.1-51.0) % MCV 90.3 (79.0-92.2) fl MCH 28.8 (25.7-32.2) pg MCHC 31.8 L (32.2-35.5) g/dl RDW Std Deviation 41.9 (35.1-43.9) fL Plt Count 529 H (163-337) K/mm3 MPV 9.0 L (9.4-12.3) fl Neut % (Auto) 83.3 H (34.0-67.9) % Lymph % (Auto) 8.7 L (21.8-53.1) % Emery % (Auto) 6.3 (5.3-12.2) % Eos % (Auto) 0.2 L (0.8-7.0) Baso % (Auto) 0.1 (0.1-1.2) % Neut # (Auto) 12.80 H (1.78-5.38) K/mm3 Lymph # (Auto) 1.33 (1.32-3.57) K/mm3 Emery # (Auto) 0.96 H (0.30-0.82) K/mm3 Eos # (Auto) 0.03 L (0.04-0.54) K/mm3 Baso # (Auto) 0.01 (0.01-0.08) K/mm3 Manual Slide Review Abnormal smear Sodium 136 (136-145) mEq/L Potassium 4.2 (3.5-5.1) mEq/L Chloride 102 (98-107) mEq/L Carbon Dioxide 23 (21-32) mEq/L Anion Gap 15.2 H (5-15) BUN 49 H (7-18) mg/dL Creatinine 1.4 H (0.7-1.3) mg/dL Est Cr Clr Drug Dosing 49.10 mL/min Estimated GFR (MDRD) 50 (>60) mL/min BUN/Creatinine Ratio 35.0 H (14-18) Glucose 177 H (70-99) mg/dL POC Glucose 188 H (70-99) mg/dL Calcium 9.2 (8.5-10.1) mg/dL Magnesium 2.2 (1.8-2.4) mg/dL C-Reactive Protein 11.1 H* (<1.0) mg/dL NT-Pro-B Natriuret Pep (0-125) pg/mL Result Diagrams: 01/25/21 05:10 01/25/21 05:10 Enio Results Last 24 hrs: Microbiology 01/19/21 17:30 Gram Stain - Final Sputum - Expectorated Sputum Culture - Final 01/18/21 09:35 Aerobic Blood Culture - Preliminary Blood - Venous NO GROWTH AFTER 6 DAYS Anaerobic Blood Culture - Preliminary NO GROWTH AFTER 6 DAYS 01/18/21 09:20 Aerobic Blood Culture - Preliminary Blood - Venous - Lab Draw NO GROWTH AFTER 6 DAYS Anaerobic Blood Culture - Final Sepsis Event Note - Evaluation Sepsis Screening Result: No Definite Risk - Focused Exam Vital Signs: Vital Signs Temp Pulse Resp BP Pulse Ox Pulse Ox Pulse Ox 01/25/21 06:04 95 01/25/21 04:24 97.9 F 67 20 122/83 94 L 01/24/21 22:38 95 01/24/21 20:15 96 01/24/21 19:57 73 110/72 01/24/21 19:54 97.9 F 73 22 H 110/72 98 - Problem List & Annotations (1) CKD (chronic kidney disease) SNOMED Code(s): 454318928 Code(s): N18.9 - CHRONIC KIDNEY DISEASE, UNSPECIFIED Status: Chronic Priority: Medium Current Visit: Yes Qualifiers: Chronic kidney disease stage: stage 3 (moderate) Chronic kidney disease stage 3 subtype: stage 3b (GFR 30-44) Qualified Code(s): N18.32 - Chronic kidney disease, stage 3b (2) History of COVID-19 SNOMED Code(s): 875390878883472842, 768625946517020870 Code(s): Z86.16 - PERSONAL HISTORY OF COVID-19 Status: Chronic Priority: High Current Visit: Yes (3) Type II diabetes mellitus SNOMED Code(s): 06215087 Code(s): E11.9 - TYPE 2 DIABETES MELLITUS WITHOUT COMPLICATIONS Status: Chronic Priority: Medium Current Visit: Yes Qualifiers: Diabetes mellitus jail insulin use: with jail use Diabetes mellitus complication status: with other specified complication Qualified Code(s): E11.69 - Type 2 diabetes mellitus with other specified complication; Z79.4 - exterminator helper termite (current) use of insulin (4) Hypoxia SNOMED Code(s): 360006562 Code(s): R09.02 - HYPOXEMIA Status: Acute Priority: High Current Visit: Yes (5) Atrial fibrillation SNOMED Code(s): 73459143 Code(s): I48.91 - UNSPECIFIED ATRIAL FIBRILLATION Status: Chronic Priority: Medium Current Visit: No Qualifiers: Atrial fibrillation type: paroxysmal Qualified Code(s): I48.0 - Paroxysmal atrial fibrillation (6) Elevated troponin level not due myocardial infarction SNOMED Code(s): 275911184, 657810994, 528272550 Code(s): R77.8 - OTHER SPECIFIED ABNORMALITIES OF PLASMA PROTEINS Status: Chronic Priority: Medium Current Visit: Yes (7) Chronic anticoagulation SNOMED Code(s): 194089450 Code(s): Z79.01 - JAIL (CURRENT) USE OF ANTICOAGULANTS Status: Chronic Priority: Low Current Visit: No (8) Hyperglycemia due to type 2 diabetes mellitus SNOMED Code(s): 473674551705238, 604269818467387 Code(s): E11.65 - TYPE 2 DIABETES MELLITUS WITH HYPERGLYCEMIA Status: Acute Priority: High Current Visit: Yes Qualifiers: Diabetes mellitus jail insulin use: with buttermaker continuous churn use Qualified Code(s): E11.65 - Type 2 diabetes mellitus with hyperglycemia; Z79.4 - exterminator helper termite (current) use of insulin (9) Healthcare-associated pneumonia SNOMED Code(s): 547723966, 679567006 Code(s): J18.9 - PNEUMONIA, UNSPECIFIED ORGANISM Status: Acute Priority: High Current Visit: Yes (10) Elevated brain natriuretic peptide (BNP) level SNOMED Code(s): 852015792, 826206203 Code(s): R79.89 - OTHER SPECIFIED ABNORMAL FINDINGS OF BLOOD CHEMISTRY Status: Acute Priority: High Current Visit: Yes (11) Supplemental oxygen dependent SNOMED Code(s): 719166229550 Code(s): Z99.81 - DEPENDENCE ON SUPPLEMENTAL OXYGEN Status: Chronic Priority: Medium Current Visit: Yes (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 SNOMED Code(s): 5844221816 Code(s): B94.8 - SEQUELAE OF OTH INFECTIOUS AND PARASITIC DISEASES Status: Chronic Priority: High Current Visit: Yes - Problem List Review Problem List Initiated/Reviewed/Updated: Yes - My Orders Last 24 Hours: My Active Orders 01/24/21 08:17 CPAP Adult [RT BiPAP/CPAP] [RC] ASDIRECTED 01/25/21 08:00 CXR [Chest 2V] [CR] Routine 01/25/21 09:00 Insulin Glarg,Human.Rec.Analog [LantUS] 100 unit SUBCUT DAILY 01/26/21 05:11 BASIC METABOLIC PANEL,BMP [CHEM] AM CBC WITH AUTO DIFF [HEME] AM CRP [C-REACTIVE PROTEIN] [CHEM] AM MAGNESIUM [CHEM] AM 01/27/21 05:11 BASIC METABOLIC PANEL,BMP [CHEM] AM CBC WITH AUTO DIFF [HEME] AM CRP [C-REACTIVE PROTEIN] [CHEM] AM MAGNESIUM [CHEM] AM - Assessment Assessment:: Assessment - day of admission 01/18/2021 * This is a 70-year-old male who presents to ED on 01/18/2021 with dyspnea and left-sided chest pain along his ribs. * He carries a history of A. fib, prior Covid infection, type II DM, and chronic kidney disease. * Diagnosed with Covid on December 11, transferred to [facility] and hospitalized for 13 days. * He was released on 01-02-2021 on 2 L of home oxygen. * Reports dyspnea with accompanying chills, diaphoresis, and a cough. * In the ED twelve-lead EKG is obtained showing a sinus tachycardia at 119 bpm. * Labs obtained in ED: * WBC 10.56. * Hemoglobin is 12.7. * He is normocytic. * Platelets are elevated at 409,000. * Neutrophils are elevated 72.3%. * D-dimer is elevated at 5.12. * Sodium is 137. * Potassium 4.3. * Chloride 101. * Carbon dioxide 20. * Anion gap is 20.3. * BUN is 32. Creatinine 1.7. GFR is 40. * Glucose is 204. * Total bilirubin 0.5. * AST is 38, ALT 46, alkaline phosphatase 80. * Troponin 0 0.074. * CRP is 41.4. * Albumin is 2.4. * Lactic acid is 1.2. * proBNP is 1666. * ABG obtained in the left radial with a pH of 7.41. PCO2 of 25.4. PO2 of 62.0. HCO3 of 15.2. O2 saturation of 92.4. Base excess is -6.8. AA gradient is 135. This is obtained while on 3 L via nasal cannula. * Chest x-ray shows prominent increase in density on both sides the chest raising the possibility diffuse pneumonia. Please correlate if patient has Covid disease. No other acute abnormality is seen. * CTA is obtained showing diffuse increased density on both sides the chest compatible with diffuse pneumonia. Vague areas of poor enhancement within the main pulmonary arteries on both sides. This is most likely artifact. No definitive findings of pulmonary embolism are seen. Incidental degenerative change within the spine is also noted. * Patient is given 1 DuoNeb and started on Rocephin and IV fluids. He is given 125 mg Solu-Medrol and 5 units of lispro insulin. * He subsequently admitted to the medical floor on telemetry for management of his bilateral pneumonia. 01/19/2021 This is a 70-year-old male who presents to ED on 01/18/2021 with dyspnea and left-sided chest pain along his ribs. He was diagnosed with Covid on December 11 and transferred to [facility] where he was hospitalized for 13 days. He was released on 01-02-2021 on 2 L of home oxygen. Reports he has been doing good up until the last couple of days, in which she has noticed he has been more dyspneic and had accompanying chills, diaphoresis, and a cough. He feeling better. Denies fever, chills, nausea or vomiting. But he still complains of rib cage pain when he is coughing. He is on 4 to 5 L WBC 11.6, hemoglobin 13.8 D-dimer 5.12 Creatinine 1.5 01/20/2021 This is a 70-year-old male who presents to ED on 01/18/2021 with dyspnea and left-sided chest pain along his ribs. He was diagnosed with Covid on December 11 and transferred to [facility] where he was hospitalized for 13 days. He was released on 01-02-2021 on 2 L of home oxygen. Reports he has been doing good up until the last couple of days, in which she has noticed he has been more dyspneic and had accompanying chills, diaphoresis, and a cough. He is feeling much better, less SOB. Denies fever, chills, nausea or vomiting. He is now on 4L Potassium 3.9, creatinine 1.4 Mag 1.8 AST 75, ALT 144 CRP 14.5 01/21/2021 70-year-old male who presented to ED on 01/18/2021 with chest pain and dyspnea. He is oxygen dependent however he has been requiring 4 L, which is increased from his baseline 2 L. Today he reports that he is feeling better. He was reportedly on 3 L of oxygen through the night however this morning he had a coughing episode and was requiring 4 L. He has been ambulating around the room independently. PT and OT have seen him and are recommending home independent. He currently has no concerns. He is on Levaquin for bilateral pneumonia. White count today is 9.58. Hemoglobin 11.6. Platelet 443,000. Blood smear shows a few band neutrophils present. Anion gap is elevated at 17.6. BUN is 31. Creatinine 1.5. GFR is 46. Glucose 136. Magnesium is 1.9. AST is 44, ALT 117, alkaline phosphatase 86. CRP 16.1. Albumin is very low at 1.9. Echocardiogram results were discussed with patient: 1. The EF by visual estimation is 60-65%. 2. Normal left ventricular systolic function. 3. Impaired relaxation (Grade 1) pattern of LV diastolic filling. 4. Right normal right ventricular size, wall thickness, and systolic function. 5. There is mild aortic valve sclerosis without stenosis. 6. Mild mitral valve regurgitation. 7. Mild to moderate aortic valve regurgitation. 8. Trace tricuspid valve regurgitation. 9. No regional wall motion abnormalities. Plan will be for discharge tomorrow pending continued stability/improvement. 01/22/2021 70-year-old male admitted on 01-18-2021 due to dyspnea and chest pain at margin of left lower rib. Unfortunately he required 5 L of oxygen overnight. ABG this morning shows respiratory alkalosis. He reports an acute dyspneic spell when he attempts to ambulate. Chest x-ray was obtained and shows bilateral infiltrates which are stable. WBC today is 10.24. Hemoglobin 12.1. Platelet 445,000. Sodium 141. Potassium 4.1. Chloride 104. Carbon dioxide 27. Anion gap is 14.1. BUN is 29. Creatinine 1.5. GFR 46. Glucose is 161. Magnesium of 2.0. AST is 50, ALT 129, alkaline phosphatase 82. CRP is 21.5. Albumin 2.0. Overall his lungs sound about the same as yesterday with no wheezing noted. It is not felt a steroid would help him much at this point. There is no signs of any pleural effusions or pulmonary edema. We will continue current treatment plan. Hopeful for discharge in next 1 to 2 days pending improvement. We recommend follow-up with pulmonology after discharge. 01/23/2021 This is a 70-year-old male who presented to ED with shortness of breath and was admitted for bilateral pneumonia. Patient has been receiving Levaquin every 48 hours due to renal function. He remains on 5 L. They attempted to wean him last night and is saturations reportedly dropped into the 70s to 80s on 4 L. He remained stable on 5 L and states that he only feels dyspneic when he gets up to ambulate. Reports a dry cough and states that his nights are worse than his days. He does report some congestion and we have added Mucinex. Given his continued duration of symptoms and history of Covid pneumonia we have restarted dexamethasone 6 mg. We will continue this for short course and monitor his symptoms. RT has started EZ Pap as well. Today WBC has increased slightly to 11.45. Platelets are 443,000. Hemoglobin is 11.4. Blood smear does show some rare banded neutrophils and slight toxic granulation. Sodium is 140. Potassium 4.0. Chloride 104. Carbon oxide 25. Anion gap is 15.0. BUN is 31. Creatinine 1.4. GFR 50. Glucose 152. Calcium 9.5. Magnesium 2.0. CRP is down to 19.3. Given restarting of steroid we will anticipate a rise in his blood glucose levels and we may have to increase his long-acting insulin. Suspect symptoms are due to bacterial pneumonia and continued Covid related illness. 01/24/2021 70-year-old male who presented to ED on 01/18/2021 with shortness of breath, cough, and diaphoresis. He was also admitted for bilateral pneumonia. Continuing Levaquin every 48 hours. He is now up to 6 L by nasal cannula. He has been having coughing fits occasionally and since starting the Mucinex reports that he has been producing sputum. Clinically he looks good sitting in bed, even with saturations in the 80s, and he denies any shortness of breath unless he is ambulating. He has been having coughing fits overnight which lead to acute episodes of desaturations into the 70s and even as low as the 60s. He has been receiving albuterol and scheduled duo nebs. He was started on 6mg of dexamethasone yesterday. WBC today is elevated at 14.81, which is likely due to steroid. Hemoglobin is 11.8. Platelets are 498,000. Sodium is 138. Potassium 4.7. Chloride 102. Carbon dioxide 24. Anion gap is 16.7. BUN is 40. Creatinine 1.5. GFR is 46. Glucose has been in the 2 to upper 300s now since starting steroids and we will increase his sliding scale to high dose. Should he continue to have elevated readings we will increase his long-acting insulin as well. Magnesium today was 2.3. CRP is stable to mildly increased at 20.2. Given his worsening oxygen saturations Dr. Joe, on-call hand edger with [facility] in [place] was contacted via 1 call. He recommends starting patient on 3 times daily CPAP at 8-10 and rechecking a BNP today. He states if BNP is still elevated patient may need to be diuresed. He also recommends continuing dexamethasone at 6 mg. He states if no improvement after 1 to 2 days we should contact them for possible transfer. Discussed plan with patient who is in agreement. He reiterates that he does not want transfer unless absolutely necessary. Unknown length of stay at this time. Daughter was in room at [facility] and was updated on patient at patients request. All questions were answered. 01/25/2021 This is a 70-year-old male presented to ED with shortness of breath, cough, and diaphoresis after Covid infection. He was found to have bilateral pneumonia and treatment was initiated for hospital-acquired pneumonia. We will continue Levaquin every 48 hours for a total of 10 days of abx treatment. He has been wearing his CPAP occasionally with saturations noted to be in the mid to upper 90s when wearing this. We will continue 6 mg dexamethasone. Chest x-ray is obtained today and is stable with no obvious improvement or worsening. Labs today show WBC of 15.35. Hemoglobin is 11.3. Platelet 529,000. Sodium 136. Potassium 4.2. Chloride 102. Carbon oxide 23. Anion gap is 15.2. BUN is 49. Creatinine 1.4. GFR 50. Blood glucose 177. CRP down to 11.1 his long-acting insulin was increased to 100 units daily yesterday as his sugars have been in the mid 200s to mid 300s. We will continue current treatment plan. He states he continues to have occasional coughing fits and dyspnea on exertion but denies any dyspnea while sitting. Overall states he feels okay. Long meeting with patient and daughter yesterday explaining treatment choices. Daughter has been doing research on the Internet and was hoping for patient to be started on ivermectin. Explained to patient how we do not give that it is not recommended currently. Unknown discharge plan as patient remained stable but minimal improvement. 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 Findings are stable from prior chest imaging. Diffuse pneumonia is the most likely etiology with the could be due to Covid etiology, diffuse bacterial all other atypical etiologies. * Patient recently hospitalized so will need to treat as healthcare related PNA * MRSA screening negative * Discontinued zosyn Q8Hr and vancomycin * Started Levaquin Q48 due to renal function * IS/Acapella * RT consult * CM/SW consult * O2 as needed to keep saturations >90 (on 2L at home baseline) * Check procalcitonin - 2.14 * Blood cultures no growth so far * Sputum culture no significance * Tylenol for fevers * Scheduled QID duonebs * Droplet isolation * Inside COVID-19 window so will not need re-testing * Monitor daily labs * Recommend pulmonology follow-up after discharge. * Continue 6mg dexamethasone daily * Start CPAP TID at 8-[address] Albright, hand edger Atrial fibrillation Chronic anticoagulation Elevated troponin level not due myocardial infarction Elevated BNP Elevated D-Dimer * Telemetry * Obtain echocardiogram to rule out CHF and/or COVID myopathy- see note * Troponin 0.074, 0.051 * CK-MB 1.3 * Troponin noted to be elevated on multiple prior visits. Patient has chronic kidney disease. * Continue home eliquis * Continue home cardiac meds * Consider LE US if swelling/pain noted to legs - negative exam at this time and already on Eliquis. 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 CKD (chronic kidney disease) * Creatinine 3.2 on September 15, 2025. Has been 1.4-1.5 this admission * Appears to be around baseline with GFR in 40's * Caution with nephrotoxic meds Code Status: Full code PCP: Dr. Barksdale DVT prophylaxis: Home eliquis Disposition: Patient admitted to the medical floor on telemetry for management of bilateral pneumonia. We will treat this as healthcare related at this time. Unknown LOS as patient has had minimal improvement and slow response to treatment. LOS>96 hrs due to slow response to treatment. <Cayetano Mina - Last Filed: 01/25/21 16:37> - Patient Data Vitals - Most Recent: Last Vital Signs Temp 36.6 C 01/25/21 11:13 Pulse 76 01/25/21 11:13 Resp 20 01/25/21 11:13 BP 103/78 01/25/21 11:13 Pulse Ox 97 01/25/21 15:02 I&O - Last 24 Hours: Intake & Output 01/25/21 01/25/21 01/25/21 06:59 14:59 22:59 Intake Total 500 360 Output Total 1400 Balance -900 360 Lab Results Last 24 Hours: Laboratory Results - last 24 hr 01/24/21 01/24/21 01/25/21 Range/Units 17:17 22:17 05:10 WBC 15.35 H (4.23-9.07) K/mm3 RBC 3.93 L (4.63-6.08) M/mm3 Hgb 11.3 L (13.7-17.5) gm/dl Hct 35.5 L (40.1-51.0) % MCV 90.3 (79.0-92.2) fl MCH 28.8 (25.7-32.2) pg MCHC 31.8 L (32.2-35.5) g/dl RDW Std Deviation 41.9 (35.1-43.9) fL Plt Count 529 H (163-337) K/mm3 MPV 9.0 L (9.4-12.3) fl Neut % (Auto) 83.3 H (34.0-67.9) % Lymph % (Auto) 8.7 L (21.8-53.1) % Emery % (Auto) 6.3 (5.3-12.2) % Eos % (Auto) 0.2 L (0.8-7.0) Baso % (Auto) 0.1 (0.1-1.2) % Neut # (Auto) 12.80 H (1.78-5.38) K/mm3 Lymph # (Auto) 1.33 (1.32-3.57) K/mm3 Emery # (Auto) 0.96 H (0.30-0.82) K/mm3 Eos # (Auto) 0.03 L (0.04-0.54) K/mm3 Baso # (Auto) 0.01 (0.01-0.08) K/mm3 Manual Slide Review Abnormal smear Sodium (136-145) mEq/L Potassium (3.5-5.1) mEq/L Chloride (98-107) mEq/L Carbon Dioxide (21-32) mEq/L Anion Gap (5-15) BUN (7-18) mg/dL Creatinine (0.7-1.3) mg/dL Est Cr Clr Drug Dosing mL/min Estimated GFR (MDRD) (>60) mL/min BUN/Creatinine Ratio (14-18) Glucose (70-99) mg/dL POC Glucose 259 H 301 H (70-99) mg/dL Calcium (8.5-10.1) mg/dL Magnesium (1.8-2.4) mg/dL C-Reactive Protein (<1.0) mg/dL 01/25/21 01/25/21 01/25/21 Range/Units 05:10 05:55 11:11 WBC (4.23-9.07) K/mm3 RBC (4.63-6.08) M/mm3 Hgb (13.7-17.5) gm/dl Hct (40.1-51.0) % MCV (79.0-92.2) fl MCH (25.7-32.2) pg MCHC (32.2-35.5) g/dl RDW Std Deviation (35.1-43.9) fL Plt Count (163-337) K/mm3 MPV (9.4-12.3) fl Neut % (Auto) (34.0-67.9) % Lymph % (Auto) (21.8-53.1) % Emery % (Auto) (5.3-12.2) % Eos % (Auto) (0.8-7.0) Baso % (Auto) (0.1-1.2) % Neut # (Auto) (1.78-5.38) K/mm3 Lymph # (Auto) (1.32-3.57) K/mm3 Emery # (Auto) (0.30-0.82) K/mm3 Eos # (Auto) (0.04-0.54) K/mm3 Baso # (Auto) (0.01-0.08) K/mm3 Manual Slide Review Sodium 136 (136-145) mEq/L Potassium 4.2 (3.5-5.1) mEq/L Chloride 102 (98-107) mEq/L Carbon Dioxide 23 (21-32) mEq/L Anion Gap 15.2 H (5-15) BUN 49 H (7-18) mg/dL Creatinine 1.4 H (0.7-1.3) mg/dL Est Cr Clr Drug Dosing 49.10 mL/min Estimated GFR (MDRD) 50 (>60) mL/min BUN/Creatinine Ratio 35.0 H (14-18) Glucose 177 H (70-99) mg/dL POC Glucose 188 H 259 H (70-99) mg/dL Calcium 9.2 (8.5-10.1) mg/dL Magnesium 2.2 (1.8-2.4) mg/dL C-Reactive Protein 11.1 H* (<1.0) mg/dL Enio Results Last 24 Hours: Microbiology 01/18/21 09:35 Aerobic Blood Culture - Final Blood - Venous NO GROWTH AFTER 7 DAYS Anaerobic Blood Culture - Final NO GROWTH AFTER 7 DAYS 01/18/21 09:20 Aerobic Blood Culture - Final Blood - Venous - Lab Draw NO GROWTH AFTER 7 DAYS Anaerobic Blood Culture - Final 01/19/21 17:30 Gram Stain - Final Sputum - Expectorated Sputum Culture - Final Med Orders - Current: Current Medications Acetaminophen (Acetaminophen 325 Mg Tab) 650 mg PO Q4H PRN PRN Reason: Pain (Mild 1-3)/fever Last Admin: 01/23/21 03:29 Dose: 650 mg Documented by: Albuterol (Albuterol 0.083% 2.5 Mg/3 Ml Neb Soln) 2.5 mg NEB Q2H PRN PRN Reason: Shortness Of Breath/wheezing Last Admin: 01/24/21 06:16 Dose: 2.5 mg Documented by: Albuterol/Ipratropium (Albuterol/Ipratropium 3.0-0.5 Mg/3 Ml Neb Soln) 3 ml NEB QIDRT [facility] Last Admin: 01/25/21 15:01 Dose: 3 ml Documented by: Apixaban (Apixaban 5 Mg Tab) 5 mg PO BID [facility] Last Admin: 01/25/21 09:01 Dose: 5 mg Documented by: Aspirin (Aspirin 81 Mg Tab.Chew) 81 mg PO DAILY [facility] Last Admin: 01/25/21 08:59 Dose: 81 mg Documented by: Atorvastatin Calcium (Atorvastatin 20 Mg Tab) 20 mg PO BEDTIME [facility] Last Admin: 01/24/21 20:24 Dose: Not Given Documented by: Benzonatate (Benzonatate 100 Mg Cap) 100 mg PO TID PRN PRN Reason: Cough Dexamethasone (Dexamethasone 4 Mg Tab) 6 mg PO DAILY [facility] Last Admin: 01/25/21 09:01 Dose: 6 mg Documented by: Dextrose/Water (50% Dextrose In Water 50 Ml Syringe) 50 ml IVPUSH ASDIRECTED PRN PRN Reason: Hypoglycemia Docusate Sodium (Docusate Sodium 100 Mg Cap) 100 mg PO Q12H PRN PRN Reason: Constipation Fish Oil (Fish Oil/[place]-3 Fatty Acids 1 Gm Cap) 2 gm PO DAILY [facility] Last Admin: 01/25/21 08:59 Dose: 2 gm Documented by: Guaifenesin (Guaifenesin 600 Mg Tab.Er) 1,200 mg PO BID [facility] Last Admin: 01/25/21 08:59 Dose: 1,200 mg Documented by: Levofloxacin/Dextrose 750 mg/ (Premix) 150 mls @ 100 mls/hr IV Q48H [facility] Stop: 01/26/21 15:00 Last Admin: 01/24/21 11:40 Dose: 100 mls/hr Documented by: Insulin Glargine (Insulin Glarg,Human.Rec.Analog 100 Unit/Ml) 100 unit SUBCUT DAILY [facility] Last Admin: 01/25/21 09:02 Dose: 100 units Documented by: Insulin Human Lispro (Insulin Lispro 100 Unit/Ml 10 Ml Vial) 0 unit SUBCUT QIDACANDBED [facility]; Protocol Last Admin: 01/25/21 12:11 Dose: 9 units Documented by: Magnesium Hydroxide (Magnesium Hydroxide 400 Mg/5 Ml Susp 30 Ml Cup) 30 ml PO Q12H PRN PRN Reason: Constipation Metoprolol Tartrate (Metoprolol Tartrate 25 Mg Tab) 12.5 mg PO BID [facility] Last Admin: 01/25/21 08:59 Dose: 12.5 mg Documented by: Metoprolol Tartrate (Metoprolol Tartrate 5 Mg/5 Ml Sdv) 5 mg IVPUSH Q4H PRN PRN Reason: Tachycardia Mometasone Furoate/Formoterol Fumar (Formoterol/Mometasone 100-5 Mcg 8.8 Gm Inhaler) 2 puff IH BID [facility] Last Admin: 01/25/21 09:59 Dose: 2 puff Documented by: Ondansetron HCl (Ondansetron 4 Mg/2 Ml Sdv) 4 mg IV Q6H PRN PRN Reason: Nausea/Vomiting Pantoprazole Sodium (Pantoprazole 40 Mg Tab.Cr) 40 mg PO DAILY [facility] Last Admin: 01/25/21 09:01 Dose: 40 mg Documented by: Discontinued Medications Albuterol/Ipratropium (Albuterol/Ipratropium 3.0-0.5 Mg/3 Ml Neb Soln) 3 ml NEB ONETIME ONE Stop: 01/18/21 09:01 Last Admin: 01/18/21 09:20 Dose: 3 ml Documented by: Furosemide (Furosemide 40 Mg/4 Ml Vial) 40 mg IVPUSH NOW ONE Stop: 01/19/21 18:05 Last Admin: 01/19/21 18:20 Dose: 40 mg Documented by: Furosemide (Furosemide 20 Mg/2 Ml Vial) 20 mg IVPUSH ONETIME ONE Stop: 01/20/21 10:41 Last Admin: 01/20/21 11:44 Dose: 20 mg Documented by: Sodium Chloride (Normal Saline) 1,000 mls @ 150 mls/hr IV ASDIRECTED [facility] Last Infusion: 01/18/21 14:15 Dose: Infused Documented by: Sodium Chloride (Normal Saline) 100 mls @ 75 mls/hr IV ASDIRECTED [facility] Last Admin: 01/18/21 10:02 Dose: 75 mls/hr Documented by: Ceftriaxone Sodium 2 gm/ (Sodium Chloride) 100 mls @ 200 mls/hr IV ONETIME ONE Stop: 01/18/21 10:31 Last Admin: 01/18/21 10:31 Dose: 200 mls/hr Documented by: Sodium Chloride (Normal Saline) 250 mls @ 999 mls/hr IV .BOLUS ONE Stop: 01/18/21 11:58 Last Admin: 01/18/21 13:01 Dose: Not Given Documented by: Sodium Chloride (Normal Saline) 1,000 mls @ 75 mls/hr IV ASDIRECTED [facility] Last Admin: 01/18/21 20:04 Dose: 75 mls/hr Documented by: Piperacillin Sod/Tazobactam (Sod 4.5 gm/ Sodium Chloride) 100 mls @ 25 mls/hr IV Q8H [facility] Last Admin: 01/19/21 05:02 Dose: 25 mls/hr Documented by: Piperacillin Sod/Tazobactam (Sod 4.5 gm/ Sodium Chloride) 100 mls @ 200 mls/hr IV ONETIME ONE Stop: 01/18/21 13:29 Last Admin: 01/18/21 13:27 Dose: 200 mls/hr Documented by: Vancomycin HCl 1.75 gm/ Sodium (Chloride) 500 mls @ 250 mls/hr IV ONETIME ONE Stop: 01/18/21 15:29 Last Admin: 01/18/21 14:11 Dose: 250 mls/hr Documented by: Vancomycin HCl 1 gm/Vancomycin HCl 500 mg/ Sodium Chloride 500 mls @ 250 mls/hr IV Q18H ONE Stop: 01/19/21 09:59 Last Admin: 01/19/21 09:03 Dose: 250 mls/hr Documented by: Levofloxacin/Dextrose 750 mg/ (Premix) 150 mls @ 100 mls/hr IV Q48H [facility] Last Admin: 01/19/21 12:02 Dose: 100 mls/hr Documented by: Levofloxacin/Dextrose 750 mg/ (Premix) 150 mls @ 100 mls/hr IV Q24H [facility] Last Admin: 01/20/21 11:44 Dose: 100 mls/hr Documented by: Magnesium Sulfate/Dextrose 1 (gm/ Premix) 100 mls @ 100 mls/hr IV Q1H [facility] Stop: 01/20/21 09:44 Last Admin: 01/20/21 10:18 Dose: 100 mls/hr Documented by: Insulin Glargine (Insulin Glarg,Human.Rec.Analog 100 Unit/Ml) 85 unit SUBCUT DAILY [facility] Insulin Glargine (Insulin Glarg,Human.Rec.Analog 100 Unit/Ml) 50 unit SUBCUT ONETIME ONE Stop: 01/18/21 12:31 Last Admin: 01/18/21 12:57 Dose: 50 units Documented by: Insulin Glargine (Insulin Glarg,Human.Rec.Analog 100 Unit/Ml) 90 unit SUBCUT DAILY [facility] Last Admin: 01/24/21 08:44 Dose: 90 units Documented by: Insulin Glargine (Insulin Glarg,Human.Rec.Analog 100 Unit/Ml) 5 unit SUBCUT ONETIME ONE Stop: 01/18/21 21:42 Last Admin: 01/18/21 21:59 Dose: 5 units Documented by: Insulin Human Lispro (Insulin Lispro 100 Unit/Ml 10 Ml Vial) 5 unit SUBCUT ONET REKHA ONE Stop: 01/18/21 10:44 Last Admin: 01/18/21 10:59 Dose: 5 unit Documented by: Insulin Human Lispro (Insulin Lispro 100 Unit/Ml 10 Ml Vial) 0 unit SUBCUT QIDACANDBED [facility]; Protocol Last Admin: 01/18/21 17:17 Dose: 3 units Documented by: Insulin Human Lispro (Insulin Lispro 100 Unit/Ml 10 Ml Vial) 8 unit SUBCUT ONETIME ONE Stop: 01/24/21 15:01 Last Admin: 01/24/21 14:47 Dose: 8 units Documented by: Iopamidol (Iopamidol 755 Mg/Ml 100 Ml Bottle) 100 ml IVPUSH ONETIME ONE Stop: 01/18/21 09:43 Last Admin: 01/18/21 10:02 Dose: 100 ml Documented by: Methylprednisolone Sodium Succinate (Methylprednisolone Sodium Succinate 125 Mg/2 Ml Sdv) 125 mg IVPUSH ONETIME ONE Stop: 01/18/21 09:01 Last Admin: 01/18/21 09:08 Dose: 125 mg Documented by: Sodium Chloride (Sodium Chloride 0.9% 10 Ml Syringe) 10 ml FLUSH ONETIME PRN PRN Reason: IV FLUSH Last Admin: 01/18/21 10:02 Dose: 10 ml Documented by: Vancomycin HCl (Pharmacy To Dose - Vancomycin) 1 dose .XX ASDIRECTED PRN PRN Reason: RX TO DOSE VANCO - Patient Data Lab Results Last 24 hrs: Laboratory Results - last 24 hr 01/24/21 01/24/21 01/25/21 Range/Units 17:17 22:17 05:10 WBC 15.35 H (4.23-9.07) K/mm3 RBC 3.93 L (4.63-6.08) M/mm3 Hgb 11.3 L (13.7-17.5) gm/dl Hct 35.5 L (40.1-51.0) % MCV 90.3 (79.0-92.2) fl MCH 28.8 (25.7-32.2) pg MCHC 31.8 L (32.2-35.5) g/dl RDW Std Deviation 41.9 (35.1-43.9) fL Plt Count 529 H (163-337) K/mm3 MPV 9.0 L (9.4-12.3) fl Neut % (Auto) 83.3 H (34.0-67.9) % Lymph % (Auto) 8.7 L (21.8-53.1) % Emery % (Auto) 6.3 (5.3-12.2) % Eos % (Auto) 0.2 L (0.8-7.0) Baso % (Auto) 0.1 (0.1-1.2) % Neut # (Auto) 12.80 H (1.78-5.38) K/mm3 Lymph # (Auto) 1.33 (1.32-3.57) K/mm3 Emery # (Auto) 0.96 H (0.30-0.82) K/mm3 Eos # (Auto) 0.03 L (0.04-0.54) K/mm3 Baso # (Auto) 0.01 (0.01-0.08) K/mm3 Manual Slide Review Abnormal smear Sodium (136-145) mEq/L Potassium (3.5-5.1) mEq/L Chloride (98-107) mEq/L Carbon Dioxide (21-32) mEq/L Anion Gap (5-15) BUN (7-18) mg/dL Creatinine (0.7-1.3) mg/dL Est Cr Clr Drug Dosing mL/min Estimated GFR (MDRD) (>60) mL/min BUN/Creatinine Ratio (14-18) Glucose (70-99) mg/dL POC Glucose 259 H 301 H (70-99) mg/dL Calcium (8.5-10.1) mg/dL Magnesium (1.8-2.4) mg/dL C-Reactive Protein (<1.0) mg/dL 01/25/21 01/25/21 01/25/21 Range/Units 05:10 05:55 11:11 WBC (4.23-9.07) K/mm3 RBC (4.63-6.08) M/mm3 Hgb (13.7-17.5) gm/dl Hct (40.1-51.0) % MCV (79.0-92.2) fl MCH (25.7-32.2) pg MCHC (32.2-35.5) g/dl RDW Std Deviation (35.1-43.9) fL Plt Count (163-337) K/mm3 MPV (9.4-12.3) fl Neut % (Auto) (34.0-67.9) % Lymph % (Auto) (21.8-53.1) % Emery % (Auto) (5.3-12.2) % Eos % (Auto) (0.8-7.0) Baso % (Auto) (0.1-1.2) % Neut # (Auto) (1.78-5.38) K/mm3 Lymph # (Auto) (1.32-3.57) K/mm3 Emery # (Auto) (0.30-0.82) K/mm3 Eos # (Auto) (0.04-0.54) K/mm3 Baso # (Auto) (0.01-0.08) K/mm3 Manual Slide Review Sodium 136 (136-145) mEq/L Potassium 4.2 (3.5-5.1) mEq/L Chloride 102 (98-107) mEq/L Carbon Dioxide 23 (21-32) mEq/L Anion Gap 15.2 H (5-15) BUN 49 H (7-18) mg/dL Creatinine 1.4 H (0.7-1.3) mg/dL Est Cr Clr Drug Dosing 49.10 mL/min Estimated GFR (MDRD) 50 (>60) mL/min BUN/Creatinine Ratio 35.0 H (14-18) Glucose 177 H (70-99) mg/dL POC Glucose 188 H 259 H (70-99) mg/dL Calcium 9.2 (8.5-10.1) mg/dL Magnesium 2.2 (1.8-2.4) mg/dL C-Reactive Protein 11.1 H* (<1.0) mg/dL Result Diagrams: 01/25/21 05:10 01/25/21 05:10 Enio Results Last 24 hrs: Microbiology 01/18/21 09:35 Aerobic Blood Culture - Final Blood - Venous NO GROWTH AFTER 7 DAYS Anaerobic Blood Culture - Final NO GROWTH AFTER 7 DAYS 01/18/21 09:20 Aerobic Blood Culture - Final Blood - Venous - Lab Draw NO GROWTH AFTER 7 DAYS Anaerobic Blood Culture - Final 01/19/21 17:30 Gram Stain - Final Sputum - Expectorated Sputum Culture - Final Sepsis Event Note - Focused Exam Vital Signs: Vital Signs Temp Pulse Resp BP Pulse Ox Pulse Ox 01/25/21 15:02 97 01/25/21 13:27 90 L 01/25/21 11:19 97 01/25/21 11:13 36.6 C 76 20 103/78 01/25/21 10:00 90 L 01/25/21 08:59 85 109/67 01/25/21 07:51 85 20 109/67 01/25/21 06:04 95 - Plan Plan:: I have seen and examined the patient independently of Wilder Vera PA-C, and have reviewed the case with him. I have reviewed and agree with the plan and care as outlined by him. Please see orders.
[2021-01-25] MEDS: guaiFENesin 600 MG Tab.ER PO SCH ×2 (08:59→20:40)
[2021-01-25] MEDS: Metoprolol Tartrate 25 MG Tab PO SCH ×2 (08:59→20:40)
[2021-01-25] MEDS: Fish Oil/Omega-3 Fatty Acids 1 Gm Cap PO SCH (08:59)
[2021-01-25] MEDS: Aspirin 81 MG Tab.Chew PO SCH (08:59)
[2021-01-25] MEDS: Insulin Lispro 100 UNIT/ML 10 ML Vial SUBCUT SCH ×4 (08:59→21:41)
[2021-01-25] MEDS: Dexamethasone 4 MG Tab PO SCH (09:01)
[2021-01-25] MEDS: Pantoprazole 40 MG Tab.CR PO SCH (09:01)
[2021-01-25] MEDS: Apixaban 5 MG Tab PO SCH ×2 (09:01→20:40)
[2021-01-25] MEDS: Insulin Glarg,Human.Rec.Analog 100 Unit/ML SUBCUT SCH (09:02)
--- NOTE | 2021-01-25 09:13 | CR ---
Chest: 2 views of the chest were obtained. Comparison: Prior chest CT study of 01/18/21 and chest x-ray of 01/22/21. Heart size and mediastinum are normal. Scattered degenerative change is seen within the spine with disc space narrowing and endplate spurring. Diffuse parenchymal densities are seen within both sides of the chest. Findings are without definite change from previous studies. Impression: 1. Findings as noted above. No definite change from previous studies are seen. Diagnostic code #3
[2021-01-25] MEDS: Formoterol/Mometasone 100-5 MCG 8.8 GM Inhaler IH SCH ×2 (09:59→20:02)
--- NOTE | 2021-01-25 16:00 | CT ---
CT chest Technique: Multiple axial sections were obtained from above the lung apices inferiorly through the lung bases. Intravenous contrast was not utilized. Reconstructed coronal and sagittal images were obtained. Comparison: Prior chest x-ray performed earlier on the same day as well as prior chest CT study of 01/18/21. Findings: Diffuse parenchymal density is seen within both lungs. I do not see a definite interval change from prior exam. Small cyst is noted within the right kidney. Nothing acute is seen within the visualized upper abdominal structures. No pericardial thickening is seen. Thoracic aorta shows atherosclerotic change without aneurysm. Small mediastinal lymph nodes are seen which are felt to be within normal limits. No axillary adenopathy is seen. Bone window settings were reviewed which show scattered disc space narrowing and endplate spurring within the spine. No acute osseous abnormality is seen. Impression: 1. Patchy parenchymal density within both lungs. No definite interval change is seen from prior CT study. 2. Other findings believe to be incidental as noted above. Diagnostic code #3
--- NOTE | 2021-01-25 16:32 | PCM.SN.2 ---
- Free Text/Narrative Note: Family conference was held at 2 PM today with the patient's daughter, administrative staff and quality systems specialist. Also pharmacist and physician's assistant athletic trainer present. The patient had requested the meeting out of concern for her father and wanted her father to be placed on ivermectin for treatment of his chronic COVID-19 pulmonary issues. The patient was concerned that she had found information with regards to arrhythmic to being used for acute COVID-19 treatment. I had discussed with the patient's daughter that ivermectin does not show any clinical value in the treatment of chronic Covid pulmonary issues. I also explained risk and benefits to the daughter. I also explained that ivermectin is not available for treatment of COVID-19, either acute or chronic. I am not inclined to risk harm to the patient and use ivermectin for his chronic COVID-19 pulmonary issues. Will consider referring the patient to pulmonology upon discharge as the patient is expected to get better and has been doing better with his current excepted medical practice.
[2021-01-25] MEDS: atorvaSTATin 20 MG Tab PO SCH (20:40)
[2021-01-26] MEDS: Albuterol/Ipratropium 3.0-0.5 MG/3 ML Neb Soln NEB SCH ×4 (06:12→20:25)
--- NOTE | 2021-01-26 08:09 | PCM.PN ---
- General Info Date of Service: 01/26/21 Admission Dx/Problem (Free Text): Admission Diagnosis/Problem Admission Diagnosis/Problem chronic COVID-19 pneumonia and hypoxia Subjective Update: The patient is a 70-year-old gentleman who has been in hospitalization since 2020 due to hypoxia and chronic COVID-19 lung issues. The patient has been on CPAP to help with his oxygenation. He feels better today. The patient still has difficulty in maintaining his oxygen saturations when moving around. He is denied any cough. No chest pain. Functional Status: Reports: Pain Controlled, Tolerating Diet - Review of Systems General: Reports: Weakness, Fatigue HEENT: Reports: No Symptoms Pulmonary: Reports: Shortness of Breath Cardiovascular: Reports: No Symptoms Gastrointestinal: Reports: No Symptoms Genitourinary: Reports: No Symptoms Musculoskeletal: Reports: No Symptoms Skin: Reports: No Symptoms Neurological: Reports: No Symptoms Psychiatric: Reports: No Symptoms - Patient Data Vitals - Most Recent: Last Vital Signs Temp 36.4 C 01/26/21 03:32 Pulse 71 01/26/21 03:32 Resp 20 01/26/21 03:32 BP 105/81 01/26/21 03:32 Pulse Ox 91 L 01/26/21 06:14 Weight - Most Recent: 82.781 kg I&O - Last 24 Hours: Intake & Output 01/25/21 01/26/21 01/26/21 22:59 06:59 14:59 Intake Total 350 Output Total 900 900 Balance -550 -900 Lab Results Last 24 Hours: Laboratory Results - last 24 hr 01/25/21 01/25/21 01/25/21 Range/Units 11:11 17:36 21:21 WBC (4.23-9.07) K/mm3 RBC (4.63-6.08) M/mm3 Hgb (13.7-17.5) gm/dl Hct (40.1-51.0) % MCV (79.0-92.2) fl MCH (25.7-32.2) pg MCHC (32.2-35.5) g/dl RDW Std Deviation (35.1-43.9) fL Plt Count (163-337) K/mm3 MPV (9.4-12.3) fl Neut % (Auto) (34.0-67.9) % Lymph % (Auto) (21.8-53.1) % Finney % (Auto) (5.3-12.2) % Eos % (Auto) (0.8-7.0) Baso % (Auto) (0.1-1.2) % Neut # (Auto) (1.78-5.38) K/mm3 Lymph # (Auto) (1.32-3.57) K/mm3 Finney # (Auto) (0.30-0.82) K/mm3 Eos # (Auto) (0.04-0.54) K/mm3 Baso # (Auto) (0.01-0.08) K/mm3 Manual Slide Review Sodium (136-145) mEq/L Potassium (3.5-5.1) mEq/L Chloride (98-107) mEq/L Carbon Dioxide (21-32) mEq/L Anion Gap (5-15) BUN (7-18) mg/dL Creatinine (0.7-1.3) mg/dL Est Cr Clr Drug Dosing mL/min Estimated GFR (MDRD) (>60) mL/min BUN/Creatinine Ratio (14-18) Glucose (70-99) mg/dL POC Glucose 259 H 289 H 282 H (70-99) mg/dL Calcium (8.5-10.1) mg/dL Magnesium (1.8-2.4) mg/dL C-Reactive Protein (<1.0) mg/dL 01/26/21 01/26/21 01/26/21 Range/Units 05:38 05:38 06:43 WBC 14.15 H (4.23-9.07) K/mm3 RBC 3.90 L (4.63-6.08) M/mm3 Hgb 11.3 L (13.7-17.5) gm/dl Hct 35.1 L (40.1-51.0) % MCV 90.0 (79.0-92.2) fl MCH 29.0 (25.7-32.2) pg MCHC 32.2 (32.2-35.5) g/dl RDW Std Deviation 41.9 (35.1-43.9) fL Plt Count 564 H (163-337) K/mm3 MPV 8.9 L (9.4-12.3) fl Neut % (Auto) 80.1 H (34.0-67.9) % Lymph % (Auto) 11.0 L (21.8-53.1) % Finney % (Auto) 6.7 (5.3-12.2) % Eos % (Auto) 0.1 L (0.8-7.0) Baso % (Auto) 0.1 (0.1-1.2) % Neut # (Auto) 11.32 H (1.78-5.38) K/mm3 Lymph # (Auto) 1.56 (1.32-3.57) K/mm3 Finney # (Auto) 0.95 H (0.30-0.82) K/mm3 Eos # (Auto) 0.02 L (0.04-0.54) K/mm3 Baso # (Auto) 0.02 (0.01-0.08) K/mm3 Manual Slide Review Abnormal smear Sodium 141 (136-145) mEq/L Potassium 4.2 (3.5-5.1) mEq/L Chloride 104 (98-107) mEq/L Carbon Dioxide 25 (21-32) mEq/L Anion Gap 16.2 H (5-15) BUN 46 H (7-18) mg/dL Creatinine 1.3 (0.7-1.3) mg/dL Est Cr Clr Drug Dosing 52.87 mL/min Estimated GFR (MDRD) 55 (>60) mL/min BUN/Creatinine Ratio 35.4 H (14-18) Glucose 162 H (70-99) mg/dL POC Glucose 156 H (70-99) mg/dL Calcium 9.4 (8.5-10.1) mg/dL Magnesium 2.1 (1.8-2.4) mg/dL C-Reactive Protein 5.7 H* (<1.0) mg/dL Enio Results Last 24 Hours: Microbiology 01/18/21 09:35 Aerobic Blood Culture - Final Blood - Venous NO GROWTH AFTER 7 DAYS Anaerobic Blood Culture - Final NO GROWTH AFTER 7 DAYS 01/18/21 09:20 Aerobic Blood Culture - Final Blood - Venous - Lab Draw NO GROWTH AFTER 7 DAYS Anaerobic Blood Culture - Final Med Orders - Current: Current Medications Acetaminophen (Acetaminophen 325 Mg Tab) 650 mg PO Q4H PRN PRN Reason: Pain (Mild 1-3)/fever Last Admin: 01/23/21 03:29 Dose: 650 mg Documented by: Albuterol (Albuterol 0.083% 2.5 Mg/3 Ml Neb Soln) 2.5 mg NEB Q2H PRN PRN Reason: Shortness Of Breath/wheezing Last Admin: 01/24/21 06:16 Dose: 2.5 mg Documented by: Albuterol/Ipratropium (Albuterol/Ipratropium 3.0-0.5 Mg/3 Ml Neb Soln) 3 ml NEB QIDRT [facility] Last Admin: 01/26/21 06:12 Dose: 3 ml Documented by: Apixaban (Apixaban 5 Mg Tab) 5 mg PO BID [facility] Last Admin: 01/25/21 20:40 Dose: 5 mg Documented by: Aspirin (Aspirin 81 Mg Tab.Chew) 81 mg PO DAILY [facility] Last Admin: 01/25/21 08:59 Dose: 81 mg Documented by: Atorvastatin Calcium (Atorvastatin 20 Mg Tab) 20 mg PO BEDTIME [facility] Last Admin: 01/25/21 20:40 Dose: 20 mg Documented by: Benzonatate (Benzonatate 100 Mg Cap) 100 mg PO TID PRN PRN Reason: Cough Dexamethasone (Dexamethasone 4 Mg Tab) 6 mg PO DAILY [facility] Last Admin: 01/25/21 09:01 Dose: 6 mg Documented by: Dextrose/Water (50% Dextrose In Water 50 Ml Syringe) 50 ml IVPUSH ASDIRECTED PRN PRN Reason: Hypoglycemia Docusate Sodium (Docusate Sodium 100 Mg Cap) 100 mg PO Q12H PRN PRN Reason: Constipation Fish Oil (Fish Oil/[place]-3 Fatty Acids 1 Gm Cap) 2 gm PO DAILY [facility] Last Admin: 01/25/21 08:59 Dose: 2 gm Documented by: Guaifenesin (Guaifenesin 600 Mg Tab.Er) 1,200 mg PO BID [facility] Last Admin: 01/25/21 20:40 Dose: 1,200 mg Documented by: Levofloxacin/Dextrose 750 mg/ (Premix) 150 mls @ 100 mls/hr IV Q48H [facility] Stop: 01/26/21 15:00 Last Admin: 01/24/21 11:40 Dose: 100 mls/hr Documented by: Insulin Glargine (Insulin Glarg,Human.Rec.Analog 100 Unit/Ml) 100 unit SUBCUT DAILY [facility] Last Admin: 01/25/21 09:02 Dose: 100 units Documented by: Insulin Human Lispro (Insulin Lispro 100 Unit/Ml 10 Ml Vial) 0 unit SUBCUT QIDACANDBED [facility]; Protocol Last Admin: 01/25/21 21:41 Dose: 9 units Documented by: Magnesium Hydroxide (Magnesium Hydroxide 400 Mg/5 Ml Susp 30 Ml Cup) 30 ml PO Q12H PRN PRN Reason: Constipation Metoprolol Tartrate (Metoprolol Tartrate 25 Mg Tab) 12.5 mg PO BID [facility] Last Admin: 01/25/21 20:40 Dose: 12.5 mg Documented by: Metoprolol Tartrate (Metoprolol Tartrate 5 Mg/5 Ml Sdv) 5 mg IVPUSH Q4H PRN PRN Reason: Tachycardia Mometasone Furoate/Formoterol Fumar (Formoterol/Mometasone 100-5 Mcg 8.8 Gm Inhaler) 2 puff IH BID [facility] Last Admin: 01/25/21 20:02 Dose: 2 puff Documented by: Ondansetron HCl (Ondansetron 4 Mg/2 Ml Sdv) 4 mg IV Q6H PRN PRN Reason: Nausea/Vomiting Pantoprazole Sodium (Pantoprazole 40 Mg Tab.Cr) 40 mg PO DAILY [facility] Last Admin: 01/25/21 09:01 Dose: 40 mg Documented by: Discontinued Medications Albuterol/Ipratropium (Albuterol/Ipratropium 3.0-0.5 Mg/3 Ml Neb Soln) 3 ml NEB ONETIME ONE Stop: 01/18/21 09:01 Last Admin: 01/18/21 09:20 Dose: 3 ml Documented by: Furosemide (Furosemide 40 Mg/4 Ml Vial) 40 mg IVPUSH NOW ONE Stop: 01/19/21 18:05 Last Admin: 01/19/21 18:20 Dose: 40 mg Documented by: Furosemide (Furosemide 20 Mg/2 Ml Vial) 20 mg IVPUSH ONETIME ONE Stop: 01/20/21 10:41 Last Admin: 01/20/21 11:44 Dose: 20 mg Documented by: Sodium Chloride (Normal Saline) 1,000 mls @ 150 mls/hr IV ASDIRECTED [facility] Last Infusion: 01/18/21 14:15 Dose: Infused Documented by: Sodium Chloride (Normal Saline) 100 mls @ 75 mls/hr IV ASDIRECTED [facility] Last Admin: 01/18/21 10:02 Dose: 75 mls/hr Documented by: Ceftriaxone Sodium 2 gm/ (Sodium Chloride) 100 mls @ 200 mls/hr IV ONETIME ONE Stop: 01/18/21 10:31 Last Admin: 01/18/21 10:31 Dose: 200 mls/hr Documented by: Sodium Chloride (Normal Saline) 250 mls @ 999 mls/hr IV .BOLUS ONE Stop: 01/18/21 11:58 Last Admin: 01/18/21 13:01 Dose: Not Given Documented by: Sodium Chloride (Normal Saline) 1,000 mls @ 75 mls/hr IV ASDIRECTED [facility] Last Admin: 01/18/21 20:04 Dose: 75 mls/hr Documented by: Piperacillin Sod/Tazobactam (Sod 4.5 gm/ Sodium Chloride) 100 mls @ 25 mls/hr IV Q8H [facility] Last Admin: 01/19/21 05:02 Dose: 25 mls/hr Documented by: Piperacillin Sod/Tazobactam (Sod 4.5 gm/ Sodium Chloride) 100 mls @ 200 mls/hr IV ONETIME ONE Stop: 01/18/21 13:29 Last Admin: 01/18/21 13:27 Dose: 200 mls/hr Documented by: Vancomycin HCl 1.75 gm/ Sodium (Chloride) 500 mls @ 250 mls/hr IV ONETIME ONE Stop: 01/18/21 15:29 Last Admin: 01/18/21 14:11 Dose: 250 mls/hr Documented by: Vancomycin HCl 1 gm/Vancomycin HCl 500 mg/ Sodium Chloride 500 mls @ 250 mls/hr IV Q18H ONE Stop: 01/19/21 09:59 Last Admin: 01/19/21 09:03 Dose: 250 mls/hr Documented by: Levofloxacin/Dextrose 750 mg/ (Premix) 150 mls @ 100 mls/hr IV Q48H [facility] Last Admin: 01/19/21 12:02 Dose: 100 mls/hr Documented by: Levofloxacin/Dextrose 750 mg/ (Premix) 150 mls @ 100 mls/hr IV Q24H [facility] Last Admin: 01/20/21 11:44 Dose: 100 mls/hr Documented by: Magnesium Sulfate/Dextrose 1 (gm/ Premix) 100 mls @ 100 mls/hr IV Q1H [facility] Stop: 01/20/21 09:44 Last Admin: 01/20/21 10:18 Dose: 100 mls/hr Documented by: Insulin Glargine (Insulin Glarg,Human.Rec.Analog 100 Unit/Ml) 85 unit SUBCUT DAILY [facility] Insulin Glargine (Insulin Glarg,Human.Rec.Analog 100 Unit/Ml) 50 unit SUBCUT ONETIME ONE Stop: 01/18/21 12:31 Last Admin: 01/18/21 12:57 Dose: 50 units Documented by: Insulin Glargine (Insulin Glarg,Human.Rec.Analog 100 Unit/Ml) 90 unit SUBCUT DAILY [facility] Last Admin: 01/24/21 08:44 Dose: 90 units Documented by: Insulin Glargine (Insulin Glarg,Human.Rec.Analog 100 Unit/Ml) 5 unit SUBCUT ONETIME ONE Stop: 01/18/21 21:42 Last Admin: 01/18/21 21:59 Dose: 5 units Documented by: Insulin Human Lispro (Insulin Lispro 100 Unit/Ml 10 Ml Vial) 5 unit SUBCUT ONETIME ONE Stop: 01/18/21 10:44 Last Admin: 01/18/21 10:59 Dose: 5 unit Documented by: Insulin Human Lispro (Insulin Lispro 100 Unit/Ml 10 Ml Vial) 0 unit SUBCUT QIDACANDBED [facility]; Protocol Last Admin: 01/18/21 17:17 Dose: 3 units Documented by: Insulin Human Lispro (Insulin Lispro 100 Unit/Ml 10 Ml Vial) 8 unit SUBCUT ONETIME ONE Stop: 01/24/21 15:01 Last Admin: 01/24/21 14:47 Dose: 8 units Documented by: Iopamidol (Iopamidol 755 Mg/Ml 100 Ml Bottle) 100 ml IVPUSH ONETIME ONE Stop: 01/18/21 09:43 Last Admin: 01/18/21 10:02 Dose: 100 ml Documented by: Methylprednisolone Sodium Succinate (Methylprednisolone Sodium Succinate 125 Mg/2 Ml Sdv) 125 mg IVPUSH ONETIME ONE Stop: 01/18/21 09:01 Last Admin: 01/18/21 09:08 Dose: 125 mg Documented by: Sodium Chloride (Sodium Chloride 0.9% 10 Ml Syringe) 10 ml FLUSH ONETIME PRN PRN Reason: IV FLUSH Last Admin: 01/18/21 10:02 Dose: 10 ml Documented by: Vancomycin HCl (Pharmacy To Dose - Vancomycin) 1 dose .XX ASDIRECTED PRN PRN Reason: RX TO DOSE VANCO - Exam Quality Assessment: Supplemental Oxygen, DVT Prophylaxis General: Alert, Oriented, Cooperative, No Acute Distress HEENT: Pupils Equal, Pupils Reactive, EOMI, Mucous Membr. Moist/[place] Neck: Supple, Trachea Midline Lungs: Decreased Breath Sounds, Rales GI/Abdominal Exam: Normal Bowel Sounds, Soft, Non-Tender, No Distention (Male) Exam: Deferred Back Exam: Normal Inspection, Full Range of Motion Extremities: Normal Inspection, Normal Range of Motion, No Pedal Edema Skin: Warm, Dry, Intact Neurological: No New Focal Deficit Psy/Mental Status: Alert, Normal Affect, Normal Mood - Patient Data Lab Results Last 24 hrs: Laboratory Results - last 24 hr 01/25/21 01/25/21 01/25/21 Range/Units 11:11 17:36 21:21 WBC (4.23-9.07) K/mm3 RBC (4.63-6.08) M/mm3 Hgb (13.7-17.5) gm/dl Hct (40.1-51.0) % MCV (79.0-92.2) fl MCH (25.7-32.2) pg MCHC (32.2-35.5) g/dl RDW Std Deviation (35.1-43.9) fL Plt Count (163-337) K/mm3 MPV (9.4-12.3) fl Neut % (Auto) (34.0-67.9) % Lymph % (Auto) (21.8-53.1) % [place]ney % (Auto) (5.3-12.2) % Eos % (Auto) (0.8-7.0) Baso % (Auto) (0.1-1.2) % Neut # (Auto) (1.78-5.38) K/mm3 Lymph # (Auto) (1.32-3.57) K/mm3 [place]ney # (Auto) (0.30-0.82) K/mm3 Eos # (Auto) (0.04-0.54) K/mm3 Baso # (Auto) (0.01-0.08) K/mm3 Manual Slide Review Sodium (136-145) mEq/L Potassium (3.5-5.1) mEq/L Chloride (98-107) mEq/L Carbon Dioxide (21-32) mEq/L Anion Gap (5-15) BUN (7-18) mg/dL Creatinine (0.7-1.3) mg/dL Est Cr Clr Drug Dosing mL/min Estimated GFR (MDRD) (>60) mL/min BUN/Creatinine Ratio (14-18) Glucose (70-99) mg/dL POC Glucose 259 H 289 H 282 H (70-99) mg/dL Calcium (8.5-10.1) mg/dL Magnesium (1.8-2.4) mg/dL C-Reactive Protein (<1.0) mg/dL 01/26/21 01/26/21 01/26/21 Range/Units 05:38 05:38 06:43 WBC 14.15 H (4.23-9.07) K/mm3 RBC 3.90 L (4.63-6.08) M/mm3 Hgb 11.3 L (13.7-17.5) gm/dl Hct 35.1 L (40.1-51.0) % MCV 90.0 (79.0-92.2) fl MCH 29.0 (25.7-32.2) pg MCHC 32.2 (32.2-35.5) g/dl RDW Std Deviation 41.9 (35.1-43.9) fL Plt Count 564 H (163-337) K/mm3 MPV 8.9 L (9.4-12.3) fl Neut % (Auto) 80.1 H (34.0-67.9) % Lymph % (Auto) 11.0 L (21.8-53.1) % Finney % (Auto) 6.7 (5.3-12.2) % Eos % (Auto) 0.1 L (0.8-7.0) Baso % (Auto) 0.1 (0.1-1.2) % Neut # (Auto) 11.32 H (1.78-5.38) K/mm3 Lymph # (Auto) 1.56 (1.32-3.57) K/mm3 Finney # (Auto) 0.95 H (0.30-0.82) K/mm3 Eos # (Auto) 0.02 L (0.04-0.54) K/mm3 Baso # (Auto) 0.02 (0.01-0.08) K/mm3 Manual Slide Review Abnormal smear Sodium 141 (136-145) mEq/L Potassium 4.2 (3.5-5.1) mEq/L Chloride 104 (98-107) mEq/L Carbon Dioxide 25 (21-32) mEq/L Anion Gap 16.2 H (5-15) BUN 46 H (7-18) mg/dL Creatinine 1.3 (0.7-1.3) mg/dL Est Cr Clr Drug Dosing 52.87 mL/min Estimated GFR (MDRD) 55 (>60) mL/min BUN/Creatinine Ratio 35.4 H (14-18) Glucose 162 H (70-99) mg/dL POC Glucose 156 H (70-99) mg/dL Calcium 9.4 (8.5-10.1) mg/dL Magnesium 2.1 (1.8-2.4) mg/dL C-Reactive Protein 5.7 H* (<1.0) mg/dL Result Diagrams: 01/26/21 05:38 01/26/21 05:38 Enio Results Last 24 hrs: Microbiology 01/18/21 09:35 Aerobic Blood Culture - Final Blood - Venous NO GROWTH AFTER 7 DAYS Anaerobic Blood Culture - Final NO GROWTH AFTER 7 DAYS 01/18/21 09:20 Aerobic Blood Culture - Final Blood - Venous - Lab Draw NO GROWTH AFTER 7 DAYS Anaerobic Blood Culture - Final Sepsis Event Note - Evaluation Sepsis Screening Result: No Definite Risk - Focused Exam Vital Signs: Vital Signs Temp Pulse Resp BP Pulse Ox Pulse Ox Pulse Ox 01/26/21 06:14 91 L 01/26/21 03:32 36.4 C 71 20 105/81 90 L 01/26/21 00:05 65 18 131/77 98 01/25/21 21:40 95 01/25/21 20:40 76 121/78 01/25/21 20:38 36.4 C 76 18 121/78 94 L - Problem List & Annotations (1) Acute respiratory failure SNOMED Code(s): 14346532 Code(s): J96.00 - ACUTE RESPIRATORY FAILURE, UNSP W HYPOXIA OR HYPERCAPNIA Status: Acute Priority: High Current Visit: Yes Qualifiers: Respiratory failure complication: hypoxia Qualified Code(s): J96.01 - Acute respiratory failure with hypoxia (2) Pneumonia SNOMED Code(s): 794277298 Code(s): J18.9 - PNEUMONIA, UNSPECIFIED ORGANISM Status: Acute Priority: High Current Visit: Yes Qualifiers: Pneumonia type: due to unspecified organism Laterality: bilateral Lung location: unspecified part of lung Qualified Code(s): J18.9 - Pneumonia, unspecified organism (3) COVID-19 judy rockwell SNOMED Code(s): 0171831324 Code(s): B94.8 - SEQUELAE OF OTH INFECTIOUS AND PARASITIC DISEASES Status: Chronic Priority: High Current Visit: Yes - Problem List Review Problem List Initiated/Reviewed/Updated: Yes - Assessment Assessment:: Assessment - day of admission 01/18/2021 * This is a 70-year-old male who presents to ED on 01/18/2021 with dyspnea and left-sided chest pain along his ribs. * He carries a history of A. fib, prior Covid infection, type II DM, and chronic kidney disease. * Diagnosed with Covid on December 11, transferred to [facility] and hospitalized for 13 days. * He was released on 01-02-2021 on 2 L of home oxygen. * Reports dyspnea with accompanying chills, diaphoresis, and a cough. * In the ED twelve-lead EKG is obtained showing a sinus tachycardia at 119 bpm. * Labs obtained in ED: * WBC 10.56. * Hemoglobin is 12.7. * He is normocytic. * Platelets are elevated at 409,000. * Neutrophils are elevated 72.3%. * D-dimer is elevated at 5.12. * Sodium is 137. * Potassium 4.3. * Chloride 101. * Carbon dioxide 20. * Anion gap is 20.3. * BUN is 32. Creatinine 1.7. GFR is 40. * Glucose is 204. * Total bilirubin 0.5. * AST is 38, ALT 46, alkaline phosphatase 80. * Troponin 0 0.074. * CRP is 41.4. * Albumin is 2.4. * Lactic acid is 1.2. * proBNP is 1666. * ABG obtained in the left radial with a pH of 7.41. PCO2 of 25.4. PO2 of 62.0. HCO3 of 15.2. O2 saturation of 92.4. Base excess is -6.8. AA gradient is 135. This is obtained while on 3 L via nasal cannula. * Chest x-ray shows prominent increase in density on both sides the chest raising the possibility diffuse pneumonia. Please correlate if patient has Covid disease. No other acute abnormality is seen. * CTA is obtained showing diffuse increased density on both sides the chest compatible with diffuse pneumonia. Vague areas of poor enhancement within the main pulmonary arteries on both sides. This is most likely artifact. No definitive findings of pulmonary embolism are seen. Incidental degenerative change within the spine is also noted. * Patient is given 1 DuoNeb and started on Rocephin and IV fluids. He is given 125 mg Solu-Medrol and 5 units of lispro insulin. * He subsequently admitted to the medical floor on telemetry for management of his bilateral pneumonia. 01/19/2021 This is a 70-year-old male who presents to ED on 01/18/2021 with dyspnea and left-sided chest pain along his ribs. He was diagnosed with Covid on December 11 and transferred to [facility] where he was hospitalized for 13 days. He was released on 01-02-2021 on 2 L of home oxygen. Reports he has been doing good up until the last couple of days, in which she has noticed he has been more dyspnei c and had accompanying chills, diaphoresis, and a cough. He feeling better. Denies fever, chills, nausea or vomiting. But he still complains of rib cage pain when he is coughing. He is on 4 to 5 L WBC 11.6, hemoglobin 13.8 D-dimer 5.12 Creatinine 1.5 01/20/2021 This is a 70-year-old male who presents to ED on 01/18/2021 with dyspnea and left-sided chest pain along his ribs. He was diagnosed with Covid on December 11 and transferred to [facility] where he was hospitalized for 13 days. He was released on 01-02-2021 on 2 L of home oxygen. Reports he has been doing good up until the last couple of days, in which she has noticed he has been more dyspneic and had accompanying chills, diaphoresis, and a cough. He is feeling much better, less SOB. Denies fever, chills, nausea or vomiting. He is now on 4L Potassium 3.9, creatinine 1.4 Mag 1.8 AST 75, ALT 144 CRP 14.5 01/21/2021 70-year-old male who presented to ED on 01/18/2021 with chest pain and dyspnea. He is oxygen dependent however he has been requiring 4 L, which is increased from his baseline 2 L. Today he reports that he is feeling better. He was reportedly on 3 L of oxygen through the night however this morning he had a coughing episode and was requiring 4 L. He has been ambulating around the room independently. PT and OT have seen him and are recommending home independent. He currently has no concerns. He is on Levaquin for bilateral pneumonia. White count today is 9.58. Hemoglobin 11.6. Platelet 443,000. Blood smear shows a few band neutrophils present. Anion gap is elevated at 17.6. BUN is 31. Creatinine 1.5. GFR is 46. Glucose 136. Magnesium is 1.9. AST is 44, ALT 117, alkaline phosphatase 86. CRP 16.1. Albumin is very low at 1.9. Echocardiogram results were discussed with patient: 1. The EF by visual estimation is 60-65%. 2. Normal left ventricular systolic function. 3. Impaired relaxation (Grade 1) pattern of LV diastolic filling. 4. Right normal right ventricular size, wall thickness, and systolic function. 5. There is mild aortic valve sclerosis without stenosis. 6. Mild mitral valve regurgitation. 7. Mild to moderate aortic valve regurgitation. 8. Trace tricuspid valve regurgitation. 9. No regional wall motion abnormalities. Plan will be for discharge tomorrow pending continued stability/improvement. 01/22/2021 70-year-old male admitted on 01-18-2021 due to dyspnea and chest pain at margin of left lower rib. Unfortunately he required 5 L of oxygen overnight. ABG this morning shows respiratory alkalosis. He reports an acute dyspneic spell when he attempts to ambulate. Chest x-ray was obtained and shows bilateral infiltrates which are stable. WBC today is 10.24. Hemoglobin 12.1. Platelet 445,000. Sodium 141. Potassium 4.1. Chloride 104. Carbon dioxide 27. Anion gap is 14.1. BUN is 29. Creatinine 1.5. GFR 46. Glucose is 161. Magnesium of 2.0. AST is 50, ALT 129, alkaline phosphatase 82. CRP is 21.5. Albumin 2.0. Overall his lungs sound about the same as yesterday with no wheezing noted. It is not felt a steroid would help him much at this point. There is no signs of any pleural effusions or pulmonary edema. We will continue current treatment plan. Hopeful for discharge in next 1 to 2 days pending improvement. We hyacinth mmend follow-up with pulmonology after discharge. 01/23/2021 This is a 70-year-old male who presented to ED with shortness of breath and was admitted for bilateral pneumonia. Patient has been receiving Levaquin every 48 hours due to renal function. He remains on 5 L. They attempted to wean him last night and is saturations reportedly dropped into the 70s to 80s on 4 L. He remained stable on 5 L and states that he only feels dyspneic when he gets up to ambulate. Reports a dry cough and states that his nights are worse than his days. He does report some congestion and we have added Mucinex. Given his continued duration of symptoms and history of Covid pneumonia we have restarted dexamethasone 6 mg. We will continue this for short course and monitor his symptoms. RT has started EZ Pap as well. Today WBC has increased slightly to 11.45. Platelets are 443,000. Hemoglobin is 11.4. Blood smear does show some rare banded neutrophils and slight toxic granulation. Sodium is 140. Potassium 4.0. Chloride 104. Carbon oxide 25. Anion gap is 15.0. BUN is 31. Creatinine 1.4. GFR 50. Glucose 152. Calcium 9.5. Magnesium 2.0. CRP is down to 19.3. Given restarting of steroid we will anticipate a rise in his blood glucose levels and we may have to increase his long-acting insulin. Suspect symptoms are due to bacterial pneumonia and continued Covid related illness. 01/24/2021 70-year-old male who presented to ED on 01/18/2021 with shortness of breath, cough, and diaphoresis. He was also admitted for bilateral pneumonia. Continuing Levaquin every 48 hours. He is now up to 6 L by nasal cannula. He has been having coughing fits occasionally and since starting the Mucinex reports that he has been producing sputum. Clinically he looks good sitting in bed, even with saturations in the 80s, and he denies any shortness of breath unless he is ambulating. He has been having coughing fits overnight which lead to acute episodes of desaturations into the 70s and even as low as the 60s. He has been receiving albuterol and scheduled duo nebs. He was started on 6mg of dexamethasone yesterday. WBC today is elevated at 14.81, which is likely due to steroid. Hemoglobin is 11.8. Platelets are 498,000. Sodium is 138. Potassium 4.7. Chloride 102. Carbon dioxide 24. Anion gap is 16.7. BUN is 40. Creatinine 1.5. GFR is 46. Glucose has been in the 2 to upper 300s now since starting steroids and we will increase his sliding scale to high dose. Should he continue to have elevated readings we will increase his long-acting insulin as well. Magnesium today was 2.3. CRP is stable to mildly increased at 20.2. Given his worsening oxygen saturations Dr. Joe, on-call seafood team member with [facility] in [place] was contacted via 1 call. He recommends starting patient on 3 times daily CPAP at 8-10 and rechecking a BNP today. He states if BNP is still elevated patient may need to be diuresed. He also recommends continuing dexamethasone at 6 mg. He states if no improvement after 1 to 2 days we should contact them for possible transfer. Discussed plan with patient who is in agreement. He reiterates that he does not want transfer unless absolutely necessary. Unknown length of stay at this time. Daughter was in room at bedside and was updated on patient at patients request. All questions were answered. 01/25/2021 This is a 70-year-old male presented to ED with shortness of breath, cough, and diaphoresis after Covid infection. He was found to have bilateral pneumonia and treatment was initiated for hospital-acquired pneumonia. We will continue Levaquin every 48 hours for a total of 10 days of abx treatment. He has been wearing his CPAP occasionally with saturations noted to be in the mid to upper 90s when wearing this. We will continue 6 mg dexamethasone. Chest x-ray is obtained today and is stable with no obvious improvement or worsening. Labs today show WBC of 15.35. Hemoglobin is 11.3. Platelet 529,000. Sodium 136. Potassium 4.2. Chloride 102. Carbon oxide 23. Anion gap is 15.2. BUN is 49. Creatinine 1.4. GFR 50. Blood glucose 177. CRP down to 11.1 his long-acting insulin was increased to 100 units daily yesterday as his sugars have been in the mid 200s to mid 300s. We will continue current treatment plan. He states he continues to have occasional coughing fits and dyspnea on exertion but denies any dyspnea while sitting. Overall states he feels okay. Long meeting with patient and daughter yesterday explaining treatment choices. Daughter has been doing research on the Internet and was hoping for patient to be started on ivermectin. Explained to patient how we do not give that it is not recommended currently. Unknown discharge plan as patient remained stable but minimal improvement. 01/26/2021 The patient is a 70-year-old gentleman who has very slow improvement in his post Covid pneumonia. The patient will continue on oxygen as well as CPAP in order to maintain his oxygen saturations around 92%. Currently the patient is still on Levaquin and dexamethasone as well as breathing treatments to help maintain his oxygen saturations. The patient will likely need to have a CPAP device at home once he is improved sufficiently to go home. The patient has been encouraged to ambulate. We will continue with DVT prophylaxis as the patient has home dose of Eliquis. The patient also will be maintained on diabetic diet as tolerated as well as insulin sliding scale. The patient should be appropriate for discharge once his oxygen saturations have been maintained on at least 2 to 3 L and attempts to wean him down have ordered. PT OT is also been ordered. - Plan Plan:: I have seen and examined the patient independently of Wilder Vera PA-C, and have reviewed the case with him. I have reviewed and agree with the plan and care as outlined by him. Please see orders.
[2021-01-26] MEDS: Insulin Lispro 100 UNIT/ML 10 ML Vial SUBCUT SCH ×4 (08:24→21:43)
[2021-01-26] MEDS: Apixaban 5 MG Tab PO SCH ×2 (08:25→21:04)
[2021-01-26] MEDS: Pantoprazole 40 MG Tab.CR PO SCH (08:25)
[2021-01-26] MEDS: Insulin Glarg,Human.Rec.Analog 100 Unit/ML SUBCUT SCH (08:25)
[2021-01-26] MEDS: guaiFENesin 600 MG Tab.ER PO SCH ×2 (08:25→21:04)
[2021-01-26] MEDS: Metoprolol Tartrate 25 MG Tab PO SCH ×2 (08:25→21:04)
[2021-01-26] MEDS: Aspirin 81 MG Tab.Chew PO SCH (08:27)
[2021-01-26] MEDS: Dexamethasone 4 MG Tab PO SCH (08:27)
[2021-01-26] MEDS: Fish Oil/Omega-3 Fatty Acids 1 Gm Cap PO SCH (08:28)
[2021-01-26] MEDS: Formoterol/Mometasone 100-5 MCG 8.8 GM Inhaler IH SCH ×2 (08:59→20:26)
[2021-01-26] MEDS: Levofloxacin/Dextrose 5%-Water 750 MG in Premix Bag 1 BAG IV SCH (11:51)
[2021-01-26] MEDS: atorvaSTATin 20 MG Tab PO SCH (21:04)
[2021-01-27] MEDS: Albuterol/Ipratropium 3.0-0.5 MG/3 ML Neb Soln NEB SCH ×4 (06:03→20:25)
[2021-01-27] MEDS: Insulin Lispro 100 UNIT/ML 10 ML Vial SUBCUT SCH ×4 (07:53→21:13)
--- NOTE | 2021-01-27 08:12 | PCM.PN ---
- General Info Date of Service: 01/27/21 Admission Dx/Problem (Free Text): COVID-19 chronic pulmonary disease Subjective Update: The patient is a 70-year-old gentleman who has been hospitalized since January 18, 2021 due to COVID-19 pulmonary issues. Patient has still required high flow oxygen and has been using CPAP more often and the patient says that he is doing better. The patient has denied any shortness of breath except when he gets up and walks around and he will quickly desaturate down into the mid 70s. He has been tolerating his diet. He has no other complaints today. He has denied any pain. While at rest the patient says that he feels comfortable. Functional Status: Reports: Pain Controlled, Tolerating Diet - Review of Systems General: Reports: No Symptoms HEENT: Reports: No Symptoms Pulmonary: Reports: Shortness of Breath Cardiovascular: Reports: No Symptoms Gastrointestinal: Reports: No Symptoms Genitourinary: Reports: No Symptoms Musculoskeletal: Reports: No Symptoms Skin: Reports: No Symptoms Neurological: Reports: No Symptoms Psychiatric: Reports: No Symptoms - Patient Data Vitals - Most Recent: Last Vital Signs Temp 36.5 C 01/27/21 04:10 Pulse 74 01/27/21 04:10 Resp 22 H 01/27/21 04:10 BP 117/90 01/27/21 04:10 Pulse Ox 98 01/27/21 06:03 Weight - Most Recent: 82.1 kg I&O - Last 24 Hours: Intake & Output 01/26/21 01/27/21 01/27/21 22:59 06:59 14:59 Intake Total 1750 800 Output Total 900 1200 Balance 850 -400 Lab Results Last 24 Hours: Laboratory Results - last 24 hr 01/26/21 01/26/21 01/26/21 Range/Units 11:15 17:06 21:07 WBC (4.23-9.07) K/mm3 RBC (4.63-6.08) M/mm3 Hgb (13.7-17.5) gm/dl Hct (40.1-51.0) % MCV (79.0-92.2) fl MCH (25.7-32.2) pg MCHC (32.2-35.5) g/dl RDW Std Deviation (35.1-43.9) fL Plt Count (163-337) K/mm3 MPV (9.4-12.3) fl Neut % (Auto) (34.0-67.9) % Lymph % (Auto) (21.8-53.1) % [place] % (Auto) (5.3-12.2) % Eos % (Auto) (0.8-7.0) Baso % (Auto) (0.1-1.2) % Neut # (Auto) (1.78-5.38) K/mm3 Lymph # (Auto) (1.32-3.57) K/mm3 [place] # (Auto) (0.30-0.82) K/mm3 Eos # (Auto) (0.04-0.54) K/mm3 Baso # (Auto) (0.01-0.08) K/mm3 Manual Slide Review Sodium (136-145) mEq/L Potassium (3.5-5.1) mEq/L Chloride (98-107) mEq/L Carbon Dioxide (21-32) mEq/L Anion Gap (5-15) BUN (7-18) mg/dL Creatinine (0.7-1.3) mg/dL Est Cr Clr Drug Dosing mL/min Estimated GFR (MDRD) (>60) mL/min BUN/Creatinine Ratio (14-18) Glucose (70-99) mg/dL POC Glucose 243 H 278 H 346 H (70-99) mg/dL Calcium (8.5-10.1) mg/dL Magnesium (1.8-2.4) mg/dL C-Reactive Protein (<1.0) mg/dL 01/27/21 01/27/21 01/27/21 Range/Units 05:15 05:15 06:37 WBC 15.93 H (4.23-9.07) K/mm3 RBC 3.88 L (4.63-6.08) M/mm3 Hgb 11.5 L (13.7-17.5) gm/dl Hct 35.1 L (40.1-51.0) % MCV 90.5 (79.0-92.2) fl MCH 29.6 (25.7-32.2) pg MCHC 32.8 (32.2-35.5) g/dl RDW Std Deviation 41.8 (35.1-43.9) fL Plt Count 498 H (163-337) K/mm3 MPV 9.1 L (9.4-12.3) fl Neut % (Auto) 77.2 H (34.0-67.9) % Lymph % (Auto) 12.4 L (21.8-53.1) % [place] % (Auto) 5.8 (5.3-12.2) % Eos % (Auto) 0.8 (0.8-7.0) Baso % (Auto) 0.3 (0.1-1.2) % Neut # (Auto) 12.31 H (1.78-5.38) K/mm3 Lymph # (Auto) 1.98 (1.32-3.57) K/mm3 [place] # (Auto) 0.92 H (0.30-0.82) K/mm3 Eos # (Auto) 0.12 (0.04-0.54) K/mm3 Baso # (Auto) 0.05 (0.01-0.08) K/mm3 Manual Slide Review Abnormal smear Sodium 140 (136-145) mEq/L Potassium 4.0 (3.5-5.1) mEq/L Chloride 105 (98-107) mEq/L Carbon Dioxide 26 (21-32) mEq/L Anion Gap 13.0 (5-15) BUN 41 H (7-18) mg/dL Creatinine 1.3 (0.7-1.3) mg/dL Est Cr Clr Drug Dosing 52.87 mL/min Estimated GFR (MDRD) 55 (>60) mL/min BUN/Creatinine Ratio 31.5 H (14-18) Glucose 157 H (70-99) mg/dL POC Glucose 125 H (70-99) mg/dL Calcium 9.3 (8.5-10.1) mg/dL Magnesium 2.0 (1.8-2.4) mg/dL C-Reactive Protein 3.4 H* (<1.0) mg/dL Med Orders - Current: Current Medications Acetaminophen (Acetaminophen 325 Mg Tab) 650 mg PO Q4H PRN PRN Reason: Pain (Mild 1-3)/fever Last Admin: 01/23/21 03:29 Dose: 650 mg Documented by: Albuterol (Albuterol 0.083% 2.5 Mg/3 Ml Neb Soln) 2.5 mg NEB Q2H PRN PRN Reason: Shortness Of Breath/wheezing Last Admin: 01/24/21 06:16 Dose: 2.5 mg Documented by: Albuterol/Ipratropium (Albuterol/Ipratropium 3.0-0.5 Mg/3 Ml Neb Soln) 3 ml NEB QIDRT [facility] Last Admin: 01/27/21 06:03 Dose: 3 ml Documented by: Apixaban (Apixaban 5 Mg Tab) 5 mg PO BID [facility] Last Admin: 01/26/21 21:04 Dose: 5 mg Documented by: Aspirin (Aspirin 81 Mg Tab.Chew) 81 mg PO DAILY [facility] Last Admin: 01/26/21 08:27 Dose: 81 mg Documented by: Atorvastatin Calcium (Atorvastatin 20 Mg Tab) 20 mg PO BEDTIME [facility] Last Admin: 01/26/21 21:04 Dose: 20 mg Documented by: Benzonatate (Benzonatate 100 Mg Cap) 100 mg PO TID PRN PRN Reason: Cough Dexamethasone (Dexamethasone 4 Mg Tab) 6 mg PO DAILY [facility] Last Admin: 01/26/21 08:27 Dose: 6 mg Documented by: Dextrose/Water (50% Dextrose In Water 50 Ml Syringe) 50 ml IVPUSH ASDIRECTED PRN PRN Reason: Hypoglycemia Docusate Sodium (Docusate Sodium 100 Mg Cap) 100 mg PO Q12H PRN PRN Reason: Constipation Fish Oil (Fish Oil/[place]-3 Fatty Acids 1 Gm Cap) 2 gm PO DAILY [facility] Last Admin: 01/26/21 08:28 Dose: 2 gm Documented by: Guaifenesin (Guaifenesin 600 Mg Tab.Er) 1,200 mg PO BID [facility] Last Admin: 01/26/21 21:04 Dose: 1,200 mg Documented by: Insulin Glargine (Insulin Glarg,Human.Rec.Analog 100 Unit/Ml) 100 unit SUBCUT DAILY [facility] Last Admin: 01/26/21 08:25 Dose: 100 units Documented by: Insulin Human Lispro (Insulin Lispro 100 Unit/Ml 10 Ml Vial) 0 unit SUBCUT QIDACANDBED [facility]; Protocol Last Admin: 01/27/21 07:53 Dose: Not Given Documented by: Magnesium Hydroxide (Magnesium Hydroxide 400 Mg/5 Ml Susp 30 Ml Cup) 30 ml PO Q12H PRN PRN Reason: Constipation Metoprolol Tartrate (Metoprolol Tartrate 25 Mg Tab) 12.5 mg PO BID [facility] Last Admin: 01/26/21 21:04 Dose: 12.5 mg Documented by: Metoprolol Tartrate (Metoprolol Tartrate 5 Mg/5 Ml Sdv) 5 mg IVPUSH Q4H PRN PRN Reason: Tachycardia Mometasone Furoate/Formoterol Fumar (Formoterol/Mometasone 100-5 Mcg 8.8 Gm Inhaler) 2 puff IH BID [facility] Last Admin: 01/26/21 20:26 Dose: 2 puff Documented by: Ondansetron HCl (Ondansetron 4 Mg/2 Ml Sdv) 4 mg IV Q6H PRN PRN Reason: Nausea/Vomiting Pantoprazole Sodium (Pantoprazole 40 Mg Tab.Cr) 40 mg PO DAILY [facility] Last Admin: 01/26/21 08:25 Dose: 40 mg Documented by: Discontinued Medications Albuterol/Ipratropium (Albuterol/Ipratropium 3.0-0.5 Mg/3 Ml Neb Soln) 3 ml NEB ONETIME ONE Stop: 01/18/21 09:01 Last Admin: 01/18/21 09:20 Dose: 3 ml Documented by: Furosemide (Furosemide 40 Mg/4 Ml Vial) 40 mg IVPUSH NOW ONE Stop: 01/19/21 18:05 Last Admin: 01/19/21 18:20 Dose: 40 mg Documented by: Furosemide (Furosemide 20 Mg/2 Ml Vial) 20 mg IVPUSH ONETIME ONE Stop: 01/20/21 10:41 Last Admin: 01/20/21 11:44 Dose: 20 mg Documented by: Sodium Chloride (Normal Saline) 1,000 mls @ 150 mls/hr IV ASDIRECTED [facility] Last Infusion: 01/18/21 14:15 Dose: Infused Documented by: Sodium Chloride (Normal Saline) 100 mls @ 75 mls/hr IV ASDIRECTED [facility] Last Admin: 01/18/21 10:02 Dose: 75 mls/hr Documented by: Ceftriaxone Sodium 2 gm/ (Sodium Chloride) 100 mls @ 200 mls/hr IV ONETIME ONE Stop: 01/18/21 10:31 Last Admin: 01/18/21 10:31 Dose: 200 mls/hr Documented by: Sodium Chloride (Normal Saline) 250 mls @ 999 mls/hr IV .BOLUS ONE Stop: 01/18/21 11:58 Last Admin: 01/18/21 13:01 Dose: Not Given Documented by: Sodium Chloride (Normal Saline) 1,000 mls @ 75 mls/hr IV ASDIRECTED [facility] Last Admin: 01/18/21 20:04 Dose: 75 mls/hr Documented by: Piperacillin Sod/Tazobactam (Sod 4.5 gm/ Sodium Chloride) 100 mls @ 25 mls/hr IV Q8H [facility] Last Admin: 01/19/21 05:02 Dose: 25 mls/hr Documented by: Piperacillin Sod/Tazobactam (Sod 4.5 gm/ Sodium Chloride) 100 mls @ 200 mls/hr IV ONETIME ONE Stop: 01/18/21 13:29 Last Admin: 01/18/21 13:27 Dose: 200 mls/hr Documented by: Vancomycin HCl 1.75 gm/ Sodium (Chloride) 500 mls @ 250 mls/hr IV ONETIME ONE Stop: 01/18/21 15:29 Last Admin: 01/18/21 14:11 Dose: 250 mls/hr Documented by: Vancomycin HCl 1 gm/Vancomycin HCl 500 mg/ Sodium Chloride 500 mls @ 250 mls/hr IV Q18H ONE Stop: 01/19/21 09:59 Last Admin: 01/19/21 09:03 Dose: 250 mls/hr Documented by: Levofloxacin/Dextrose 750 mg/ (Premix) 150 mls @ 100 mls/hr IV Q48H [facility] Last Admin: 01/19/21 12:02 Dose: 100 mls/hr Documented by: Levofloxacin/Dextrose 750 mg/ (Premix) 150 mls @ 100 mls/hr IV Q24H [facility] Last Admin: 01/20/21 11:44 Dose: 100 mls/hr Documented by: Magnesium Sulfate/Dextrose 1 (gm/ Premix) 100 mls @ 100 mls/hr IV Q1H [facility] Stop: 01/20/21 09:44 Last Admin: 01/20/21 10:18 Dose: 100 mls/hr Documented by: Levofloxacin/Dextrose 750 mg/ (Premix) 150 mls @ 100 mls/hr IV Q48H [facility] Stop: 01/26/21 15:00 Last Admin: 01/26/21 11:51 Dose: 100 mls/hr Documented by: Insulin Glargine (Insulin Glarg,Human.Rec.Analog 100 Unit/Ml) 85 unit SUBCUT DAILY [facility] Insulin Glargine (Insulin Glarg,Human.Rec.Analog 100 Unit/Ml) 50 unit SUBCUT ONETIME ONE Stop: 01/18/21 12:31 Last Admin: 01/18/21 12:57 Dose: 50 units Documented by: Insulin Glargine (Insulin Glarg,Human.Rec.Analog 100 Unit/Ml) 90 unit SUBCUT DAILY [facility] Last Admin: 01/24/21 08:44 Dose: 90 units Documented by: Insulin Glargine (Insulin Glarg,Human.Rec.Analog 100 Unit/Ml) 5 unit SUBCUT ON ETIME ONE Stop: 01/18/21 21:42 Last Admin: 01/18/21 21:59 Dose: 5 units Documented by: Insulin Human Lispro (Insulin Lispro 100 Unit/Ml 10 Ml Vial) 5 unit SUBCUT ONETIME ONE Stop: 01/18/21 10:44 Last Admin: 01/18/21 10:59 Dose: 5 unit Documented by: Insulin Human Lispro (Insulin Lispro 100 Unit/Ml 10 Ml Vial) 0 unit SUBCUT QIDACANDBED [facility]; Protocol Last Admin: 01/18/21 17:17 Dose: 3 units Documented by: Insulin Human Lispro (Insulin Lispro 100 Unit/Ml 10 Ml Vial) 8 unit SUBCUT O NETIME ONE Stop: 01/24/21 15:01 Last Admin: 01/24/21 14:47 Dose: 8 units Documented by: Iopamidol (Iopamidol 755 Mg/Ml 100 Ml Bottle) 100 ml IVPUSH ONETIME ONE Stop: 01/18/21 09:43 Last Admin: 01/18/21 10:02 Dose: 100 ml Documented by: Methylprednisolone Sodium Succinate (Methylprednisolone Sodium Succinate 125 Mg/2 Ml Sdv) 125 mg IVPUSH ONETIME ONE Stop: 01/18/21 09:01 Last Admin: 01/18/21 09:08 Dose: 125 mg Documented by: Sodium Chloride (Sodium Chloride 0.9% 10 Ml Syringe) 10 ml FLUSH ONETIME PRN PRN Reason: IV FLUSH Last Admin: 01/18/21 10:02 Dose: 10 ml Documented by: Vancomycin HCl (Pharmacy To Dose - Vancomycin) 1 dose .XX ASDIRECTED PRN PRN Reason: RX TO DOSE VANCO - Exam Quality Assessment: Supplemental Oxygen, DVT Prophylaxis General: Alert, Oriented, Cooperative, No Acute Distress HEENT: Pupils Equal, Pupils Reactive, EOMI, Mucous Membr. Moist/[place] Neck: Supple, Trachea Midline Lungs: Decreased Breath Sounds, Crackles Cardiovascular: Regular Rate, Regular Rhythm GI/Abdominal Exam: Normal Bowel Sounds, Soft, Non-Tender, No Distention (Male) Exam: Deferred Back Exam: Normal Inspection, Full Range of Motion Extremities: Normal Inspection, No Pedal Edema Skin: Warm, Dry, Intact Neurological: No New Focal Deficit Psy/Mental Status: Alert, Normal Affect, Normal Mood - Patient Data Lab Results Last 24 hrs: Laboratory Results - last 24 hr 01/26/21 01/26/21 01/26/21 Range/Units 11:15 17:06 21:07 WBC (4.23-9.07) K/mm3 RBC (4.63-6.08) M/mm3 Hgb (13.7-17.5) gm/dl Hct (40.1-51.0) % MCV (79.0-92.2) fl MCH (25.7-32.2) pg MCHC (32.2-35.5) g/dl RDW Std Deviation (35.1-43.9) fL Plt Count (163-337) K/mm3 MPV (9.4-12.3) fl Neut % (Auto) (34.0-67.9) % Lymph % (Auto) (21.8-53.1) % [place] % (Auto) (5.3-12.2) % Eos % (Auto) (0.8-7.0) Baso % (Auto) (0.1-1.2) % Neut # (Auto) (1.78-5.38) K/mm3 Lymph # (Auto) (1.32-3.57) K/mm3 [place] # (Auto) (0.30-0.82) K/mm3 Eos # (Auto) (0.04-0.54) K/mm3 Baso # (Auto) (0.01-0.08) K/mm3 Manual Slide Review Sodium (136-145) mEq/L Potassium (3.5-5.1) mEq/L Chloride (98-107) mEq/L Carbon Dioxide (21-32) mEq/L Anion Gap (5-15) BUN (7-18) mg/dL Creatinine (0.7-1.3) mg/dL Est Cr Clr Drug Dosing mL/min Estimated GFR (MDRD) (>60) mL/min BUN/Creatinine Ratio (14-18) Glucose (70-99) mg/dL POC Glucose 243 H 278 H 346 H (70-99) mg/dL Calcium (8.5-10.1) mg/dL Magnesium (1.8-2.4) mg/dL C-Reactive Protein (<1.0) mg/dL 01/27/21 01/27/21 01/27/21 Range/Units 05:15 05:15 06:37 WBC 15.93 H (4.23-9.07) K/mm3 RBC 3.88 L (4.63-6.08) M/mm3 Hgb 11.5 L (13.7-17.5) gm/dl Hct 35.1 L (40.1-51.0) % MCV 90.5 (79.0-92.2) fl MCH 29.6 (25.7-32.2) pg MCHC 32.8 (32.2-35.5) g/dl RDW Std Deviation 41.8 (35.1-43.9) fL Plt Count 498 H (163-337) K/mm3 MPV 9.1 L (9.4-12.3) fl Neut % (Auto) 77.2 H (34.0-67.9) % Lymph % (Auto) 12.4 L (21.8-53.1) % [place] % (Auto) 5.8 (5.3-12.2) % Eos % (Auto) 0.8 (0.8-7.0) Baso % (Auto) 0.3 (0.1-1.2) % Neut # (Auto) 12.31 H (1.78-5.38) K/mm3 Lymph # (Auto) 1.98 (1.32-3.57) K/mm3 [place] # (Auto) 0.92 H (0.30-0.82) K/mm3 Eos # (Auto) 0.12 (0.04-0.54) K/mm3 Baso # (Auto) 0.05 (0.01-0.08) K/mm3 Manual Slide Review Abnormal smear Sodium 140 (136-145) mEq/L Potassium 4.0 (3.5-5.1) mEq/L Chloride 105 (98-107) mEq/L Carbon Dioxide 26 (21-32) mEq/L Anion Gap 13.0 (5-15) BUN 41 H (7-18) mg/dL Creatinine 1.3 (0.7-1.3) mg/dL Est Cr Clr Drug Dosing 52.87 mL/min Estimated GFR (MDRD) 55 (>60) mL/min BUN/Creatinine Ratio 31.5 H (14-18) Glucose 157 H (70-99) mg/dL POC Glucose 125 H (70-99) mg/dL Calcium 9.3 (8.5-10.1) mg/dL Magnesium 2.0 (1.8-2.4) mg/dL C-Reactive Protein 3.4 H* (<1.0) mg/dL Result Diagrams: 01/27/21 05:15 01/27/21 05:15 Sepsis Event Note - Evaluation Sepsis Screening Result: No Definite Risk - Focused Exam Vital Signs: Vital Signs Temp Pulse Resp BP Pulse Ox Pulse Ox Pulse Ox 01/27/21 06:03 98 01/27/21 04:10 36.5 C 74 22 H 117/90 92 L 01/27/21 00:54 70 20 115/70 96 01/26/21 21:04 73 114/72 01/26/21 21:03 36.5 C 73 20 114/72 93 L 01/26/21 20:28 96 - Problem List & Annotations (1) Acute respiratory failure SNOMED Code(s): 06101014 Code(s): J96.00 - ACUTE RESPIRATORY FAILURE, UNSP W HYPOXIA OR HYPERCAPNIA Status: Acute Priority: High Current Visit: Yes Qualifiers: Respiratory failure complication: hypoxia Qualified Code(s): J96.01 - Acute respiratory failure with hypoxia (2) Pneumonia SNOMED Code(s): 678824700 Code(s): J18.9 - PNEUMONIA, UNSPECIFIED ORGANISM Status: Resolved Priority: High Current Visit: Yes Qualifiers: Pneumonia type: due to unspecified organism Laterality: bilateral Lung location: unspecified part of lung Qualified Code(s): J18.9 - Pneumonia, unspecified organism (3) COVID-19 judy rockwell SNOMED Code(s): 7615575522 Code(s): B94.8 - SEQUELAE OF OTH INFECTIOUS AND PARASITIC DISEASES Status: Chronic Priority: High Current Visit: Yes - Problem List Review Problem List Initiated/Reviewed/Updated: Yes - Assessment Assessment:: Assessment - day of admission 01/18/2021 * This is a 70-year-old male who presents to ED on 01/18/2021 with dyspnea and left-sided chest pain along his ribs. * He carries a history of A. fib, prior Covid infection, type II DM, and chronic kidney disease. * Diagnosed with Covid on December 11, transferred to [facility] and hospitalized for 13 days. * He was released on 01-02-2021 on 2 L of home oxygen. * Reports dyspnea with accompanying chills, diaphoresis, and a cough. * In the ED twelve-lead EKG is obtained showing a sinus tachycardia at 119 bpm. * Labs obtained in ED: * WBC 10.56. * Hemoglobin is 12.7. * He is normocytic. * Platelets are elevated at 409,000. * Neutrophils are elevated 72.3%. * D-dimer is elevated at 5.12. * Sodium is 137. * Potassium 4.3. * Chloride 101. * Carbon dioxide 20. * Anion gap is 20.3. * BUN is 32. Creatinine 1.7. GFR is 40. * Glucose is 204. * Total bilirubin 0.5. * AST is 38, ALT 46, alkaline phosphatase 80. * Troponin 0 0.074. * CRP is 41.4. * Albumin is 2.4. * Lactic acid is 1.2. * proBNP is 1666. * ABG obtained in the left radial with a pH of 7.41. PCO2 of 25.4. PO2 of 62.0. HCO3 of 15.2. O2 saturation of 92.4. Base excess is -6.8. AA gradient is 135. This is obtained while on 3 L via nasal cannula. * Chest x-ray shows prominent increase in density on both sides the chest raising the possibility diffuse pneumonia. Please correlate if patient has Covid disease. No other acute abnormality is seen. * CTA is obtained showing diffuse increased density on both sides the chest compatible with diffuse pneumonia. Vague areas of poor enhancement within the main pulmonary arteries on both sides. This is most likely artifact. No definitive findings of pulmonary embolism are seen. Incidental degenerative change within the spine is also noted. * Patient is given 1 DuoNeb and started on Rocephin and IV fluids. He is given 125 mg Solu-Medrol and 5 units of lispro insulin. * He subsequently admitted to the medical floor on telemetry for management of his bilateral pneumonia. 01/19/2021 This is a 70-year-old male who presents to ED on 01/18/2021 with dyspnea and le ft-sided chest pain along his ribs. He was diagnosed with Covid on December 11 and transferred to [facility] where he was hospitalized for 13 days. He was released on 01-02-2021 on 2 L of home oxygen. Reports he has been doing good up until the last couple of days, in which she has noticed he has been more dyspneic and had accompanying chills, diaphoresis, and a cough. He feeling better. Denies fever, chills, nausea or vomiting. But he still complains of rib cage pain when he is coughing. He is on 4 to 5 L WBC 11.6, hemoglobin 13.8 D-dimer 5.12 Creatinine 1.5 01/20/2021 This is a 70-year-old male who presents to ED on 01/18/2021 with dyspnea and left-sided chest pain along his ribs. He was diagnosed with Covid on December 11 and transferred to [facility] where he was hospitalized for 13 days. He was released on 01-02-2021 on 2 L of home oxygen. Reports he has been doing good up until the last couple of days, in which she has noticed he has been more dyspn eic and had accompanying chills, diaphoresis, and a cough. He is feeling much better, less SOB. Denies fever, chills, nausea or vomiting. He is now on 4L Potassium 3.9, creatinine 1.4 Mag 1.8 AST 75, ALT 144 CRP 14.5 01/21/2021 70-year-old male who presented to ED on 01/18/2021 with chest pain and dyspnea. He is oxygen dependent however he has been requiring 4 L, which is increased from his baseline 2 L. Today he reports that he is feeling better. He was r eportedly on 3 L of oxygen through the night however this morning he had a coughing episode and was requiring 4 L. He has been ambulating around the room independently. PT and OT have seen him and are recommending home independent. He currently has no concerns. He is on Levaquin for bilateral pneumonia. White count today is 9.58. Hemoglobin 11.6. Platelet 443,000. Blood smear shows a few band neutrophils present. Anion gap is elevated at 17.6. BUN is 31. Creatinine 1.5. GFR is 46. Glucose 136. Magnesium is 1.9. AST is 44, ALT 117, alkaline phosphatase 86. CRP 16.1. Albumin is very low at 1.9. Echocardiogram results were discussed with patient: 1. The EF by visual estimation is 60-65%. 2. Normal left ventricular systolic function. 3. Impaired relaxation (Grade 1) pattern of LV diastolic filling. 4. Right normal right ventricular size, wall thickness, and systolic function. 5. There is mild aortic valve sclerosis without stenosis. 6. Mild mitral valve regurgitation. 7. Mild to moderate aortic valve regurgitation. 8. Trace tricuspid valve regurgitation. 9. No regional wall motion abnormalities. Plan will be for discharge tomorrow pending continued stability/improvement. 01/22/2021 70-year-old male admitted on 01-18-2021 due to dyspnea and chest pain at margin of left lower rib. Unfortunately he required 5 L of oxygen overnight. ABG this morning shows respiratory alkalosis. He reports an acute dyspneic spell when he attempts to ambulate. Chest x-ray was obtained and shows bilateral infiltrates which are stable. WBC today is 10.24. Hemoglobin 12.1. Platelet 445,000. Sodium 141. Potassium 4.1. Chloride 104. Carbon dioxide 27. Anion gap is 14.1. BUN is 29. Creatinine 1.5. GFR 46. Glucose is 161. Magnesium of 2.0. AST is 50, ALT 129, alkaline phosphatase 82. CRP is 21.5. Albumin 2.0. Overall his lungs sound about the same as yesterday with no wheezing noted. It is not felt a steroid would help him much at this point. There is no signs of any pleural effusions or pulmonary edema. We will continue current treatment plan. Hopeful for discharge in next 1 to 2 days pending improvement. We recommend follow-up with pulmonology after discharge. 01/23/2021 This is a 70-year-old male who presented to ED with shortness of breath and was admitted for bilateral pneumonia. Patient has been receiving Levaquin every 48 hours due to renal function. He remains on 5 L. They attempted to wean him last night and is saturations reportedly dropped into the 70s to 80s on 4 L. He remained stable on 5 L and states that he only feels dyspneic when he gets up to ambulate. Reports a dry cough and states that his nights are worse than his days. He does report some congestion and we have added Mucinex. Given his continued duration of symptoms and history of Covid pneumonia we have restarted dexamethasone 6 mg. We will continue this for short course and monitor his symptoms. RT has started EZ Pap as well. Today WBC has increased slightly to 11.45. Platelets are 443,000. Hemoglobin is 11.4. Blood smear does show some rare banded neutrophils and slight toxic granulation. Sodium is 140. Potassium 4.0. Chloride 104. Carbon oxide 25. Anion gap is 15.0. BUN is 31. Creatinine 1.4. GFR 50. Glucose 152. Calcium 9.5. Magnesium 2.0. CRP is d own to 19.3. Given restarting of steroid we will anticipate a rise in his blood glucose levels and we may have to increase his long-acting insulin. Suspect symptoms are due to bacterial pneumonia and continued Covid related illness. 01/24/2021 70-year-old male who presented to ED on 01/18/2021 with shortness of breath, cough, and diaphoresis. He was also admitted for bilateral pneumonia. Continuing Levaquin every 48 hours. He is now up to 6 L by nasal cannula. He has been having coughing fits occasionally and since starting the Mucinex reports that he has been producing sputum. Clinically he looks good sitting in bed, even with saturations in the 80s, and he denies any shortness of breath unless he is ambulating. He has been having coughing fits overnight which lead to acute episodes of desaturations into the 70s and even as low as the 60s. He has been receiving albuterol and scheduled duo nebs. He was started on 6mg of dexamethasone yesterday. WBC today is elevated at 14.81, which is likely due to steroid. Hemoglobin is 11.8. Platelets are 498,000. Sodium is 138. Potassium 4.7. Chloride 102. Carbon dioxide 24. Anion gap is 16.7. BUN is 40. Creatinine 1.5. GFR is 46. Glucose has been in the 2 to upper 300s now since starting steroids and we will increase his sliding scale to high dose. Should he continue to have elevated readings we will increase his long-acting insulin as well. Magnesium today was 2.3. CRP is stable to mildly increased at 20.2. Given his worsening oxygen saturations Dr. Joe, on-call [employer] operator with [facility] in [place] was contacted via 1 call. He recommends starting patient on 3 times daily CPAP at 8-10 and rechecking a BNP today. He states if BNP is still elevated patient may need to be diuresed. He also recommends continuing dexamethasone at 6 mg. He states if no improvement after 1 to 2 days we should contact them for possible transfer. Discussed plan with patient who is in agreement. He reiterates that he does not want transfer unless absolutely necessary. Unknown length of stay at this time. Daughter was in room at bedside and was updated on patient at patients request. All questions were answered. 01/25/2021 This is a 70-year-old male presented to ED with shortness of breath, cough, and diaphoresis after Covid infection. He was found to have bilateral pneumonia and treatment was initiated for hospital-acquired pneumonia. We will continue L evaquin every 48 hours for a total of 10 days of abx treatment. He has been wearing his CPAP occasionally with saturations noted to be in the mid to upper 90s when wearing this. We will continue 6 mg dexamethasone. Chest x-ray is obtained today and is stable with no obvious improvement or worsening. Labs today show WBC of 15.35. Hemoglobin is 11.3. Platelet 529,000. Sodium 136. Potassium 4.2. Chloride 102. Carbon oxide 23. Anion gap is 15.2. BUN is 49. Creatinine 1.4. GFR 50. Blood glucose 177. CRP down to 11.1 his long-acting insulin was increased to 100 units daily yesterday as his sugars have been in the mid 200s to mid 300s. We will continue current treatment plan. He states he continues to have occasional coughing fits and dyspnea on exertion but denies any dyspnea while sitting. Overall states he feels okay. Long meeting with patient and daughter yesterday explaining treatment choices. Daughter has been doing research on the Internet and was hoping for patient to be started on ivermectin. Explained to patient how we do not give that it is not recommended currently. Unknown discharge plan as patient remained stable but minimal improvement. 01/26/2021 The patient is a 70-year-old gentleman who has very slow improvement in his post Covid pneumonia. The patient will continue on oxygen as well as CPAP in order to maintain his oxygen saturations around 92%. Currently the patient is still on Levaquin and dexamethasone as well as breathing treatments to help maintain his oxygen saturations. The patient will likely need to have a CPAP device at home once he is improved sufficiently to go home. The patient has been encourag ed to ambulate. We will continue with DVT prophylaxis as the patient has home dose of Eliquis. The patient also will be maintained on diabetic diet as tolerated as well as insulin sliding scale. The patient should be appropriate for discharge once his oxygen saturations have been maintained on at least 2 to 3 L and attempts to wean him down have ordered. PT OT is also been ordered. 01/27/2021 The patient is a 70-year-old gentleman who is slow to improve. The patient had a CT scan taken 2 days ago which did not show any interval change. The patient has still been requiring high flow oxygen. He has been using the CPAP and this will continue. I have ordered discontinuation of the patient's antibiotics. The patient is also on DVT prophylaxis with his home dose of Eliquis. He is to have a diabetic diet as tolerated. Ambulate as necessary. I had a discussion with the patient regarding long-term care and the patient may need to be using high-dose oxygen while at home and CPAP as well. The patient is currently awaiting possible device. The patient should be appropriate for discharge as soon as device and oxygen have been set up. 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 The patient will continue on steroids as well as Dulera. Nebulizers as needed. Repeat laboratory studies have been ordered. - Plan Plan:: I have seen and examined the patient independently of Wilder Vera PA-C, and have reviewed the case with him. I have reviewed and agree with the plan and care as outlined by him. Please see orders.
[2021-01-27] MEDS: Formoterol/Mometasone 100-5 MCG 8.8 GM Inhaler IH SCH ×2 (09:15→20:25)
[2021-01-27] MEDS: Aspirin 81 MG Tab.Chew PO SCH (09:47)
[2021-01-27] MEDS: Apixaban 5 MG Tab PO SCH ×2 (09:47→20:49)
[2021-01-27] MEDS: Dexamethasone 4 MG Tab PO SCH (09:47)
[2021-01-27] MEDS: guaiFENesin 600 MG Tab.ER PO SCH ×2 (09:47→20:49)
[2021-01-27] MEDS: Metoprolol Tartrate 25 MG Tab PO SCH ×2 (09:47→20:48)
[2021-01-27] MEDS: Pantoprazole 40 MG Tab.CR PO SCH (09:47)
[2021-01-27] MEDS: Fish Oil/Omega-3 Fatty Acids 1 Gm Cap PO SCH (09:47)
[2021-01-27] MEDS: Insulin Glarg,Human.Rec.Analog 100 Unit/ML SUBCUT SCH (09:48)
[2021-01-27] MEDS: atorvaSTATin 20 MG Tab PO SCH (20:49)
[2021-01-28] MEDS: Albuterol/Ipratropium 3.0-0.5 MG/3 ML Neb Soln NEB SCH ×2 (06:38→09:09)
[2021-01-28] MEDS: Insulin Lispro 100 UNIT/ML 10 ML Vial SUBCUT SCH ×2 (07:04→12:00)
--- NOTE | 2021-01-28 07:26 | PCM.PN ---
- General Info Date of Service: 01/28/21 Admission Dx/Problem (Free Text): COVID-19 chronic pulmonary disease - Patient Data Vitals - Most Recent: Last Vital Signs Temp 97.7 F 01/28/21 05:22 Pulse 68 01/28/21 05:22 Resp 18 01/28/21 05:22 BP 105/85 01/28/21 05:22 Pulse Ox 96 01/28/21 06:38 Weight - Most Recent: 180 lb I&O - Last 24 Hours: Intake & Output 01/27/21 01/28/21 01/28/21 22:59 06:59 14:59 Intake Total 1360 Output Total 600 Balance 760 Lab Results Last 24 Hours: Laboratory Results - last 24 hr 01/27/21 01/27/21 01/28/21 Range/Units 11:27 17:09 06:15 POC Glucose 221 H 216 H 114 H (70-99) mg/dL Med Orders - Current: Current Medications Acetaminophen (Acetaminophen 325 Mg Tab) 650 mg PO Q4H PRN PRN Reason: Pain (Mild 1-3)/fever Last Admin: 01/23/21 03:29 Dose: 650 mg Documented by: Albuterol (Albuterol 0.083% 2.5 Mg/3 Ml Neb Soln) 2.5 mg NEB Q2H PRN PRN Reason: Shortness Of Breath/wheezing Last Admin: 01/24/21 06:16 Dose: 2.5 mg Documented by: Albuterol/Ipratropium (Albuterol/Ipratropium 3.0-0.5 Mg/3 Ml Neb Soln) 3 ml NEB QIDRT [facility] Last Admin: 01/28/21 06:38 Dose: 3 ml Documented by: Apixaban (Apixaban 5 Mg Tab) 5 mg PO BID [facility] Last Admin: 01/27/21 20:49 Dose: 5 mg Documented by: Aspirin (Aspirin 81 Mg Tab.Chew) 81 mg PO DAILY [facility] Last Admin: 01/27/21 09:47 Dose: 81 mg Documented by: Atorvastatin Calcium (Atorvastatin 20 Mg Tab) 20 mg PO BEDTIME [facility] Last Admin: 01/27/21 20:49 Dose: 20 mg Documented by: Benzonatate (Benzonatate 100 Mg Cap) 100 mg PO TID PRN PRN Reason: Cough Dexamethasone (Dexamethasone 4 Mg Tab) 6 mg PO DAILY [facility] Last Admin: 01/27/21 09:47 Dose: 6 mg Documented by: Dextrose/Water (50% Dextrose In Water 50 Ml Syringe) 50 ml IVPUSH ASDIRECTED PRN PRN Reason: Hypoglycemia Docusate Sodium (Docusate Sodium 100 Mg Cap) 100 mg PO Q12H PRN PRN Reason: Constipation Fish Oil (Fish Oil/[place]-3 Fatty Acids 1 Gm Cap) 2 gm PO DAILY [facility] Last Admin: 01/27/21 09:47 Dose: 2 gm Documented by: Guaifenesin (Guaifenesin 600 Mg Tab.Er) 1,200 mg PO BID [facility] Last Admin: 01/27/21 20:49 Dose: 1,200 mg Documented by: Insulin Glargine (Insulin Glarg,Human.Rec.Analog 100 Unit/Ml) 100 unit SUBCUT DAILY [facility] Last Admin: 01/27/21 09:48 Dose: 100 units Documented by: Insulin Human Lispro (Insulin Lispro 100 Unit/Ml 10 Ml Vial) 0 unit SUBCUT QIDACANDBED [facility]; Protocol Last Admin: 01/28/21 07:04 Dose: Not Given Documented by: Magnesium Hydroxide (Magnesium Hydroxide 400 Mg/5 Ml Susp 30 Ml Cup) 30 ml PO Q12H PRN PRN Reason: Constipation Metoprolol Tartrate (Metoprolol Tartrate 25 Mg Tab) 12.5 mg PO BID [facility] Last Admin: 01/27/21 20:48 Dose: 12.5 mg Documented by: Metoprolol Tartrate (Metoprolol Tartrate 5 Mg/5 Ml Sdv) 5 mg IVPUSH Q4H PRN PRN Reason: Tachycardia Mometasone Furoate/Formoterol Fumar (Formoterol/Mometasone 100-5 Mcg 8.8 Gm Inhaler) 2 puff IH BID [facility] Last Admin: 01/27/21 20:25 Dose: 2 puff Documented by: Ondansetron HCl (Ondansetron 4 Mg/2 Ml Sdv) 4 mg IV Q6H PRN PRN Reason: Nausea/Vomiting Pantoprazole Sodium (Pantoprazole 40 Mg Tab.Cr) 40 mg PO DAILY [facility] Last Admin: 01/27/21 09:47 Dose: 40 mg Documented by: Discontinued Medications Albuterol/Ipratropium (Albuterol/Ipratropium 3.0-0.5 Mg/3 Ml Neb Soln) 3 ml NEB ONETIME ONE Stop: 01/18/21 09:01 Last Admin: 01/18/21 09:20 Dose: 3 ml Documented by: Furosemide (Furosemide 40 Mg/4 Ml Vial) 40 mg IVPUSH NOW ONE Stop: 01/19/21 18:05 Last Admin: 01/19/21 18:20 Dose: 40 mg Documented by: Furosemide (Furosemide 20 Mg/2 Ml Vial) 20 mg IVPUSH ONETIME ONE Stop: 01/20/21 10:41 Last Admin: 01/20/21 11:44 Dose: 20 mg Documented by: Sodium Chloride (Normal Saline) 1,000 mls @ 150 mls/hr IV ASDIRECTED [facility] Last Infusion: 01/18/21 14:15 Dose: Infused Documented by: Sodium Chloride (Normal Saline) 100 mls @ 75 mls/hr IV ASDIRECTED [facility] Last Admin: 01/18/21 10:02 Dose: 75 mls/hr Documented by: Ceftriaxone Sodium 2 gm/ (Sodium Chloride) 100 mls @ 200 mls/hr IV ONETIME ONE Stop: 01/18/21 10:31 Last Admin: 01/18/21 10:31 Dose: 200 mls/hr Documented by: Sodium Chloride (Normal Saline) 250 mls @ 999 mls/hr IV .BOLUS ONE Stop: 01/18/21 11:58 Last Admin: 01/18/21 13:01 Dose: Not Given Documented by: Sodium Chloride (Normal Saline) 1,000 mls @ 75 mls/hr IV ASDIRECTED [facility] Last Admin: 01/18/21 20:04 Dose: 75 mls/hr Documented by: Piperacillin Sod/Tazobactam (Sod 4.5 gm/ Sodium Chloride) 100 mls @ 25 mls/hr IV Q8H [facility] Last Admin: 01/19/21 05:02 Dose: 25 mls/hr Documented by: Piperacillin Sod/Tazobactam (Sod 4.5 gm/ Sodium Chloride) 100 mls @ 200 mls/hr IV ONETIME ONE Stop: 01/18/21 13:29 Last Admin: 01/18/21 13:27 Dose: 200 mls/hr Documented by: Vancomycin HCl 1.75 gm/ Sodium (Chloride) 500 mls @ 250 mls/hr IV ONETIME ONE Stop: 01/18/21 15:29 Last Admin: 01/18/21 14:11 Dose: 250 mls/hr Documented by: Vancomycin HCl 1 gm/Vancomycin HCl 500 mg/ Sodium Chloride 500 mls @ 250 mls/hr IV Q18H ONE Stop: 01/19/21 09:59 Last Admin: 01/19/21 09:03 Dose: 250 mls/hr Documented by: Levofloxacin/Dextrose 750 mg/ (Premix) 150 mls @ 100 mls/hr IV Q48H [facility] Last Admin: 01/19/21 12:02 Dose: 100 mls/hr Documented by: Levofloxacin/Dextrose 750 mg/ (Premix) 150 mls @ 100 mls/hr IV Q24H [facility] Last Admin: 01/20/21 11:44 Dose: 100 mls/hr Documented by: Magnesium Sulfate/Dextrose 1 (gm/ Premix) 100 mls @ 100 mls/hr IV Q1H [facility] Stop: 01/20/21 09:44 Last Admin: 01/20/21 10:18 Dose: 100 mls/hr Documented by: Levofloxacin/Dextrose 750 mg/ (Premix) 150 mls @ 100 mls/hr IV Q48H [facility] Stop: 01/26/21 15:00 Last Admin: 01/26/21 11:51 Dose: 100 mls/hr Documented by: Insulin Glargine (Insulin Glarg,Human.Rec.Analog 100 Unit/Ml) 85 unit SUBCUT DAILY [facility] Insulin Glargine (Insulin Glarg,Human.Rec.Analog 100 Unit/Ml) 50 unit SUBCUT ONETIME ONE Stop: 01/18/21 12:31 Last Admin: 01/18/21 12:57 Dose: 50 units Documented by: Insulin Glargine (Insulin Glarg,Human.Rec.Analog 100 Unit/Ml) 90 unit SUBCUT DAILY [facility] Last Admin: 01/24/21 08:44 Dose: 90 units Documented by: Insulin Glargine (Insulin Glarg,Human.Rec.Analog 100 Unit/Ml) 5 unit SUBCUT ONE TIME ONE Stop: 01/18/21 21:42 Last Admin: 01/18/21 21:59 Dose: 5 units Documented by: Insulin Human Lispro (Insulin Lispro 100 Unit/Ml 10 Ml Vial) 5 unit SUBCUT ONETIME ONE Stop: 01/18/21 10:44 Last Admin: 01/18/21 10:59 Dose: 5 unit Documented by: Insulin Human Lispro (Insulin Lispro 100 Unit/Ml 10 Ml Vial) 0 unit SUBCUT QIDACANDBED [facility]; Protocol Last Admin: 01/18/21 17:17 Dose: 3 units Documented by: Insulin Human Lispro (Insulin Lispro 100 Unit/Ml 10 Ml Vial) 8 unit SUBCUT ON ETIME ONE Stop: 01/24/21 15:01 Last Admin: 01/24/21 14:47 Dose: 8 units Documented by: Iopamidol (Iopamidol 755 Mg/Ml 100 Ml Bottle) 100 ml IVPUSH ONETIME ONE Stop: 01/18/21 09:43 Last Admin: 01/18/21 10:02 Dose: 100 ml Documented by: Methylprednisolone Sodium Succinate (Methylprednisolone Sodium Succinate 125 Mg/2 Ml Sdv) 125 mg IVPUSH ONETIME ONE Stop: 01/18/21 09:01 Last Admin: 01/18/21 09:08 Dose: 125 mg Documented by: Sodium Chloride (Sodium Chloride 0.9% 10 Ml Syringe) 10 ml FLUSH ONETIME PRN PRN Reason: IV FLUSH Last Admin: 01/18/21 10:02 Dose: 10 ml Documented by: Vancomycin HCl (Pharmacy To Dose - Vancomycin) 1 dose .XX ASDIRECTED PRN PRN Reason: RX TO DOSE VANCO - Patient Data Lab Results Last 24 hrs: Laboratory Results - last 24 hr 01/27/21 01/27/21 01/28/21 Range/Units 11:27 17:09 06:15 POC Glucose 221 H 216 H 114 H (70-99) mg/dL Result Diagrams: 01/27/21 05:15 01/27/21 05:15 Sepsis Event Note - Evaluation Sepsis Screening Result: No Definite Risk - Focused Exam Vital Signs: Vital Signs Temp Pulse Resp BP Pulse Ox Pulse Ox 01/28/21 06:38 96 01/28/21 05:22 97.7 F 68 18 105/85 92 L 01/27/21 23:07 97.9 F 61 20 122/64 94 L 01/27/21 20:48 74 112/61 01/27/21 20:47 98.1 F 74 18 112/61 96 01/27/21 20:27 98 - Problem List & Annotations (1) CKD (chronic kidney disease) SNOMED Code(s): 114588659 Code(s): N18.9 - CHRONIC KIDNEY DISEASE, UNSPECIFIED Status: Chronic Priority: Medium Current Visit: Yes Qualifiers: Chronic kidney disease stage: stage 3 (moderate) Chronic kidney disease stage 3 subtype: stage 3b (GFR 30-44) Qualified Code(s): N18.32 - Chronic kidney disease, stage 3b (2) History of COVID-19 SNOMED Code(s): 671452588067548600, 544587041072574277 Code(s): Z86.16 - PERSONAL HISTORY OF COVID-19 Status: Chronic Priority: High Current Visit: Yes (3) Type II diabetes mellitus SNOMED Code(s): 78157487 Code(s): E11.9 - TYPE 2 DIABETES MELLITUS WITHOUT COMPLICATIONS Status: Chronic Priority: Medium Current Visit: Yes Qualifiers: 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 operator intermodal yard insulin use: with senior care use Diabetes mellitus complication status: with other specified complication Qualified Code(s): E11.69 - Type 2 diabetes mellitus with other specified complication; Z79.4 - senior care (current) use of insulin (4) Hypoxia SNOMED Code(s): 926662338 Code(s): R09.02 - HYPOXEMIA Status: Acute Priority: High Current Visit: Yes (5) Atrial fibrillation SNOMED Code(s): 75951127 Code(s): I48.91 - UNSPECIFIED ATRIAL FIBRILLATION Status: Chronic Priority: Medium Current Visit: No Qualifiers: Atrial fibrillation type: paroxysmal Qualified Code(s): I48.0 - Paroxysmal atrial fibrillation (6) Elevated troponin level not due myocardial infarction SNOMED Code(s): 071261448, 916432083, 972303623 Code(s): R77.8 - OTHER SPECIFIED ABNORMALITIES OF PLASMA PROTEINS Status: Chronic Priority: Medium Current Visit: Yes (7) Chronic anticoagulation SNOMED Code(s): 385772015 Code(s): Z79.01 - WELDING OPERATOR (CURRENT) USE OF ANTICOAGULANTS Status: Chronic Priority: Low Current Visit: No (8) Hyperglycemia due to type 2 diabetes mellitus SNOMED Code(s): 450882338274337, 775014004889742 Code(s): E11.65 - TYPE 2 DIABETES MELLITUS WITH HYPERGLYCEMIA Status: Acute Priority: High Current Visit: Yes Qualifiers: 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 operator intermodal yard insulin use: with senior care use Qualified Code(s): E11.65 - Type 2 diabetes mellitus with hyperglycemia; Z79.4 - long term care social worker (current) use of insulin (9) Healthcare-associated pneumonia SNOMED Code(s): 443764162, 060617074 Code(s): J18.9 - PNEUMONIA, UNSPECIFIED ORGANISM Status: Acute Priority: High Current Visit: Yes (10) Elevated brain natriuretic peptide (BNP) level SNOMED Code(s): 101611729, 011954845 Code(s): R79.89 - OTHER SPECIFIED ABNORMAL FINDINGS OF BLOOD CHEMISTRY Status: Acute Priority: High Current Visit: Yes (11) Supplemental oxygen dependent SNOMED Code(s): 170801566789 Code(s): Z99.81 - DEPENDENCE ON SUPPLEMENTAL OXYGEN Status: Chronic Priority: Medium Current Visit: Yes (12) 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 * He carries a history of A. fib, prior Covid infection, type II DM, and chronic kidney disease. * Diagnosed with Covid on December 11, transferred to [facility] and h ospitalized for 13 days. * He was released on 01-02-2021 on 2 L of home oxygen. * Reports dyspnea with accompanying chills, diaphoresis, and a cough. * In the ED twelve-lead EKG is obtained showing a sinus tachycardia at 119 bpm. * Labs obtained in ED: * WBC 10.56. * Hemoglobin is 12.7. * He is normocytic. * Platelets are elevated at 409,000. * Neutrophils are elevated 72.3%. * D-dimer is elevated at 5.12. * Sodium is 137. * Potassium 4.3. * Chloride 101. * Carbon dioxide 20. * Anion gap is 20.3. * BUN is 32. Creatinine 1.7. GFR is 40. * Glucose is 204. * Total bilirubin 0.5. * AST is 38, ALT 46, alkaline phosphatase 80. * Troponin 0 0.074. * CRP is 41.4. * Albumin is 2.4. * Lactic acid is 1.2. * proBNP is 1666. * ABG obtained in the left radial with a pH of 7.41. PCO2 of 25.4. PO2 of 62.0. HCO3 of 15.2. O2 saturation of 92.4. Base excess is -6.8. AA gradient is 135. This is obtained while on 3 L via nasal cannula. * Chest x-ray shows prominent increase in density on both sides the chest raising the possibility diffuse pneumonia. Please correlate if patient has Covid disease. No other acute abnormality is seen. * CTA is obtained showing diffuse increased density on both sides the chest compatible with diffuse pneumonia. Vague areas of poor enhancement within the main pulmonary arteries on both sides. This is most likely artifact. No definitive findings of pulmonary embolism are seen. Incidental degenerative change within the spine is also noted. * Patient is given 1 DuoNeb and started on Rocephin and IV fluids. He is given 125 mg Solu-Medrol and 5 units of lispro insulin. * He subsequently admitted to the medical floor on telemetry for management of his bilateral pneumonia. 01/19/2021 This is a 70-year-old male who presents to ED on 01/18/2021 with dyspnea and left-sided chest pain along his ribs. He was diagnosed with Covid on December 11 and transferred to [facility] where he was hospitalized for 13 days. He was released on 01-02-2021 on 2 L of home oxygen. Reports he has been doing good up until the last couple of days, in which she has noticed he has been more dyspneic and had accompanying chills, diaphoresis, and a cough. He feeling better. Denies fever, chills, nausea or vomiting. But he still complains of rib cage pain when he is coughing. He is on 4 to 5 L WBC 11.6, hemoglobin 13.8 D-dimer 5.12 Creatinine 1.5 01/20/2021 This is a 70-year-old male who presents to ED on 01/18/2021 with dyspnea and left-sided chest pain along his ribs. He was diagnosed with Covid on December 11 and transferred to [facility] where he was hospitalized for 13 days. He was released on 01-02-2021 on 2 L of home oxygen. Reports he has been doing good up until the last couple of days, in which she has noticed he has been more dyspneic and had accompanying chills, diaphoresis, and a cough. He is feeling much better, less SOB. Denies fever, chills, nausea or vomiting. He is now on 4L Potassium 3.9, creatinine 1.4 Mag 1.8 AST 75, ALT 144 CRP 14.5 01/21/2021 70-year-old male who presented to ED on 01/18/2021 with chest pain and dyspnea. He is oxygen dependent however he has been requiring 4 L, which is increased fr om his baseline 2 L. Today he reports that he is feeling better. He was reportedly on 3 L of oxygen through the night however this morning he had a coughing episode and was requiring 4 L. He has been ambulating around the room independently. PT and OT have seen him and are recommending home independent. He currently has no concerns. He is on Levaquin for bilateral pneumonia. White count today is 9.58. Hemoglobin 11.6. Platelet 443,000. Blood smear shows a few band neutrophils present. Anion gap is elevated at 17.6. BUN is 31. Creatinine 1.5. GFR is 46. Glucose 136. Magnesium is 1.9. AST is 44, ALT 117, alkaline phosphatase 86. CRP 16.1. Albumin is very low at 1.9. Echocard iogram results were discussed with patient: 1. The EF by visual estimation is 60-65%. 2. Normal left ventricular systolic function. 3. Impaired relaxation (Grade 1) pattern of LV diastolic filling. 4. Right normal right ventricular size, wall thickness, and systolic function. 5. There is mild aortic valve sclerosis without stenosis. 6. Mild mitral valve regurgitation. 7. Mild to moderate aortic valve regurgitation. 8. Trace tricuspid valve regurgitation. 9. No regional wall motion abnormalities. Plan will be for discharge tomorrow pending continued stability/improvement. 01/22/2021 70-year-old male admitted on 01-18-2021 due to dyspnea and chest pain at margin of left lower rib. Unfortunately he required 5 L of oxygen overnight. ABG this morning shows respiratory alkalosis. He reports an acute dyspneic spell when he attempts to ambulate. Chest x-ray was obtained and shows bilateral infiltrates which are stable. WBC today is 10.24. Hemoglobin 12.1. Platelet 445,000. Sodium 141. Potassium 4.1. Chloride 104. Carbon dioxide 27. Anion gap is 14.1. BUN is 29. Creatinine 1.5. GFR 46. Glucose is 161. Magnesium of 2.0. AST is 50, ALT 129, alkaline phosphatase 82. CRP is 21.5. Albumin 2.0. Overall his lungs sound about the same as yesterday with no wheezing noted. It is not felt a steroid would help him much at this point. There is no signs of any pleural effusions or pulmonary edema. We will continue current treatment plan. Hopeful for discharge in next 1 to 2 days pending improvement. We recommend follow-up with pulmonology after discharge. 01/23/2021 This is a 70-year-old male who presented to ED with shortness of breath and was admitted for bilateral pneumonia. Patient has been receiving Levaquin every 48 hours due to renal function. He remains on 5 L. They attempted to wean him last night and is saturations reportedly dropped into the 70s to 80s on 4 L. He remained stable on 5 L and states that he only feels dyspneic when he gets up to ambulate. Reports a dry cough and states that his nights are worse than his days. He does report some congestion and we have added Mucinex. Given his continued duration of symptoms and history of Covid pneumonia we have restarted dexamethasone 6 mg. We will continue this for short course and monitor his symptoms. RT has started EZ Pap as well. Today WBC has increased slightly to 11.45. Platelets are 443,000. Hemoglobin is 11.4. Blood smear does show some rare banded neutrophils and slight toxic granulation. Sodium is 140. Potassium 4.0. Chloride 104. Carbon oxide 25. Anion gap is 15.0. BUN is 31. Cre atinine 1.4. GFR 50. Glucose 152. Calcium 9.5. Magnesium 2.0. CRP is down to 19.3. Given restarting of steroid we will anticipate a rise in his blood glucose levels and we may have to increase his long-acting insulin. Suspect symptoms are due to bacterial pneumonia and continued Covid related illness. 01/24/2021 70-year-old male who presented to ED on 01/18/2021 with shortness of breath, cough, and diaphoresis. He was also admitted for bilateral pneumonia. Contin uing Levaquin every 48 hours. He is now up to 6 L by nasal cannula. He has been having coughing fits occasionally and since starting the Mucinex reports that he has been producing sputum. Clinically he looks good sitting in bed, even with saturations in the 80s, and he denies any shortness of breath unless he is ambulating. He has been having coughing fits overnight which lead to acute episodes of desaturations into the 70s and even as low as the 60s. He has been receiving albuterol and scheduled duo nebs. He was started on 6mg of dexamethasone yesterday. WBC today is elevated at 14.81, which is likely due to steroid. Hemoglobin is 11.8. Platelets are 498,000. Sodium is 138. Potassium 4.7. Chloride 102. Carbon dioxide 24. Anion gap is 16.7. BUN is 40. Creatinine 1.5. GFR is 46. Glucose has been in the 2 to upper 300s now since starting steroids and we will increase his sliding scale to high dose. Should he continue to have elevated readings we will increase his long-acting insulin as well. Magnesium today was 2.3. CRP is stable to mildly increased at 20.2. Given his worsening oxygen saturations Dr. Joe, on-call mat roller with [facility] in [place] was contacted via 1 call. He recommends starting patient on 3 times daily CPAP at 8-10 and rechecking a BNP today. He states if BNP is still elevated patient may need to be diuresed. He also recommends continuing dexamethasone at 6 mg. He states if no improvement after 1 to 2 days we should contact them for possible transfer. Discussed plan with patient who is in agreement. He reiterates that he does not want transfer unless absolutely necessary. Unknown length of stay at this time. Daughter was in room at bedside and was updated on patient at patients request. All questions were answered. 01/25/2021 This is a 70-year-old male presented to ED with shortness of breath, cough, and diaphoresis after Covid infection. He was found to have bilateral pneumonia and treatment was initiated for hospital-acquired pneumonia. We will continue Levaquin every 48 hours for a total of 10 days of abx treatment. He has been wearing his CPAP occasionally with saturations noted to be in the mid to upper 90s when wearing this. We will continue 6 mg dexamethasone. Chest x-ray is obtained today and is stable with no obvious improvement or worsening. Labs today show WBC of 15.35. Hemoglobin is 11.3. Platelet 529,000. Sodium 136. Potassium 4.2. Chloride 102. Carbon oxide 23. Anion gap is 15.2. BUN is 49. Creatinine 1.4. GFR 50. Blood glucose 177. CRP down to 11.1 his long-acting insulin was increased to 100 units daily yesterday as his sugars have been in the mid 200s to mid 300s. We will continue current treatment plan. He states he continues to have occasional coughing fits and dyspnea on exertion but denies any dyspnea while sitting. Overall states he feels okay. Long meeting with patient and daughter yesterday explaining treatment choices. Daughter has been doing research on the Internet and was hoping for patient to be started on ivermectin. Explained to patient how we do not give that it is not recommended currently. Unknown discharge plan as patient remained stable but minimal improvement. 01/26/2021 The patient is a 70-year-old gentleman who has very slow improvement in his post Covid pneumonia. The patient will continue on oxygen as well as CPAP in order to maintain his oxygen saturations around 92%. Currently the patient is still on Levaquin and dexamethasone as well as breathing treatments to help maintain his oxygen saturations. The patient will likely need to have a CPAP device at home once he is improved sufficiently to go home. The patient has been encouraged to ambulate. We will continue with DVT prophylaxis as the patient has home dose of Eliquis. The patient also will be maintained on diabetic diet as tolerated as well as insulin sliding scale. The patient should be appro priate for discharge once his oxygen saturations have been maintained on at least 2 to 3 L and attempts to wean him down have ordered. PT OT is also been ordered. 01/27/2021 The patient is a 70-year-old gentleman who is slow to improve. The patient had a CT scan taken 2 days ago which did not show any interval change. The patient has still been requiring high flow oxygen. He has been using the CPAP and this will continue. I have ordered discontinuation of the patient's antibiotics. The patient is also on DVT prophylaxis with his home dose of Eliquis. He is to have a diabetic diet as tolerated. Ambulate as necessary. I had a discussion with the patient regarding long-term care and the patient may need to be using high-dose oxygen while at home and CPAP as well. The patient is currently awaiting possible device. The patient should be appropriate for discharge as soon as device and oxygen have been set up. The patient will need to have outpatient follow-up with mat roller as well as outpatient PFT. The patient will continue on steroids as well as Dulera. Nebulizers as needed. Repeat laboratory studies have been ordered. - Plan Plan:: I have seen and examined the patient independently of Wilder Vera PA-C, and have reviewed the case with him. I have reviewed and agree with the plan and care as outlined by him. Please see orders.
[2021-01-28] MEDS: Apixaban 5 MG Tab PO SCH (08:12)
[2021-01-28] MEDS: Aspirin 81 MG Tab.Chew PO SCH (08:12)
[2021-01-28] MEDS: Fish Oil/Omega-3 Fatty Acids 1 Gm Cap PO SCH (08:12)
[2021-01-28] MEDS: guaiFENesin 600 MG Tab.ER PO SCH (08:12)
[2021-01-28] MEDS: Dexamethasone 4 MG Tab PO SCH (08:12)
[2021-01-28] MEDS: Insulin Glarg,Human.Rec.Analog 100 Unit/ML SUBCUT SCH (08:13)
[2021-01-28] MEDS: Metoprolol Tartrate 25 MG Tab PO SCH (08:13)
[2021-01-28] MEDS: Pantoprazole 40 MG Tab.CR PO SCH (08:13)
[2021-01-28] MEDS: Formoterol/Mometasone 100-5 MCG 8.8 GM Inhaler IH SCH (09:09)
[2021-01-28 12:01] VITALS: BP 109/68; PULSE 76
--- NOTE | 2021-01-28 12:21 | PCM.DCSUM1 ---
<Wilder Vera - Last Filed: 01/28/21 14:16> Discharge Summary - Hospital Course HPI Initial Comments: This is a 70-year-old male who presents to ED on 01/18/2021 with dyspnea and left-sided chest pain along his ribs. He was diagnosed with Covid on December 11 and transferred to [facility] where he was hospitalized for 13 days. He was released on 01-02-2021 on 2 L of home oxygen. Reports he has been doing good up until the last couple of days, in which she has noticed he has been more dy spneic and had accompanying chills, diaphoresis, and a cough. He has been requiring more oxygen and has noticed he has been weak. Denies any prior lung disease before Covid. States he did smoke a little bit as a teenager. Denies any abdominal pain, nausea, vomiting, diarrhea, urinary issues, leg pain, edema. He does have a history of A. fib and is on Eliquis, which he states was started when he was discharged from the hospital. In the ED twelve-lead EKG is obtained showing a sinus tachycardia at 119 bpm. Temp is 97.7. Respirations 28. Blood pressure 105/66. Pulse ox 90%. Labs are obtained showing a mild leukocytosis of 10.56. Hemoglobin is 12.7. He is normocytic. Platelets are elevated at 409,000. Neutrophils are elevated 72.3%. D-dimer is elevated at 5.12. Sodium is 137. Potassium 4.3. Chloride 101. Carbon dioxide 20. Anion gap is 20.3. BUN is 32. Creatinine 1.7. GFR is 40. Glucose is 204. Total bilirubin 0.5. AST is 38, ALT 46, alkaline phosphatase 80. Troponin 0 0.074. CRP is 41.4. Albumin is 2.4. Lactic acid is 1.2. proBNP is 1666. ABGs obtained in the left radial with a pH of 7.41. PCO2 of 25.4. PO2 of 62.0. HCO3 of 15.2. O2 saturation of 92.4. Base excess is -6.8. AA gradient is 135. This is obtained while on 3 L via nasal cannula. Chest x- ray shows prominent increase in density on both sides the chest raising the possibility diffuse pneumonia. Please correlate if patient has Covid disease. No other acute abnormality is seen. CTA is obtained showing diffuse increased density on both sides the chest compatible with diffuse pneumonia. Vague areas of poor enhancement within the main pulmonary arteries on both sides. This is most likely artifact. No definitive findings of pulmonary embolism are seen. Incidental degenerative change within the spine is also noted. Prior troponins are reviewed and on all prior visits patient had mildly elevated troponin. Patient is given 1 DuoNeb and started on Rocephin. Patient is also started on IV fluids. He is given 125 mg Solu-Medrol and 5 units of lispro insulin. He carries a history of A. fib, prior Covid infection, type II DM, and chronic kidney disease. He is a full code. His PCP is Dr. Collins. He subsequently admitted to the medical floor on telemetry for management of his bilateral pneumonia. Diagnosis: Stroke: No - Discharge Data Discharge Date: 01/28/21 (Admit date: 01/18/2021) Discharge Disposition: [facility] Condition: Fair - Referral to Home Health Date of Face to Face Encounter: 01/28/21 Reason for Homebound Status: See discharge summary Primary Care Physician: Ke Barksdale MD Skilled Need: See discharge summary - Discharge Diagnosis/Problem(s) (1) CKD (chronic kidney disease) SNOMED Code(s): 018297699 ICD Code: N18.9 - CHRONIC KIDNEY DISEASE, UNSPECIFIED Status: Chronic Priority: Medium Current Visit: Yes Qualifiers: Chronic kidney disease stage: stage 3 (moderate) Chronic kidney disease stage 3 subtype: stage 3b (GFR 30-44) Qualified Code(s): N18.32 - Chronic kidney disease, stage 3b (2) History of COVID-19 SNOMED Code(s): 145590578087658049, 215180053272723587 ICD Code: Z86.16 - PERSONAL HISTORY OF COVID-19 Status: Chronic Priority: High Current Visit: Yes (3) Type II diabetes mellitus SNOMED Code(s): 86375968 ICD Code: E11.9 - TYPE 2 DIABETES MELLITUS WITHOUT COMPLICATIONS Status: Chronic Priority: Medium Current Visit: Yes Qualifiers: Diabetes mellitus termite exterminator insulin use: with retirement use Diabetes mellitus complication status: with other specified complication Qualified Code(s): E11.69 - Type 2 diabetes mellitus with other specified complication; Z79.4 - care home (current) use of insulin (4) Hypoxia SNOMED Code(s): 013643404 ICD Code: R09.02 - HYPOXEMIA Status: Acute Priority: High Current Visit: Yes (5) Atrial fibrillation SNOMED Code(s): 11451935 ICD Code: I48.91 - UNSPECIFIED ATRIAL FIBRILLATION Status: Chronic Priority: Medium Current Visit: No Qualifiers: Atrial fibrillation type: paroxysmal Qualified Code(s): I48.0 - Paroxysmal atrial fibrillation (6) Elevated troponin level not due myocardial infarction SNOMED Code(s): 632398937, 185943027, 172497873 ICD Code: R77.8 - OTHER SPECIFIED ABNORMALITIES OF PLASMA PROTEINS Status: Chronic Priority: Medium Current Visit: Yes (7) Chronic anticoagulation SNOMED Code(s): 770620050 ICD Code: Z79.01 - SENIOR LIVING (CURRENT) USE OF ANTICOAGULANTS Status: Chronic Priority: Low Current Visit: No (8) Hyperglycemia due to type 2 diabetes mellitus SNOMED Code(s): 333589122643273, 337331370470554 ICD Code: E11.65 - TYPE 2 DIABETES MELLITUS WITH HYPERGLYCEMIA Status: Acute Priority: High Current Visit: Yes Qualifiers: Diabetes mellitus retirement insulin use: with termite exterminator use Qualified Code(s): E11.65 - Type 2 diabetes mellitus with hyperglycemia; Z79.4 - care home (current) use of insulin (9) Healthcare-associated pneumonia SNOMED Code(s): 829400667, 180515773 ICD Code: J18.9 - PNEUMONIA, UNSPECIFIED ORGANISM Status: Resolved Priority: High Current Visit: Yes (10) Elevated brain natriuretic peptide (BNP) level SNOMED Code(s): 987255131, 779247926 ICD Code: R79.89 - OTHER SPECIFIED ABNORMAL FINDINGS OF BLOOD CHEMISTRY Status: Acute Priority: High Current Visit: Yes (11) Supplemental oxygen dependent SNOMED Code(s): 910867078815 ICD Code: Z99.81 - DEPENDENCE ON SUPPLEMENTAL OXYGEN Status: Chronic Priority: Medium Current Visit: Yes (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 SNOMED Code(s): 8760570913 ICD Code: B94.8 - SEQUELAE OF OTH INFECTIOUS AND PARASITIC DISEASES Status: Chronic Priority: High Current Visit: Yes - Patient Summary/Data Consults: Consultations 01/18/21 11:37 Consult to Case Management/Recovery Coordinator [CONS] Routine Consult to Spiritual Care [CONS] Routine 01/18/21 11:41 OT Evaluation and Treatment [CONS] Routine PT Evaluation and Treatment [CONS] Routine Respiratory Care Assess and Treatment [CONS] Routine Labs Pending at D/C: None Recommended Follow-up Testing/Procedures: Up with primary care provider within 5 to 7 days of discharge, sooner if needed. * Patient was started on a 12-day steroid taper and then will start 5 mg daily thereafter. * Patient's home long-acting insulin was increased for use with the steroids. Monitor patient's blood sugars and adjust accordingly * Patient was discharged on a CPAP machine which he is to wear at bedtime and when napping. He may also wear it as needed for shortness of breath. Please monitor this. * Patient discharged on home health with custodial and physical therapy. Recommend marketing communications specialist follow-up after discharge. Recommend patient obtain PFT after symptoms resolved. Recommend pulmonary rehabilitation after discharge. Hospital Course: This is a 7-year-old male who presents to ED on 01/18/2021 with dyspnea and left- sided chest pain along his left ribs. He carries a history of A. fib, type II DM, and CKD. He was diagnosed with COVID-19 pneumonia on December 11 and was transferred to [facility], where he was hospitalized for 13 days and released on 01/02/2021 on 2 L of home oxygen. He reports since that time he been doing quite well however he reported chills, diaphoresis, and a cough along with his dyspnea and chest pain that started a few days prior to presentation to our ED. In the ED chest x-ray is obtained showing increased density on both sides of the chest raising the possibility of diffuse pneumonia. There is mild leukocytosis and his D-dimer was very elevated at 15.12. Of note the patient was started on Eliquis and 81 mg aspirin on discharge from [facility], which he reports he has been taking as prescribed. CTA was obtained showing diffuse increased density on both sides the chest compatible with diffuse pneumonia and vague areas of poor enhancement within the main pulmonary arteries on both sides which is most likely artifact. There is no definitive findings of PE. Incidental degenerative change was also noted within the spine. He was initially started on Rocephin and given IV fluids, DuoNeb's, and 125 mg of Solu- Medrol. Because the patient was recently hospitalized decision was made to treat the patient likely healthcare acquired pneumonia and he was started on Zosyn and vancomycin. Ultimately he was transitioned to 750 mg IV Levaquin, which was given every 48 hours due to patient's baseline chronic renal disease. Early on in his stay patient was noted to have an increasing oxygen demand. He denied any acute dyspnea however he was noted to be short of breath with exertion and it took quite some time for him to recover. Saturations would drop into the 70s. He ultimately was requiring up to 6 L of oxygen. He was started on 6 mg dexamethasone. His blood sugars did increase as expected and his home dosing of long-acting insulin was increased up to 100 units daily. He was also covered with sliding scale, although this was largely stable with his long- acting coverage. Ultimately call was placed to Dr. Joe, marketing communications specialist with [facility] in [employer] for recommendations and/or possible transfer. He recommended starting the patient on CPAP at least 3 times daily with a pressure of 8-10, rechecking a BNP, diuresing if needed, and continuing steroids. He reported if the patient does not improve they should be transferred. Fortunately patient did do quite well with CPAP. He tolerated pressures of 8 much better than pressures of 10. And his oxygen saturations did improve. He was given Mucinex which helped with his congestion. His daughter was heavily involved in his care and was very interested in starting the patient on ivermectin. This is not something in her protocol and also not something that her hospital stocks and ultimately a family meeting was called which included the patient on speaker phone. Dr. Mina, attending hospitalist, did write a note on the events of this meeting and I will defer to that note for details. Regardless patient did respond well to treatment and was able to be weaned down to 3 L of oxygen. His saturations do still drop on exertion but they do not drop nearly as much and he recovers quicker. Blood sugars have been stable. He did work with PT and OT who are recommending home health PT and custodial. Respiratory care was consulted and heavily involved in his care. He was utilizing incentive spirometry and Acapella and he was instructed to continue these for 1 to 2 weeks or until symptoms resolve. He was receiving scheduled 4 times daily DuoNebs and as needed albuterol nebulizers. Discussed discharge medications with Dr. Mina, attending hospitalist. Will discharge patient on 4 times daily scheduled DuoNebs and as needed as needed albuterol as he was receiving here. He will discharge on 90 units Toujeo daily, which is an increase from his original home dosing. We will continue his glipizide and his scheduled and sliding scale short acting insulin. Patient was instructed to check his blood sugars 4 times daily before meals and bedtime. He was instructed to contact primary care provider if his blood sugars are too high or too low as noted. Patient is very well versed on his diabetes care. We did discuss how steroids will drive up his home glucose readings and as he weans off of steroids he will need to cut back on his insulin likely. He will be discharged on a prednisone taper of 40 mg for 3 days, 30 mg for 3 days, 20 mg for 3 days, 10 mg for 3 days, and then will continue 5 mg daily until he sees his marketing communications specialist. We were able to arrange for the patient to have a home CPAP and he was instructed to use this when napping, sleeping, or as needed. He was prescribed twice daily Mucinex. He completed antibiotic treatment for 10 days while here. He will not be prescribed an antibiotic at discharge. Recommend patient follow-up with his primary care provider within 5 to 7 days of discharge, sooner if needed. Recommend recheck CBC, CMP, magnesium, and consider repeat chest x-ray at that visit. Patient was instructed to check his oxygen saturations at least twice daily and as needed. Please review home oxygen saturation journal and home blood sugar journal. Patient was scheduled for pulmonology follow-up. Recommend patient obtain a PFT after symptoms resolved. Recommend considering pulmonary rehabilitation for this patient. We had a lengthy discussion about what to do should his saturations not improve or he experienced acute dyspnea. Overall he is doing quite well. Discharged home today on home health services. I personally met with Richard [id number] to discuss his homebound status and home health services. Patient has generalized weakness and significant dyspnea on exertion secondary to ongoing symptoms from his prior COVID-19 infection. He is oxygen dependent. At this time we are recommending home health services including physical therapy for strengthening and custodial for generalized disease monitoring including patient's baseline diabetes and oxygen saturation monitoring. This will be monitored by the patient's primary care provider, Dr. Collins, and adjusted as he sees fit. - Patient Instructions Diet: Diabetic Diet Activity: As Tolerated Driving: Do Not Drive Showering/Bathing: May Shower Notify Provider of: Fever, Increased Pain, Nausea and/or Vomiting Other/Special Instructions: Follow-up with primary care provider within 5-7 days of discharge, sooner if needed. Follow-up with pulmonology as soon as possible. Consider outpatient pulmonary rehab. This can be arranged throught your primary care provider or pulmonology. Check your oxygen saturations twice a day and as needed. Record the number and what your oxygen delivery device was (CPAP vs. Nasal Cannula). This will help in titrating your oxygen. Check your blood sugars 4 times a day - before each meal and at bedtime. Record these in a journal. As your steroid dosing comes down your long-acting insulin will likely need to be decreased. Contact your primary care provider if your blood glucose readings are less than 90 or more than 400. Your long-acting insulin was increased due to steroid use and your blood sugars being quite high while here. Be sure to follow the new dosing. You were started on a twice daily inhalation respiratory medication called Dulera. Be sure to take this as prescribed. You should continue 4 times a day DuoNeb nebulizer treatments as prescribed. Continue to take it easy and rest when you feel short of breath. Continue to wear your oxygen as prescribed. Be sure you wear your CPAP at night and when napping. If you feel short of breath during the day you may also wear this. Take all new medications as prescribed. Resume home medications as prescribed. Continue to utilize your incentive spirometer (clear/blue device you inhale through) and acapella (green tube you blow through) for 1-2 weeks or until symptoms resolve. Should symptoms return or worsen contact primary care provider return the emergency room. - Discharge Plan *PRESCRIPTION DRUG MONITORING PROGRAM REVIEWED*: No *COPY OF PRESCRIPTION DRUG MONITORING REPORT IN PATIENT JONELLE: No Prescriptions/Med Rec: Albuterol/Ipratropium [DuoNeb 3.0-0.5 MG/3 ML] 3 ml NEB QID #40 neb guaiFENesin [Mucinex] 1,200 mg PO BID #40 tab.er predniSONE 10 mg PO .TAPER #30 tab predniSONE [Prednisone] 5 mg PO DAILY #10 tablet Albuterol [Proventil Neb Soln] 2.5 mg NEB Q2H PRN #30 neb PRN Reason: Shortness Of Breath/wheezing Insulin Glargine,Hum.Rec.Anlog [Toujeo Solostar] 90 unit SQ DAILY #2 insuln.pen Home Medications: Home Meds Insulin Aspart [NovoLOG] 3 unit SQ ASDIRECTED 12/19/20 [History] Pantoprazole Sodium [Protonix] 40 mg PO DAILY 12/19/20 [History] atorvaSTATin [Lipitor] 20 mg PO BEDTIME 12/19/20 [History] glipiZIDE [Glipizide ER] 5 mg PO DAILY 12/19/20 [History] Apixaban [Eliquis] 5 mg PO BID 01/18/21 [History] Aspirin 81 mg PO DAILY 01/18/21 [History] Budesonide/Formoterol Fumarate [Budesonide-Formoterol 80-4.5] 2 puff IH BID 01/18/21 [History] Fish Oil/[place]-3 Fatty Acids [Fish Oil 1,000 MG] 2 each PO DAILY 01/18/21 [History] Metoprolol Tartrate 12.5 mg PO BID 01/18/21 [History] Albuterol [Proventil Neb Soln] 2.5 mg NEB Q2H PRN #30 neb 01/28/21 [Rx] Albuterol/Ipratropium [DuoNeb 3.0-0.5 MG/3 ML] 3 ml NEB QID #40 neb 01/28/21 [Rx] Insulin Glargine,Hum.Rec.Anlog [Toujeo Solostar] 90 unit SQ DAILY #2 insuln.pen 01/28/21 [Rx] guaiFENesin [Mucinex] 1,200 mg PO BID #40 tab.er 01/28/21 [Rx] predniSONE 10 mg PO .TAPER #30 tab 01/28/21 [Rx] predniSONE [Prednisone] 5 mg PO DAILY #10 tablet 01/28/21 [Rx] Oxygen Therapy Mode: Nasal Cannula Oxygen Flow Rate (L/min): 3 (Titrate up to 6L as needed for SOB/low saturations that are not recovering ) Maintain SpO2% greater than: 90 Patient Handouts: How to Use an Incentive Spirometer, How to Use a Nebulizer, Adult, Home Oxygen Use, Adult, CPAP and BPAP Information, Smokeless Tobacco Information, Adult, Community-Acquired Pneumonia, Adult, Qhiz-ac-Bfyi Forms: ED Department Discharge Referrals: Manoj Joe MD [Ordering Only Provider] - 02/28/21 10:00 am (please come at least 15 minutes prior to the appointment to register. this is Central time ([employer]) time.) Ke Barksdale MD [Primary Care Provider] - 02/07/21 1:00 pm (this is your clinic arrival time.) - Discharge Summary/Plan Comment DC Time >30 min.: Yes (45 mins) - General Info Date of Service: 01/28/21 Admission Dx/Problem (Free Text: COVID-19 chronic pulmonary disease Functional Status: Reports: Pain Controlled, Tolerating Diet, Ambulating, Urinating, Incentive Spirometry, Other (Acapella ). Denies: New Symptoms - Review of Systems General: Reports: Weakness. Denies: Fever, Fatigue, Malaise, Chills HEENT: Reports: No Symptoms. Denies: Eye Pain, Headaches, Sore Throat Pulmonary: Reports: No Symptoms, Cough. Denies: Shortness of Breath, Pleuritic Chest Pain, Sputum, Wheezing Cardiovascular: Reports: No Symptoms, Dyspnea on Exertion. Denies: Chest Pain, Palpitations, Edema, Lightheadedness Gastrointestinal: Reports: No Symptoms. Denies: Abdominal Pain, Constipation, Diarrhea, Nausea, Vomiting Genitourinary: Reports: No Symptoms. Denies: Pain Musculoskeletal: Reports: No Symptoms Skin: Reports: No Symptoms. Denies: Cyanosis Neurological: Reports: No Symptoms, Difficulty Walking (2/2 dyspnea ), Weakness. Denies: Confusion, Dizziness, Headache, Numbness, Pre-Existing Deficit, Seizure, Tingling, Trouble Speaking, Gait Disturbance Psychiatric: Reports: No Symptoms - Patient Data Vitals - Most Recent: Last Vital Signs Temp 98.1 F 01/28/21 07:41 Pulse 76 01/28/21 11:41 Resp 16 01/28/21 11:41 BP 109/68 01/28/21 11:41 Pulse Ox 91 L 01/28/21 11:41 Weight - Most Recent: 81.647 kg I&O - Last 24 hours: Intake & Output 01/27/21 01/28/21 01/28/21 22:59 06:59 14:59 Intake Total 1360 480 Output Total 600 Balance 760 480 Lab Results - Last 24 hrs: Laboratory Results - last 24 hr 01/27/21 01/28/21 01/28/21 Range/Units 17:09 06:15 11:40 POC Glucose 216 H 114 H 205 H (70-99) mg/dL Med Orders - Current: Current Medications Acetaminophen (Acetaminophen 325 Mg Tab) 650 mg PO Q4H PRN PRN Reason: Pain (Mild 1-3)/fever Last Admin: 01/23/21 03:29 Dose: 650 mg Documented by: Albuterol (Albuterol 0.083% 2.5 Mg/3 Ml Neb Soln) 2.5 mg NEB Q2H PRN PRN Reason: Shortness Of Breath/wheezing Last Admin: 01/24/21 06:16 Dose: 2.5 mg Documented by: Albuterol/Ipratropium (Albuterol/Ipratropium 3.0-0.5 Mg/3 Ml Neb Soln) 3 ml NEB QIDRT [facility] Last Admin: 01/28/21 09:09 Dose: 3 ml Documented by: Apixaban (Apixaban 5 Mg Tab) 5 mg PO BID [facility] Last Admin: 01/28/21 08:12 Dose: 5 mg Documented by: Aspirin (Aspirin 81 Mg Tab.Chew) 81 mg PO DAILY [facility] Last Admin: 01/28/21 08:12 Dose: 81 mg Documented by: Atorvastatin Calcium (Atorvastatin 20 Mg Tab) 20 mg PO BEDTIME [facility] Last Admin: 01/27/21 20:49 Dose: 20 mg Documented by: Benzonatate (Benzonatate 100 Mg Cap) 100 mg PO TID PRN PRN Reason: Cough Dexamethasone (Dexamethasone 4 Mg Tab) 6 mg PO DAILY [facility] Last Admin: 01/28/21 08:12 Dose: 6 mg Documented by: Dextrose/Water (50% Dextrose In Water 50 Ml Syringe) 50 ml IVPUSH ASDIRECTED PRN PRN Reason: Hypoglycemia Docusate Sodium (Docusate Sodium 100 Mg Cap) 100 mg PO Q12H PRN PRN Reason: Constipation Fish Oil (Fish Oil/[place]-3 Fatty Acids 1 Gm Cap) 2 gm PO DAILY [facility] Last Admin: 01/28/21 08:12 Dose: 2 gm Documented by: Guaifenesin (Guaifenesin 600 Mg Tab.Er) 1,200 mg PO BID [facility] Last Admin: 01/28/21 08:12 Dose: 1,200 mg Documented by: Insulin Glargine (Insulin Glarg,Human.Rec.Analog 100 Unit/Ml) 100 unit SUBCUT DAILY [facility] Last Admin: 01/28/21 08:13 Dose: 100 units Documented by: Insulin Human Lispro (Insulin Lispro 100 Unit/Ml 10 Ml Vial) 0 unit SUBCUT QIDACANDBED [facility]; Protocol Last Admin: 01/28/21 12:00 Dose: 6 units Documented by: Magnesium Hydroxide (Magnesium Hydroxide 400 Mg/5 Ml Susp 30 Ml Cup) 30 ml PO Q12H PRN PRN Reason: Constipation Metoprolol Tartrate (Metoprolol Tartrate 25 Mg Tab) 12.5 mg PO BID [facility] Last Admin: 01/28/21 08:13 Dose: 12.5 mg Documented by: Metoprolol Tartrate (Metoprolol Tartrate 5 Mg/5 Ml Sdv) 5 mg IVPUSH Q4H PRN PRN Reason: Tachycardia Mometasone Furoate/Formoterol Fumar (Formoterol/Mometasone 100-5 Mcg 8.8 Gm Inhaler) 2 puff IH BID [facility] Last Admin: 01/28/21 09:09 Dose: 2 puff Documented by: Ondansetron HCl (Ondansetron 4 Mg/2 Ml Sdv) 4 mg IV Q6H PRN PRN Reason: Nausea/Vomiting Pantoprazole Sodium (Pantoprazole 40 Mg Tab.Cr) 40 mg PO DAILY [facility] Last Admin: 01/28/21 08:13 Dose: 40 mg Documented by: Discontinued Medications Albuterol/Ipratropium (Albuterol/Ipratropium 3.0-0.5 Mg/3 Ml Neb Soln) 3 ml NEB ONETIME ONE Stop: 01/18/21 09:01 Last Admin: 01/18/21 09:20 Dose: 3 ml Documented by: Furosemide (Furosemide 40 Mg/4 Ml Vial) 40 mg IVPUSH NOW ONE Stop: 01/19/21 18:05 Last Admin: 01/19/21 18:20 Dose: 40 mg Documented by: Furosemide (Furosemide 20 Mg/2 Ml Vial) 20 mg IVPUSH ONETIME ONE Stop: 01/20/21 10:41 Last Admin: 01/20/21 11:44 Dose: 20 mg Documented by: Sodium Chloride (Normal Saline) 1,000 mls @ 150 mls/hr IV ASDIRECTED [facility] Last Infusion: 01/18/21 14:15 Dose: Infused Documented by: Sodium Chloride (Normal Saline) 100 mls @ 75 mls/hr IV ASDIRECTED [facility] Last Admin: 01/18/21 10:02 Dose: 75 mls/hr Documented by: Ceftriaxone Sodium 2 gm/ (Sodium Chloride) 100 mls @ 200 mls/hr IV ONETIME ONE Stop: 01/18/21 10:31 Last Admin: 01/18/21 10:31 Dose: 200 mls/hr Documented by: Sodium Chloride (Normal Saline) 250 mls @ 999 mls/hr IV .BOLUS ONE Stop: 01/18/21 11:58 Last Admin: 01/18/21 13:01 Dose: Not Given Documented by: Sodium Chloride (Normal Saline) 1,000 mls @ 75 mls/hr IV ASDIRECTED [facility] Last Admin: 01/18/21 20:04 Dose: 75 mls/hr Documented by: Piperacillin Sod/Tazobactam (Sod 4.5 gm/ Sodium Chloride) 100 mls @ 25 mls/hr IV Q8H [facility] Last Admin: 01/19/21 05:02 Dose: 25 mls/hr Documented by: Piperacillin Sod/Tazobactam (Sod 4.5 gm/ Sodium Chloride) 100 mls @ 200 mls/hr IV ONETIME ONE Stop: 01/18/21 13:29 Last Admin: 01/18/21 13:27 Dose: 200 mls/hr Documented by: Vancomycin HCl 1.75 gm/ Sodium (Chloride) 500 mls @ 250 mls/hr IV ONETIME ONE Stop: 01/18/21 15:29 Last Admin: 01/18/21 14:11 Dose: 250 mls/hr Documented by: Vancomycin HCl 1 gm/Vancomycin HCl 500 mg/ Sodium Chloride 500 mls @ 250 mls/hr IV Q18H ONE Stop: 01/19/21 09:59 Last Admin: 01/19/21 09:03 Dose: 250 mls/hr Documented by: Levofloxacin/Dextrose 750 mg/ (Premix) 150 mls @ 100 mls/hr IV Q48H [facility] Last Admin: 01/19/21 12:02 Dose: 100 mls/hr Documented by: Levofloxacin/Dextrose 750 mg/ (Premix) 150 mls @ 100 mls/hr IV Q24H [facility] Last Admin: 01/20/21 11:44 Dose: 100 mls/hr Documented by: Magnesium Sulfate/Dextrose 1 (gm/ Premix) 100 mls @ 100 mls/hr IV Q1H [facility] Stop: 01/20/21 09:44 Last Admin: 01/20/21 10:18 Dose: 100 mls/hr Documented by: Levofloxacin/Dextrose 750 mg/ (Premix) 150 mls @ 100 mls/hr IV Q48H [facility] Stop: 01/26/21 15:00 Last Admin: 01/26/21 11:51 Dose: 100 mls/hr Documented by: Insulin Glargine (Insulin Glarg,Human.Rec.Analog 100 Unit/Ml) 85 unit SUBCUT DAILY [facility] Insulin Glargine (Insulin Glarg,Human.Rec.Analog 100 Unit/Ml) 50 unit SUBCUT ONETIME ONE Stop: 01/18/21 12:31 Last Admin: 01/18/21 12:57 Dose: 50 units Documented by: Insulin Glargine (Insulin Glarg,Human.Rec.Analog 100 Unit/Ml) 90 unit SUBCUT DAILY [facility] Last Admin: 01/24/21 08:44 Dose: 90 units Documented by: Insulin Glargine (Insulin Glarg,Human.Rec.Analog 100 Unit/Ml) 5 unit SUBCUT ONETIME ONE Stop: 01/18/21 21:42 Last Admin: 01/18/21 21:59 Dose: 5 units Documented by: Insulin Human Lispro (Insulin Lispro 100 Unit/Ml 10 Ml Vial) 5 unit SUBCUT ONETIME ONE Stop: 01/18/21 10:44 Last Admin: 01/18/21 10:59 Dose: 5 unit Documented by: Insulin Human Lispro (Insulin Lispro 100 Unit/Ml 10 Ml Vial) 0 unit SUBCUT QIDACANDBED [facility]; Protocol Last Admin: 01/18/21 17:17 Dose: 3 units Documented by: Insulin Human Lispro (Insulin Lispro 100 Unit/Ml 10 Ml Vial) 8 unit SUBCUT ONETIME ONE Stop: 01/24/21 15:01 Last Admin: 01/24/21 14:47 Dose: 8 units Documented by: Iopamidol (Iopamidol 755 Mg/Ml 100 Ml Bottle) 100 ml IVPUSH ONETIME ONE Stop: 01/18/21 09:43 Last Admin: 01/18/21 10:02 Dose: 100 ml Documented by: Methylprednisolone Sodium Succinate (Methylprednisolone Sodium Succinate 125 Mg/2 Ml Sdv) 125 mg IVPUSH ONETIME ONE Stop: 01/18/21 09:01 Last Admin: 01/18/21 09:08 Dose: 125 mg Documented by: Sodium Chloride (Sodium Chloride 0.9% 10 Ml Syringe) 10 ml FLUSH ONETIME PRN PRN Reason: IV FLUSH Last Admin: 01/18/21 10:02 Dose: 10 ml Documented by: Vancomycin HCl (Pharmacy To Dose - Vancomycin) 1 dose .XX ASDIRECTED PRN PRN Reason: RX TO DOSE VANCO - Exam Quality Assessment: Reports: Supplemental Oxygen (3L ), DVT Prophylaxis. Denies: Urine Catheter General: Reports: Alert, Oriented, Cooperative, No Acute Distress HEENT: Reports: Pupils Equal, Pupils Reactive, Mucous Membr. Moist/[place] Neck: Reports: Supple, Trachea Midline Lungs: Reports: Normal Respiratory Effort, Decreased Breath Sounds, Crackles. Denies: Rales, Rhonchi, Wheezing Cardiovascular: Reports: Regular Rate, Regular Rhythm GI/Abdominal Exam: Normal Bowel Sounds, Soft, Non-Tender, No Distention (Male) Exam: Deferred Rectal (Males) Exam: Deferred Back Exam: Reports: Normal Inspection, Full Range of Motion Extremities: Normal Inspection, Normal Range of Motion, Non-Tender, No Pedal Edema, Normal Capillary Refill Skin: Reports: Warm, Dry, Intact Neurological: Reports: No New Focal Deficit Psy/Mental Status: Reports: Alert, Normal Affect, Normal Mood <Cayetano Mina - Last Filed: 01/28/21 14:47> Discharge Summary - Referral to Home Health Primary Care Physician: Ke Barksdale MD - Discharge Diagnosis/Problem(s) (1) Acute respiratory failure SNOMED Code(s): 98647339 ICD Code: J96.00 - ACUTE RESPIRATORY FAILURE, UNSP W HYPOXIA OR HYPERCAPNIA Status: Acute Priority: High Current Visit: Yes Qualifiers: Respiratory failure complication: hypoxia Qualified Code(s): J96.01 - Acute respiratory failure with hypoxia (2) Pneumonia SNOMED Code(s): 026986687 ICD Code: J18.9 - PNEUMONIA, UNSPECIFIED ORGANISM Status: Resolved Priority: High Current Visit: Yes Qualifiers: Pneumonia type: due to unspecified organism Laterality: bilateral Lung lo cation: unspecified part of lung Qualified Code(s): J18.9 - Pneumonia, unspecified organism (3) COVID-19 judy rockwell SNOMED Code(s): 2232400425 ICD Code: B94.8 - SEQUELAE OF OTH INFECTIOUS AND PARASITIC DISEASES Status: Chronic Priority: High Current Visit: Yes - Patient Summary/Data Consults: Consultations 01/18/21 11:37 Consult to Case Management/Recovery Coordinator [CONS] Routine Consult to Spiritual Care [CONS] Routine 01/18/21 11:41 OT Evaluation and Treatment [CONS] Routine PT Evaluation and Treatment [CONS] Routine Respiratory Care Assess and Treatment [CONS] Routine Hospital Course: I have seen and examined the patient independently of Wilder Vera PA-C, and have reviewed the case with him. I have reviewed and agree with the plan and care as outlined by him. Please see orders. - Patient Data Vitals - Most Recent: Last Vital Signs Temp 36.7 C 01/28/21 07:41 Pulse 76 01/28/21 11:41 Resp 16 01/28/21 11:41 BP 109/68 01/28/21 11:41 Pulse Ox 91 L 01/28/21 11:41 I&O - Last 24 hours: Intake & Output 01/27/21 01/28/21 01/28/21 22:59 06:59 14:59 Intake Total 1360 480 Output Total 600 Balance 760 480 Lab Results - Last 24 hrs: Laboratory Results - last 24 hr 01/27/21 01/28/21 01/28/21 Range/Units 17:09 06:15 11:40 POC Glucose 216 H 114 H 205 H (70-99) mg/dL Med Orders - Current: Current Medications Acetaminophen (Acetaminophen 325 Mg Tab) 650 mg PO Q4H PRN PRN Reason: Pain (Mild 1-3)/fever Last Admin: 01/23/21 03:29 Dose: 650 mg Documented by: Albuterol (Albuterol 0.083% 2.5 Mg/3 Ml Neb Soln) 2.5 mg NEB Q2H PRN PRN Reason: Shortness Of Breath/wheezing Last Admin: 01/24/21 06:16 Dose: 2.5 mg Documented by: Albuterol/Ipratropium (Albuterol/Ipratropium 3.0-0.5 Mg/3 Ml Neb Soln) 3 ml NEB QIDRT [facility] Last Admin: 01/28/21 09:09 Dose: 3 ml Documented by: Apixaban (Apixaban 5 Mg Tab) 5 mg PO BID [facility] Last Admin: 01/28/21 08:12 Dose: 5 mg Documented by: Aspirin (Aspirin 81 Mg Tab.Chew) 81 mg PO DAILY [facility] Last Admin: 01/28/21 08:12 Dose: 81 mg Documented by: Atorvastatin Calcium (Atorvastatin 20 Mg Tab) 20 mg PO BEDTIME [facility] Last Admin: 01/27/21 20:49 Dose: 20 mg Documented by: Benzonatate (Benzonatate 100 Mg Cap) 100 mg PO TID PRN PRN Reason: Cough Dexamethasone (Dexamethasone 4 Mg Tab) 6 mg PO DAILY [facility] Last Admin: 01/28/21 08:12 Dose: 6 mg Documented by: Dextrose/Water (50% Dextrose In Water 50 Ml Syringe) 50 ml IVPUSH ASDIRECTED PRN PRN Reason: Hypoglycemia Docusate Sodium (Docusate Sodium 100 Mg Cap) 100 mg PO Q12H PRN PRN Reason: Constipation Fish Oil (Fish Oil/[place]-3 Fatty Acids 1 Gm Cap) 2 gm PO DAILY [facility] Last Admin: 01/28/21 08:12 Dose: 2 gm Documented by: Guaifenesin (Guaifenesin 600 Mg Tab.Er) 1,200 mg PO BID [facility] Last Admin: 01/28/21 08:12 Dose: 1,200 mg Documented by: Insulin Glargine (Insulin Glarg,Human.Rec.Analog 100 Unit/Ml) 100 unit SUBCUT DAILY [facility] Last Admin: 01/28/21 08:13 Dose: 100 units Documented by: Insulin Human Lispro (Insulin Lispro 100 Unit/Ml 10 Ml Vial) 0 unit SUBCUT QIDACANDBED [facility]; Protocol Last Admin: 01/28/21 12:00 Dose: 6 units Documented by: Magnesium Hydroxide (Magnesium Hydroxide 400 Mg/5 Ml Susp 30 Ml Cup) 30 ml PO Q12H PRN PRN Reason: Constipation Metoprolol Tartrate (Metoprolol Tartrate 25 Mg Tab) 12.5 mg PO BID [facility] Last Admin: 01/28/21 08:13 Dose: 12.5 mg Documented by: Metoprolol Tartrate (Metoprolol Tartrate 5 Mg/5 Ml Sdv) 5 mg IVPUSH Q4H PRN PRN Reason: Tachycardia Mometasone Furoate/Formoterol Fumar (Formoterol/Mometasone 100-5 Mcg 8.8 Gm Inhaler) 2 puff IH BID [facility] Last Admin: 01/28/21 09:09 Dose: 2 puff Documented by: Ondansetron HCl (Ondansetron 4 Mg/2 Ml Sdv) 4 mg IV Q6H PRN PRN Reason: Nausea/Vomiting Pantoprazole Sodium (Pantoprazole 40 Mg Tab.Cr) 40 mg PO DAILY [facility] Last Admin: 01/28/21 08:13 Dose: 40 mg Documented by: Discontinued Medications Albuterol/Ipratropium (Albuterol/Ipratropium 3.0-0.5 Mg/3 Ml Neb Soln) 3 ml NEB ONETIME ONE Stop: 01/18/21 09:01 Last Admin: 01/18/21 09:20 Dose: 3 ml Documented by: Furosemide (Furosemide 40 Mg/4 Ml Vial) 40 mg IVPUSH NOW ONE Stop: 01/19/21 18:05 Last Admin: 01/19/21 18:20 Dose: 40 mg Documented by: Furosemide (Furosemide 20 Mg/2 Ml Vial) 20 mg IVPUSH ONETIME ONE Stop: 01/20/21 10:41 Last Admin: 01/20/21 11:44 Dose: 20 mg Documented by: Sodium Chloride (Normal Saline) 1,000 mls @ 150 mls/hr IV ASDIRECTED [facility] Last Infusion: 01/18/21 14:15 Dose: Infused Documented by: Sodium Chloride (Normal Saline) 100 mls @ 75 mls/hr IV ASDIRECTED [facility] Last Admin: 01/18/21 10:02 Dose: 75 mls/hr Documented by: Ceftriaxone Sodium 2 gm/ (Sodium Chloride) 100 mls @ 200 mls/hr IV ONETIME ONE Stop: 01/18/21 10:31 Last Admin: 01/18/21 10:31 Dose: 200 mls/hr Documented by: Sodium Chloride (Normal Saline) 250 mls @ 999 mls/hr IV .BOLUS ONE Stop: 01/18/21 11:58 Last Admin: 01/18/21 13:01 Dose: Not Given Documented by: Sodium Chloride (Normal Saline) 1,000 mls @ 75 mls/hr IV ASDIRECTED [facility] Last Admin: 01/18/21 20:04 Dose: 75 mls/hr Documented by: Piperacillin Sod/Tazobactam (Sod 4.5 gm/ Sodium Chloride) 100 mls @ 25 mls/hr IV Q8H [facility] Last Admin: 01/19/21 05:02 Dose: 25 mls/hr Documented by: Piperacillin Sod/Tazobactam (Sod 4.5 gm/ Sodium Chloride) 100 mls @ 200 mls/hr IV ONETIME ONE Stop: 01/18/21 13:29 Last Admin: 01/18/21 13:27 Dose: 200 mls/hr Documented by: Vancomycin HCl 1.75 gm/ Sodium (Chloride) 500 mls @ 250 mls/hr IV ONETIME ONE Stop: 01/18/21 15:29 Last Admin: 01/18/21 14:11 Dose: 250 mls/hr Documented by: Vancomycin HCl 1 gm/Vancomycin HCl 500 mg/ Sodium Chloride 500 mls @ 250 mls/hr IV Q18H ONE Stop: 01/19/21 09:59 Last Admin: 01/19/21 09:03 Dose: 250 mls/hr Documented by: Levofloxacin/Dextrose 750 mg/ (Premix) 150 mls @ 100 mls/hr IV Q48H [facility] Last Admin: 01/19/21 12:02 Dose: 100 mls/hr Documented by: Levofloxacin/Dextrose 750 mg/ (Premix) 150 mls @ 100 mls/hr IV Q24H [facility] Last Admin: 01/20/21 11:44 Dose: 100 mls/hr Documented by: Magnesium Sulfate/Dextrose 1 (gm/ Premix) 100 mls @ 100 mls/hr IV Q1H [facility] Stop: 01/20/21 09:44 Last Admin: 01/20/21 10:18 Dose: 100 mls/hr Documented by: Levofloxacin/Dextrose 750 mg/ (Premix) 150 mls @ 100 mls/hr IV Q48H [facility] Stop: 01/26/21 15:00 Last Admin: 01/26/21 11:51 Dose: 100 mls/hr Documented by: Insulin Glargine (Insulin Glarg,Human.Rec.Analog 100 Unit/Ml) 85 unit SUBCUT DAILY [facility] Insulin Glargine (Insulin Glarg,Human.Rec.Analog 100 Unit/Ml) 50 unit SUBCUT ONETIME ONE Stop: 01/18/21 12:31 Last Admin: 01/18/21 12:57 Dose: 50 units Documented by: Insulin Glargine (Insulin Glarg,Human.Rec.Analog 100 Unit/Ml) 90 unit SUBCUT DAILY [facility] Last Admin: 01/24/21 08:44 Dose: 90 units Documented by: Insulin Glargine (Insulin Glarg,Human.Rec.Analog 100 Unit/Ml) 5 unit SUBCUT ONETIME ONE Stop: 01/18/21 21:42 Last Admin: 01/18/21 21:59 Dose: 5 units Documented by: Insulin Human Lispro (Insulin Lispro 100 Unit/Ml 10 Ml Vial) 5 unit SUBCUT ONET REKHA ONE Stop: 01/18/21 10:44 Last Admin: 01/18/21 10:59 Dose: 5 unit Documented by: Insulin Human Lispro (Insulin Lispro 100 Unit/Ml 10 Ml Vial) 0 unit SUBCUT QIDACANDBED [facility]; Protocol Last Admin: 01/18/21 17:17 Dose: 3 units Documented by: Insulin Human Lispro (Insulin Lispro 100 Unit/Ml 10 Ml Vial) 8 unit SUBCUT ONETIME ONE Stop: 01/24/21 15:01 Last Admin: 01/24/21 14:47 Dose: 8 units Documented by: Iopamidol (Iopamidol 755 Mg/Ml 100 Ml Bottle) 100 ml IVPUSH ONETIME ONE Stop: 01/18/21 09:43 Last Admin: 01/18/21 10:02 Dose: 100 ml Documented by: Methylprednisolone Sodium Succinate (Methylprednisolone Sodium Succinate 125 Mg/2 Ml Sdv) 125 mg IVPUSH ONETIME ONE Stop: 01/18/21 09:01 Last Admin: 01/18/21 09:08 Dose: 125 mg Documented by: Sodium Chloride (Sodium Chloride 0.9% 10 Ml Syringe) 10 ml FLUSH ONETIME PRN PRN Reason: IV FLUSH Last Admin: 01/18/21 10:02 Dose: 10 ml Documented by: Vancomycin HCl (Pharmacy To Dose - Vancomycin) 1 dose .XX ASDIRECTED PRN PRN Reason: RX TO DOSE VANCO
== END 2021-01-28 15:14 | disposition home health service (06) | DRG 193 ==
LOC: JD.ED 08:31 → JD.MS 11:28
PROVIDERS: ADMIT Internal Medicine; ATTEND Internal Medicine
DX: J18.9 Pneumonia, unspecified organism (principal); J96.01 Acute respiratory failure with hypoxia; E87.3 Alkalosis; N18.32 Chronic kidney disease, stage 3b; N28.9 Disorder of kidney and ureter, unspecified; H54.7 Unspecified visual loss; I48.91 Unspecified atrial fibrillation; E11.22 Type 2 diabetes mellitus with diabetic chronic kidney disease; E11.9 Type 2 diabetes mellitus without complications; I48.0 Paroxysmal atrial fibrillation; R77.8 Other specified abnormalities of plasma proteins; E11.65 Type 2 diabetes mellitus with hyperglycemia; R79.89 Other specified abnormal findings of blood chemistry; Y95 Nosocomial condition; B94.8 Sequelae of other specified infectious and parasitic diseases; Z79.82 Long term (current) use of aspirin; Z99.81 Dependence on supplemental oxygen; Z79.899 Other long term (current) drug therapy; Z79.4 Long term (current) use of insulin; Z79.01 Long term (current) use of anticoagulants; Z79.52 Long term (current) use of systemic steroids
CPT/HCPCS: 36415; 36600; 71045; 71275; 80053; 82803; 83605; 83880; 84145; 84484; 85025; 85379; 86140; 86738; 87040 ×2; 87899; 93005; 94640; 96365; 96375; 99285; J0696; J1815; J2930; J7030; Q9967; 71046; 71046-26; 71250; 71250-26; 80048; 82553; 82947; 83735; 87070; 87205; 87641; 93010; 93306; 94660; 94667; 94668; 94762; 97110-GP; 97112-GP; 97116-GP; 97162-GP; 97530-GP; 99222; 99233; 99239; 99284; A9270-GY; J1940; J1956; J2543; J3370; J3475; J7040; J7620-GY; J8540

== ENCOUNTER 2021-06-29 18:07 | Emergency (ER) | payer MEDICARE, OTHER ==
[2021-06-29] MEDS ORDERED: Sodium Chloride 0.9% 10 ML Syringe FLUSH PRN (18:49)
[2021-06-29] MEDS ORDERED: 50% Dextrose in Water 50 ML Syringe IVPUSH ONE (18:49)
[2021-06-29] MEDS ORDERED: 25% Dextrose in Water 10 ML Syringe ONE (18:50)
[2021-06-29] MEDS ORDERED: 50% Dextrose in Water 50 ML Syringe ONE (18:51)
[2021-06-29] MEDS ORDERED: LORazepam 2 MG/ML SDV IVPUSH ONE (18:53)
[2021-06-29] MEDS ORDERED: Glucagon,Human Recombinant 1 MG Vial IVPUSH ONE (18:53)
[2021-06-29] MEDS ORDERED: Lactated Ringers 1,000 ML IV SCH (19:00)
--- NOTE | 2021-06-29 19:09 | EDM.PDOC ---
ED HPI GENERAL MEDICAL PROBLEM - General Chief Complaint: Abdominal Pain Stated Complaint: FB STUCK IN THROAT Time Seen by Provider: 06/29/21 18:50 Source of Information: Reports: Patient History Limitations: Reports: No Limitations - History of Present Illness INITIAL COMMENTS - FREE TEXT/NARRATIVE: The patient presents with a food bolus stuck in his esophagus. He just took his insulin before taking a bite of his sandwich and then it got stuck. Nothing will pass not even fluids. He said this happened in the past. In 2014 he had his esophagus stretched and he has been good except for 2 weeks ago food got stuck. He was able to push it through and it went down. He has no chest pain. His blood sugar was in the 50s and now 62 and he feels hypoglycemic. My nurse came to get me. I ordered some D50 IV and glucagon and ativan for help relax his esophagus to hopefully let the food bolus pass. Onset: Sudden Duration: Minutes: Location: Reports: Abdomen Quality: Reports: Stabbing Severity: Mild Improves with: Reports: None Worsens with: Reports: None Associated Symptoms: Reports: No Other Symptoms - Related Data Allergies Allergy/AdvReac Type Severity Reaction Status Date / Time No Known Allergies Allergy Verified 09/15/15 13:23 Home Meds: Home Meds Insulin Aspart [NovoLOG] 3 unit SQ ASDIRECTED 12/19/20 [History] Pantoprazole Sodium [Protonix] 40 mg PO DAILY 12/19/20 [History] atorvaSTATin [Lipitor] 20 mg PO BEDTIME 12/19/20 [History] glipiZIDE [Glipizide ER] 5 mg PO DAILY 12/19/20 [History] Apixaban [Eliquis] 5 mg PO BID 01/18/21 [History] Aspirin 81 mg PO DAILY 01/18/21 [History] Budesonide/Formoterol Fumarate [Budesonide-Formoterol 80-4.5] 2 puff IH BID 01/18/21 [History] Fish Oil/[place]-3 Fatty Acids [Fish Oil 1,000 MG] 2 each PO DAILY 01/18/21 [History] Metoprolol Tartrate 12.5 mg PO BID 01/18/21 [History] Albuterol [Proventil Neb Soln] 2.5 mg NEB Q2H PRN #30 neb 01/28/21 [Rx] Albuterol/Ipratropium [DuoNeb 3.0-0.5 MG/3 ML] 3 ml NEB QID #40 neb 01/28/21 [Rx] Insulin Glargine,Hum.Rec.Anlog [[place] Solostar] 90 unit SQ DAILY #2 insuln.pen 01/28/21 [Rx] guaiFENesin [Mucinex] 1,200 mg PO BID #40 tab.er 01/28/21 [Rx] predniSONE 10 mg PO .TAPER #30 tab 01/28/21 [Rx] predniSONE [Prednisone] 5 mg PO DAILY #10 tablet 01/28/21 [Rx] Past Medical History - Past Health History Medical/Surgical History: Denies Medical/Surgical History HEENT History: Reports: Impaired Vision Cardiovascular History: Reports: Afib Respiratory History: Reports: Other (See Below) Other Respiratory History: COVID 12/2020 Gastrointestinal History: Reports: Other (See Below) Other Gastrointestinal History: hernia Genitourinary History: Reports: None Musculoskeletal History: Reports: None Neurological History: Reports: None Psychiatric History: Reports: None Endocrine/Metabolic History: Reports: Diabetes, Type II Hematologic History: Reports: None Other Hematologic History: borderline factor 5 deficiency Dermatologic History: Reports: None - Infectious Disease History Infectious Disease History: Reports: Other (See Below) Other Infectious Disease History: COVID - Past Surgical History Head Surgeries/Procedures: Reports: None HEENT Surgical History: Reports: None Cardiovascular Surgical History: Reports: None Respiratory Surgical History: Reports: None GI Surgical History: Reports: Hernia Repair/Other Male Surgical History: Reports: None Endocrine Surgical History: Reports: None Neurological Surgical History: Reports: None Musculoskeletal Surgical History: Reports: None Oncologic Surgical History: Reports: None Dermatological Surgical History: Reports: None Social & Family History - Family History Family Medical History: No Pertinent Family History Cardiac: Reports: ND Endocrine/Metabolic: Reports: Diabetes, type II - Caffeine Use Caffeine Use: Reports: Coffee, Tea ED ROS GENERAL - Review of Systems Review Of Systems: See Below Constitutional: Reports: No Symptoms HEENT: Reports: No Symptoms Respiratory: Reports: No Symptoms Cardiovascular: Reports: No Symptoms Endocrine: Reports: No Symptoms GI/Abdominal: Reports: Abdominal Pain, Other (food stuck in esophagus) : Reports: No Symptoms Musculoskeletal: Reports: No Symptoms Skin: Reports: No Symptoms Neurological: Reports: No Symptoms ED EXAM, GI/ABD - Physical Exam Exam: See Below Exam Limited By: No Limitations General Appearance: Alert, No Apparent Distress Ears: Normal External Exam Nose: Normal Inspection Head: Atraumatic, Normocephalic Neck: Normal Inspection Respiratory/Chest: No Respiratory Distress, Lungs Clear, Normal Breath Sounds Cardiovascular: Regular Rate, Rhythm, No Edema, No Murmur GI/Abdominal Exam: Soft, Non-Tender, No Organomegaly Back Exam: Normal Inspection Extremities: Normal Inspection Course - Vital Signs Last Recorded V/S: Last Vital Signs Temp 97.5 F 06/29/21 19:00 Pulse 95 06/29/21 19:00 Resp 20 06/29/21 19:00 BP 146/80 H 06/29/21 19:00 Pulse Ox 93 L 06/29/21 19:00 - Orders/Labs/Meds Orders: Active Orders 24 hr Category Date Time Status Peripheral IV Care [RC] . DIRECTED Care 06/29/21 18:49 Active CBC WITH AUTO DIFF [HEME] Stat Lab 06/29/21 18:45 Stop Req COMPREHENSIVE METABOLIC PN,CMP [CHEM] Stat Lab 06/29/21 18:45 Stop Req CORONAVIRUS COVID-19 LARA [MOLEC] Stat Lab 06/29/21 19:45 Received TROPONIN I [CHEM] Stat Lab 06/29/21 18:45 Stop Req Lactated Ringers [Ringers, Lactated] 1,000 ml Med 06/29/21 19:00 Active IV ASDIRECTED Sodium Chloride 0.9% [Saline Flush] Med 06/29/21 18:49 Active 10 ml FLUSH ASDIRECTED PRN Peripheral IV Insertion Adult [OM.PC] Routine Oth 06/29/21 18:49 Ordered Medication Orders Lactated Ringer's (Ringers, Lactated) 1,000 mls @ 100 mls/hr IV ASDIRECTED JAYDEN Last Admin: 06/29/21 19:14 Dose: 100 mls/hr Documented by: LALITO Sodium Chloride (Sodium Chloride 0.9% 10 Ml Syringe) 10 ml FLUSH ASDIRECTED PRN PRN Reason: Keep Vein Open Last Admin: 06/29/21 19:37 Dose: 10 ml Documented by: LALITO Labs: Laboratory Tests 06/29/21 06/29/21 Range/Units 18:43 19:11 POC Glucose 62 L 197 H (70-99) mg/dL Meds: Medications Generic Name Dose Route Start Last Admin Trade Name Freq PRN Reason Stop Dose Admin Lactated Ringer's 1,000 mls @ 100 mls/hr 06/29/21 19:00 06/29/21 19:14 Ringers, Lactated IV 100 mls/hr ASDIRECTED JAYDEN Administration Sodium Chloride 10 ml 06/29/21 18:49 06/29/21 19:37 Sodium Chloride 0.9% 10 Ml Syringe FLUSH 10 ml ASDIRECTED PRN Administration Keep Vein Open Discontinued Medications Generic Name Dose Route Start Last Admin Trade Name Freq PRN Reason Stop Dose Admin Dextrose/Water 50 ml 06/29/21 18:49 06/29/21 18:53 50% Dextrose In Water 50 Ml Syringe IVPUSH 06/29/21 18:50 50 ml ONETIME ONE Administration Dextrose/Water Confirm 06/29/21 18:50 06/29/21 19:13 25% Dextrose In Water 10 Ml Syringe Administered 06/29/21 18:51 Not Given Dose 10 ml .ROUTE .STK-MED ONE Dextrose/Water Confirm 06/29/21 18:51 06/29/21 19:14 50% Dextrose In Water 50 Ml Syringe Administered 06/29/21 18:52 Not Given Dose 50 ml .ROUTE .STK-MED ONE Glucagon 1 mg 06/29/21 18:53 06/29/21 19:16 Glucagon,Human Recombinant 1 Mg Vial IVPUSH 06/29/21 18:54 1 mg ONETIME ONE Administration Lorazepam 1 mg 06/29/21 18:53 06/29/21 19:16 Lorazepam 2 Mg/Ml Sdv IVPUSH 06/29/21 18:54 1 mg ONETIME ONE Administration - Re-Assessments/Exams Free Text/Narrative Re-Assessment/Exam: 06/29/21 19:10 I ordered an IV LR at 100mL/hr, D50 IV, glucagon 1mg IV, ativan 1mg IV. 06/29/21 19:57 I had him drink some water and it would not go down. I then called Dr Huerta and she asked me to call the [facility] to see if we could do the procedure here. As I was doing that my nurse said it went down. I called Dr Huerta back and canceled the procedure. I also cancelled the labs and EKG. I will have him do a liquid diet for 3 days and advance as tolerated. He is on an acid triple valve tester. I will have him follow up with Dr Huerta. Departure - Departure Time of Disposition: 20:00 Disposition: Home, Self-Care 01 Condition: Good Clinical Impression: Esophageal foreign body Qualifiers: Encounter type: initial encounter Qualified Code(s): T18.108A - Unspecified foreign body in esophagus causing other injury, initial encounter - Discharge Information *PRESCRIPTION DRUG MONITORING PROGRAM REVIEWED*: Not Applicable *COPY OF PRESCRIPTION DRUG MONITORING REPORT IN PATIENT JONELLE: Not Applicable Referrals: Ke Barksdale MD [Primary Care Provider] - Bradley-Bushra Almaraz MD [Physician] - 1 Week Forms: ED Department Discharge Additional Instructions: Keep taking your protonix. Do a liquid diet for 3 to 5 days and advance as tolerated. Follow up with Dr Collins or Dr Huerta. Both do scopes. Please return if you are worse. Sepsis Event Note (ED) - Focused Exam Vital Signs: Vital Signs Temp Pulse Resp BP Pulse Ox 06/29/21 19:00 97.5 F 95 20 146/80 H 93 L - My Orders Last 24 Hours: My Active Orders 06/29/21 18:45 CBC WITH AUTO DIFF [HEME] Stat COMPREHENSIVE METABOLIC PN,CMP [CHEM] Stat TROPONIN I [CHEM] Stat 06/29/21 18:49 Peripheral IV Care [RC] . DIRECTED Sodium Chloride 0.9% [Saline Flush] 10 ml FLUSH ASDIRECTED PRN Peripheral IV Insertion Adult [OM.PC] Routine 06/29/21 19:00 Lactated Ringers [Ringers, Lactated] 1,000 ml IV ASDIRECTED 06/29/21 19:45 CORONAVIRUS COVID-19 LARA [MOLEC] Stat - Assessment/Plan Last 24 Hours: My Active Orders 06/29/21 18:45 CBC WITH AUTO DIFF [HEME] Stat COMPREHENSIVE METABOLIC PN,CMP [CHEM] Stat TROPONIN I [CHEM] Stat 06/29/21 18:49 Peripheral IV Care [RC] . DIRECTED Sodium Chloride 0.9% [Saline Flush] 10 ml FLUSH ASDIRECTED PRN Peripheral IV Insertion Adult [OM.PC] Routine 06/29/21 19:00 Lactated Ringers [Ringers, Lactated] 1,000 ml IV ASDIRECTED 06/29/21 19:45 CORONAVIRUS COVID-19 LARA [MOLEC] Stat
[2021-06-29 21:01] VITALS: BP 143/77; PULSE 70
== END 2021-06-29 20:25 | disposition home or self-care (01) ==
LOC: JD.ED 18:07
DX: T18.128A Food in esophagus causing other injury, initial encounter (principal); I48.91 Unspecified atrial fibrillation; E11.9 Type 2 diabetes mellitus without complications; Z86.16 Personal history of COVID-19; Z79.01 Long term (current) use of anticoagulants; Z79.82 Long term (current) use of aspirin; Z79.4 Long term (current) use of insulin; Z79.899 Other long term (current) drug therapy
CPT/HCPCS: 82947; 96374; 96375; 99283; J1610; J2060; J7120; U0002

== ENCOUNTER 2022-05-21 10:45 | Emergency (ER) | payer MEDICARE, OTHER ==
[2022-05-21] MEDS ORDERED: Sodium Chloride 0.9% 10 ML Syringe FLUSH PRN (11:30)
[2022-05-21] MEDS ORDERED: Heparin Sodium/D5W 25,000 UNITS/500 ML BAG IV SCH (13:30)
[2022-05-21] MEDS ORDERED: Aspirin 81 MG Tab.Chew PO ONE (13:30)
[2022-05-21] MEDS ORDERED: Heparin Sodium 5,000 Units/ML Vial IVPUSH ONE (13:30)
[2022-05-21] MEDS: Labetalol 100 MG/20 ML MDV IVPUSH ONE ×2 (14:16→14:21)
[2022-05-21 14:20] VITALS: BP 199/97; PULSE 60
[2022-05-21] MEDS ORDERED: hydrALAZINE 20 MG/ML SDV IVPUSH ONE (14:21)
[2022-05-21] MEDS ORDERED: Nitroglycerin/D5W 25 MG/250 ML BOTTLE IV SCH (14:30)
== END 2022-05-21 15:50 ==
LOC: JD.ED 10:45
DX: I21.4 Non-ST elevation (NSTEMI) myocardial infarction (principal); I10 Essential (primary) hypertension; E11.9 Type 2 diabetes mellitus without complications; F17.210 Nicotine dependence, cigarettes, uncomplicated; Z79.4 Long term (current) use of insulin; Z79.899 Other long term (current) drug therapy; Z79.82 Long term (current) use of aspirin; Z79.01 Long term (current) use of anticoagulants; Z86.16 Personal history of COVID-19
CPT/HCPCS: 36415; 71045; 80053; 83735; 84484; 85025; 93005; 96365; 96375; 99285; A9270; J0360; J1644; J3490

== ENCOUNTER 2024-09-28 08:38 | Day surgery (SDC) | payer MEDICARE, OTHER ==
[~2024-09-28 08:38] MED LIST: Sodium Chloride 0.9% 10 ML Syringe FLUSH PRN; Sodium Chloride 0.9% 10 ML Syringe FLUSH SCH
[2024-09-28] MEDS: Lactated Ringers 1,000 ML IV SCH (09:15)
[2024-09-28] MEDS ORDERED: Propofol 200 MG/20 ML SDV ONE (09:20)
[2024-09-28] MEDS ORDERED: Lidocaine 1% 4 ML ONE (09:21)
[2024-09-28] MEDS ORDERED: Glycopyrrolate 0.2 MG/ML 2 ML SDV ONE (10:49)
[2024-09-28 12:41] VITALS: BP 116/69; PULSE 66
== END 2024-09-28 12:08 | disposition home or self-care (01) ==
LOC: JD.SDS 08:38
PROVIDERS: ATTEND Surgery
DX: Z12.11 Encounter for screening for malignant neoplasm of colon (principal); D12.2 Benign neoplasm of ascending colon; D12.3 Benign neoplasm of transverse colon; K22.2 Esophageal obstruction; K29.50 Unspecified chronic gastritis without bleeding; Z86.0100 Personal history of colon polyps, unspecified; K44.9 Diaphragmatic hernia without obstruction or gangrene; K57.30 Diverticulosis of large intestine without perforation or abscess without bleeding; I12.9 Hypertensive chronic kidney disease with stage 1 through stage 4 chronic kidney disease, or unspecified chronic kidney disease; E11.22 Type 2 diabetes mellitus with diabetic chronic kidney disease; N18.32 Chronic kidney disease, stage 3b; J44.9 Chronic obstructive pulmonary disease, unspecified; E78.2 Mixed hyperlipidemia; K21.9 Gastro-esophageal reflux disease without esophagitis; I48.91 Unspecified atrial fibrillation; Z87.891 Personal history of nicotine dependence; Z79.4 Long term (current) use of insulin; Z79.01 Long term (current) use of anticoagulants; Z79.899 Other long term (current) drug therapy
CPT/HCPCS: 43239; 43249; 45380; 93005; J2003; J2704; J3490; J7120; 00731; 93010; 99100